=== PATIENT | female | born 1960 | race Caucasian/White ===

== ENCOUNTER → 2020-07-03 12:12 | Outpatient (BNVA) | payer OTHER, SELFPAY | PROVIDERS: PCP Nurse Practitioner Family; Referring Provider Nurse Practitioner Family; Visit Provider Physician Assistant | DX: E66.01 Morbid (severe) obesity due to excess calories (principal); Z68.42 Body mass index [BMI] 45.0-49.9, adult | CPT/HCPCS: 99202 ==

== ENCOUNTER 2020-07-05 13:39 | Outpatient (REF) | payer OTHER, SELFPAY ==
--- NOTE | ~2020-07-05 | XR_ITS ---
EXAMINATION: XR CHEST CLINICAL INFORMATION: Obesity COMPARISON: None TECHNIQUE: 2 views of the chest were obtained. FINDINGS: The cardiac and mediastinal contours are normal. The lungs are clear. There is no pleural effusion or pneumothorax. There are degenerative changes of the spine. XR/XR chest 2V IMPRESSION: No evidence for acute disease in the chest.
--- NOTE | 2020-07-05 13:47 | ECG_ITS ---
Test Reason : E66.01 Blood Pressure : / mmHG Vent. Rate : 059 BPM Atrial Rate : 059 BPM P-R Int : 140 ms QRS Dur : 078 ms QT Int : 406 ms P-R-T Axes : 035 -07 008 degrees QTc Int : 401 ms Sinus bradycardia Inferior infarct , age undetermined Abnormal ECG When compared with ECG of 16-JUN-2005 20:54, Nonspecific T wave abnormality no longer evident in Anterior leads Referred By: Amy Landaverde Electronically Signed By:DAVION PETERSEN MD
[2020-07-05 14:38] LABS: MANUAL DIFF FLAG NO
[2020-07-05 14:40] LABS: Basophils Percent Auto 0.5 % (0-2); Eosinophils Absolute Auto 0.2 X10*3/uL (0.0-0.4); Eosinophils Percent Auto 2.6 % (0-4); Hematocrit 39.1 % (37-47); Hemoglobin 13.2 g/dl (12.0-16.0); Imm Gran Abs Auto 0.01 X10*3/uL (0.00-0.03); Imm Gran Pct Auto 0.2 % (0.0-0.4); Lymphocytes Absolute Auto 1.8 X10*3/uL (1.2-4.9); Mean Corpuscular HGB Conc 33.8 g/dl (31.0-35.0); Mean Corpuscular Hemoglobin 30.1 pg (27.0-33.0); Mean Corpuscular Volume 89.1 fL (80-98); Mean Platelet Volume 9.9 fL (9.4-12.3); Monocytes Absolute Auto 0.5 X10*3/uL (0.1-1.2); Monocytes Percent Auto 8.5 % (2-11); Neutrophils Absolute Auto 3.3 X10*3/uL (2.0-8.3); Neutrophils Percent Auto 57.2 % (45-73); Platelet Count 240 X10*3/uL (160-400); Red Blood Count 4.39 X10*6/uL (4.20-5.50); Red Cell Distribution Width 12.5 % (11.0-16.0); White Blood Count 5.8 X10*3/uL (4.8-10.8)
[2020-07-05 15:03] LABS: Anion Gap 10 (12-20); Blood Urea Nitrogen 17 mg/dL (9-16); Carbon Dioxide 27 mmol/L (22-29); Chloride 108 mmol/L (96-108); Estimated Glomerular Filt Rate > 60; Potassium 4.3 mmol/L (3.3-5.1); Sodium 141 mmol/L (135-145)
[2020-07-05 15:04] LABS: Alanine Aminotransferase 29 U/L (0-31); Alkaline Phosphatase 71 U/L (39-117); Aspartate Amino Transferase 19 U/L (5-31); Bilirubin Total 0.8 mg/dL (0.0-1.0); Calcium 9.4 mg/dL (8.4-10.2); Cholesterol 227 mg/dL; Glucose Fasting 85 mg/dL (60-99); HDL Cholesterol 46 mg/dL; Iron 129 mcg/dL (30-160); LDL Cholesterol Calculated 152 mg/dl; Percent Iron Saturation 42 % (15-50); Total Iron Binding Capacity 306 mcg/dL (228-428); Total Protein 6.2 g/dL (6.5-8.0); Triglycerides 146 mg/dL; Unsaturated Iron Binding 177 ug/dL
[2020-07-05 15:09] LABS: Estimated Average Glucose 100 mg/dL; Hemoglobin A1c % 5.1 %
[2020-07-05 15:24] LABS: Ferritin 44 ng/mL (10-250); TSH reflex Free T4 0.68 uIU/mL (0.32-4.0); Vitamin D 25-OH Total 25.7 ng/mL (>30)
[2020-07-05 15:41] LABS: Vitamin B12 388 pg/mL (200-900)
[2020-07-06 09:07] LABS: Insulin Level Total 11.6 uIU/mL
[2020-07-06 12:21] LABS: Calcium (PTHI) 9.4 mg/dL (8.6-10.4); PTHI 73 pg/mL (14-64)
[2020-07-08 05:57] LABS: Zinc 82 mcg/dL (60-130)
[2020-07-09 12:22] LABS: Vitamin B1 10 nmol/L (8-30)
[2020-07-11 13:21] LABS: Vitamin A 51 mcg/dL (38-98)
== END 2020-07-05 13:40 | disposition home or self-care (01) ==
LOC: HO.LAB 13:39
PROVIDERS: PCP Nurse Practitioner Family; Visit Provider Physician Assistant
DX: R06.02 Shortness of breath (principal); E66.01 Morbid (severe) obesity due to excess calories; Z68.42 Body mass index [BMI] 45.0-49.9, adult
CPT/HCPCS: 36415; 71046; 80053; 80061; 82306; 82607; 82728; 82746; 83036; 83525; 83540; 83970; 84425; 84443; 84590; 84630; 85025; 86140; 93005

== ENCOUNTER → 2020-07-19 14:14 | Outpatient (BNVA) | payer OTHER, SELFPAY | PROVIDERS: PCP Nurse Practitioner Family; Visit Provider Dietitian, Registered | DX: E66.9 Obesity, unspecified (principal); Z68.42 Body mass index [BMI] 45.0-49.9, adult | CPT/HCPCS: 97802 ==

== ENCOUNTER → 2020-08-07 14:23 | Outpatient (BNVA) | payer OTHER, SELFPAY | PROVIDERS: PCP Nurse Practitioner Family; Referring Provider Nurse Practitioner Family; Visit Provider Surgery | DX: E66.01 Morbid (severe) obesity due to excess calories (principal); Z68.42 Body mass index [BMI] 45.0-49.9, adult | CPT/HCPCS: 99212 ==

== ENCOUNTER → 2020-08-14 14:40 | Outpatient (BNVA) | payer OTHER, SELFPAY | PROVIDERS: PCP Nurse Practitioner Family; Referring Provider Nurse Practitioner Family; Visit Provider Internal Medicine | DX: Z01.810 Encounter for preprocedural cardiovascular examination (principal); E66.01 Morbid (severe) obesity due to excess calories | CPT/HCPCS: 99202 ==

== ENCOUNTER 2020-08-31 14:17 | Outpatient (REF) | payer OTHER, SELFPAY ==
[2020-09-01 13:42] LABS: H Pylori Breath Test NOT DETECTED (NOT DETECTED)
== END 2020-08-31 14:18 | disposition home or self-care (01) ==
LOC: HO.LNP 14:17
PROVIDERS: Physician Assistant; PCP Nurse Practitioner Family; Referring Provider Nurse Practitioner Family; Visit Provider Surgery
DX: E66.01 Morbid (severe) obesity due to excess calories (principal); R06.02 Shortness of breath; K21.9 Gastro-esophageal reflux disease without esophagitis; E03.9 Hypothyroidism, unspecified; F41.8 Other specified anxiety disorders; Z11.0 Encounter for screening for intestinal infectious diseases; Z68.42 Body mass index [BMI] 45.0-49.9, adult; Z88.8 Allergy status to other drugs, medicaments and biological substances; Z79.899 Other long term (current) drug therapy
CPT/HCPCS: 83013; 99211; 99212

== ENCOUNTER → 2020-09-20 12:50 | Outpatient (BNVA) | payer OTHER, SELFPAY | PROVIDERS: PCP Nurse Practitioner Family; Visit Provider Dietitian, Registered ==

== ENCOUNTER → 2020-09-22 14:56 | Outpatient (BNVA) | payer OTHER, SELFPAY | PROVIDERS: PCP Nurse Practitioner Family; Referring Provider Nurse Practitioner Family; Visit Provider Surgery | DX: E66.01 Morbid (severe) obesity due to excess calories (principal); Z68.42 Body mass index [BMI] 45.0-49.9, adult | CPT/HCPCS: 99212 ==

== ENCOUNTER → 2020-09-27 13:07 | Outpatient (BNVA) | payer OTHER, SELFPAY | PROVIDERS: PCP Nurse Practitioner Family; Visit Provider Dietitian, Registered ==

== ENCOUNTER → 2020-10-04 12:49 | Outpatient (BNVA) | payer OTHER, SELFPAY | PROVIDERS: PCP Nurse Practitioner Family; Referring Provider Nurse Practitioner Family; Visit Provider Dietitian, Registered ==

== ENCOUNTER → 2021-04-04 08:19 | Outpatient (BNVA) | payer OTHER, SELFPAY | PROVIDERS: PCP Nurse Practitioner Family; Referring Provider Nurse Practitioner Family; Visit Provider Physician Assistant Surgical | DX: E66.01 Morbid (severe) obesity due to excess calories (principal); Z68.42 Body mass index [BMI] 45.0-49.9, adult | CPT/HCPCS: 99212 ==

== ENCOUNTER → 2021-06-20 10:20 | Outpatient (BNVA) | payer OTHER, SELFPAY | PROVIDERS: PCP Nurse Practitioner Family; Visit Provider Physician Assistant Surgical | DX: Z13.89 Encounter for screening for other disorder (principal) ==

== ENCOUNTER → 2021-09-12 09:22 | Outpatient (BNVA) | payer OTHER, SELFPAY | PROVIDERS: PCP Nurse Practitioner Family; Referring Provider Physician Assistant Surgical; Visit Provider Dietitian, Registered | DX: E66.01 Morbid (severe) obesity due to excess calories (principal); Z68.42 Body mass index [BMI] 45.0-49.9, adult | CPT/HCPCS: 97803 ==

== ENCOUNTER → 2021-10-26 12:15 | Outpatient (BNVA) | payer OTHER, SELFPAY | PROVIDERS: PCP Nurse Practitioner Family; Referring Provider Physician Assistant Surgical; Visit Provider Dietitian, Registered | DX: E66.01 Morbid (severe) obesity due to excess calories (principal); Z68.42 Body mass index [BMI] 45.0-49.9, adult; Z71.3 Dietary counseling and surveillance | CPT/HCPCS: 97803 ==

== ENCOUNTER → 2021-11-09 14:12 | Outpatient (BNVA) | payer OTHER, SELFPAY | PROVIDERS: PCP Nurse Practitioner Family; Visit Provider Dietitian, Registered | DX: E66.01 Morbid (severe) obesity due to excess calories (principal); Z68.42 Body mass index [BMI] 45.0-49.9, adult | CPT/HCPCS: 97803 ==

== ENCOUNTER → 2021-12-21 10:13 | Outpatient (BNVA) | payer OTHER, SELFPAY | PROVIDERS: PCP Nurse Practitioner Family; Visit Provider Dietitian, Registered | DX: E66.01 Morbid (severe) obesity due to excess calories (principal); Z71.3 Dietary counseling and surveillance | CPT/HCPCS: 97803 ==

== ENCOUNTER 2022-08-15 17:48 | Emergency (ER) | payer OTHER, SELFPAY ==
--- NOTE | ~2022-08-15 | CT_ITS ---
EXAMINATION: CT HEAD WITHOUT CONTRAST CLINICAL INFORMATION: Headache. COMPARISON: None. TECHNIQUE: Contiguous axial imaging was performed from the skull base to vertex without intravenous administration of contrast. Coronal and sagittal reformatted images are performed at the CT scanner. [This CT examination was performed using dose optimization techniques as appropriate, variously including the following: *Automated exposure control *Adjustment of mA and/or kV according to patient size (this includes techniques or standardized protocols for targeted exams where dose is matched to indication/reason for exam; i.e. extremities or head) *Use of iterative reconstruction technique] DLP: 595 mGy-cm. FINDINGS: There is no evidence of acute intracranial hemorrhage or territorial infarction. No abnormal mass-effect or midline shift is seen. Grace to white matter differentiation is well preserved. No extra-axial fluid collections are identified. The ventricles are normal in size. There is no abnormal attenuation within the brain parenchyma. There is no osseous abnormality. The mastoid air cells and visualized portions of the paranasal sinuses are well-aerated. CT/CT head/brain wo IV con IMPRESSION: No acute intracranial pathology.
[2022-08-15 18:18] VITALS: BP 179/112; PULSE 63; RESP 18; TEMP 36.6; O2SAT 99; BMI 46.9
--- NOTE | 2022-08-15 18:18 | ECG_ITS ---
Test Reason : HTN Blood Pressure : / mmHG Vent. Rate : 068 BPM Atrial Rate : 068 BPM P-R Int : 150 ms QRS Dur : 086 ms QT Int : 400 ms P-R-T Axes : 029 -19 012 degrees QTc Int : 425 ms Normal sinus rhythm Low voltage QRS Borderline ECG When compared with ECG of 05-JUL-2020 14:00, Criteria for Inferior infarct are no longer Present Referred By: Neelima Coronel Electronically Signed By:Paul Smith
--- NOTE | 2022-08-15 18:18 | ED.GENADULT ---
HPI - General Adult General Chief complaint: General Medical Stated complaint: elevated blood pressure 233/181 Time Seen by Provider: 08/15/22 20:41 Source: patient Mode of arrival: ambulatory Limitations: no limitations History of Present Illness HPI narrative: Patient with history of hypertension last 2 year taking lisinopril 20 mg daily does not check her blood pressure at home had a dental appointment 3 days ago blood pressure was elevated that time went to her PCP advised to continue same medication patient continued to having headache going on for last 4 days which is more than usual headache associated with nausea no light sensitivity. Blood pressure checked at home was 233/181 when she arrived blood pressure was 190/115 increased to 201/115 Related Data Home Medications Medication Instructions Recorded Confirmed biotin 5 mg capsule 5 mg PO DAILY 07/03/20 04/04/21 naltrexone 50 mg tablet 50 mg PO DAILY 07/03/20 04/04/21 omeprazole 40 mg capsule,delayed 40 mg PO DAILY 07/03/20 04/04/21 release vitamin E acetate 134 mg (200 unit PO 07/03/20 04/04/21 unit) capsule alprazolam 0.5 mg tablet 0.5 mg PO DAILY PRN 08/07/20 04/04/21 ascorbate calcium (vitamin C) 500 1 g PO DAILY 08/07/20 04/04/21 mg tablet cholecalciferol (vitamin D3) 25 25 mcg PO DAILY 08/07/20 04/04/21 mcg (1,000 unit) capsule cyanocobalamin (vitamin B-12) 1,000 mcg PO DAILY 08/07/20 04/04/21 1,000 mcg capsule fremanezumab-vfrm 225 mg/1.5 mL 675 mg subcut [id number] 08/07/20 04/04/21 subcutaneous auto-injector (Ajovy) levothyroxine 100 mcg tablet 100 mcg PO DAILY 08/07/20 04/04/21 lidocaine 5 % topical cream 1 appl topical BID PRN 08/07/20 04/04/21 multivitamin with minerals 1 tab PO DAILY 08/07/20 04/04/21 (Hair,Skin and Nails tablet) turmeric root extract 500 mg 500 mg PO DAILY 08/07/20 04/04/21 capsule brimonidine 0.2 % eye drops 1 drp ophthalmic (eye) 08/14/20 04/04/21 qixtktjpnm-fzquepuqlvlpj-ispooqwm 1 tab PO BID PRN 08/14/20 04/04/21 50 mg-325 mg-40 mg tablet ketorolac 0.5 % eye drops 1 drp ophthalmic (eye) 08/14/20 04/04/21 timolol maleate 0.5 % eye drops 1 drp ophthalmic-Right BID 08/14/20 04/04/21 aripiprazole 2 mg tablet 2 mg PO DAILY 08/31/20 04/04/21 gabapentin 100 mg capsule 100 mg PO TID 04/04/21 04/04/21 Previous Rx's Medication Instructions Recorded amlodipine 5 mg tablet 5 mg PO DAILY #30 tabs 08/15/22 Allergies Allergy/AdvReac Type Severity Reaction Status Date / Time sumatriptan [From Imitrex] Allergy Severe Anaphylaxis Verified 08/15/22 18:21 tramadol Allergy Severe Anaphylaxis Verified 08/15/22 18:21 Review of Systems Review of Systems: Yes all other systems are reviewed and are negative [facility] Past Medical History Medical History Abnormal EKG Anxiety BMI 45.0-49.9, adult Bursitis Depression Fibromyalgia GERD (gastroesophageal reflux disease) Glaucoma Hypothyroidism Migraines Morbid obesity Osteoarthritis Panic attacks Rheumatoid arthritis Shortness of breath Surgical History History of endometrial ablation Hx of cataract surgery Hx of eye surgery Hx of knee surgery Hx of wisdom tooth extraction Family History Family History Mother No problems noted. Father No problems noted. Sister No problems noted. Brother Cancer Daughter No problems noted. Social History Social History Alcohol intake: current Alcohol intake frequency: holidays/special occasions only Patient Tobacco Use Status: Never used Tobacco Advance Directives: No Advance Directives Information Provided: Yes Physical Exam ED Vital Signs: Vital Signs - 24 hr 08/15/22 18:18 08/15/22 20:43 08/15/22 21:17 Temperature 97.9 F 97.8 F Pulse Rate 63 70 Respiratory Rate 18 18 Blood Pressure 179/112 H 190/115 H 202/106 H Pulse Oximetry 99 98 Oxygen Delivery Method Room Air Room Air 08/15/22 21:58 Temperature Pulse Rate Respiratory Rate Blood Pressure 156/102 H Pulse Oximetry Oxygen Delivery Method BMI result Body Mass Index 46.9 Appearance: Alert. Oriented X3. No acute distress. Eyes: PERRLA, No Nystagmus ENT: Pharynx normal. Oral Mucosa moist no temporal artery tenderness Neck: Normal inspection. Neck supple. CVS: Normal heart rate and rhythm. Pulses normal. Respiratory: No respiratory distress. Equal air entry bilateral, no wheezing/rales/rhonchi Abdomen: Soft and nontender. Bowel sounds are present, no mass palpable, no CVA tenderness Skin: Skin warm and dry. Normal skin color. Normal skin turgor. Extremities: No lower extremity edema. No calf tenderness Neuro: Oriented X 3. No motor deficit. No sensory deficit.No cerebellar signs , cranial nerves II-XII intact Course Course Course Narrative: This is an RME: Additional HPI, ROS, PE not included below will be deferred to primary provider.62 year old female presents w/ diffuse headache, high blood pressure 233/181 patient on lisinapril and taking it per normal. No vision changes or dizziness. Recent life stressors including broken tooth and in family. NIHSS-0 Plan- labs, ekg Medications Administered Discontinued Medications Generic Name Dose Route Start Last Admin Trade Name Borisq PRN Reason Stop Dose Admin Labetalol HCl 20 mg 08/15/22 20:52 08/15/22 21:10 Labetalol Hcl 100 Mg/20 Ml Vial IVPUSH 08/15/22 20:53 20 mg ONCE ONE Administration Medical Decision Making Medical Decision Making [facility] Narrative: Patient with anxiety , migraine with hypertension on lisinopril/hydrochlorothiazide elevated blood pressure improved after IV labetalol is still blood pressure 151/102 patient feeling much better now will start patient on amlodipine [address] scan of the head was negative for any acute patient has a follow-up planned to see neurologist for migraine headache Differential Diagnosis Differential Diagnoses: The differential diagnosis associated with the presentation includes Accelerated hypertension/SAH/migraine headaches/anxiety Lab Data [facility] Lab Attestation statement: I reviewed the patient's lab results. 08/15/22 18:30 08/15/22 18:30 Labs: Lab Results 08/15/22 08/15/22 08/15/22 Range/Units 18:30 18:30 18:30 WBC 7.4 (4.8-10.8) X10*3/uL RBC 4.70 (4.20-5.50) X10*6/uL Hgb 14.3 (12.0-16.0) g/dl Hct 41.5 (37.0-47.0) % MCV 88.3 (80.0-98.0) fL MCH 30.4 (27.0-33.0) pg MCHC 34.5 (31.0-35.0) g/dl RDW 12.9 (11.0-16.0) % Plt Count 264 (160-400) X10*3/uL MPV 9.5 (9.4-12.3) fL Immature Gran % (Auto) 0.3 (0.0-0.4) % Neut % (Auto) 56.1 (45-73) % Lymph % (Auto) 31.1 (20-40) % Republic % (Auto) 8.9 (2-11) % Eos % (Auto) 3.1 (0-4) % Baso % (Auto) 0.5 (0-2) % Lymph # (Auto) 2.3 (1.2-4.9) X10*3/uL Republic # (Auto) 0.7 (0.1-1.2) X10*3/uL Eos # (Auto) 0.2 (0.0-0.4) X10*3/uL Baso # (Auto) 0.0 (0.0-0.2) X10*3/uL Abs Immat Gran (auto) 0.02 (0.00-0.03) X10*3/uL Absolute Neuts (auto) 4.2 (2.0-8.3) x10*3/uL Absolute Nucleated RBC 0.000 (0.0-0.012) X10*3/uL Nucleated RBC % (auto) 0.0 (0.0-0.2) /100WBC PT (10.0-13.1) SEC INR (0.9-1.1) Sodium 143 (135-145) mmol/L Potassium 4.0 (3.3-5.1) mmol/L Chloride 104 (96-108) mmol/L Carbon Dioxide 28 (22-29) mmol/L Anion Gap 15 (12-20) BUN 20 H (9-16) mg/dL Creatinine 0.86 (0.5-1.4) mg/dL Estim Creat Clear Calc 75.8 Estimated GFR > 60 Random Glucose 104 (60-115) mg/dL Calcium 10.5 H D (8.4-10.2) mg/dL Magnesium 1.9 (1.6-2.6) mg/dL Total Bilirubin 0.6 (0.0-1.0) mg/dL AST 17 (5-31) U/L ALT 23 (0-31) U/L Alkaline Phosphatase 66 (39-117) U/L Troponin I High Sens < 2.7 (<3.5-17.0) ng/L Total Protein 6.9 (6.5-8.0) g/dL Albumin 4.2 (3.5-5.0) g/dL 08/15/22 Range/Units 21:06 WBC (4.8-10.8) X10*3/uL RBC (4.20-5.50) X10*6/uL Hgb (12.0-16.0) g/dl Hct (37.0-47.0) % MCV (80.0-98.0) fL MCH (27.0-33.0) pg MCHC (31.0-35.0) g/dl RDW (11.0-16.0) % Plt Count (160-400) X10*3/uL MPV (9.4-12.3) fL Immature Gran % (Auto) (0.0-0.4) % Neut % (Auto) (45-73) % Lymph % (Auto) (20-40) % Republic % (Auto) (2-11) % Eos % (Auto) (0-4) % Baso % (Auto) (0-2) % Lymph # (Auto) (1.2-4.9) X10*3/uL Republic # (Auto) (0.1-1.2) X10*3/uL Eos # (Auto) (0.0-0.4) X10*3/uL Baso # (Auto) (0.0-0.2) X10*3/uL Abs Immat Gran (auto) (0.00-0.03) X10*3/uL Absolute Neuts (auto) (2.0-8.3) x10*3/uL Absolute Nucleated RBC (0.0-0.012) X10*3/uL Nucleated RBC % (auto) (0.0-0.2) /100WBC PT 11.0 (10.0-13.1) SEC INR 1.0 (0.9-1.1) Sodium (135-145) mmol/L Potassium (3.3-5.1) mmol/L Chloride (96-108) mmol/L Carbon Dioxide (22-29) mmol/L Anion Gap (12-20) BUN (9-16) mg/dL Creatinine (0.5-1.4) mg/dL Estim Creat Clear Calc Estimated GFR Random Glucose (60-115) mg/dL Calcium (8.4-10.2) mg/dL Magnesium (1.6-2.6) mg/dL Total Bilirubin (0.0-1.0) mg/dL AST (5-31) U/L ALT (0-31) U/L Alkaline Phosphatase (39-117) U/L Troponin I High Sens (<3.5-17.0) ng/L Total Protein (6.5-8.0) g/dL Albumin (3.5-5.0) g/dL Independent Interpretation I performed an independent interpretation of an: EKG Interpretation: Normal sinus rhythm heart rate 68 beats per minute normal interval normal axis no acute ST wave changes no acute ischemia Critical Care Time Critical Care Time Critical Care Time: Yes Total Critical Care Time: 35 Attestation: The patient was critically ill with a high probability of imminent or life threatening deterioration. I spent greater than 45 minutes of discontinuous time evaluating the patient,delivering critical care at the bedside, discussing and evaluating pertinent data with consultants. Critical care time does not include time spent performing separately billable procedures or teaching. Total time spent performing critical care was 35 minutes. Discharge Plan Discharge Clinical Impression: Hypertension, uncontrolled Patient Disposition: Home, Self-Care Instructions: Chronic Hypertension (ED) Additional Instructions: Continue your lisinopril/hydrochlorothiazide daily Check blood pressure before take the medication and before you go to bed it should be less than 135/85 Start taking amlodipine 5 mg daily in the morning for blood pressure control Check blood pressure at least 2 times if it is elevated Follow with a neurologist/PCP Prescriptions: New amlodipine 5 mg tablet 5 mg PO DAILY Qty: 30 0RF No Action vitamin E acetate 200 unit capsule PO biotin 5 mg capsule 5 mg PO DAILY omeprazole 40 mg capsule,delayed release(DR/EC) 40 mg PO DAILY naltrexone 50 mg tablet 50 mg PO DAILY Ajovy Autoinjector 225 mg/1.5 mL auto-injector 675 mg subcut [id number] Patient Comments: taken monthly Rx Instructions: administer as 3 consecutive 225 mg injections alprazolam 0.5 mg tablet 0.5 mg PO DAILY PRN aripiprazole 2 mg tablet 2 mg PO DAILY levothyroxine 100 mcg tablet 100 mcg PO DAILY cholecalciferol (vitamin D3) 25 mcg (1,000 unit) capsule 25 mcg PO DAILY turmeric root extract 500 mg capsule 500 mg PO DAILY ascorbate calcium (vitamin C) 500 mg tablet 1 g PO DAILY multivitamin with minerals [Hair,Skin and Nails] Tablet 1 tab PO DAILY lidocaine 5 % cream 1 appl topical BID PRN cyanocobalamin (vitamin B-12) 1,000 mcg capsule 1,000 mcg PO DAILY timolol maleate 0.5 % drops 1 drp ophthalmic-Right BID brimonidine 0.2 % drops 1 drp ophthalmic (eye) ketorolac 0.5 % drops 1 drp ophthalmic (eye) vjjorpkjfo-zzslagtcqiaju-mmas 50-325-40 mg tablet 1 tab PO BID PRN gabapentin 100 mg capsule 100 mg PO TID
[2022-08-15 18:33] LABS: MANUAL DIFF FLAG NO
[2022-08-15 18:49] LABS: Basophils Percent Auto 0.5 % (0-2); Eosinophils Absolute Auto 0.2 X10*3/uL (0.0-0.4); Eosinophils Percent Auto 3.1 % (0-4); Hematocrit 41.5 % (37.0-47.0); Hemoglobin 14.3 g/dl (12.0-16.0); Imm Gran Abs Auto 0.02 X10*3/uL (0.00-0.03); Imm Gran Pct Auto 0.3 % (0.0-0.4); Lymphocytes Absolute Auto 2.3 X10*3/uL (1.2-4.9); Lymphocytes Percent Auto 31.1 % (20-40); Mean Corpuscular HGB Conc 34.5 g/dl (31.0-35.0); Mean Corpuscular Hemoglobin 30.4 pg (27.0-33.0); Mean Corpuscular Volume 88.3 fL (80.0-98.0); Mean Platelet Volume 9.5 fL (9.4-12.3); Monocytes Absolute Auto 0.7 X10*3/uL (0.1-1.2); Monocytes Percent Auto 8.9 % (2-11); Neutrophils Absolute Auto 4.2 x10*3/uL (2.0-8.3); Neutrophils Percent Auto 56.1 % (45-73); Platelet Count 264 X10*3/uL (160-400); Red Cell Distribution Width 12.9 % (11.0-16.0); White Blood Count 7.4 X10*3/uL (4.8-10.8)
[2022-08-15 18:50] LABS: Alanine Aminotransferase 23 U/L (0-31); Albumin Level 4.2 g/dL (3.5-5.0); Alkaline Phosphatase 66 U/L (39-117); Anion Gap 15 (12-20); Aspartate Amino Transferase 17 U/L (5-31); Bilirubin Total 0.6 mg/dL (0.0-1.0); Blood Urea Nitrogen 20 mg/dL (9-16); Calcium 10.5 mg/dL (8.4-10.2); Carbon Dioxide 28 mmol/L (22-29); Chloride 104 mmol/L (96-108); Creatinine Clr Calc Pharmacy 75.8; Estimated Glomerular Filt Rate > 60; Glucose Random 104 mg/dL (60-115); Magnesium 1.9 mg/dL (1.6-2.6); Sodium 143 mmol/L (135-145); Total Protein 6.9 g/dL (6.5-8.0)
[2022-08-15 19:03] LABS: Troponin-I High Sensitivity < 2.7 ng/L (<3.5-17.0)
[2022-08-15 20:43] VITALS: BP 190/115; PULSE 70; RESP 18; TEMP 36.6; O2SAT 98
[2022-08-15] MEDS: Labetalol HCL 100 MG/20 ML VIAL 20 MG IVPUSH (21:10)
[2022-08-15 21:17] VITALS: BP 202/106
[2022-08-15 21:58] VITALS: BP 156/102
[2022-08-15] MEDS: amLODIPine Besylate 5 MG TABLET PO (22:09)
--- NOTE | 2022-08-15 22:11 | PC.NURSE ---
Pt ca&ox3, no signs of distress. Pt medicated per apr. wctm.
== END 2022-08-15 22:46 | disposition home or self-care (01) ==
PROVIDERS: Physician Assistant; Emergency Provider Internal Medicine; PCP Nurse Practitioner Family
DX: I10 Essential (primary) hypertension (principal); R51.9 Headache, unspecified; Z79.899 Other long term (current) drug therapy
CPT/HCPCS: 36415; 70450; 80053; 83735; 84484; 85025; 85610; 93005; 96374; 99284

== ENCOUNTER 2024-01-09 15:01 | Emergency (ER) | payer OTHER, SELFPAY ==
[2024-01-09 15:30] VITALS: PULSE 76; RESP 16; TEMP 36.6; O2SAT 98; BMI 46.5
--- NOTE | 2024-01-09 15:31 | ED_ITS ---
HPI - General Adult General Chief complaint: Dental/Oral Stated complaint: root canal pain Time Seen by Provider: 01/09/24 15:31 Source: patient, RN notes reviewed and old records reviewed Mode of arrival: ambulatory Limitations: no limitations History of Present Illness ED Provider: Bran MUHAMMAD narrative: 63-year-old female presents for evaluation of left facial pain and dental pain. patient reports that she had a root canal most recently Friday, 9 days ago she has had severe pain since Friday, she is on her 2nd course of antibiotics, currently clindamycin she reports no improvement with Tylenol her pain is 10/10 to the left side of her lower jaw and face. She reports that she is having pain with chewing and the pain is so bad she can not pressure teeth Related Data Home Medications ?Medication ?Instructions ?Recorded ?Confirmed biotin 5 mg capsule 5 mg PO DAILY 07/03/20 04/04/21 naltrexone 50 mg tablet 50 mg PO DAILY 07/03/20 04/04/21 omeprazole 40 mg capsule,delayed 40 mg PO DAILY 07/03/20 04/04/21 release vitamin E acetate 134 mg (200 unit PO 07/03/20 04/04/21 unit) capsule alprazolam 0.5 mg tablet 0.5 mg PO DAILY PRN 08/07/20 04/04/21 ascorbate calcium (vitamin C) 500 1 g PO DAILY 08/07/20 04/04/21 mg tablet cholecalciferol (vitamin D3) 25 25 mcg PO DAILY 08/07/20 04/04/21 mcg (1,000 unit) capsule cyanocobalamin (vitamin B-12) 1,000 mcg PO DAILY 08/07/20 04/04/21 1,000 mcg capsule fremanezumab-vfrm 225 mg/1.5 mL 675 mg subcut [id number] 08/07/20 04/04/21 subcutaneous auto-injector (Ajovy) levothyroxine 100 mcg tablet 100 mcg PO DAILY 08/07/20 04/04/21 lidocaine 5 % topical cream 1 appl topical BID PRN 08/07/20 04/04/21 multivitamin with minerals 1 tab PO DAILY 08/07/20 04/04/21 (Hair,Skin and Nails tablet) turmeric root extract 500 mg 500 mg PO DAILY 08/07/20 04/04/21 capsule brimonidine 0.2 % eye drops 1 drp ophthalmic (eye) 08/14/20 04/04/21 nkbysfmuei-pvnlvedgowxqw-faogreur 1 tab PO BID PRN 08/14/20 04/04/21 50 mg-325 mg-40 mg tablet ketorolac 0.5 % eye drops 1 drp ophthalmic (eye) 08/14/20 04/04/21 timolol maleate 0.5 % eye drops 1 drp ophthalmic-Right BID 08/14/20 04/04/21 aripiprazole 2 mg tablet 2 mg PO DAILY 08/31/20 04/04/21 gabapentin 100 mg capsule 100 mg PO TID 04/04/21 04/04/21 Previous Rx's ?Medication ?Instructions ?Recorded amlodipine 5 mg tablet 5 mg PO DAILY #30 tabs 08/15/22 oxycodone 5 mg tablet 5 mg PO Q6H PRN severe pain (scale 01/09/24 score 7-10) #16 tabs Allergies Allergy/AdvReac Type Severity Reaction Status Date / Time sumatriptan [From Imitrex] Allergy Severe Anaphylaxis Verified 01/09/24 15:31 tramadol Allergy Severe Anaphylaxis Verified 01/09/24 15:31 Review of Systems ENT: Reports facial pain and Reports mouth pain PMFSH Past Medical History Medical History Abnormal EKG Anxiety BMI 45.0-49.9, adult Bursitis Depression Fibromyalgia GERD (gastroesophageal reflux disease) Glaucoma Hypothyroidism Migraines Morbid obesity Osteoarthritis Panic attacks Rheumatoid arthritis Shortness of breath Surgical History History of endometrial ablation Hx of cataract surgery Hx of eye surgery Hx of knee surgery Hx of wisdom tooth extraction Family History Family History Mother No problems noted. Father No problems noted. Sister No problems noted. Brother Cancer Daughter No problems noted. Social History Social History Alcohol intake: current Alcohol intake frequency: holidays/special occasions only Patient Tobacco Use Status: Never used Tobacco Do you have a plan to hurt others: No Plan Physical Exam ED Vital Signs: Vital Signs - 24 hr 01/09/24 15:30 Temperature 97.8 F Pulse Rate 76 Respiratory Rate 16 Pulse Oximetry 98 Oxygen Delivery Method Room Air BMI result Body Mass Index 46.5 Const General: healthy appearing, no acute distress, alert and awake Nutritional Appearance: well nourished Orientation/consciousness: patient oriented x3 HENMT Other: unremarkable dental exam, no gingival edema, erythema or abscess. no obvious dental trauma Head: Yes normocephalic and Yes atraumatic Neck Neck: Yes full ROM Resp Effort & Inspection: normal respiratory effort, able to speak in complete sentences and not labored Skin General skin exam: elasticity normal Neuro General: patient oriented x3 Cranial nerves: Yes Bilaterally intact EOM present Cognition (Neuro): normal cognition Extrem Other: Moving all extremities well without any obvious deformities Medical Decision Making Medical Decision Making MDM Narrative: 63-year-old female presents for evaluation of facial pain /dental pain after a recent root canal. On exam, there is no obvious dental infection or abscess. The patient is currently taking clindamycin. We will treat the patient's pain with oxycodone and she will be referred back to her dentist for definitive treatment of her pain Differential Diagnosis Differential Diagnoses: The differential diagnosis associated with the presentation includes dental caries Dental pain Facial pain Gingivitis Discharge Plan Discharge Clinical Impression: Atypical facial pain Patient Disposition: Home, Self-Care Instructions: Toothache (ED) Additional Instructions: it is important that you follow-up with your dentist you may continue using Tylenol for pain. Use oxycodone for more severe breakthrough pain. This may make you drowsy, do not drink alcohol or drive after taking it you may also use [id number] Orajel/benzocaine to put directly onto the painful area Prescriptions: New oxycodone 5 mg tablet 5 mg PO Q6H PRN (Reason: severe pain (scale score 7-10)) Qty: 16 0RF Rx Instructions: Partial Fill upon patient request. No Action amlodipine 5 mg tablet 5 mg PO DAILY Qty: 30 0RF vitamin E acetate 200 unit capsule PO biotin 5 mg capsule 5 mg PO DAILY omeprazole 40 mg capsule,delayed release(DR/EC) 40 mg PO DAILY naltrexone 50 mg tablet 50 mg PO DAILY Ajovy Autoinjector 225 mg/1.5 mL auto-injector 675 mg subcut [id number] Patient Comments: taken monthly Rx Instructions: administer as 3 consecutive 225 mg injections alprazolam 0.5 mg tablet 0.5 mg PO DAILY PRN aripiprazole 2 mg tablet 2 mg PO DAILY levothyroxine 100 mcg tablet 100 mcg PO DAILY cholecalciferol (vitamin D3) 25 mcg (1,000 unit) capsule 25 mcg PO DAILY turmeric root extract 500 mg capsule 500 mg PO DAILY ascorbate calcium (vitamin C) 500 mg tablet 1 g PO DAILY multivitamin with minerals [Hair,Skin and Nails] Tablet 1 tab PO DAILY lidocaine 5 % cream 1 appl topical BID PRN cyanocobalamin (vitamin B-12) 1,000 mcg capsule 1,000 mcg PO DAILY timolol maleate 0.5 % drops 1 drp ophthalmic-Right BID brimonidine 0.2 % drops 1 drp ophthalmic (eye) ketorolac 0.5 % drops 1 drp ophthalmic (eye) cmbmorqmzv-jdlcpfgupunzq-vbqx 50-325-40 mg tablet 1 tab PO BID PRN gabapentin 100 mg capsule 100 mg PO TID Print Language: Panamanian
[2024-01-09] MEDS: oxyCODONE HCl Immed Release 5 MG TABLET PO (15:36)
--- OUTSIDE RECORDS SUMMARY | 2024-01-09 15:43 | XMS_ITS | Continuity of Care Document ---
Author Organization [facility] Adult Address [address] [place] [address]- Care Team Providers Care Robotic Weld Technician Name Role Phone Latisha Boyce NP Primary Care Physician [place] [facility] [place] 02/13/20 [facility] Adult [address] [place] [address]- Allergies, Adverse Reactions, Alerts Substance Reaction Severity Status Imitrex Active Immunizations Given and Recorded Vaccine Date Status Refusal Reason Boostrix (Tdap) (oldterm) 12/28/15 Recorded hepatitis B adult vaccine 07/27/13 Recorded hepatitis B adult vaccine 03/03/13 Recorded hepatitis B adult vaccine 02/01/13 Recorded Medications ALPRAZolam 0.5 mg oral tablet 0.5 mg, 1, tablet, By Mouth, Daily, PRN, # 15 tablet, Refills 0, Tot. Refills 0, Maintenance, for anxiety, 11/26/18 17:02:00 EDT, Route to Pharmacy Electronically, [id number], [facility] #[id number] Start Date: 11/26/18 Status: Ordered ARIPiprazole 2 mg oral tablet 2 mg, 1, tablet, By Mouth, Daily, # 30 tablet, Refills 1, Tot. Refills 1, Maintenance, 03/30/19 9:56:00 EST, Route to Pharmacy Electronically, [facility] #[id number], 156, cm, 01/12/19 11:15:00 EST, Height, 103.1, kg, 01/17/18 9:53:00 EST, Dry We... Start Date: 03/30/19 Stop Date: 06/28/19 Status: Ordered levothyroxine 0.088 mg oral tablet 1 tablet = 88 mcg, By Mouth, Daily, Repeat TSH in 6 weeks Dose decrease, # 30 tablet, 5 Refills, Maintenance, 09/30/19 15:30:00 EDT, Tablet, [facility] #[id number], 153, cm, 08/06/19 16:24:00 EDT, Height, 107, kg, 08/06/19 16:24:00 EDT, Dry Weight Start Date: 09/30/19 Status: Ordered levothyroxine 0.1 mg oral tablet 1 tablet = 100 mcg, By Mouth, Daily, # 30 tablet, 1 Refills, Maintenance, 01/14/20 8:40:00 EST, Tablet, [facility] #[id number], Partial fill upon patient request, 153, cm, 01/05/20 15:53:00 EST,Height, 107, kg, 08/06/19 16:24:00 EDT, Dry Weight Start Date: 01/14/20 Stop Date: 03/14/20 Status: Ordered lidocaine 5% topical ointment See Instructions, PRN Pain , Moderate, 2 to 3 g Topically 3 times a day, # 50 Gm, 1 Refills, Acute 11/01/20 13:10:00 EDT, 11/02/19 13:10:00 EDT, Ointment, [facility] #[id number], 2 to 3 g Topically 3 times a day,PRN:Pain , Moderate, 153, cm, 07/18... Start Date: 11/02/19 Stop Date: 11/01/20 Status: Ordered naltrexone 50 mg oral tablet 0.5 tablet, By Mouth, Daily, # 15 tablet, 5 Refills, Acute 09/21/20 12:21:00 EDT, 09/22/19 12:21:00EDT, [facility] #[id number], 153, cm, 08/06/19 16:24:00 EDT, Height, 107, kg, 08/06/19 16:24:00 EDT, Dry Weight Start Date: 09/22/19 Stop Date: 09/21/20 Status: Ordered omeprazole 40 mg oral enteric coated capsule 1 capsule = 40 mg, By Mouth, Daily, New script, # 30 capsule, 2 Refills, Maintenance, 12/15/19 8:48:00 EDT, EC Capsule, [facility] #[id number], 153, cm, 08/06/19 16:24:00 EDT, Height, 107, kg, 08/06/19 16:24:00 EDT, Dry Weight Start Date: 12/15/19 Status: Ordered traZODone 150 mg oral tablet 1 tablet = 150 mg, By Mouth, Daily at bedtime, Dose increase, # 30 tablet, 2 Refills, Maintenance, 09/28/18 10:56:57 EDT, Tablet Start Date: 09/28/18 Status: Ordered Problem List Condition Effective Dates Status Health Status Inform ant Depression(Confirmed) Active Fibromyalgia(Confirmed) Active Glaucoma(Confirmed) Active Hypothyroidism(Confirmed) Active Migraine(Confirmed) Active Social History Social History Type Response Smoking Status Never smoker; Tobacc o user in household: No; Type: Cigarettes entered on: 09/04/17 Sex
--- OUTSIDE RECORDS SUMMARY | 2024-01-09 15:43 | XMS_ITS | Continuity of Care Document ---
Author Organization [facility] Adult Address [address] [place] [address]- Care Team Providers Care Track Repair Laborer Name Role Phone Latisha Boyce NP Primary Care Physician [phone] Encounter [facility] [place] Date(s): 05/04/21 - 06/03/21 [facility] Adult [address] [place] [address]- Allergies, Adverse Reactions, Alerts Substance Reaction Severity Status Imitrex Active Ultram 1 Active 1bradycardia ' Immunizations Given and Recorded Vaccine Date Status Refusal Reason SARS-CoV-2 (COVID-19) mRNA BNT-162b2 vac 02/20/21 Recorded SARS-CoV-2 (COVID-19) mRNA BNT-162b2 vac 05/02/20 Recorded SARS-CoV-2 (COVID-19) mRNA BNT-162b2 vac 04/09/20 Recorded Boostrix (Tdap) (oldterm) 12/28/15 Recorded tetanus/diphtheria/pertussis, acel(Tdap) 12/28/15 Recorded hepatitis B adult vaccine 07/27/13 Recorded hepatitis B adult vaccine 03/03/13 Recorded hepatitis B adult vaccine 02/01/13 Recorded Medications ALPRAZolam 0.5 mg oral tablet 0.5 mg, 1, tablet, By Mouth, Daily, PRN, # 15 tablet, Refills 0, Tot. Refills 0, Maintenance, for anxiety, 11/26/18 17:02:00 EDT, Route to Pharmacy Electronically, [id number], [facility] #[id number] Start Date: 11/26/18 Status: Ordered Aquaphor Healing topical ointment See Instructions, Apply to wound BID, # 30 mL, 0 Refills, Maintenance, 10/11/20 16:23:00 EDT, [facility] #[id number], Partial fill upon patient request if the prescription is for a schedule II opioid drug., Apply to wound BID, 153, cm, 10/11/20 1... Start Date: 10/11/20 Status: Ordered ARIPiprazole 2 mg oral tablet 2 mg, 1, tablet, By Mouth, Daily, # 30 tablet, Refills 1, Tot. Refills 1, Maintenance, 03/30/19 9:56:00 EST, Route to Pharmacy Electronically, [facility] #[id number], 156, cm, 01/12/19 11:15:00 EST, Height, 103.1, kg, 01/17/18 9:53:00 EST, Dry We... Start Date: 03/30/19 Stop Date: 06/28/19 Status: Ordered gabapentin 300 mg oral capsule See Instructions, TAKE 1 CAPSULE BY MOUTH DAILY AT BEDTIME FOR 14 DAYS TAKE 100 MG AM AND NOON AND 300 MG AT NIGHT, # 14 capsule, Refills 0, Instructions Replace Required Details, Route to Pharmacy Electronically, [facility] #[id number], 153, cm,... Start Date: 05/30/21 Status: Ordered levothyroxine 0.1 mg oral tablet 1 tablet = 100 mcg, By Mouth, Daily, # 90 tablet, 1 Refills, Maintenance, 12/14/20 12:57:00 EDT, Tablet, [facility] #[id number], Partial fill upon patient request, 153, cm, 10/11/20 15:18:00 EDT, Height, 107, kg, 08/06/19 16:24:00 EDT, Dry Weight Start Date: 12/14/20 Stop Date: 06/12/21 Status: Ordered lisinopril 20 mg oral tablet 20 mg, 1, tablet, By Mouth, Daily, # 90 tablet, Refills 2, Tot. Refills 2, Maintenance, 05/02/21 10:25:00 EDT, Route to Pharmacy Electronically, [facility] #[id number], Partial fill upon patientrequest if the prescription is for a schedule II op... Start Date: 05/02/21 Stop Date: 01/27/22 Status: Ordered naltrexone 50 mg oral tablet 0.5 tablet, By Mouth, Daily, # 45 tablet, 4 Refills, [facility] #[id number], 153, cm, 12/26/2112:09:00 EST, Height, 107, kg, 08/06/19 16:24:00 EDT, Dry Weight Start Date: 01/19/21 Status: Ordered omeprazole 40 mg oral enteric coated capsule 1 capsule, By Mouth, Daily, # 90 capsule, 0 Refills, [facility] #[id number], 153, cm, 227:59:00 EST, Height, 107, kg, 08/06/19 16:24:00 EDT, Dry Weight Start Date: 04/19/21 Status: Ordered Problem List Condition Effective Dates Status Health Status Inform ant Depression(Confirmed) Active Fibromyalgia(Confirmed) Active Glaucoma(Confirmed) Active HTN (hypertension)(Confirmed) Active Hypothyroidism(Confirmed) Active Migraine(Confirmed) Active Severe obesity(Confirmed) Active Social History Social History Type Response Smoking Status Never smoker; Tobacc o user in household: No; Type: Cigarettes entered on: 09/04/17 Sex
--- OUTSIDE RECORDS SUMMARY | 2024-01-09 15:43 | XMS_ITS | Continuity of Care Document ---
Author Organization [facility] Adult Address [address] [place] [address]- Care Team Providers Care Senior Speech Pathologist Name Role Phone Latisha Boyce NP Primary Care Physician [place] [facility] [place]23 [place] 06/20/23 [facility] Adult [address] [place] [address]- Allergies, Adverse Reactions, Alerts Substance Reaction Severity Status Imitrex Active Ultram 1 Active 1bradycardia ' Immunizations Given and Recorded Vaccine Date Status Refusal Reason [id number] 12y+ bivalent booster vax 01/04/22 Recorded SARS-CoV-2 mRNA ([id number]) vax 09/03/21 Recorded SARS-CoV-2 (COVID-19) mRNA BNT-162b2 vac 02/20/21 Recorded SARS-CoV-2 (COVID-19) mRNA BNT-162b2 vac 05/02/20 Recorded SARS-CoV-2 (COVID-19) mRNA BNT-162b2 vac 04/09/20 Recorded Boostrix (Tdap) (oldterm) 12/28/15 Recorded tetanus/diphtheria/pertussis, acel(Tdap) 12/28/15 Recorded hepatitis B adult vaccine 07/27/13 Recorded hepatitis B adult vaccine 03/03/13 Recorded hepatitis B adult vaccine 02/01/13 Recorded Medications acetaminophen/butalbital/caffeine 325 mg-50 mg-40 mg oral tablet See Instructions, PRN as needed, 1 to 2 tablets or capsules every 4 hours as needed; not to exceed 6 tablets or capsules daily., # 20 tablet, 1 Refills, Maintenance, 04/23/23 12:40:00 EST, Tablet, [facility] #[id number], Partial fill upon patient... Start Date: 04/23/23 Status: Ordered Ajovy Autoinjector 225 mg/1.5 mL subcutaneous solution 0 Refills, Maintenance, 08/13/22 8:57:00 EDT, Partial fill upon patient request if the prescriptionis for a schedule II opioid drug. Start Date: 08/13/22 Status: Ordered Ajovy Autoinjector 225 mg/1.5 mL subcutaneous solution = 225 mg, Subcutaneous Injection, Every 28 days, # 1 kit, 5 Refills, Maintenance, 05/21/23 12:30:00EDT, [facility]/pharmacy #[id number], Partial fill upon patient request if the prescription is for a schedule IIopioid drug., 155, cm, 11/06/22 9:35:00 EDT, Height... Start Date: 05/21/23 Status: Ordered ALPRAZolam 0.5 mg oral tablet Refills 0, Maintenance, 08/13/22 8:57:00 EDT, Partial fill upon patient request if the prescriptionis for a schedule II opioid drug. Start Date: 08/13/22 Status: Ordered amLODIPine 5 mg oral tablet 5 mg, 1, tablet, By Mouth, Daily, # 90 tablet, Refills 1, Tot. Refills 1, Maintenance, 03/12/23 11:01:00 EST, Route to Pharmacy Electronically, [facility] #[id number], Partial fill upon patient request if the prescription is for a schedule II opi... Start Date: 03/12/23 Status: Ordered ARIPiprazole 2 mg oral tablet Refills 0, Maintenance, 08/13/22 8:57:00 EDT, Partial fill upon patient request if the prescriptionis for a schedule II opioid drug. Start Date: 08/13/22 Status: Ordered brimonidine 0.2% ophthalmic solution 0 Refills, Maintenance, 08/13/22 8:57:00 EDT, Partial fill upon patient request if the prescriptionis for a schedule II opioid drug. Start Date: 08/13/22 Status: Ordered duloxetine 20 mg oral enteric coated capsule 1 capsule, By Mouth, 2 times a day, CAN. START WITH EVERY DAY AND CHANGE TO 2 TIMES DAILY AFTER 3 DAYS, # 60 capsule, 0 Refills, Maintenance, 09/13/22 17:08:00 EDT, [facility] #[id number], 155, cm, 09/05/22 9:14:00 EDT, Height, 108, kg, 08/30/22... Start Date: 09/13/22 Status: Ordered fluorometholone 0.1% ophthalmic suspension 0 Refills, Maintenance, 08/13/22 8:57:00 EDT, Partial fill upon patient request if the prescriptionis for a schedule II opioid drug. Start Date: 08/13/22 Status: Ordered Home Blood Pressure Monitor See Instructions, # 1 each, Maintenance, Use to check your BP once in the AM and once in the PM 47 cm arm measurement, 11/06/22 10:16:00 EDT, Supply Start Date: 11/06/22 Status: Ordered hydrochlorothiazide-lisinopril 12.5 mg-20 mg oral tablet 1 tablet, By Mouth, Daily, # 90 tablet, 1 Refills, Maintenance, 01/28/23 9:27:00 [facility] #[id number], 90, 1 tablet By Mouth Daily, 155, cm, 11/06/22 9:35:00 EDT, Height, 108, kg, 08/30/22 19:57:00 EDT, Dry Weight Start Date: 01/28/23 Status: Ordered levothyroxine 0.1 mg oral tablet 1 tablet, By Mouth, Daily, # 90 tablet, 1 Refills, Maintenance, 03/21/23 7:16:00 [facility] #[id number], 155, cm, 11/06/22 9:35:00 EDT, Height, 108, kg, 08/30/22 19:57:00 EDT, Dry Weight Start Date: 03/21/23 Status: Ordered lidocaine 5% topical ointment 2 TO 3 GRAMS, Topically, 3 times a day, PRN NEEDED FOR MODERATE PAIN, PT REQUESTING NON SCENTED OINTMENT, # 50 Gm, 0 Refills, Maintenance, 04/23/23 12:23:00 [facility] #[id number], 20, PT REQUESTING NON SCENTED OINMENT, 2 TO 3 GRAMS Topic... Start Date: 04/23/23 Status: Ordered lisinopril 20 mg oral tablet 1, tablet, By Mouth, Daily at bedtime, # 90 tablet, Refills 0, Tot. Refills 0, Maintenance, 05/16/23 13:39:00 EDT, Route to Pharmacy Electronically, [facility] #[id number], 155, cm, 11/06/22 9:35:00 EDT, Height, 108, kg, 08/30/22 19:57:00 EDT, . Start Date: 05/16/23 Status: Ordered naltrexone 50 mg oral tablet 1 tablet, By Mouth, Daily, # 90 tablet, 1 Refills, Maintenance, 05/21/23 12:30:00 EDT, [facility]/pharmacy#[id number], 155, cm, 11/06/22 9:35:00 EDT, Height, 108, kg, 08/30/22 19:57:00 EDT, Dry Weight Start Date: 05/21/23 Stop Date: 11/17/23 Status: Ordered omeprazole 40 mg oral enteric coated capsule 1 capsule, By Mouth, Daily, # 90 capsule, 1 Refills, Maintenance, 04/29/23 9:27:00 EDT, [facility] #[id number], 155, cm, 11/06/22 9:35:00 EDT, Height, 108, kg, 08/30/22 19:57:00 EDT, Dry Weight Start Date: 04/29/23 Status: Ordered Rhopressa 0.02% ophthalmic solution 0 Refills, Maintenance, 08/13/22 8:57:00 EDT, Partial fill upon patient request if the prescriptionis for a schedule II opioid drug. Start Date: 08/13/22 Status: Ordered Timolol Maleate (Eqv-Timoptic) 0.5% ophthalmic solution 0 Refills, Maintenance, 08/13/22 8:57:00 EDT, Partial fill upon patient request if the prescriptionis for a schedule II opioid drug. Start Date: 08/13/22 Status: Ordered Problem List Condition Confirmation Course Effective Dates Status Health St atus Informant Fibromyalgia Confirmed Active Glaucoma Confirmed Active HTN (hypertension) Confirmed Active Hypothyroidism Confirmed Active Depression Confirmed Active Migraine Confirmed Active Severe obesity Confirmed Active Social History Social History Type Response Smoking Status Never smoker; Tobacc o user in household: No; Type: Cigarettes entered on: 09/04/17 Sex Patient Care team information Care Team Personnel Name: Latisha Boyce NP Position: [facility]O Associate Professional Member Role: PCP Address: Address: [address] [place] [address]- [place] Care Team Related Persons Name: TOY SANTOYO Name: CY LING Address: home [address] [place] [address] Name: MARGI WAYNE Address: home [address] [place] [address] Name: TASNEEM ALANIS Address: home [address] [place] [address]
--- OUTSIDE RECORDS SUMMARY | 2024-01-09 15:43 | XMS_ITS | Continuity of Care Document ---
Author Organization [facility] Adult Address [address] [place] [address]- Care Team Providers Care Casting Carrier Name Role Phone Latisha Boyce NP Primary Care Physician Encounter [facility] [place] Date(s): 11/01/22 - 12/01/[address] [facility] Adult [address] [place] [address]- Allergies, Adverse Reactions, Alerts Substance Reaction Severity Status Imitrex Active Ultram 1 Active 1bradycardia ' Immunizations Given and Recorded Vaccine Date Status Refusal Reason [id number] 12y+ bivalent booster vax 01/04/22 Recorded SARS-CoV-2 mRNA ([id number]) vax 09/03/21 Recorded SARS-CoV-2 (COVID-19) mRNA BNT-162b2 [...] daily., # 20 tablet, 1 Refills, Maintenance, 11/08/22 16:56:00 EDT, Tablet, [facility] #[id number], Partial fill upon patient... Start Date: 11/08/22 Status: Ordered Ajovy Autoinjector 225 mg/1.5 mL subcutaneous solution 0 Refills, Maintenance, 08/13/22 8:57:00 EDT, Partial fill upon patient request if the prescriptionis for a schedule II opioid drug. Start Date: 08/13/22 Status: Ordered Ajovy Autoinjector 225 mg/1.5 mL subcutaneous solution = 225 mg, Subcutaneous Injection, Every 28 days, # 1 kit, 5 Refills, Maintenance, 11/11/22 15:52:00EDT, [facility] #[id number], Partial fill upon patient request if the prescription is for a schedule II opioid drug., 155, cm, 11/06/22 9:35:00 ED... Start Date: 11/11/22 Status: Ordered ALPRAZolam 0.5 mg oral tablet Refills 0, Maintenance, 08/13/22 8:57:00 EDT, Partial fill upon patient request if the prescriptionis for a schedule II opioid drug. Start Date: 08/13/22 Status: Ordered amLODIPine 5 mg oral tablet 5 mg, 1, tablet, By Mouth, Daily, # 90 tablet, Refills 1, Tot. Refills 1, Maintenance, 09/05/22 9:28:00 EDT, Route to Pharmacy Electronically, [facility] #[id number], Partial fill upon patient request if the prescription is for a schedule II opio... Start Date: 09/05/22 Status: Ordered ARIPiprazole 2 mg oral tablet [...] capsule, 0 Refills, Maintenance, 09/13/22 17:08:00 EDT, [facility] #[id number], 155, cm, 09/05/22 9:14:00 EDT, Height, 108, [...] tablet, By Mouth, Daily, # 90 tablet, 0 Refills, Maintenance, 11/01/22 15:49:00 EDT, [facility] #[id number], 90, 1 tablet By Mouth Daily, 155, cm, 09/05/22 9:14:00 EDT, Height, 108, kg, 08/30/22 19:57:00 EDT, Dry Weight Start Date: 11/01/22 Status: Ordered levothyroxine 0.1 mg oral tablet 1 tablet, By Mouth, Daily, # 90 tablet, 1 Refills, Maintenance, 09/18/22 8:58:00 EDT, [facility] #[id number], 155, cm, 09/05/22 9:14:00 EDT, Height, 108, kg, 08/30/22 19:57:00 EDT, Dry Weight Start Date: 09/18/22 Status: Ordered lidocaine 5% topical ointment 2 TO 3 GRAMS, Topically, 3 times a day, PRN NEEDED FOR MODERATE PAIN, PT REQUESTING NON SCENTED OINTMENT, # 50 Gm, 0 Refills, Maintenance, 10/09/22 12:18:00 EDT, [facility] #[id number], 20, PT REQUESTING NON SCENTED OINMENT, 2 TO 3 GRAMS Topic... Start Date: 10/09/22 Status: Ordered lisinopril 20 mg oral tablet 1, tablet, By Mouth, Daily at bedtime, # 90 tablet, Refills 0, Tot. Refills 0, Maintenance, 11/06/22 10:13:00 EDT, Route to Pharmacy Electronically, [facility] #[id number], 155, cm, 11/06/22 9:35:00 EDT, Height, 108, kg, 08/30/22 19:57:00 EDT, . Start Date: 11/06/22 Stop Date: 02/04/23 Status: Ordered naltrexone 50 mg oral tablet 1 tablet = 50 mg, By Mouth, Daily, # 90 tablet, 0 Refills, Maintenance, 09/18/22 11:29:00 EDT, [facility] #[id number], 155, cm, 09/05/22 9:14:00 EDT, Height, 108, kg, 08/30/22 19:57:00 EDT, Dry Weight Start Date: 09/18/22 Status: Ordered omeprazole 40 mg oral enteric coated capsule 1 capsule, By Mouth, Daily, # 90 capsule, 1 Refills, Maintenance, 11/12/22 14:21:00 EDT, [facility] #[id number], 155, cm, 11/06/22 9:35:00 EDT, Height, 108, kg, 08/30/22 19:57:00 EDT, Dry Weight Start Date: 11/12/22 Status: Ordered Rhopressa 0.02% ophthalmic solution 0 [...] Team Personnel Name: Latisha Boyce NP Position: [facility] PCO Associate Professional Member Role: PCP Address: Address: [address] [place] [id number]- [place] Care Team Related Persons Name: TOY SANTOYO Name: CY LING Address: home [address] [place] [address] Name: MARGI WAYNE Address: home [address] [place] [address] Name: TASNEEM ALANIS Address: [address] [place] [address]
--- OUTSIDE RECORDS SUMMARY | 2024-01-09 15:43 | XMS_ITS | Continuity of Care Document ---
Author Organization [facility] Adult Address [address] [place] [address]- Care Team Providers Care Drum Sander Name Role Phone Latisha Boyce NP Primary Care Physician [phone] [place] [facility] [place] 07/11/23 - 08/10/23 [facility] [address] [place] [id number]- Allergies, Adverse Reactions, Alerts Substance Reaction Severity Status Imitrex Active Ultram 1 Active 1bradycardia ' Immunizations Given and Recorded Vaccine Date Status Refusal Reason [id number] 12y+ bivalent booster vax 01/04/22 Recorded SARS-CoV-2 mRNA (htuhqjc-fcul-hmctn) vax 09/03/21 Recorded SARS-CoV-2 (COVID-19) mRNA BNT-162b2 [...] tablets or capsules daily., # 20 tablet, 0 Refills, Maintenance, 07/11/23 14:52:00 EDT, Tablet, [id number], Partial fill upon patient request... Start Date: 07/11/23 Status: Ordered Ajovy Autoinjector 225 mg/1.5 mL subcutaneous solution 0 Refills, Maintenance, 08/13/22 8:57:00 EDT, Partial fill upon patient request if the prescriptionis for a schedule II opioid drug. Start Date: 08/13/22 Status: Ordered Ajovy Autoinjector 225 mg/1.5 mL subcutaneous solution = 225 mg, Subcutaneous Injection, Every 28 days, # 1 kit, 5 Refills, Maintenance, 05/21/23 12:30:00EDT, [facility]/pharmacy #[id number], Partial fill upon patient request if [...] 03/12/23 11:01:00 EST, Route to Pharmacy Electronically, [facility] #[id number], Partial fill upon patient request if the [...] capsule, 0 Refills, Maintenance, 09/13/22 17:08:00 EDT, [facility] #[id number], 155, cm, 09/05/22 9:14:00 EDT, Height, 108, [...] Daily, # 90 tablet, 0 Refills, Maintenance, 08/06/23 10:06:00 EDT, [facility]/pharmacy#[id number], 1 tablet By Mouth Daily,x90 days, 155, cm, 07/16/23 9:38:00 EDT, Height, 108, kg, 08/30/22 19:57:00 EDT, Dry Weight Start Date: 08/06/23 Stop Date: 11/04/23 Status: Ordered levothyroxine 0.1 mg oral tablet 1 tablet, By Mouth, Daily, # 90 tablet, 1 Refills, Maintenance, 03/21/23 7:16:00 [facility] #[id number], 155, cm, 11/06/22 9:35:00 EDT, Height, 108, kg, 08/30/22 19:57:00 EDT, Dry Weight Start Date: 03/21/23 Status: Ordered lidocaine 5% topical ointment 2 TO 3 GRAMS, Topically, 3 times a day, PRN NEEDED FOR MODERATE PAIN, PT REQUESTING NON SCENTED OINTMENT, # 50 Gm, 0 Refills, Maintenance, 04/23/23 12:23:00 [facility] #[id number], 20, PT REQUESTING NON SCENTED OINMENT, 2 TO 3 GRAMS Topic... Start Date: 04/23/23 Status: Ordered lisinopril 20 mg oral tablet 1, tablet, By Mouth, Daily at bedtime, # 90 tablet, Refills 0, Tot. Refills 0, Maintenance, 05/16/23 13:39:00 EDT, Route to Pharmacy Electronically, [facility] #[id number], 155, cm, 11/06/22 9:35:00 EDT, Height, 108, kg, 08/30/22 19:57:00 EDT, . Start Date: 05/16/23 Status: Ordered naltrexone 50 mg oral tablet 1 tablet, By Mouth, Daily, # 90 tablet, 1 Refills, Maintenance, 05/21/23 12:30:00 EDT, [facility]/pharmacy#[id number], 155, cm, 11/06/22 9:35:00 EDT, Height, 108, kg, 08/30/22 19:57:00 EDT, Dry Weight Start Date: 05/21/23 Stop Date: 11/17/23 Status: Ordered omeprazole 40 mg oral enteric coated capsule 1 capsule, By Mouth, Daily, # 90 capsule, 0 Refills, Maintenance, 08/01/23 8:06:00 EDT, [facility]/pharmacy #[id number], 155, cm, 07/16/23 9:38:00 EDT, Height, 108, kg, 08/30/22 19:57:00 EDT, Dry Weight Start Date: 08/01/23 Status: Ordered Rhopressa 0.02% ophthalmic solution 0 [...] Team Personnel Name: Latisha Boyce NP Position: [facility] PCO Associate Professional Member Role: PCP Address: Address: [address] [place] [address]- Care Team Related Persons Name: TOY SANTOYO Name: YC LING Address: [address] [place] [address] Name: MARGI WAYNE Address: home [address] [place] [address] Name: TASNEEM ALANIS Address: [address] [place] [address]
--- OUTSIDE RECORDS SUMMARY | 2024-01-09 15:43 | XMS_ITS | Continuity of Care Document ---
Author Organization [facility] Adult Address [address] [place] [address]- Care Team Providers Care Senior Microsoft Consultant Name Role Phone Latisha Boyce NP Primary Care Physician Encounter [facility] [place] Date(s): 01/28/23 - 02/27/23 [facility] Adult [address] [place] [address]- Allergies, Adverse Reactions, Alerts Substance Reaction Severity Status Imitrex Active Ultram 1 Active 1bradycardia ' Immunizations Given and Recorded Vaccine Date Status Refusal Reason [id number] 12y+ bivalent booster vax 01/04/22 Recorded SARS-CoV-2 mRNA (nqftcgy-[id number]-[id number]) vax 09/03/21 Recorded SARS-CoV-2 (COVID-19) mRNA BNT-162b2 [...] daily., # 20 tablet, 1 Refills, Maintenance, 01/15/23 13:34:00 EST, Tablet, [facility] #[id number], Partial fill upon patient... Start Date: 01/15/23 Status: Ordered Ajovy Autoinjector 225 mg/1.5 mL subcutaneous solution 0 Refills, Maintenance, 08/13/22 8:57:00 EDT, Partial fill upon patient request if the prescriptionis for a schedule II opioid drug. Start Date: 08/13/22 Status: Ordered Ajovy Autoinjector 225 mg/1.5 mL subcutaneous solution = 225 mg, Subcutaneous Injection, Every 28 days, # 1 kit, 5 Refills, Maintenance, 11/11/22 15:52:00EDT, [facility] #[id number], Partial fill upon patient request if the [...] 09/05/22 9:28:00 EDT, Route to Pharmacy Electronically, [facility] #[id number], Partial fill upon patient request if the [...] capsule, 0 Refills, Maintenance, 09/13/22 17:08:00 EDT, [facility] #[id number], 155, cm, 09/05/22 9:14:00 EDT, Height, 108, [...] 90 tablet, 1 Refills, Maintenance, 01/28/23 9:27:00 EST, [facility] #[id number], 90, 1 tablet By Mouth Daily, 155, cm, 11/06/22 9:35:00 EDT, Height, 108, kg, 08/30/22 19:57:00 EDT, Dry Weight Start Date: 01/28/23 Status: Ordered levothyroxine 0.1 mg oral tablet 1 tablet, By Mouth, Daily, # 90 tablet, 1 Refills, Maintenance, 09/18/22 8:58:00 EDT, [facility] #[id number], 155, cm, 09/05/22 9:14:00 EDT, Height, 108, kg, 08/30/22 19:57:00 EDT, Dry Weight Start Date: 09/18/22 Status: Ordered lidocaine 5% topical ointment 2 TO 3 GRAMS, Topically, 3 times a day, PRN NEEDED FOR MODERATE PAIN, PT REQUESTING NON SCENTED OINTMENT, # 50 Gm, 0 Refills, Maintenance, 10/09/22 12:18:00 EDT, [facility] #[id number], 20, PT REQUESTING NON SCENTED OINMENT, 2 TO 3 GRAMS Topic... Start Date: 10/09/22 Status: Ordered lisinopril 20 mg oral tablet 1, tablet, By Mouth, Daily at bedtime, # 90 tablet, Refills 0, Maintenance, 02/14/23 6:30:00 EST, Route to Pharmacy Electronically, [facility] #[id number], 155, cm, 11/06/22 9:35:00 EDT, Height,108, kg, 08/30/22 19:57:00 EDT, Dry Weight Start Date: 02/14/23 Status: Ordered naltrexone 50 mg oral tablet 1 tablet = 50 mg, By Mouth, Daily, # 30 tablet, 0 Refills, Maintenance, 02/18/23 15:51:00 EST, [facility] #[id number], 155, cm, 11/06/22 9:35:00 EDT, Height, 108, kg, 08/30/22 19:57:00 EDT, Dry Weight Start Date: 02/18/23 Status: Ordered omeprazole 40 mg oral enteric coated capsule 1 capsule, By Mouth, Daily, # 90 capsule, 1 Refills, Maintenance, 11/12/22 14:21:00 EDT, [facility] #[id number], 155, cm, 11/06/22 9:35:00 EDT, Height, 108, [...] Team Personnel Name: Latisha Boyce NP Position: S PCO Associate Professional Member Role: PCP Address: Address: [address] [place] [address]- [place] Care Team Related Persons Name: TOY SANTOYO Name: CY LING Address: home [address] [place] [address] Name: MARGI WAYNE Address: home [address] [place] [address] Name: TASNEEM ALANIS Address: home [address] [place] [address]
--- OUTSIDE RECORDS SUMMARY | 2024-01-09 15:43 | XMS_ITS | Continuity of Care Document ---
Author Organization [facility] Address [address] [place] [address]- Care Team Providers Care Senior Information Systems Architect Name Role Phone Latisha Boyce NP Primary Care Physician [phone] [place] [facility] [place]12[place]23 [place] 09/11/23 [facility] [address] [place], [place] [address] Attending Physician: Willis Motta Admitting Physician: Admtr, Willis Referring Physician: Admtr, Ar8 Allergies, Adverse Reactions, Alerts Substance Reaction Severity Status Imitrex Active Ultram 1 Active 1bradycardia ' Immunizations Given and Recorded Vaccine Date Status Refusal Reason [id number] 12y+ bivalent booster vax 01/04/22 Recorded SARS-CoV-2 mRNA (gddcgek-jvog-mwian) vax 09/03/21 Recorded SARS-CoV-2 (COVID-19) mRNA BNT-162b2 [...] daily., # 20 tablet, 0 Refills, Maintenance, 08/13/23 12:28:00 EDT, Tablet, [facility]/pharmacy #[id number], Partial fill upon patient request... Start Date: 08/13/23 Status: Ordered Ajovy Autoinjector 225 mg/1.5 mL subcutaneous solution 0 Refills, Maintenance, 08/13/22 8:57:00 EDT, Partial fill upon patient request if the prescriptionis for a schedule II opioid drug. Start Date: 08/13/22 Status: Ordered Ajovy Autoinjector 225 mg/1.5 mL subcutaneous solution = 225 mg, Subcutaneous Injection, Every 28 days, # 1 kit, 5 Refills, Maintenance, 05/21/23 12:30:00EDT, [facility]/pharmacy #[id number], Partial fill upon patient request if the prescription is for a schedule IIopioid drug., 155, cm, 11/06/22 9:35:00 EDT, Height... Start Date: 05/21/23 Status: Ordered ALPRAZolam 0.5 mg oral tablet Refills 0, Maintenance, 08/13/22 8:57:00 EDT, Partial fill upon patient request if the prescriptionis for a schedule II opioid drug. Start Date: 08/13/22 Status: Ordered amLODIPine 5 mg oral tablet See Instructions, TAKE 1 TABLET BY MOUTH EVERY DAY, # 90 tablet, 1 Refills, Maintenance, 09/09/23 13:03:00 EDT, [id number], 155, cm, 08/12/23 7:32:00 EDT, Height, 108, kg, 08/30/22 19:57:00 EDT,Dry Weight Start Date: 09/09/23 Status: Ordered ARIPiprazole 2 mg oral tablet Refills 0, Maintenance, 08/13/22 8:57:00 EDT, Partial fill upon patient request if the prescriptionis for a schedule II opioid drug. Start Date: 08/13/22 Status: Ordered brimonidine 0.2% ophthalmic solution 0 Refills, Maintenance, 08/13/22 8:57:00 EDT, Partial fill upon patient request if the prescriptionis for a schedule II opioid drug. Start Date: 08/13/22 Status: Ordered fluorometholone 0.1% ophthalmic suspension 0 [...] tablet, 0 Refills, Maintenance, 08/06/23 10:06:00 EDT, [facility]/pharmacy#[id number], 1 tablet By Mouth Daily,x90 days, 155, cm, 07/16/23 9:38:00 EDT, Height, 108, kg, 08/30/22 19:57:00 EDT, Dry Weight Start Date: 08/06/23 Stop Date: 11/04/23 Status: Ordered levothyroxine 0.1 mg oral tablet 1 tablet, By Mouth, Daily, # 90 tablet, 1 Refills, Maintenance, 03/21/23 7:16:00 [facility] #[id number], 155, cm, 11/06/22 9:35:00 EDT, Height, 108, kg, 08/30/22 19:57:00 EDT, Dry Weight Start Date: 03/21/23 Status: Ordered lidocaine 5% topical ointment 2 TO 3 GRAMS, Topically, 3 times a day, PRN NEEDED FOR MODERATE PAIN, PT REQUESTING NON SCENTED OINTMENT, # 50 Gm, 0 Refills, Maintenance, 04/23/23 12:23:00 [facility] #[id number], 20, PT REQUESTING NON SCENTED OINMENT, 2 TO 3 GRAMS Topic... Start Date: 04/23/23 Status: Ordered lisinopril 20 mg oral tablet 1, tablet, By Mouth, Daily at bedtime, # 90 tablet, Refills 0, Tot. Refills 0, Maintenance, 09/02/23 10:06:00 EDT, Route to Pharmacy Electronically, [facility]/pharmacy #[id number], 155, cm, 08/12/23 7:32:00 EDT,Height, 108, kg, 08/30/22 19:57:00 EDT, Dry Weight Start Date: 09/02/23 Status: Ordered naltrexone 50 mg oral tablet 1 tablet, By Mouth, Daily, # 90 tablet, 1 Refills, Maintenance, 05/21/23 12:30:00 EDT, [facility]/pharmacy#[id number], 155, cm, 11/06/22 9:35:00 EDT, Height, 108, kg, 08/30/22 19:57:00 EDT, Dry Weight Start Date: 05/21/23 Stop Date: 11/17/23 Status: Ordered omeprazole 40 mg oral enteric coated capsule 1 capsule, By Mouth, Daily, # 90 capsule, 0 Refills, Maintenance, 08/01/23 8:06:00 EDT, [facility]/pharmacy #[id number], 155, cm, 07/16/23 9:38:00 EDT, [...] Team Personnel Name: Latisha Boyce NP Position: [facility] PCO Associate Professional Member Role: PCP Address: Address: [address] [place] [id number]- Care Team Related Persons Name: TOY SANTOYO Name: CY LING Address: [address] [place] [address] Name: MARGI WAYNE Address: home [address] [place] [address] Name: ALANIS, TASNEEM Address: home [address] [place] [id number]
--- OUTSIDE RECORDS SUMMARY | 2024-01-09 15:43 | XMS_ITS | Continuity of Care Document ---
Author Organization [facility] Adult Address [address] [place] [address]- Care Team Providers Care Developmental Services Worker Name Role Phone Latisha Boyce NP Primary Care Physician [phone] Encounter [facility] Date(s): 12/19/22 - 01/18/23 [facility] Adult [address] [place] [address]- Allergies, Adverse Reactions, Alerts Substance Reaction Severity Status Imitrex Active Ultram 1 Active 1bradycardia ' Immunizations Given and Recorded Vaccine Date Status Refusal Reason [id number] 12y+ bivalent booster vax 01/04/22 Recorded SARS-CoV-2 mRNA (sgakutq-ucrc-bbqix) vax 09/03/21 Recorded SARS-CoV-2 (COVID-19) mRNA BNT-162b2 [...] 1 Refills, Maintenance, 01/15/23 13:34:00 EST, Tablet, [facility] #[id number], Partial fill upon patient... Start Date: 01/15/23 [...] 1 kit, 5 Refills, Maintenance, 11/11/22 15:52:00EDT, [facility] #[id number], Partial fill upon patient request if the [...] 09/05/22 9:28:00 EDT, Route to Pharmacy Electronically, [facility] #[id number], Partial fill upon patient request if the [...] capsule, 0 Refills, Maintenance, 09/13/22 17:08:00 EDT, [facility] #[id number], 155, cm, 09/05/22 9:14:00 EDT, Height, 108, [...] tablet, 0 Refills, Maintenance, 11/01/22 15:49:00 EDT, [facility] #[id number], 90, 1 tablet By Mouth Daily, 155, cm, 09/05/22 9:14:00 EDT, Height, 108, kg, 08/30/22 19:57:00 EDT, Dry Weight Start Date: 11/01/22 Status: Ordered levothyroxine 0.1 mg oral tablet 1 tablet, By Mouth, Daily, # 90 tablet, 1 Refills, Maintenance, 09/18/22 8:58:00 EDT, [facility] #[id number], 155, cm, 09/05/22 9:14:00 EDT, Height, 108, kg, 08/30/22 19:57:00 EDT, Dry Weight Start Date: 09/18/22 Status: Ordered lidocaine 5% topical ointment 2 TO 3 GRAMS, Topically, 3 times a day, PRN NEEDED FOR MODERATE PAIN, PT REQUESTING NON SCENTED OINTMENT, # 50 Gm, 0 Refills, Maintenance, 10/09/22 12:18:00 EDT, [facility] #[id number], 20, PT REQUESTING NON SCENTED OINMENT, 2 TO 3 GRAMS Topic... Start Date: 10/09/22 Status: Ordered lisinopril 20 mg oral tablet 1, tablet, By Mouth, Daily at bedtime, # 90 tablet, Refills 0, Tot. Refills 0, Maintenance, 11/06/22 10:13:00 EDT, Route to Pharmacy Electronically, [facility] #[id number], 155, cm, 11/06/22 9:35:00 EDT, Height, 108, kg, 08/30/22 19:57:00 EDT, . Start Date: 11/06/22 Stop Date: 02/04/23 Status: Ordered naltrexone 50 mg oral tablet 1 tablet = 50 mg, By Mouth, Daily, # 90 tablet, 0 Refills, Maintenance, 09/18/22 11:29:00 EDT, [facility] #[id number], 155, cm, 09/05/22 9:14:00 EDT, Height, 108, kg, 08/30/22 19:57:00 EDT, Dry Weight Start Date: 09/18/22 Status: Ordered omeprazole 40 mg oral enteric coated capsule 1 capsule, By Mouth, Daily, # 90 capsule, 1 Refills, Maintenance, 11/12/22 14:21:00 EDT, [facility] #[id number], 155, cm, 11/06/22 9:35:00 EDT, Height, 108, [...] Team Personnel Name: Latisha Boyce NP Position: [facility] PCO Associate Professional Member Role: PCP Address: Address: [address] [place] [address]- [place] Care Team Related Persons Name: TOY SANTOYO Name: CY LING Address: home [address] [place] [address] Name: MARGI WAYNE Address: home [address] [place] [address] Name: TASNEEM ALANIS Address: home [address] [place] [address]
--- OUTSIDE RECORDS SUMMARY | 2024-01-09 15:43 | XMS_ITS | Continuity of Care Document ---
Author Organization [facility] Adult Address [address] [place] [address]- Care Team Providers Care Electronics Hardware Design Engineer Name Role Phone Latisha Boyce NP Primary Care Physician [phone] [place] [facility] [place]s): 12/21/19 - 12/28/19 [facility] Adult [address] [place] [address]- Encounter Diagnosis Hypothyroidism(Discharge Diagnosis) - 12/21/19 Obesity(Discharge Diagnosis) - 12/21/19 Attending Physician: Latisha Boyce NP Allergies, Adverse Reactions, Alerts Substance Reaction Severity [...] 11/26/18 17:02:00 EDT, Route to Pharmacy Electronically, [id number], [facility] #[id number] Start Date: 11/26/18 Status: Ordered ARIPiprazole 2 mg oral tablet 2 mg, 1, tablet, By Mouth, Daily, # 30 tablet, Refills 1, Tot. Refills 1, Maintenance, 03/30/19 9:56:00 EST, Route to Pharmacy Electronically, [facility] #[id number], 156, cm, 01/12/19 11:15:00 EST, Height, 103.1, kg, 01/17/18 9:53:00 EST, Dry We... Start Date: 03/30/19 Stop Date: 06/28/19 Status: Ordered levothyroxine 0.088 mg oral tablet 1 tablet = 88 mcg, By Mouth, Daily, Repeat TSH in 6 weeks Dose decrease, # 30 tablet, 5 Refills, Maintenance, 09/30/19 15:30:00 EDT, Tablet, [facility] #[id number], 153, cm, 08/06/19 16:24:00 EDT, Height, 107, kg, 08/06/19 16:24:00 EDT, Dry Weight Start Date: 09/30/19 Status: Ordered lidocaine 5% topical ointment See Instructions, PRN Pain , Moderate, 2 to 3 g Topically 3 times a day, # 50 Gm, 1 Refills, Acute 11/01/20 13:10:00 EDT, 11/02/19 13:10:00 EDT, Ointment, [facility] #[id number], 2 to 3 g Topically 3 times a day,PRN:Pain , Moderate, 153, cm, 07/18... Start Date: 11/02/19 Stop Date: 11/01/20 Status: Ordered naltrexone 50 mg oral tablet 0.5 tablet, By Mouth, Daily, # 15 tablet, 5 Refills, Acute 09/21/20 12:21:00 EDT, 09/22/19 12:21:00EDT, [facility] #[id number], 153, cm, 08/06/19 16:24:00 EDT, Height, 107, kg, 08/06/19 16:24:00 EDT, Dry Weight Start Date: 09/22/19 Stop Date: 09/21/20 Status: Ordered omeprazole 40 mg oral enteric coated capsule 1 capsule = 40 mg, By Mouth, Daily, New script, # 30 capsule, 2 Refills, Maintenance, 12/15/19 8:48:00 EDT, EC Capsule, [facility] #[id number], 153, cm, 08/06/19 16:24:00 EDT, Height, 107, [...] Active Glaucoma(Confirmed) Active Hypothyroidism(Confirmed) Active Migraine(Confirmed) Active Diagnosis Diagnosis Type Effective Dates Health Status Cl inical Service Informant Hypothyroidism Discharge Diagnosis 12/21/19 Obesity Discharge Diagnosis 12/21/19 Vital Signs Most recent to oldest [Reference Range]: 1 Height 153 cm (12/21/19 3:41 PM) Weight 111 kg (12/21/19 3:41 PM) Oxygen Saturation [94-100 %] 97 % (12/21/19 3:41 PM) Pulse Rate [55-90 bpm] 84 bpm (12/21/19 3:41 PM) Body Mass Index [18.5-24.99] 47.42 *>HHI* (12/21/19 3:41 PM) Blood Pressure [90-138/55-84 mm Hg] 130/ 88mm Hg (12/21/19 3:41 PM) Temperature [96.8-100.4 DegF] 98.8 DegF (12/21/19 3:41 PM) Mode of Delivery (Oxygen) Room air (12/21/19 3:41 PM) Blood pressure sites Arm, left (12/21/19 3:41 PM) Temperature Route Oral (12/21/19 3:41 PM) Weight Obtained Via Standing scale (12/21/19 3:41 PM) Social History Social History Type Response Smoking Status Never smoker; Tobacc o user in household: No; Type: Cigarettes entered on: 09/04/17 Sex
--- OUTSIDE RECORDS SUMMARY | 2024-01-09 15:43 | XMS_ITS | Continuity of Care Document ---
Author Organization [facility] Adult Address [address] [place] [address]- Care Team Providers Care Juke Box Mechanic Name Role Phone Latisha Boyce NP Primary Care Physician [phone] [place] [facility] [place](s): 10/16/20 - 11/15/20 [facility] Adult [address] [place] [address]- Allergies, Adverse Reactions, Alerts Substance Reaction Severity Status Imitrex Active Ultram 1 Active 1bradycardia ' Immunizations Given and Recorded Vaccine Date Status Refusal Reason SARS-CoV-2 (COVID-19) mRNA BNT-162b2 vac 05/02/20 Recorded [...] 11/26/18 17:02:00 EDT, Route to Pharmacy Electronically, [id number], [facility] #[id number] Start Date: 11/26/18 Status: Ordered Aquaphor Healing topical ointment See Instructions, Apply to wound BID, # 30 mL, 0 Refills, Maintenance, 10/11/20 16:23:00 EDT, [facility] #[id number], Partial fill upon patient request if the prescription is for a schedule II opioid drug., Apply to wound BID, 153, cm, 10/11/20 1... Start Date: 10/11/20 Status: Ordered ARIPiprazole 2 mg oral tablet 2 mg, 1, tablet, By Mouth, Daily, # 30 tablet, Refills 1, Tot. Refills 1, Maintenance, 03/30/19 9:56:00 EST, Route to Pharmacy Electronically, [facility] #[id number], 156, cm, 01/12/19 11:15:00 EST, Height, 103.1, kg, 01/17/18 9:53:00 EST, Dry We... Start Date: 03/30/19 Stop Date: 06/28/19 Status: Ordered levothyroxine 0.1 mg oral tablet 1 tablet = 100 mcg, By Mouth, Daily, # 90 tablet, 2 Refills, Maintenance, 03/14/20 8:40:00 EST, Tablet, [facility] #[id number], Partial fill upon patient request, 153, cm, 01/05/20 15:53:00 EST,Height, 107, kg, 08/06/19 16:24:00 EDT, Dry Weight Start Date: 03/14/20 Stop Date: 12/09/20 Status: Ordered lidocaine 5% topical ointment See Instructions, PRN Pain , Moderate, 2 to 3 g Topically 3 times a day, # 50 Gm, 1 Refills, Acute 05/29/21 15:30:00 EDT, 05/29/20 15:30:00 EDT, Ointment, [facility] #[id number], 2 to 3 g Topically 3 times a day,PRN:Pain , Moderate, 153, cm, 03/0... Start Date: 05/29/20 Stop Date: 05/29/21 Status: Ordered naltrexone 50 mg oral tablet 0.5 tablet, By Mouth, Daily, # 45 tablet, 0 Refills, [facility] #[id number], 153, cm, 10/11/2114:18:00 EDT, Height, 107, kg, 08/06/19 16:24:00 EDT, Dry Weight Start Date: 10/13/20 Status: Ordered omeprazole 40 mg oral enteric coated capsule 1 capsule, By Mouth, Daily, # 90 capsule, 2 Refills, Maintenance, 08/22/20 14:40:00 EDT, [facility] #[id number], 153, cm, 06/23/20 8:44:00 EDT, Height, 107, kg, 08/06/19 16:24:00 EDT, Dry Weight Start Date: 08/22/20 Stop Date: 05/19/21 Status: Ordered traZODone 150 mg oral tablet [...]
--- OUTSIDE RECORDS SUMMARY | 2024-01-09 15:43 | XMS_ITS | Continuity of Care Document ---
Author Organization [facility] Adult Address [address] [place] [address]- Care Team Providers Care Lard Refiner Name Role Phone Latisha Boyce NP Primary Care Physician Encounter [facility] [place] Date(s): 04/24/20 - 05/24/20 [facility] Adult [address] [place] [address]- Allergies, Adverse Reactions, Alerts Substance Reaction Severity [...] 11/26/18 17:02:00 EDT, Route to Pharmacy Electronically, [id number], [facility] #[id number] Start Date: 11/26/18 Status: Ordered ARIPiprazole 2 mg oral tablet 2 mg, 1, tablet, By Mouth, Daily, # 30 tablet, Refills 1, Tot. Refills 1, Maintenance, 03/30/19 9:56:00 EST, Route to Pharmacy Electronically, [facility] #[id number], 156, cm, 01/12/19 11:15:00 EST, Height, 103.1, kg, 01/17/18 9:53:00 EST, Dry We... Start Date: 03/30/19 Stop Date: 06/28/19 Status: Ordered levothyroxine 0.088 mg oral tablet 1 tablet = 88 mcg, By Mouth, Daily, Repeat TSH in 6 weeks Dose decrease, # 30 tablet, 5 Refills, Maintenance, 09/30/19 15:30:00 EDT, Tablet, [facility] #[id number], 153, cm, 08/06/19 16:24:00 EDT, Height, 107, kg, 08/06/19 16:24:00 EDT, Dry Weight Start Date: 09/30/19 Status: Ordered levothyroxine 0.1 mg oral tablet 1 tablet = 100 mcg, By Mouth, Daily, # 90 tablet, 2 Refills, Maintenance, 03/14/20 8:40:00 EST, Tablet, [facility] #[id number], Partial fill upon patient request, 153, cm, 01/05/20 15:53:00 EST,Height, 107, kg, 08/06/19 16:24:00 EDT, Dry Weight Start Date: 03/14/20 Stop Date: 12/09/20 Status: Ordered lidocaine 5% topical ointment See Instructions, PRN Pain , Moderate, 2 to 3 g Topically 3 times a day, # 50 Gm, 1 Refills, Acute 11/01/20 13:10:00 EDT, 11/02/19 13:10:00 EDT, Ointment, [facility] #[id number], 2 to 3 g Topically 3 times a day,PRN:Pain , Moderate, 153, cm, 07/18... Start Date: 11/02/19 Stop Date: 11/01/20 Status: Ordered naltrexone 50 mg oral tablet 0.5 tablet, By Mouth, Daily, for 30 days, # 15 tablet, 2 Refills, Acute 06/05/20 9:11:00 EDT, 03/07/20 9:11:00 EST, [facility] #[id number], 153, cm, 01/05/20 15:53:00 EST, Height, 107, kg, 08/06/19 16:24:00 EDT, Dry Weight Start Date: 03/07/20 Stop Date: 06/05/20 Status: Ordered omeprazole 40 mg oral enteric coated capsule 1 capsule = 40 mg, By Mouth, Daily, New script, # 30 capsule, 2 Refills, Maintenance, 03/06/20 13:47:00 EST, EC Capsule, [facility] #[id number], 153, cm, 01/05/20 15:53:00 EST, Height, 107, kg, 08/06/19 16:24:00 EDT, Dry Weight Start Date: 03/06/20 Status: Ordered traZODone 150 mg oral tablet [...]
--- OUTSIDE RECORDS SUMMARY | 2024-01-09 15:43 | XMS_ITS | Continuity of Care Document ---
Author Organization [facility] Adult Address [address] [place] [address]- Care Team Providers Care Clinical Care Coordinator Name Role Phone Latisha Boyce NP Primary Care Physician [phone] Encounter [facility] [place] Date(s): 12/12/21 - 01/11/22 [facility] Adult [address] [place] [address]- Attending Physician: Willis Motta Admitting Physician: Admtr, ArDella Referring Physician: Admtr, Ar8 Allergies, Adverse Reactions, Alerts Substance Reaction Severity Status Imitrex Active Ultram 1 Active 1bradycardia ' Immunizations Given and Recorded Vaccine Date Status Refusal Reason SARS-CoV-2 mRNA (ejlvpta-boqz-iakvh) vax 09/03/21 Recorded SARS-CoV-2 (COVID-19) mRNA BNT-162b2 vac 02/20/21 Recorded SARS-CoV-2 (COVID-19) mRNA BNT-162b2 vac 05/02/20 Recorded SARS-CoV-2 (COVID-19) mRNA BNT-162b2 vac 04/09/20 Recorded Boostrix (Tdap) (oldterm) 12/28/15 Recorded tetanus/diphtheria/pertussis, acel(Tdap) 12/28/15 Recorded hepatitis B adult vaccine 07/27/13 Recorded hepatitis B adult vaccine 03/03/13 Recorded hepatitis B adult vaccine 02/01/13 Recorded Medications acetaminophen/butalbital/caffeine 325 mg-50 mg-40 mg oral tablet 0 Refills, Maintenance, 12/12/21 9:09:00 EDT, Partial fill upon patient request if the prescriptionis for a schedule II opioid drug. Start Date: 12/12/21 Status: Ordered Ajovy Autoinjector 225 mg/1.5 mL subcutaneous solution 0 Refills, Maintenance, 12/12/21 9:09:00 EDT, Partial fill upon patient request if the prescriptionis for a schedule II opioid drug. Start Date: 12/12/21 Status: Ordered ALPRAZolam 0.5 mg oral tablet 0.5 mg, 1, tablet, By Mouth, Daily, PRN, # 15 tablet, Refills 0, Tot. Refills 0, Maintenance, for anxiety, 11/26/18 17:02:00 EDT, Route to Pharmacy Electronically, [id number], [facility] #[id number] Start Date: 11/26/18 Status: Ordered Aquaphor Healing topical ointment See Instructions, Apply to wound BID, # 30 mL, 0 Refills, Maintenance, 10/11/20 16:23:00 EDT, [facility] #[id number], Partial fill upon patient request if the prescription is for a schedule II opioid drug., Apply to wound BID, 153, cm, 10/11/20 1... Start Date: 10/11/20 Status: Ordered ARIPiprazole 2 mg oral tablet 2 mg, 1, tablet, By Mouth, Daily, # 30 tablet, Refills 1, Tot. Refills 1, Maintenance, 03/30/19 9:56:00 EST, Route to Pharmacy Electronically, [facility] #[id number], 156, cm, 01/12/19 11:15:00 EST, Height, 103.1, kg, 01/17/18 9:53:00 EST, Dry We... Start Date: 03/30/19 Stop Date: 06/28/19 Status: Ordered gabapentin 100 mg oral capsule 1, capsule, By Mouth, 3 times a day, # 84 capsule, Refills 0, Tot. Refills 0, Maintenance, 12/17/2210:26:00 EDT, Route to Pharmacy Electronically, [facility] #[id number], 153, cm, 12/12/21 8:30:00 EDT, Height Start Date: 12/17/21 Status: Ordered hydrochlorothiazide-lisinopril 12.5 mg-20 mg oral tablet 1 tablet, By Mouth, Daily, # 90 tablet, 0 Refills, Maintenance, 11/02/21 13:24:00 EDT, Tablet, [facility] #[id number], Partial fill upon patient request if the prescription is for a schedule II opioid drug., 1 tablet By Mouth Daily,x90 days, 153,... Start Date: 11/02/21 Stop Date: 01/31/22 Status: Ordered levothyroxine 0.1 mg oral tablet 1 tablet = 100 mcg, By Mouth, Daily, # 90 tablet, 1 Refills, Maintenance, 12/17/21 10:02:00 EDT, Tablet, [facility] #[id number], Partial fill upon patient request, 153, cm, 12/12/21 8:30:00 EDT,Height Start Date: 12/17/21 Stop Date: 06/15/22 Status: Ordered lidocaine 5% topical ointment 2 TO 3 GRAMS, Topically, 3 times a day, PRN NEEDED FOR MODERATE PAIN, # 50 Gm, 0 Refills, Maintenance, 11/19/21 7:35:00 EDT, [facility] #[id number], 20, APPLY 2 TO 3 GRAMS TOPICALLY THREE TIMES DAILY NEEDED FOR MODERATE PAIN, 153, cm, 11/02... Start Date: 11/19/21 Status: Ordered lisinopril 20 mg oral tablet 20 mg, 1, tablet, By Mouth, Daily, # 90 tablet, Refills 2, Tot. Refills 2, Maintenance, 05/02/21 10:25:00 EDT, Route to Pharmacy Electronically, [facility] #[id number], Partial fill upon patientrequest if the prescription is for a schedule II op... Start Date: 05/02/21 Stop Date: 01/27/22 Status: Ordered naltrexone 50 mg oral tablet 0.5 tablet, By Mouth, Daily, # 45 tablet, 4 Refills, [facility] #[id number], 153, cm, 12/26/2112:09:00 EST, Height, 107, kg, 08/06/19 16:24:00 EDT, Dry Weight Start Date: 01/19/21 Status: Ordered omeprazole 40 mg oral enteric coated capsule 1 capsule, By Mouth, Daily, # 90 capsule, 0 Refills, Maintenance, 12/19/21 14:09:00 EDT, [facility] #[id number], 153, cm, 12/12/21 8:30:00 EDT, Height Start Date: 12/19/21 Status: Ordered Problem List Condition Confirmation Course Effective Dates Status Health St atus Informant Depression Confirmed Active Fibromyalgia Confirmed Active Glaucoma Confirmed Active HTN (hypertension) Confirmed Active Hypothyroidism Confirmed Active Migraine Confirmed Active Severe obesity Confirmed Active Social History Social History Type Response Smoking Status Never smoker; Tobacc o user in household: No; Type: Cigarettes entered on: 09/04/17 Sex Patient Care team information Care Team Personnel Name: Latisha Boyce NP Position: [facility] PCO Associate Professional Member Role: PCP Address: Address: [address] [place] [address]- Care Team Related Persons Name: CY LING Address: home [address] [place] [address] Name: MARGI WAYNE Address: home [address] [place] [address] Name: TASNEEM ALANIS Address: home [address] [place] [id number]
--- OUTSIDE RECORDS SUMMARY | 2024-01-09 15:44 | XMS_ITS | Continuity of Care Document ---
Author Organization [facility] Adult Address [address] [place] [address]- Care Team Providers Care Grade School Teacher Name Role Phone Latisha Boyce NP Primary Care Physician Encounter [facility] [place] Date(s): 07/09/23 - 08/08/23 [facility] Adult [address] [place] [address]- Allergies, Adverse Reactions, Alerts Substance Reaction Severity Status Imitrex Active Ultram 1 Active 1bradycardia ' Immunizations Given and Recorded Vaccine Date Status Refusal Reason [id number] 12y+ bivalent booster vax 01/04/22 Recorded SARS-CoV-2 mRNA (zagrxwu-gwvh-xjfli) vax 09/03/21 Recorded SARS-CoV-2 (COVID-19) mRNA BNT-162b2 [...] Refills, Maintenance, 07/11/23 14:52:00 EDT, Tablet, [id number], Partial fill upon patient request... Start Date: [...] 1 kit, 5 Refills, Maintenance, 05/21/23 12:30:00EDT, [facility]/pharmacy #[id number], Partial fill upon patient request [...] 03/12/23 11:01:00 EST, Route to Pharmacy Electronically, [facility] #[id number], Partial fill upon patient request if the [...] capsule, 0 Refills, Maintenance, 09/13/22 17:08:00 EDT, [facility] #[id number], 155, cm, 09/05/22 9:14:00 EDT, Height, 108, [...] tablet, 0 Refills, Maintenance, 08/06/23 10:06:00 EDT, [facility]/pharmacy#[id number], 1 tablet By Mouth Daily,x90 days, 155, cm, 07/16/23 9:38:00 EDT, Height, 108, kg, 08/30/22 19:57:00 EDT, Dry Weight Start Date: 08/06/23 Stop Date: 11/04/23 Status: Ordered levothyroxine 0.1 mg oral tablet 1 tablet, By Mouth, Daily, # 90 tablet, 1 Refills, Maintenance, 03/21/23 7:16:00 [facility] #[id number], 155, cm, 11/06/22 9:35:00 EDT, Height, 108, kg, 08/30/22 19:57:00 EDT, Dry Weight Start Date: 03/21/23 Status: Ordered lidocaine 5% topical ointment 2 TO 3 GRAMS, Topically, 3 times a day, PRN NEEDED FOR MODERATE PAIN, PT REQUESTING NON SCENTED OINTMENT, # 50 Gm, 0 Refills, Maintenance, 04/23/23 12:23:00 [facility] #[id number], 20, PT REQUESTING NON SCENTED OINMENT, 2 TO 3 GRAMS Topic... Start Date: 04/23/23 Status: Ordered lisinopril 20 mg oral tablet 1, tablet, By Mouth, Daily at bedtime, # 90 tablet, Refills 0, Tot. Refills 0, Maintenance, 05/16/23 13:39:00 EDT, Route to Pharmacy Electronically, [facility] #[id number], 155, cm, 11/06/22 9:35:00 EDT, Height, 108, kg, 08/30/22 19:57:00 EDT, . Start Date: 05/16/23 Status: Ordered naltrexone 50 mg oral tablet 1 tablet, By Mouth, Daily, # 90 tablet, 1 Refills, Maintenance, 05/21/23 12:30:00 EDT, [facility]/pharmacy#[id number], 155, cm, 11/06/22 9:35:00 EDT, Height, 108, kg, 08/30/22 19:57:00 EDT, Dry Weight Start Date: 05/21/23 Stop Date: 11/17/23 Status: Ordered omeprazole 40 mg oral enteric coated capsule 1 capsule, By Mouth, Daily, # 90 capsule, 0 Refills, Maintenance, 08/01/23 8:06:00 EDT, [facility]/pharmacy #[id number], 155, cm, 07/16/23 9:38:00 EDT, [...] Team Personnel Name: Latisha Boyce NP Position: [facility] PCO Associate Professional Member Role: PCP Address: Address: [address] [place] [address]- Care Team Related Persons Name: TOY SANTOYO Name: CY LING Address: home [address] [place] [address] Name: MARGI WAYNE Address: home [address] [place] [address] Name: TASNEEM ALANIS Address: [address] [place] [address]
--- OUTSIDE RECORDS SUMMARY | 2024-01-09 15:44 | XMS_ITS | Continuity of Care Document ---
Author Organization [facility] Adult Address [address] [place] [address]- Care Team Providers Care Lineman Name Role Phone Latisha Boyce NP Primary Care Physician Encounter [facility] [place] [facility] [id number] Date(s): 10/11/20 - 10/18/20 [facility] Adult [address] [place] [address]- Encounter Diagnosis Finger laceration(Discharge Diagnosis) - 10/11/20 Attending Physician: Latisha Boyce NP Allergies, Adverse [...] 11/26/18 17:02:00 EDT, Route to Pharmacy Electronically, [id number], [facility] #[id number] Start Date: 11/26/18 Status: Ordered Aquaphor Healing topical ointment See Instructions, Apply to wound BID, # 30 mL, 0 Refills, Maintenance, 10/11/20 16:23:00 EDT, [facility] #[id number], Partial fill upon patient request if the prescription is for a schedule II opioid drug., Apply to wound BID, 153, cm, 10/11/20 1... Start Date: 10/11/20 Status: Ordered ARIPiprazole 2 mg oral tablet 2 mg, 1, tablet, By Mouth, Daily, # 30 tablet, Refills 1, Tot. Refills 1, Maintenance, 03/30/19 9:56:00 EST, Route to Pharmacy Electronically, [facility] #[id number], 156, cm, 01/12/19 11:15:00 EST, Height, 103.1, kg, 01/17/18 9:53:00 EST, Dry We... Start Date: 03/30/19 Stop Date: 06/28/19 Status: Ordered levothyroxine 0.1 mg oral tablet 1 tablet = 100 mcg, By Mouth, Daily, # 90 tablet, 2 Refills, Maintenance, 03/14/20 8:40:00 EST, Tablet, [facility] #[id number], Partial fill upon patient request, 153, cm, 01/05/20 15:53:00 EST,Height, 107, kg, 08/06/19 16:24:00 EDT, Dry Weight Start Date: 03/14/20 Stop Date: 12/09/20 Status: Ordered lidocaine 5% topical ointment See Instructions, PRN Pain , Moderate, 2 to 3 g Topically 3 times a day, # 50 Gm, 1 Refills, Acute 05/29/21 15:30:00 EDT, 05/29/20 15:30:00 EDT, Ointment, [facility] #[id number], 2 to 3 g Topically 3 times a day,PRN:Pain , Moderate, 153, cm, 03/0... Start Date: 05/29/20 Stop Date: 05/29/21 Status: Ordered naltrexone 50 mg oral tablet 0.5 tablet, By Mouth, Daily, # 45 tablet, 0 Refills, [facility] #[id number], 153, cm, 10/11/2114:18:00 EDT, Height, 107, kg, 08/06/19 16:24:00 EDT, Dry Weight Start Date: 10/13/20 Status: Ordered omeprazole 40 mg oral enteric coated capsule 1 capsule, By Mouth, Daily, # 90 capsule, 2 Refills, Maintenance, 08/22/20 14:40:00 EDT, [facility] #[id number], 153, cm, 06/23/20 8:44:00 EDT, Height, 107, kg, 08/06/19 16:24:00 EDT, Dry Weight Start Date: 08/22/20 Stop Date: 05/19/21 Status: Ordered Silvadene 1% cream 1 application, Topically, 2 times a day, for 14 days, # 30 Gm, 0 Refills, Acute 10/30/20 16:00:00 EDT, 10/16/20 16:00:00 EDT, Cream, [facility] #[id number], Partial fill upon patient request if the prescription is for a schedule II opioid drug.,... Start Date: 10/16/20 Stop Date: 10/30/20 Status: Ordered traZODone 150 mg oral tablet 1 tablet = 150 mg, By Mouth, Daily at bedtime, Dose increase, # 30 tablet, 2 Refills, Maintenance, 09/28/18 10:56:57 EDT, Tablet Start Date: 09/28/18 Status: Ordered Problem List Condition Effective Dates Status Health Status Inform ant Depression(Confirmed) Active Fibromyalgia(Confirmed) Active Glaucoma(Confirmed) Active Hypothyroidism(Confirmed) Active Migraine(Confirmed) Active Diagnosis Diagnosis Type Effective Dates Health Status Clinical Service Informant Finger laceration Discharge Diagnosis 10/11/20 Vital Signs Most recent to oldest [Reference Range]: 1 Height 153 cm (10/11/20 3:18 PM) Weight 110.5 kg (10/11/20 3:18 PM) Oxygen Saturation [94-100 %] 95 % (10/11/20 3:18 PM) Pulse Rate [55-90 bpm] 91 bpm *H* (10/11/20 3:18 PM) Body Mass Index [18.5-24.99] 47.2 *>HHI* (10/11/20 3:18 PM) Temperature [96.8-100.4 DegF] 99.3 DegF (10/11/20 3:18 PM) Mode of Delivery (Oxygen) Room air (10/11/20 3:18 PM) Blood pressure sites Arm, left (10/11/20 3:18 PM) Temperature Route Oral (10/11/20 3:18 PM) Weight Obtained Via Standing scale (10/11/20 3:18 PM) Social History Social History Type Response Smoking Status Never smoker; Tobacc o user in household: No; Type: Cigarettes entered on: 09/04/17 Sex
--- OUTSIDE RECORDS SUMMARY | 2024-01-09 15:44 | XMS_ITS | Continuity of Care Document ---
Author Organization [facility] Adult Address [address] [place] [address]- Care Team Providers Care Signs Cleaner Name Role Phone Latisha Boyce NP Primary Care Physician Encounter [facility] [place] Date(s): 08/12/22 - 09/11/22 [facility] Adult [address] [place] [address]- Allergies, Adverse Reactions, Alerts Substance Reaction Severity Status Imitrex Active Ultram 1 Active 1bradycardia ' Immunizations Given and Recorded Vaccine Date Status Refusal Reason SARS-CoV-2 mRNA (sjuwasu-nmec-bfpri) vax 09/03/21 Recorded SARS-CoV-2 (COVID-19) mRNA BNT-162b2 [...] daily., # 20 tablet, 0 Refills, Maintenance, 08/26/22 12:15:00 EDT, Tablet, [facility] #[id number], Partial fill upon patient... Start Date: 08/26/22 Status: Ordered Ajovy Autoinjector 225 mg/1.5 mL subcutaneous solution 0 Refills, Maintenance, 08/13/22 8:57:00 EDT, Partial fill upon patient request if the prescriptionis for a schedule II opioid drug. Start Date: 08/13/22 Status: Ordered ALPRAZolam 0.5 mg oral tablet Refills 0, Maintenance, 08/13/22 8:57:00 EDT, Partial fill upon patient request if the prescriptionis for a schedule II opioid drug. Start Date: 08/13/22 Status: Ordered amLODIPine 5 mg oral tablet 5 mg, 1, tablet, By Mouth, Daily, # 90 tablet, Refills 1, Tot. Refills 1, Maintenance, 09/05/22 9:28:00 EDT, Route to Pharmacy Electronically, [facility] #[id number], Partial fill upon patient request if the [...] opioid drug. Start Date: 08/13/22 Status: Ordered Cymbalta 20 mg oral enteric coated capsule 1 capsule = 20 mg, By Mouth, 2 times a day, can start with once a day and change to BID after 3 days, # 60 capsule, 1 Refills, Maintenance, 06/26/22 9:15:00 EDT, EC Capsule, [facility] #[id number], Partial fill upon patient request if the prescri... Start Date: 06/26/22 Stop Date: 08/25/22 Status: Ordered fluorometholone 0.1% ophthalmic suspension 0 Refills, Maintenance, 08/13/22 8:57:00 EDT, Partial fill upon patient request if the prescriptionis for a schedule II opioid drug. Start Date: 08/13/22 Status: Ordered Home Blood Pressure Monitor See Instructions, # 1 each, Maintenance, Use to check your BP once in the AM and once in the PM, 09/05/22 9:35:00 EDT, Supply Start Date: 09/05/22 Status: Ordered hydrochlorothiazide-lisinopril 12.5 mg-20 mg oral tablet 1 tablet, By Mouth, Daily, # 90 tablet, 0 Refills, Maintenance, 07/31/22 11:28:00 EDT, [facility] #[id number], 90, 1 tablet By Mouth Daily, 153, cm, 06/26/22 8:40:00 EDT, Height Start Date: 07/31/22 Status: Ordered levothyroxine 0.1 mg oral tablet 1 tablet, By Mouth, Daily, # 90 tablet, 0 Refills, Maintenance, 06/26/22 11:00:00 EDT, [facility] #[id number], 153, cm, 06/26/22 8:40:00 EDT, Height Start Date: 06/26/22 Status: Ordered lidocaine 5% topical ointment 2 TO 3 GRAMS, Topically, 3 times a day, PRN NEEDED FOR MODERATE PAIN, PT REQUESTING NON SCENTED OINTMENT, # 50 Gm, 0 Refills, Maintenance, 04/23/22 10:43:00 EST, [facility] #[id number], 20, PT REQUESTING NON SCENTED OINMENT, 2 TO 3 GRAMS Topic... Start Date: 04/23/22 Status: Ordered lisinopril 20 mg oral tablet 1, tablet, By Mouth, Daily, # 90 tablet, Refills 2, Tot. Refills 2, Maintenance, 08/23/22 9:46:00 EDT, Route to Pharmacy Electronically, [facility] #[id number], 153, cm, 08/14/22 9:13:00 EDT, Height Start Date: 08/23/22 Status: Ordered naltrexone 50 mg oral tablet 1 tablet = 50 mg, By Mouth, Daily, # 90 tablet, 0 Refills, Maintenance, 07/05/22 16:59:00 EDT, [facility] #[id number], 153, cm, 06/26/22 8:40:00 EDT, Height Start Date: 07/05/22 Status: Ordered omeprazole 40 mg oral enteric coated capsule 1 capsule, By Mouth, Daily, # 90 capsule, 0 Refills, Maintenance, 08/23/22 9:31:00 EDT, [facility][id number], 153, cm, 08/14/22 9:13:00 EDT, Height Start Date: 08/23/22 Status: Ordered Rhopressa 0.02% ophthalmic solution 0 [...] Team Personnel Name: Latisha Boyce NP Position: [facility] PCO Associate Professional Member Role: PCP Address: Address: [address] [place] [address]- Care Team Related Persons Name: TOY SANTOYO Name: CY LING Address: home [address] [place] [address] Name: MARGI WAYNE Address: home [address] [place] [address] Name: TASNEEM ALANIS Address: home [address] [place] [address]
--- OUTSIDE RECORDS SUMMARY | 2024-01-09 15:44 | XMS_ITS | Continuity of Care Document ---
Author Organization [facility] Adult Address [address] [place] [address]- Care Team Providers Care Drawing Box Tender Name Role Phone Latisha Boyce NP Primary Care Physician [phone] Encounter [facility] [place] Date(s): 09/09/23 - 10/09/23 [facility] Adult [address] [place] [address]- Allergies, Adverse Reactions, Alerts Substance Reaction Severity Status Imitrex Active Ultram 1 Active 1bradycardia ' Immunizations Given and Recorded Vaccine Date Status Refusal Reason [id number] 12y+ bivalent booster vax 01/04/22 Recorded SARS-CoV-2 mRNA (hbulmlq-kgdt-keyjm) vax 09/03/21 Recorded SARS-CoV-2 (COVID-19) mRNA BNT-162b2 [...] daily., # 20 tablet, 0 Refills, Maintenance, 09/25/23 12:47:00 EDT, Tablet, [id number], Partial fill upon patient request... Start Date: 09/25/23 Status: Ordered Ajovy Autoinjector 225 mg/1.5 mL subcutaneous solution 0 Refills, Maintenance, 08/13/22 8:57:00 EDT, Partial fill upon patient request if the prescriptionis for a schedule II opioid drug. Start Date: 08/13/22 Status: Ordered Ajovy Autoinjector 225 mg/1.5 mL subcutaneous solution = 225 mg, Subcutaneous Injection, Every 28 days, # 1 kit, 5 Refills, Maintenance, 05/21/23 12:30:00EDT, [facility]/pharmacy #[id number], Partial fill upon patient request [...] Refills, Maintenance, 09/09/23 13:03:00 EDT, [id number], 155, cm, 08/12/23 7:32:00 EDT, Height, 108, [...] tablet, 0 Refills, Maintenance, 08/06/23 10:06:00 EDT, [id number], 1 tablet By Mouth Daily,x90 days, 155, cm, 07/16/23 9:38:00 EDT, Height, 108, kg, 08/30/22 19:57:00 EDT, Dry Weight Start Date: 08/06/23 Stop Date: 11/04/23 Status: Ordered levothyroxine 0.1 mg oral tablet 1 tablet, By Mouth, Daily, # 90 tablet, 1 Refills, Maintenance, 09/19/23 20:47:00 EDT, [id number], 155, cm, 09/16/23 10:30:00 EDT, Height, 108, kg, 08/30/22 19:57:00 EDT, Dry Weight Start Date: 09/19/23 Status: Ordered levothyroxine 75 mcg (0.075 mg) oral tablet 1 tablet = 75 mcg, By Mouth, Daily, # 60 tablet, 0 Refills, Maintenance, 09/17/23 7:05:00 EDT, Tablet, [id number], Partial fill upon patient request if the prescription is for a schedule II opioid drug., 155, cm, 09/16/23 10:30:00 EDT, Height,... Start Date: 09/17/23 Stop Date: 11/16/23 Status: Ordered lidocaine 5% topical ointment 2 TO 3 GRAMS, Topically, 3 times a day, PRN NEEDED FOR MODERATE PAIN, PT REQUESTING NON SCENTED OINTMENT, # 50 Gm, 0 Refills, Maintenance, 09/16/23 10:46:00 EDT, [id number], PT REQUESTING NON SCENTED OINMENT, 2 TO 3 GRAMS Topically 3 times... Start Date: 09/16/23 Stop Date: 09/30/23 Status: Ordered lisinopril 20 mg oral tablet 1, tablet, By Mouth, Daily at bedtime, # 90 tablet, Refills 0, Tot. Refills 0, Maintenance, 09/02/23 10:06:00 EDT, Route to Pharmacy Electronically, [facility]/pharmacy #[id number], 155, cm, 08/12/23 7:32:00 EDT,Height, 108, kg, 08/30/22 19:57:00 EDT, Dry Weight Start Date: 09/02/23 Status: Ordered naltrexone 50 mg oral tablet 1 tablet, By Mouth, Daily, # 90 tablet, 1 Refills, Maintenance, 05/21/23 12:30:00 EDT, [facility]/pharmacy#[id number], 155, cm, 11/06/22 9:35:00 EDT, Height, 108, kg, 08/30/22 19:57:00 EDT, Dry Weight Start Date: 05/21/23 Stop Date: 11/17/23 Status: Ordered omeprazole 40 mg oral enteric coated capsule 1 capsule, By Mouth, Daily, # 90 capsule, 0 Refills, Maintenance, 08/01/23 8:06:00 EDT, [facility]/pharmacy #[id number], 155, cm, 07/16/23 9:38:00 EDT, [...] List Condition Confirmation Course Effective Dates Status H ealth Status Informant Fibromyalgia Confirmed Active Glaucoma Confirmed Active HTN (hypertension) Confirmed Active Hypothyroidism Confirmed Active Migraine Confirmed Active MDD (recurrent major depressive disorder) in remission Confirmed Active Severe obesity (BMI 35.0-35.9 with comorbidity) Confirmed Active Social History Social History Type Response Smoking Status Never smoker; Tobacc o user in household: No; Type: Cigarettes entered on: 09/04/17 Sex Patient Care team information Care Team Personnel Name: Latisha Boyce NP Position: [facility] PCO Associate Professional Member Role: PCP Address: Address: [address] [place] [address]- Care Team Related Persons Name: TOY SANTOYO Name: CY LING Address: home [address] [place] [address] Name: MARGI WAYNE Address: [address] [place] [address] Name: TASNEEM ALANIS Address: [address] [place] [address]
--- OUTSIDE RECORDS SUMMARY | 2024-01-09 15:44 | XMS_ITS | Continuity of Care Document ---
Author Organization [facility] Adult Address [address] [place] [address]- Care Team Providers Care Sandblaster Paint Sprayer Name Role Phone Latisha Boyce NP Primary Care Physician [place] [facility] [facility] [place] 09[place]13/23 [facility] Adult [address] [place] [address]- Allergies, Adverse Reactions, Alerts Substance Reaction Severity Status Imitrex Active Ultram 1 Active 1bradycardia ' Immunizations Given and Recorded Vaccine Date Status Refusal Reason [id number] 12y+ bivalent booster vax 01/04/22 Recorded SARS-CoV-2 mRNA (epfyesd-cgjo-baymt) vax 09/03/21 Recorded SARS-CoV-2 (COVID-19) mRNA BNT-162b2 [...] 0 Refills, Maintenance, 08/13/23 12:28:00 EDT, [facility]t, [id number], Partial fill upon patient request... Start Date: [...] 1 kit, 5 Refills, Maintenance, 05/21/23 12:30:00EDT, [facility]/pharmacy #[id number], Partial fill upon patient request if [...] Refills, Maintenance, 09/09/23 13:03:00 EDT, [id number], 155, cm, 08/12/23 7:32:00 EDT, Height, 108, [...] tablet, 0 Refills, Maintenance, 08/06/23 10:06:00 EDT, [facility]/pharmacy#[id number], 1 tablet By Mouth Daily,x90 days, 155, cm, 07/16/23 9:38:00 EDT, Height, 108, kg, 08/30/22 19:57:00 EDT, Dry Weight Start Date: 08/06/23 Stop Date: 11/04/23 Status: Ordered levothyroxine 0.1 mg oral tablet 1 tablet, By Mouth, Daily, # 90 tablet, 1 Refills, Maintenance, 03/21/23 7:16:00 Closetbox, [facility] #[id number], 155, cm, 11/06/22 9:35:00 EDT, Height, 108, kg, 08/30/22 19:57:00 EDT, Dry Weight Start Date: 03/21/23 Status: Ordered lidocaine 5% topical ointment 2 TO 3 GRAMS, Topically, 3 times a day, PRN NEEDED FOR MODERATE PAIN, PT REQUESTING NON SCENTED OINTMENT, # 50 Gm, 0 Refills, Maintenance, 04/23/23 12:23:00 [facility] #[id number], 20, PT REQUESTING NON SCENTED OINMENT, 2 TO 3 GRAMS Topic... Start Date: 04/23/23 Status: Ordered lisinopril 20 mg oral tablet 1, tablet, By Mouth, Daily at bedtime, # 90 tablet, Refills 0, Tot. Refills 0, Maintenance, 09/02/23 10:06:00 EDT, Route to Pharmacy Electronically, [facility]/pharmacy #[id number], 155, cm, 08/12/23 7:32:00 EDT,Height, 108, kg, 08/30/22 19:57:00 EDT, Dry Weight Start Date: 09/02/23 Status: Ordered naltrexone 50 mg oral tablet 1 tablet, By Mouth, Daily, # 90 tablet, 1 Refills, Maintenance, 05/21/23 12:30:00 EDT, [facility]/pharmacy#[id number], 155, cm, 11/06/22 9:35:00 EDT, Height, 108, kg, 08/30/22 19:57:00 EDT, Dry Weight Start Date: 05/21/23 Stop Date: 11/17/23 Status: Ordered omeprazole 40 mg oral enteric coated capsule 1 capsule, By Mouth, Daily, # 90 capsule, 0 Refills, Maintenance, 08/01/23 8:06:00 EDT, [facility]/pharmacy #[id number], 155, cm, 07/16/23 9:38:00 EDT, Height, [...] Team Personnel Name: Latisha Boyce NP Position: [facility] Associate Professional Member Role: PCP Address: Address: [address] [place] [address]- Care Team Related Persons Name: TOY SANTOYO Name: CY LING Address: home [address] [place] [address] Name: MARGI WAYNE Address: home [address] [place] [address] Name: TASNEEM ALANIS Address: home [address] [place] [address]
--- OUTSIDE RECORDS SUMMARY | 2024-01-09 15:44 | XMS_ITS | Continuity of Care Document ---
Author Organization [facility] Adult Address [address] [place] [address]- Care Team Providers Care Loom Stop Checker Name Role Phone Latisha Boyce NP Primary Care Physician Encounter [facility] [place] Date(s): 04/09/21 - 05/09/[address] [facility] Adult [address] [place] [address]- Allergies, Adverse Reactions, Alerts Substance Reaction Severity [...] 11/26/18 17:02:00 EDT, Route to Pharmacy Electronically, [id number], [facility] #[id number] Start Date: 11/26/18 Status: Ordered Aquaphor Healing topical ointment See Instructions, Apply to wound BID, # 30 mL, 0 Refills, Maintenance, 10/11/20 16:23:00 EDT, [facility] #[id number], Partial fill upon patient request if the prescription is for a schedule II opioid drug., Apply to wound BID, 153, cm, 10/11/20 1... Start Date: 10/11/20 Status: Ordered ARIPiprazole 2 mg oral tablet 2 mg, 1, tablet, By Mouth, Daily, # 30 tablet, Refills 1, Tot. Refills 1, Maintenance, 03/30/19 9:56:00 EST, Route to Pharmacy Electronically, [facility] #[id number], 156, cm, 01/12/19 11:15:00 EST, Height, 103.1, kg, 01/17/18 9:53:00 EST, Dry We... Start Date: 03/30/19 Stop Date: 06/28/19 Status: Ordered gabapentin 100 mg oral capsule 100 mg, 1, capsule, By Mouth, 3 times a day, # 84 capsule, Refills 0, Tot. Refills 0, Maintenance, 03/19/21 12:11:00 EST, Route to Pharmacy Electronically, [facility] #[id number], Partial fill upon patient request if the prescription is for a sebastian... Start Date: 03/19/21 Stop Date: 04/16/21 Status: Ordered gabapentin 300 mg oral capsule 300 mg, 1, capsule, By Mouth, Daily at bedtime, Take 100mg AM and mid day and 300mg at night, # 14 capsule, Refills 0, Tot. Refills 0, Maintenance, 04/09/21 13:25:00 EST, Route to Pharmacy Electronically, [facility] #[id number], Partial fill upon... Start Date: 04/09/21 Stop Date: 04/23/21 Status: Ordered levothyroxine 0.1 mg oral tablet 1 tablet = 100 mcg, By Mouth, Daily, # 90 tablet, 1 Refills, Maintenance, 12/14/20 12:57:00 EDT, Tablet, [facility] #[id number], Partial fill upon patient request, 153, cm, 10/11/20 15:18:00 EDT, Height, 107, kg, 08/06/19 16:24:00 EDT, Dry Weight Start Date: 12/14/20 Stop Date: 06/12/21 Status: Ordered lisinopril 20 mg oral tablet 20 mg, 1, tablet, By Mouth, Daily, # 90 tablet, Refills 2, Tot. Refills 2, Maintenance, 05/02/21 10:25:00 EDT, Route to Pharmacy Electronically, [facility] #[id number], Partial fill upon patientrequest if the prescription is for a schedule II op... Start Date: 05/02/21 Stop Date: 01/27/22 Status: Ordered naltrexone 50 mg oral tablet 0.5 tablet, By Mouth, Daily, # 45 tablet, 4 Refills, [facility] #[id number], 153, cm, 12/26/2112:09:00 EST, Height, 107, kg, 08/06/19 16:24:00 EDT, Dry Weight Start Date: 01/19/21 Status: Ordered omeprazole 40 mg oral enteric coated capsule 1 capsule, By Mouth, Daily, # 90 capsule, 0 Refills, [facility] #[id number], 153, cm, :59:00 EST, Height, 107, kg, 08/06/19 16:24:00 EDT, [...]
--- OUTSIDE RECORDS SUMMARY | 2024-01-09 15:44 | XMS_ITS | Continuity of Care Document ---
Author Organization [facility] Adult Address [address] [place] [address]- Care Team Providers Care Web Manager Name Role Phone Madonna ALBERT, Latisha Primary Care Physician [place] [facility] [place]10[place]19 [facility] Adult [address] [place] [address]- [facility] Attending Physician: Salome ALBERT, Leilani Allergies, Adverse Reactions, Alerts Substance Reaction Severity [...] 11/26/18 17:02:00 EDT, Route to Pharmacy Electronically, [id number], [facility] #[id number] Start Date: 11/26/18 Status: Ordered ARIPiprazole 2 mg oral tablet 2 mg, 1, tablet, By Mouth, Daily, # 30 tablet, Refills 1, Tot. Refills 1, Maintenance, 03/30/19 9:56:00 EST, Route to Pharmacy Electronically, [facility] #[id number], 156, cm, 01/12/19 11:15:00 EST, Height, 103.1, kg, 01/17/18 9:53:00 EST, Dry We... Start Date: 03/30/19 Stop Date: 06/28/19 Status: Ordered levothyroxine 0.088 mg oral tablet 1 tablet = 88 mcg, By Mouth, Daily, Repeat TSH in 6 weeks Dose decrease, # 30 tablet, 1 Refills, Maintenance, 08/04/19 16:59:00 EDT, Tablet, [facility] #[id number], 156, cm, 07/20/19 14:00:00 EDT, Height, 103.1, kg, 01/17/18 9:53:00 EST, Dry Weight Start Date: 08/04/19 Status: Ordered naltrexone 50 mg oral tablet 0.5 tablet, By Mouth, Daily, # 15 tablet, 1 Refills, Acute, 07/21/19 13:56:00 EDT, [facility] #[id number], 156, cm, 07/20/19 14:00:00 EDT, Height, 103.1, kg, 01/17/18 9:53:00 EST, Dry Weight Start Date: 07/21/19 Status: Ordered omeprazole 40 mg oral enteric coated capsule 1 capsule = 40 mg, By Mouth, Daily, New script, # 30 capsule, 2 Refills, Maintenance, 08/31/19 13:25:00 EDT, EC Capsule, [facility] #[id number], 153, cm, 08/06/19 16:24:00 EDT, Height, 107, kg, 08/06/19 16:24:00 EDT, Dry Weight Start Date: 08/31/19 Status: Ordered traZODone 150 mg oral tablet [...]
--- OUTSIDE RECORDS SUMMARY | 2024-01-09 15:44 | XMS_ITS | Continuity of Care Document ---
Author Organization [facility] Adult Address [address] [place] [address]- Care Team Providers Care Tax Compliance Manager Name Role Phone Latisha Boyce NP Primary Care Physician [place] [facility] [place]20 [facility] Adult [address] [place] [address]- Allergies, Adverse Reactions, Alerts Substance Reaction Severity [...] 11/26/18 17:02:00 EDT, Route to Pharmacy Electronically, [id number], [facility] #[id number] Start Date: 11/26/18 Status: Ordered ARIPiprazole 2 mg oral tablet 2 mg, 1, tablet, By Mouth, Daily, # 30 tablet, Refills 1, Tot. Refills 1, Maintenance, 03/30/19 9:56:00 EST, Route to Pharmacy Electronically, [facility] #[id number], 156, cm, 01/12/19 11:15:00 EST, Height, 103.1, kg, 01/17/18 9:53:00 EST, Dry We... Start Date: 03/30/19 Stop Date: 06/28/19 Status: Ordered levothyroxine 0.088 mg oral tablet 1 tablet = 88 mcg, By Mouth, Daily, Repeat TSH in 6 weeks Dose decrease, # 30 tablet, 5 Refills, Maintenance, 09/30/19 15:30:00 EDT, Tablet, [facility] #[id number], 153, cm, 08/06/19 16:24:00 EDT, Height, 107, kg, 08/06/19 16:24:00 EDT, Dry Weight Start Date: 09/30/19 Status: Ordered levothyroxine 0.1 mg oral tablet 1 tablet = 100 mcg, By Mouth, Daily, # 90 tablet, 2 Refills, Maintenance, 03/14/20 8:40:00 EST, Tablet, [facility] #[id number], Partial fill upon patient request, 153, cm, 01/05/20 15:53:00 EST,Height, 107, kg, 08/06/19 16:24:00 EDT, Dry Weight Start Date: 03/14/20 Stop Date: 12/09/20 Status: Ordered lidocaine 5% topical ointment See Instructions, PRN Pain , Moderate, 2 to 3 g Topically 3 times a day, # 50 Gm, 1 Refills, Acute 11/01/20 13:10:00 EDT, 11/02/19 13:10:00 EDT, Ointment, [facility] #[id number], 2 to 3 g Topically 3 times a day,PRN:Pain , Moderate, 153, cm, 07/18... Start Date: 11/02/19 Stop Date: 11/01/20 Status: Ordered naltrexone 50 mg oral tablet 0.5 tablet, By Mouth, Daily, for 30 days, # 15 tablet, 2 Refills, Acute 06/05/20 9:11:00 EDT, 03/07/20 9:11:00 EST, [facility] #[id number], 153, cm, 01/05/20 15:53:00 EST, Height, 107, kg, 08/06/19 16:24:00 EDT, Dry Weight Start Date: 03/07/20 Stop Date: 06/05/20 Status: Ordered omeprazole 40 mg oral enteric coated capsule 1 capsule = 40 mg, By Mouth, Daily, New script, # 30 capsule, 2 Refills, Maintenance, 03/06/20 13:47:00 EST, EC Capsule, [facility] #[id number], 153, cm, 01/05/20 15:53:00 EST, Height, 107, [...]
--- OUTSIDE RECORDS SUMMARY | 2024-01-09 15:44 | XMS_ITS | Continuity of Care Document ---
Author Organization [facility] Adult Address [address] [place] [address]- Care Team Providers Care Medical Records Receptionist Name Role Phone Latisha Boyce NP Primary Care Physician [place] [facility] [place]19[place]20 [place] 02/18/20 [facility] Adult [address] [place] [address]- Allergies, Adverse Reactions, Alerts Substance Reaction Severity [...] 11/26/18 17:02:00 EDT, Route to Pharmacy Electronically, [id number], [facility] #[id number] Start Date: 11/26/18 Status: Ordered ARIPiprazole 2 mg oral tablet 2 mg, 1, tablet, By Mouth, Daily, # 30 tablet, Refills 1, Tot. Refills 1, Maintenance, 03/30/19 9:56:00 EST, Route to Pharmacy Electronically, [facility] #[id number], 156, cm, 01/12/19 11:15:00 EST, Height, 103.1, kg, 01/17/18 9:53:00 EST, Dry We... Start Date: 03/30/19 Stop Date: 06/28/19 Status: Ordered levothyroxine 0.088 mg oral tablet 1 tablet = 88 mcg, By Mouth, Daily, Repeat TSH in 6 weeks Dose decrease, # 30 tablet, 5 Refills, Maintenance, 09/30/19 15:30:00 EDT, Tablet, [facility] #[id number], 153, cm, 08/06/19 16:24:00 EDT, Height, 107, kg, 08/06/19 16:24:00 EDT, Dry Weight Start Date: 09/30/19 Status: Ordered levothyroxine 0.1 mg oral tablet 1 tablet = 100 mcg, By Mouth, Daily, # 30 tablet, 1 Refills, Maintenance, 01/14/20 8:40:00 EST, Tablet, [facility] #[id number], Partial fill upon patient request, 153, cm, 01/05/20 15:53:00 EST,Height, 107, kg, 08/06/19 16:24:00 EDT, Dry Weight Start Date: 01/14/20 Stop Date: 03/14/20 Status: Ordered lidocaine 5% topical ointment See Instructions, PRN Pain , Moderate, 2 to 3 g Topically 3 times a day, # 50 Gm, 1 Refills, Acute 11/01/20 13:10:00 EDT, 11/02/19 13:10:00 EDT, Ointment, [facility] #[id number], 2 to 3 g Topically 3 times a day,PRN:Pain , Moderate, 153, cm, 07/18... Start Date: 11/02/19 Stop Date: 11/01/20 Status: Ordered naltrexone 50 mg oral tablet 0.5 tablet, By Mouth, Daily, # 15 tablet, 5 Refills, Acute 09/21/20 12:21:00 EDT, 09/22/19 12:21:00EDT, [facility] #[id number], 153, cm, 08/06/19 16:24:00 EDT, Height, 107, kg, 08/06/19 16:24:00 EDT, Dry Weight Start Date: 09/22/19 Stop Date: 09/21/20 Status: Ordered omeprazole 40 mg oral enteric coated capsule 1 capsule = 40 mg, By Mouth, Daily, New script, # 30 capsule, 2 Refills, Maintenance, 12/15/19 8:48:00 EDT, EC Capsule, [facility] #[id number], 153, cm, 08/06/19 16:24:00 EDT, Height, 107, [...]
--- OUTSIDE RECORDS SUMMARY | 2024-01-09 15:44 | XMS_ITS | Continuity of Care Document ---
Author Organization [facility] Adult Address [address] [place] [address]- Care Team Providers Care Communications Operator Name Role Phone Latisha Boyce NP Primary Care Physician En[place] [facility] [place] Date(s): 08/29/22 - 09/28/22 [facility] Adult [address] [place] [address]- Allergies, Adverse Reactions, Alerts Substance Reaction Severity Status Imitrex Active Ultram 1 Active 1bradycardia ' Immunizations Given and Recorded Vaccine Date Status Refusal Reason SARS-CoV-2 mRNA (krwlysv-cswa-frath) vax 09/03/21 Recorded SARS-CoV-2 (COVID-19) mRNA BNT-162b2 [...] daily., # 20 tablet, 0 Refills, Maintenance, 09/18/22 11:27:00 EDT, Tablet, [facility] #[id number], Partial fill upon patient... Start Date: 09/18/22 Status: Ordered Ajovy Autoinjector 225 mg/1.5 mL [...] 09/05/22 9:28:00 EDT, Route to Pharmacy Electronically, [facility] #[id number], Partial fill upon patient request if the [...] capsule, 0 Refills, Maintenance, 09/13/22 17:08:00 EDT, [facility] #[id number], 155, cm, 09/05/22 9:14:00 EDT, Height, 108, [...] tablet, 0 Refills, Maintenance, 07/31/22 11:28:00 EDT, [facility] #[id number], 90, 1 tablet By Mouth Daily, 153, cm, 06/26/22 8:40:00 EDT, Height Start Date: 07/31/22 Status: Ordered levothyroxine 0.1 mg oral tablet 1 tablet, By Mouth, Daily, # 90 tablet, 1 Refills, Maintenance, 09/18/22 8:58:00 EDT, [facility] #[id number], 155, cm, 09/05/22 9:14:00 EDT, Height, 108, kg, 08/30/22 19:57:00 EDT, Dry Weight Start Date: 09/18/22 Status: Ordered lidocaine 5% topical ointment 2 TO 3 GRAMS, Topically, 3 times a day, PRN NEEDED FOR MODERATE PAIN, PT REQUESTING NON SCENTED OINTMENT, # 50 Gm, 0 Refills, Maintenance, 04/23/22 10:43:00 EST, [facility] #[id number], 20, PT REQUESTING NON SCENTED OINMENT, 2 TO 3 GRAMS Topic... Start Date: 04/23/22 Status: Ordered lisinopril 20 mg oral tablet 1, tablet, By Mouth, Daily, # 90 tablet, Refills 2, Tot. Refills 2, Maintenance, 08/23/22 9:46:00 EDT, Route to Pharmacy Electronically, [facility] #[id number], 153, cm, 08/14/22 9:13:00 EDT, Height Start Date: 08/23/22 Status: Ordered naltrexone 50 mg oral tablet 1 tablet = 50 mg, By Mouth, Daily, # 90 tablet, 0 Refills, Maintenance, 09/18/22 11:29:00 EDT, [facility] #[id number], 155, cm, 09/05/22 9:14:00 EDT, Height, 108, kg, 08/30/22 19:57:00 EDT, Dry Weight Start Date: 09/18/22 Status: Ordered omeprazole 40 mg oral enteric coated capsule 1 capsule, By Mouth, Daily, # 90 capsule, 0 Refills, Maintenance, 08/23/22 9:31:00 EDT, [facility] #[id number], 153, cm, 08/14/22 9:13:00 EDT, Height Start [...] Team Personnel Name: Latisha Boyce NP Position: [facility] Associate Professional Member Role: PCP Address: Address: [address] [place] [id number]- Care Team Related Persons Name: TOY SANTOYO Name: CY LING Address: home [address] [place] [address] Name: MARGI WAYNE Address: home [address] [place] [address] Name: TASNEEM ALANIS Address: home [address] [place] [address]
--- OUTSIDE RECORDS SUMMARY | 2024-01-09 15:44 | XMS_ITS | Continuity of Care Document ---
Author Organization [facility] Adult Address [address] [place] [address]- Care Team Providers Care Drug Safety Scientist Name Role Phone Latisha Boyce NP Primary Care Physician [place] [facility] [place] Date(s): 10/31/23 - 11/30/23 [facility] Adult [address] [place] [address]- Allergies, Adverse Reactions, Alerts Substance Reaction Severity Status Imitrex Active Ultram 1 Active 1bradycardia ' Immunizations Given and Recorded Vaccine Date Status Refusal Reason [id number] 12y+ bivalent booster vax 01/04/22 Recorded SARS-CoV-2 mRNA (oijkkmr-vcnt-diraz) vax 09/03/21 Recorded SARS-CoV-2 (COVID-19) mRNA BNT-162b2 [...] daily., # 20 tablet, 0 Refills, Maintenance, 11/18/23 7:29:00 EDT, Tablet, [id number], Partial fill upon patient request i... Start Date: 11/18/23 Status: Ordered Ajovy Autoinjector 225 mg/1.5 mL subcutaneous solution 0 Refills, Maintenance, 08/13/22 8:57:00 EDT, Partial fill upon patient request if the prescriptionis for a schedule II opioid drug. Start Date: 08/13/22 Status: Ordered Ajovy Autoinjector 225 mg/1.5 mL subcutaneous solution = 225 mg, Subcutaneous Injection, Every 28 days, # 1 kit, 5 Refills, Maintenance, 05/21/23 12:30:00EDT, [facility]/pharmacy #[id number], Partial fill upon patient request [...] Refills, Maintenance, 09/09/23 13:03:00 EDT, [id number], 155, cm, 08/12/23 7:32:00 EDT, Height, 108, [...] Daily, # 90 tablet, 0 Refills, Maintenance, 11/03/23 11:26:00 EDT, [id number], 1 tablet By Mouth Daily,x90 days, 155, cm, 09/16/23 10:30:00 EDT, Height, 108, kg, 08/30/22 19:57:00 EDT, Dry Weight Start Date: 11/03/23 Stop Date: 02/01/24 Status: Ordered levothyroxine 0.1 mg oral tablet 1 tablet, By Mouth, Daily, # 90 tablet, 1 Refills, Maintenance, 09/19/23 20:47:00 EDT, [id number], 155, cm, 09/16/23 10:30:00 EDT, Height, 108, kg, 08/30/22 19:57:00 EDT, Dry Weight Start Date: 09/19/23 Status: Ordered levothyroxine 75 mcg (0.075 mg) oral tablet 1 tablet = 75 mcg, By Mouth, Daily, # 90 tablet, 3 Refills, Maintenance, 11/18/23 13:48:00 EDT, Tablet, [id number], Partial fill upon patient request if the prescription is for a schedule II opioid drug., 155, cm, 09/16/23 10:30:00 EDT, Height... Start Date: 11/18/23 Stop Date: 11/12/24 Status: Ordered lidocaine 5% topical ointment 2 [...] Daily at bedtime, # 90 tablet, Refills 1, Tot. Refills 1, Maintenance, 11/28/23 15:37:00 EDT, Route to Pharmacy Electronically, [facility]acy #[id number], 155, cm, 09/16/23 10:30:00 EDT, Height, 108, kg, 08/30/22 19:57:00 EDT, Dry Weight Start Date: 11/28/23 Status: Ordered naltrexone 50 mg oral tablet 1 tablet, By Mouth, Daily, # 90 tablet, 1 Refills, Maintenance, 05/21/23 12:30:00 EDT, [facility]/pharmacy#[id number], 155, cm, 11/06/22 9:35:00 EDT, Height, 108, kg, 08/30/22 19:57:00 EDT, Dry Weight Start Date: 05/21/23 Stop Date: 11/17/23 Status: Ordered omeprazole 40 mg oral enteric coated capsule 1 capsule, By Mouth, Daily, # 90 capsule, 0 Refills, Maintenance, 08/01/23 8:06:00 EDT, [facility]/pharmacy #[id number], 155, cm, 07/16/23 9:38:00 EDT, [...] Associate Professional Member Role: PCP Address: Address: [address] [place] [address]- Care Team Related Persons Name: TOY SANTOYO Name: CY LING Address: [address] [place] [address] Name: MARGI WAYNE Address: [address] [place] [address] Name: TASNEEM ALANIS Address: [address] [place] [address]
--- OUTSIDE RECORDS SUMMARY | 2024-01-09 15:44 | XMS_ITS | Continuity of Care Document ---
Author Organization [facility] Adult Address [address] [place] [address]- Care Team Providers Care Armed Security Officer Name Role Phone Latisha Boyce NP Primary Care Physician [place] [facility] [place] [place] [id number] Date(s): 12/12/21 - 12/19/21 [facility] Adult [address] [place] [address]- Encounter Diagnosis Adult general medical exam(Discharge Diagnosis) - 12/12/21 Depression(Discharge Diagnosis) - 12/12/21 Fibromyalgia(Discharge Diagnosis) - 12/12/21 HTN (hypertension)(Discharge Diagnosis) - 12/12/21 Hypothyroidism(Discharge Diagnosis) - 12/12/21 Migraine(Discharge Diagnosis) - 12/12/21 Severe obesity(Discharge Diagnosis) - 12/12/21 Attending Physician: Latisha Boyce NP Allergies, Adverse Reactions, Alerts Substance Reaction Severity Status Imitrex Active Ultram 1 Active 1bradycardia ' Immunizations Given and Recorded Vaccine Date Status Refusal Reason SARS-CoV-2 mRNA (segbcln-rkto-nnibe) vax 09/03/21 Recorded SARS-CoV-2 (COVID-19) mRNA BNT-162b2 [...] 11/26/18 17:02:00 EDT, Route to Pharmacy Electronically, [id number], [facility] #[id number] Start Date: 11/26/18 Status: Ordered Aquaphor Healing topical ointment See Instructions, Apply to wound BID, # 30 mL, 0 Refills, Maintenance, 10/11/20 16:23:00 EDT, [facility] #[id number], Partial fill upon patient request if the prescription is for a schedule II opioid drug., Apply to wound BID, 153, cm, 10/11/20 1... Start Date: 10/11/20 Status: Ordered ARIPiprazole 2 mg oral tablet 2 mg, 1, tablet, By Mouth, Daily, # 30 tablet, Refills 1, Tot. Refills 1, Maintenance, 03/30/19 9:56:00 EST, Route to Pharmacy Electronically, [facility] #[id number], 156, cm, 01/12/19 11:15:00 EST, Height, 103.1, kg, 01/17/18 9:53:00 EST, Dry We... Start Date: 03/30/19 Stop Date: 06/28/19 Status: Ordered gabapentin 100 mg oral capsule 1, capsule, By Mouth, 3 times a day, # 84 capsule, Refills 0, Tot. Refills 0, Maintenance, 12/17/2210:26:00 EDT, Route to Pharmacy Electronically, [facility] #[id number], 153, cm, 10/26/22 8:30:00 EDT, Height Start Date: 12/17/21 Status: Ordered hydrochlorothiazide-lisinopril 12.5 mg-20 mg oral tablet 1 tablet, By Mouth, Daily, # 90 tablet, 0 Refills, Maintenance, 11/02/21 13:24:00 EDT, Tablet, [facility] #[id number], Partial fill upon patient request if the prescription is for a schedule II opioid drug., 1 tablet By Mouth Daily,x90 days, 153,... Start Date: 11/02/21 Stop Date: 01/31/22 Status: Ordered levothyroxine 0.1 mg oral tablet 1 tablet = 100 mcg, By Mouth, Daily, # 90 tablet, 1 Refills, Maintenance, 12/17/21 10:02:00 EDT, Tablet, [facility] #[id number], Partial fill upon patient request, 153, cm, 12/12/21 8:30:00 EDT,Height Start Date: 12/17/21 Stop Date: 06/15/22 Status: Ordered lidocaine 5% topical ointment 2 TO 3 GRAMS, Topically, 3 times a day, PRN NEEDED FOR MODERATE PAIN, # 50 Gm, 0 Refills, Maintenance, 11/19/21 7:35:00 EDT, [facility] #[id number], 20, APPLY 2 TO 3 GRAMS TOPICALLY THREE TIMES DAILY NEEDED FOR MODERATE PAIN, 153, cm, 11/02... Start Date: 11/19/21 Status: Ordered lisinopril 20 mg oral tablet 20 mg, 1, tablet, By Mouth, Daily, # 90 tablet, Refills 2, Tot. Refills 2, Maintenance, 05/02/21 10:25:00 EDT, Route to Pharmacy Electronically, [facility] #[id number], Partial fill upon patientrequest if the prescription is for a schedule II op... Start Date: 05/02/21 Stop Date: 01/27/22 Status: Ordered naltrexone 50 mg oral tablet 0.5 tablet, By Mouth, Daily, # 45 tablet, 4 Refills, [facility] #[id number], 153, cm, 12/26/2112:09:00 EST, Height, 107, kg, 08/06/19 16:24:00 EDT, Dry Weight Start Date: 01/19/21 Status: Ordered omeprazole 40 mg oral enteric coated capsule 1 capsule, By Mouth, Daily, # 90 capsule, 0 Refills, Maintenance, 12/19/21 14:09:00 EDT, [facility] #[id number], 153, cm, 12/12/21 8:30:00 EDT, Height Start Date: 12/19/21 Status: Ordered Problem List Condition Confirmation Course Effective Dates Status Health St atus Informant Depression Confirmed Active Fibromyalgia Confirmed Active Glaucoma Confirmed Active HTN (hypertension) Confirmed Active Hypothyroidism Confirmed Active Migraine Confirmed Active Severe obesity Confirmed Active Diagnosis Diagnosis Type Effective Dates Health Status Clinical Service Informant Adult general medical exam Discharge Diagnosis 12/12/21 Depression Discharge Diagnosis 12/12/21 Fibromyalgia Discharge Diagnosis 12/12/21 HTN (hypertension) Discharge Diagnosis 12/12/21 Hypothyroidism Discharge Diagnosis 12/12/21 Migraine Discharge Diagnosis 12/12/21 Severe obesity Discharge Diagnosis 12/12/21 Vital Signs Most recent to oldest [Reference Range]: 1 Height 153 cm (12/12/21 8:30 AM) Weight 109.8 kg (12/12/21 8:30 AM) Oxygen Saturation [94-100 %] 100 % (12/12/21 8:30 AM) Pulse Rate [55-90 bpm] 68 bpm (12/12/21 8:30 AM) Body Mass Index [18.5-24.99 kg/m2] 46.91 kg/m2 *>HHI* (12/12/21 8:30 AM) Blood Pressure [90-138/55-84 mm Hg] 126/ 88mm Hg (12/12/21 8:30 AM) Temperature [96.8-100.4 DegF] 97.9 DegF (12/12/21 8:30 AM) Mode of Delivery (Oxygen) Room air (12/12/21 8:30 AM) Blood pressure sites Arm, left (12/12/21 8:30 AM) Temperature Route Oral (12/12/21 8:30 AM) Weight Obtained Via Standing scale (12/12/21 8:30 AM) Social History Social History Type Response Smoking Status Never smoker; Tobacc o user in household: No; Type: Cigarettes entered on: 09/04/17 Sex Patient Care team information Personnel Name: Latisha Boyce NP Address: Address: [address] [place] [phone]-
--- OUTSIDE RECORDS SUMMARY | 2024-01-09 15:44 | XMS_ITS | Continuity of Care Document ---
Author Organization [facility] Adult Address [address] [place] [address]- Care Team Providers Care Senior Supply Chain Analyst Name Role Phone Latisha Boyce NP Primary Care Physician [place] [facility] [place]23 [place] 08/15/23 [facility] Adult [address] [place] [id number]- Allergies, Adverse Reactions, Alerts Substance Reaction Severity Status Imitrex Active Ultram 1 Active 1bradycardia ' Immunizations Given and Recorded Vaccine Date Status Refusal Reason [id number] 12y+ bivalent booster vax 01/04/22 Recorded SARS-CoV-2 mRNA (ydflwnt-yubt-zuwuo) vax 09/03/21 Recorded SARS-CoV-2 (COVID-19) mRNA BNT-162b2 [...] Refills, Maintenance, 08/13/23 12:28:00 EDT, Tablet, [id number], Partial fill upon patient request... Start Date: [...] 1 kit, 5 Refills, Maintenance, 05/21/23 12:30:00EDT, [facility]/pharmacy #[id number], Partial fill upon patient request [...] 03/12/23 11:01:00 EST, Route to Pharmacy Electronically, [facility] #[id number], Partial fill upon patient request if the [...] tablet, 0 Refills, Maintenance, 08/06/23 10:06:00 EDT, [facility]/pharmacy#[id number], 1 tablet By Mouth Daily,x90 days, 155, cm, 07/16/23 9:38:00 EDT, Height, 108, kg, 08/30/22 19:57:00 EDT, Dry Weight Start Date: 08/06/23 Stop Date: 11/04/23 Status: Ordered levothyroxine 0.1 mg oral tablet 1 tablet, By Mouth, Daily, # 90 tablet, 1 Refills, Maintenance, 03/21/23 7:16:00 EST, [facility] #[id number], 155, cm, 11/06/22 9:35:00 EDT, Height, 108, kg, 08/30/22 19:57:00 EDT, Dry Weight Start Date: 03/21/23 Status: Ordered lidocaine 5% topical ointment 2 TO 3 GRAMS, Topically, 3 times a day, PRN NEEDED FOR MODERATE PAIN, PT REQUESTING NON SCENTED OINTMENT, # 50 Gm, 0 Refills, Maintenance, 04/23/23 12:23:00 EST, [facility] #[id number], 20, PT REQUESTING NON SCENTED OINMENT, 2 TO 3 GRAMS Topic... Start Date: 04/23/23 Status: Ordered lisinopril 20 mg oral tablet 1, tablet, By Mouth, Daily at bedtime, # 90 tablet, Refills 0, Maintenance, 08/15/23 6:51:00 EDT, Route to Pharmacy Electronically, [facility] #[id number], 155, cm, 08/12/23 7:32:00 EDT, Height,108, kg, 08/30/22 19:57:00 EDT, Dry Weight Start Date: 08/15/23 Status: Ordered naltrexone 50 mg oral tablet 1 tablet, By Mouth, Daily, # 90 tablet, 1 Refills, Maintenance, 05/21/23 12:30:00 EDT, [facility]/pharmacy#[id number], 155, cm, 11/06/22 9:35:00 EDT, Height, 108, kg, 08/30/22 19:57:00 EDT, Dry Weight Start Date: 05/21/23 Stop Date: 11/17/23 Status: Ordered omeprazole 40 mg oral enteric coated capsule 1 capsule, By Mouth, Daily, # 90 capsule, 0 Refills, Maintenance, 08/01/23 8:06:00 EDT, [facility]/pharmacy #[id number], 155, cm, 07/16/23 9:38:00 EDT, [...] Associate Professional Member Role: PCP Address: Address: [address] [place] [id number]- Care Team Related Persons Name: TOY SANTOYO Name: CY LING Address: home [address] [place] [address] Name: MARGI WAYNE Address: home [address] [place] [address] Name: TASNEEM ALANIS Address: home [address] [place] [address]
--- OUTSIDE RECORDS SUMMARY | 2024-01-09 15:44 | XMS_ITS | Continuity of Care Document ---
Author Organization [facility] Adult Address [address] [place] [address]- Care Team Providers Care Four Roll Calender Operator Name Role Phone Latisha Boyce NP Primary Care Physician [phone] [place] [facility] [place] Date(s): 09/16/23 - 09/23/[address] [facility] Adult [address] [place] [phone]- Encounter Diagnosis MDD (recurrent major depressive disorder) in remission(Discharge Diagnosis) - 09/16/23 Severe obesity (BMI 35.0-35.9 with comorbidity)(Discharge Diagnosis) - 09/16/23 Migraine(Discharge Diagnosis) - 09/16/23 HTN (hypertension)(Discharge Diagnosis) - 09/16/23 Hypothyroidism(Discharge Diagnosis) - 09/16/23 Attending Physician: Latisha Boyce NP Allergies, Adverse Reactions, Alerts Substance Reaction Severity Status Imitrex Active Ultram 1 Active 1bradycardia ' Immunizations Given and Recorded Vaccine Date Status Refusal Reason [id number] 12y+ bivalent booster vax 01/04/22 Recorded SARS-CoV-2 mRNA (pmebmmt-xcis-lazal) vax 09/03/21 Recorded SARS-CoV-2 (COVID-19) mRNA BNT-162b2 [...] 0 Refills, Maintenance, 08/13/23 12:28:00 EDT, Tablet, [facility]/pharmacy #[id number], Partial fill upon patient request... [...] 1 kit, 5 Refills, Maintenance, 05/21/23 12:30:00EDT, [facility]/pharmacy #[id number], Partial fill upon patient request [...] Refills, Maintenance, 09/09/23 13:03:00 EDT, [id number], 155, cm, 08/12/23 7:32:00 EDT, Height, 108, [...] tablet, 0 Refills, Maintenance, 08/06/23 10:06:00 EDT, [facility]/pharmacy#[id number], 1 tablet By Mouth Daily,x90 days, [...] Gm, 0 Refills, Maintenance, 09/16/23 10:46:00 EDT, [facility]/pharmacy #[id number], PT REQUESTING NON SCENTED OINMENT, 2 TO 3 GRAMS Topically 3 times... Start Date: 09/16/23 Stop Date: 09/30/23 Status: Ordered lisinopril 20 mg oral tablet 1, tablet, By Mouth, Daily at bedtime, # 90 tablet, Refills 0, Tot. Refills 0, Maintenance, 09/02/23 10:06:00 EDT, Route to Pharmacy Electronically, [facility]/pharmacy #[id number], 155, cm, 08/12/23 7:32:00 EDT,Height, 108, kg, 08/30/22 19:57:00 EDT, Dry Weight Start Date: 09/02/23 Status: Ordered naltrexone 50 mg oral tablet 1 tablet, By Mouth, Daily, # 90 tablet, 1 Refills, Maintenance, 05/21/23 12:30:00 EDT, [id number], 155, cm, 11/06/22 9:35:00 EDT, Height, 108, kg, 08/30/22 19:57:00 EDT, Dry Weight Start Date: 05/21/23 Stop Date: 11/17/23 Status: Ordered omeprazole 40 mg oral enteric coated capsule 1 capsule, By Mouth, Daily, # 90 capsule, 0 Refills, Maintenance, 08/01/23 8:06:00 EDT, [facility]/pharmacy #[id number], 155, cm, 07/16/23 9:38:00 EDT, [...] obesity (BMI 35.0-35.9 with comorbidity) Confirmed Active Diagnosis Diagnosis Type Effective Dates Health Status Clinical Service Informant MDD (recurrent major depressive disorder) in remission Discharge Diagnosis 09/16/23 Severe obesity (BMI 35.0-35.9 with comorbidity) Discharge Diagnosis 09/16/23 Migraine Discharge Diagnosis 09/16/23 HTN (hypertension) Discharge Diagnosis 09/16/23 Hypothyroidism Discharge Diagnosis 09/16/23 Procedures Procedure Date Related Diagnosis Body Site Status Corneal transplant R 1 Co mpleted 24191 Vital Signs Most recent to oldest [Reference Range]: 1 Height 155 cm (09/16/23 10:30 AM) Weight 113.7 kg (09/16/23 10:30 AM) Oxygen Saturation [94-100 %] 99 % (09/16/23 10:30 AM) Pulse Rate [55-90 bpm] 79 bpm (09/16/23 10:30 AM) Body Mass Index [18.5-24.99 kg/m2] 47.33 kg/m2 *>HHI* (09/16/23 10:30 AM) Blood Pressure [90-138/55-84 mm Hg] 89/6 7mm Hg *L* (09/16/23 10:30 AM) Temperature [96.8-100.4 DegF] 98.2 DegF (09/16/23 10:30 AM) Mode of Delivery (Oxygen) Room air (09/16/23 10:30 AM) Blood pressure sites Arm, left (09/16/23 10:30 AM) Temperature Route Oral (09/16/23 10:30 AM) Weight Obtained Via Standing scale (09/16/23 10:30 AM) Social History Social History Type Response Smoking Status Never smoker; Tobacc o user in household: No; Type: Cigarettes entered on: 09/04/17 Sex Note * Kimberly Hernandez: PERFORM Event Display: Patient Education/Instruction Authored Date: [id number] Ambulatory Adult Visit Summary [facility] [address] [place], [place] [id number] Name: BRIAN ALANIS : 1960?? Visit: 09/16/2023 10:14?? Ambulatory Visit Instructions ?? Your Care Team Primary Care Provider Latisha Boyce NP? This Visit Provider Latisha Boyce NP Your Diagnosis MDD (recurrent major depressive disorder) in remission Severe obesity (BMI 35.0-35.9 with comorbidity) Migraine HTN (hypertension) Hypothyroidism Vitals Signs Temperature: 98.2 DegF Height: 155 cm Pulse Rate: 79 bpm Weight: 113.7 kg Systolic Blood Pressure:??89 mm Hg??Low Body Mass Index:??47.33 kg/m2??Critical Diastolic Blood Pressure: 67 mm Hg Body surface area: 2.21 Oxygen Saturation: 99 % ?? What to do next Follow-Up Appointments Follow Up with??Latisha Boyce NP When:??12/26/2023 03:50 PM EST Why: PHYSICAL Where: [address] [place] [address]- Future Orders TSH Rfx on Abnormal to Free T4 - Routine, Once, 09/16/23 10:45:00 EDT, Order for Today, [facility], Blood?? Medications The list below reflects the information in our records and provided by you today along with any changes made during this visit. Please continue your medications until treatment is completed or stopped by your provider. If this is different from the information you have or there are other questions,please contact the prescribing provider. What How Much When Why Instructions Changed Lidocaine Topical (lidocaine 5% topical ointment) 2 TO 3 GRAMS Topically 3 times a day as needed for NEEDED FOR MODERATE PAIN Duration: 14 Days PT REQUESTING NON SCENTED OINTMENT ?? Pickup at [facility]/pharmacy #[id number] Unchanged Acetaminophen/ Butalbital/ Caffeine (acetaminophen/ butalbital/ caffeine 325 mg-50 mg-40 mg oral tablet) See instructions 1 to 2 tablets or capsules every 4 hours as needed; not to exceed 6 tablets or capsules daily., As needed for as needed ?? Unchanged Alprazolam (ALPRAZolam 0.5 mg oral tablet) Unchanged Amlodipine (amLODIPine 5 mg oral tablet) See instructions TAKE 1 TABLET BY MOUTH EVERY DAY ?? Unchanged Aripiprazole (ARIPiprazole 2 mg oral tablet) Unchanged Brimonidine Ophthalmic (brimonidine 0.2% ophthalmic solution) Unchanged Durable Medical Equipment (Home Blood Pressure Monitor) See instructions Hypertension Use to check your BP once in the AM and once in the PM 47 cm arm measurement ?? Unchanged Fluorometholone Ophthalmic (fluorometholone 0.1% ophthalmic suspension) Unchanged fremanezumab (Ajovy Autoinjector 225 mg/ 1.5 mL subcutaneous solution) 225 Milligram Subcutaneous Injection Every 28 days Duration: 1 doses/times Unchanged fremanezumab (Ajovy Autoinjector 225 mg/ 1.5 mL subcutaneous solution) Unchanged Hydrochlorothiazide-Lisinopril (hydrochlorothiazide-lisinopril 12.5 mg-20 mg oral tablet) 1 tab(s) Oral Daily Duration: 90 Days Unchanged Levothyroxine (levothyroxine 0.1 mg oral tablet) 1 tab(s) Oral Daily Unchanged Lisinopril (lisinopril 20 mg oral tablet) 1 tab(s) Oral Daily at Bedtime Unchanged Naltrexone (naltrexone 50 mg oral tablet) 1 tab(s) Oral Daily Duration: 90 Days Unchanged netarsudil ophthalmic (Rhopressa 0.02% ophthalmic solution) Unchanged Omeprazole (omeprazole 40 mg oral enteric coated capsule) 1 capsule Oral Daily Unchanged Timolol Ophthalmic (Timolol Maleate (Eqv-Timoptic) 0.5% ophthalmic solution) Pharmacy Information [facility]/pharmacy #[id number]: [address] [place], [place] [id number] [phone] Test Performed Below is a partial list of the tests performed during your Visit. You may have had other tests and procedures not included in this list. Please discuss all test results with your provider. TSH Rfx on Abnormal to Free T4?-- Results Pending -- Medications and Immunizations Administered Medications Given During Visit No medications given during this visit.?? Allergies (NKA means No Known Allergies) Imitrex Ultram Common Emergency Awareness Tips IS IT A STROKE? Act FAST and Check for these signs: FACE Does the face look uneven? ARM Does one arm drift down? SPEECH Does their speech sound strange? TIME Call at any sign of stroke ?? Heart Attack Signs Chest discomfort: Most heart attacks involve discomfort in the center of the chest and lasts more than a few minutes, or goes away and comes back. It can feel like uncomfortable pressure, squeezing, fullness or pain. Discomfort in upper body: Symptoms can include pain or discomfort in one or both arms, back, neck, jaw or stomach. Shortness of breath: With or without discomfort. Other signs: Breaking out in a cold sweat, nausea, or lightheaded. Remember, MINUTES DO MATTER. If you experience any of these heart attack warning signs, call to get immediate medical attention! ?? Smoking can increase your chances of developing chronic health problems and can cause harmful effects to other family members in your house. If you smoke, you are strongly encouraged to quit. Please call [employer] at [phone] or 6-691-336[employer] ([phone]) or log in to [email or web address] for referrals to smoking cessation programs. ?? The National Suicide Prevention Hotline is available 09/09 if you or someone you know needs to find a reason to keep living. By calling 6-205-674-CloudBase3 (5881) you'll be connected to a skilled, trained counselor at a crisis center in your area. [facility] [employer] Portal You can view and manage your care through the patient portal or by using a health care kalpana of your choosing. [employer] is a website that allows you to securely view your medical information including your hospital discharge summary, office visit summaries, medications and follow-up visits. You can also request appointments, renew medications, and request access to your medical information using a health care kalpana of your choosing, or just ask a question. You can enroll at [email or web address] or register during your next office visit. [facility], in keeping with [facility] guidance, no longer requires face masks for staff, patientsor visitors in most situations. Similiar to time spent indoors at other locations, there is the chance that you were exposed to repiratory viruses during your time with us (such as flu or COVID-19). If you develop symptoms concerning for a viral respiratory infection, please seek testing (and treatment if indicated) from your medical provider or home test kit. ?? Disclaimer: The information provided is of a general nature and is intended to be used in conjunction with the recommendations and advice of your health care practitioner. Every effort has been made to ensure that the information provided is accurate and complete at the time it is provided to you however, as your needs change, or, as new information becomes available, different or additional instructions may be required. ?? If you have questions, please consult with your primary care provider or pharmacist, as appropriate. This information is not intended to serve as substitution for assessment and evaluation by a qualified health care provider. If you do not have a primary care provider, you may find a [facility] provider by calling [facility] [employer] [facility] at [phone]. Patient Care team information Care Team Personnel Name: Latisha Boyce NP Position: [facility] PCO Associate Professional Member Role: PCP Address: Address: [address] [place] [address]- Care Team Related Persons Name: TOY SANTOYO Name: CY LING Address: home [address] [place] [address] Name: MARGI WAYNE Address: home [address] [place] [address] Name: TASNEEM ALANIS Address: home [address] [place] [address]
--- OUTSIDE RECORDS SUMMARY | 2024-01-09 15:44 | XMS_ITS | Continuity of Care Document ---
Author Organization [facility] ter Address [address] [place] [address]- Care Team Providers Care Full Time Name Role Phone Latisha Boyce NP Primary Care Physician [phone] Encounter [facility] Date(s): 08/30/22 - 08/30/[address] [address]- Discharge Disposition: A-D/C Walkout Attending Physician: Not on Staff, Attending MD Admitting Physician: Not on Staff, Admitting MD Referring Physician: Not on Staff, Referring MD Allergies, Adverse Reactions, Alerts Substance Reaction Severity Status Imitrex Active Ultram 1 Active 1bradycardia ' Immunizations Given and Recorded Vaccine Date Status Refusal Reason SARS-CoV-2 mRNA (ubnyjax-lsyq-atqqi) vax 09/03/21 Recorded SARS-CoV-2 (COVID-19) mRNA BNT-162b2 [...] 0 Refills, Maintenance, 08/26/22 12:15:00 EDT, Tablet, [facility] #[id number], Partial fill upon patient... Start Date: 08/26/22 [...] opioid drug. Start Date: 08/13/22 Status: Ordered ARIPiprazole 2 mg oral tablet [...] Refills, Maintenance, 06/26/22 9:15:00 EDT, EC Capsule, [facility] #[id number], Partial fill upon patient request if the prescri... Start Date: 06/26/22 Stop Date: 08/25/22 Status: Ordered fluorometholone 0.1% ophthalmic suspension 0 Refills, Maintenance, 08/13/22 8:57:00 EDT, Partial fill upon patient request if the prescriptionis for a schedule II opioid drug. Start Date: 08/13/22 Status: Ordered hydrochlorothiazide-lisinopril 12.5 mg-20 mg oral tablet 1 tablet, By Mouth, Daily, # 90 tablet, 0 Refills, Maintenance, 07/31/22 11:28:00 EDT, [facility] #[id number], 90, 1 tablet By Mouth Daily, 153, cm, 06/26/22 8:40:00 EDT, Height Start Date: 07/31/22 Status: Ordered levothyroxine 0.1 mg oral tablet 1 tablet, By Mouth, Daily, # 90 tablet, 0 Refills, Maintenance, 06/26/22 11:00:00 EDT, [facility] #[id number], 153, cm, 06/26/22 8:40:00 EDT, Height Start Date: 06/26/22 Status: Ordered lidocaine 5% topical ointment 2 TO 3 GRAMS, Topically, 3 times a day, PRN NEEDED FOR MODERATE PAIN, PT REQUESTING NON SCENTED OINTMENT, # 50 Gm, 0 Refills, Maintenance, 04/23/22 10:43:00 EST, [facility] #[id number], 20, PT REQUESTING NON SCENTED OINMENT, 2 TO 3 GRAMS Topic... Start Date: 04/23/22 Status: Ordered lisinopril 20 mg oral tablet 1, tablet, By Mouth, Daily, # 90 tablet, Refills 2, Tot. Refills 2, Maintenance, 08/23/22 9:46:00 EDT, Route to Pharmacy Electronically, [facility] #[id number], 153, cm, 08/14/22 9:13:00 EDT, Height Start Date: 08/23/22 Status: Ordered naltrexone 50 mg oral tablet 1 tablet = 50 mg, By Mouth, Daily, # 90 tablet, 0 Refills, Maintenance, 07/05/22 16:59:00 EDT, [facility] #[id number], 153, cm, 06/26/22 8:40:00 EDT, Height Start Date: 07/05/22 Status: Ordered omeprazole 40 mg oral enteric coated capsule 1 capsule, By Mouth, Daily, # 90 capsule, 0 Refills, Maintenance, 08/23/22 9:31:00 EDT, [facility] #[id number], 153, cm, 08/14/22 9:13:00 EDT, Height Start [...] Migraine Confirmed Active Severe obesity Confirmed Active Vital Signs Most recent to oldest [Reference Range]: 1 2 Height 155 cm (08/30/22 7:57 PM) 155 cm (08/30/22 5:02 PM) Weight 108 kg (08/30/22 7:57 PM) 108 kg (08/30/22 5:02 PM) Oxygen Saturation [94-100 %] 98 % (08/30/22 5:02 PM) 98 % (08/30/22 4:53 PM) Pulse Rate [55-90 bpm] 83 bpm (08/30/22 5:02 PM) 84 bpm (08/30/22 4:53 PM) Body Mass Index [18.5-24.99 kg/m2] 44.95 kg/m2 *>HHI* (08/30/22 5:02 PM) Blood Pressure [90-138/55-84 mm Hg] 123/ 94mm Hg (08/30/22 5:02 PM) Respiratory Rate [16-30 br/min] 16 br/mi n (08/30/22 5:02 PM) Temperature [96.8-100.4 DegF] 98.1 DegF (08/30/22 5:02 PM) Mode of Delivery (Oxygen) Room air (08/30/22 5:02 PM) Room air (08/30/22 4:53 PM) Blood pressure sites Arm, left (08/30/22 5:02 PM) Temperature Route Oral (08/30/22 5:02 PM) Dry Weight 108 kg (08/30/22 7:57 PM) 108 kg (08/30/22 5:02 PM) Weight Obtained Via Patient/family state d (08/30/22 5:02 PM) Dry Weight Obtained Via Patient/family s tated (08/30/22 5:02 PM) Social History Social History Type Response Smoking Status Never smoker; Tobacc o user in household: No; Type: Cigarettes entered on: 09/04/17 Sex Patient Care team information Care Team Personnel Name: Latisha Boyce NP Position: [facility] PCO Associate Professional Member Role: PCP Address: Address: [address] [place] [address]- Care Team Related Persons Name: TOY SANTOYO Name: CY LING Address: home [address] [place] [address] Name: MARGI WAYNE Address: home [address] [place] [address] Name: TASNEEM ALANIS Address: home [address] [place] [address]
--- OUTSIDE RECORDS SUMMARY | 2024-01-09 15:44 | XMS_ITS | Continuity of Care Document ---
Author Organization [facility] Adult Address [address] [place] [address]- Care Team Providers Care Clinical Outcomes Manager Name Role Phone Latisha Boyce NP Primary Care Physician Encounter [facility] Date(s): 04/29/23 - 05/29/23 [facility] Adult [address] [place] [address]- Allergies, Adverse Reactions, Alerts Substance Reaction Severity Status Imitrex Active Ultram 1 Active 1bradycardia ' Immunizations Given and Recorded Vaccine Date Status Refusal Reason [id number] 12y+ bivalent booster vax 01/04/22 Recorded SARS-CoV-2 mRNA (cffztid-ztlg-ewezi) vax 09/03/21 Recorded SARS-CoV-2 (COVID-19) mRNA BNT-162b2 [...] 1 Refills, Maintenance, 04/23/23 12:40:00 EST, Tablet, [facility] #[id number], Partial fill upon patient... Start Date: 04/23/23 [...] 1 kit, 5 Refills, Maintenance, 05/21/23 12:30:00EDT, [facility]/pharmacy #[id number], Partial fill upon patient [...] 03/12/23 11:01:00 EST, Route to Pharmacy Electronically, [facility] #[id number], Partial fill upon patient request if the [...] capsule, 0 Refills, Maintenance, 09/13/22 17:08:00 EDT, [facility] #[id number], 155, cm, 09/05/22 9:14:00 EDT, Height, 108, [...] 90 tablet, 1 Refills, Maintenance, 01/28/23 9:27:00 [facility] #[id number], 90, 1 tablet By Mouth Daily, 155, cm, 11/06/22 9:35:00 EDT, Height, 108, kg, 08/30/22 19:57:00 EDT, Dry Weight Start Date: 01/28/23 Status: Ordered levothyroxine 0.1 mg oral tablet 1 tablet, By Mouth, Daily, # 90 tablet, 1 Refills, Maintenance, 03/21/23 7:16:00 [facility] #[id number], 155, cm, 11/06/22 9:35:00 EDT, Height, 108, kg, 08/30/22 19:57:00 EDT, Dry Weight Start Date: 03/21/23 Status: Ordered lidocaine 5% topical ointment 2 TO 3 GRAMS, Topically, 3 times a day, PRN NEEDED FOR MODERATE PAIN, PT REQUESTING NON SCENTED OINTMENT, # 50 Gm, 0 Refills, Maintenance, 04/23/23 12:23:00 [facility] #[id number], 20, PT REQUESTING NON SCENTED OINMENT, 2 TO 3 GRAMS Topic... Start Date: 04/23/23 Status: Ordered lisinopril 20 mg oral tablet 1, tablet, By Mouth, Daily at bedtime, # 90 tablet, Refills 0, Tot. Refills 0, Maintenance, 05/16/23 13:39:00 EDT, Route to Pharmacy Electronically, [facility] #[id number], 155, cm, 11/06/22 9:35:00 EDT, Height, 108, kg, 08/30/22 19:57:00 EDT, . Start Date: 05/16/23 Status: Ordered naltrexone 50 mg oral tablet 1 tablet, By Mouth, Daily, # 90 tablet, 1 Refills, Maintenance, 05/21/23 12:30:00 EDT, [facility]/pharmacy#[id number], 155, cm, 11/06/22 9:35:00 EDT, Height, 108, kg, 08/30/22 19:57:00 EDT, Dry Weight Start Date: 05/21/23 Stop Date: 11/17/23 Status: Ordered omeprazole 40 mg oral enteric coated capsule 1 capsule, By Mouth, Daily, # 90 capsule, 1 Refills, Maintenance, 04/29/23 9:27:00 EDT, [facility] #[id number], 155, cm, 11/06/22 9:35:00 EDT, Height, 108, [...] Professional Member Role: PCP Address: Address: [address] [place] [address]- [place] Care Team Related Persons Name: TOY SANTOYO Name: CY LING Address: [address] [place] [address] Name: MARGI WAYNE Address: home [address] [place] [address] Name: TASNEEM ALANIS Address: home [address] [place] [address]
--- OUTSIDE RECORDS SUMMARY | 2024-01-09 15:44 | XMS_ITS | Continuity of Care Document ---
Author Organization [facility] Adult Address [address] [place] [address]- Care Team Providers Care Watch Repair Technician Name Role Phone Latisha Boyce NP Primary Care Physician [phone] [place] [facility] Date(s): 05/31/20 - 06/07/20 [facility] Adult [address] [place] [address]- Encounter Diagnosis Obesity(Discharge Diagnosis) - 05/31/20 Attending Physician: Latisha Boyce NP Allergies, Adverse [...] 11/26/18 17:02:00 EDT, Route to Pharmacy Electronically, [id number], [facility] #[id number] Start Date: 11/26/18 Status: Ordered ARIPiprazole 2 mg oral tablet 2 mg, 1, tablet, By Mouth, Daily, # 30 tablet, Refills 1, Tot. Refills 1, Maintenance, 03/30/19 9:56:00 EST, Route to Pharmacy Electronically, [facility] #[id number], 156, cm, 01/12/19 11:15:00 EST, Height, 103.1, kg, 01/17/18 9:53:00 EST, Dry We... Start Date: 03/30/19 Stop Date: 06/28/19 Status: Ordered levothyroxine 0.088 mg oral tablet 1 tablet = 88 mcg, By Mouth, Daily, Repeat TSH in 6 weeks Dose decrease, # 30 tablet, 5 Refills, Maintenance, 09/30/19 15:30:00 EDT, Tablet, [facility] #[id number], 153, cm, 08/06/19 16:24:00 EDT, Height, 107, kg, 08/06/19 16:24:00 EDT, Dry Weight Start Date: 09/30/19 Status: Ordered levothyroxine 0.1 mg oral tablet 1 tablet = 100 mcg, By Mouth, Daily, # 90 tablet, 2 Refills, Maintenance, 03/14/20 8:40:00 EST, Tablet, [facility] #[id number], Partial fill upon patient request, 153, cm, 01/05/20 15:53:00 EST,Height, 107, kg, 08/06/19 16:24:00 EDT, Dry Weight Start Date: 03/14/20 Stop Date: 12/09/20 Status: Ordered lidocaine 5% topical ointment See Instructions, PRN Pain , Moderate, 2 to 3 g Topically 3 times a day, # 50 Gm, 1 Refills, Acute 05/29/21 15:30:00 EDT, 05/29/20 15:30:00 EDT, Ointment, [facility] #[id number], 2 to 3 g Topically 3 times a day,PRN:Pain , Moderate, 153, cm, 03/0... Start Date: 05/29/20 Stop Date: 05/29/21 Status: Ordered omeprazole 40 mg oral enteric coated capsule 1 capsule, By Mouth, Daily, # 30 capsule, 2 Refills, Maintenance, 05/31/20 14:28:00 EDT, [facility] #[id number], 153, cm, 05/31/20 12:53:00 EDT, Height, 107, kg, 08/06/19 16:24:00 EDT, Dry Weight Start Date: 05/31/20 Status: Ordered traZODone 150 mg oral tablet 1 tablet = 150 mg, By Mouth, Daily at bedtime, Dose increase, # 30 tablet, 2 Refills, Maintenance, 09/28/18 10:56:57 EDT, Tablet Start Date: 09/28/18 Status: Ordered Problem List Condition Effective Dates Status Health Status Inform ant Depression(Confirmed) Active Fibromyalgia(Confirmed) Active Glaucoma(Confirmed) Active Hypothyroidism(Confirmed) Active Migraine(Confirmed) Active Diagnosis Diagnosis Type Effective Dates Health Status Clini rajinder Service Informant Obesity Discharge Diagnosis 05/31/20 Vital Signs Most recent to oldest [Reference Range]: 1 Height 153 cm (05/31/20 12:53 PM) Weight 113.5 kg (05/31/20 12:53 PM) Oxygen Saturation [94-100 %] 95 % (05/31/20 12:53 PM) Pulse Rate [55-90 bpm] 81 bpm (05/31/20 12:53 PM) Body Mass Index [18.5-24.99] 48.49 *>HHI* (05/31/20 12:53 PM) Temperature [96.8-100.4 DegF] 98.2 DegF (05/31/20 12:53 PM) Mode of Delivery (Oxygen) Room air (05/31/20 12:53 PM) Blood pressure sites Arm, left (05/31/20 12:53 PM) Temperature Route Oral (05/31/20 12:53 PM) Weight Obtained Via Standing scale (05/31/20 12:53 PM) Social History Social History Type Response Smoking Status Never smoker; Tobacc o user in household: No; Type: Cigarettes entered on: 09/04/17 Sex
--- OUTSIDE RECORDS SUMMARY | 2024-01-09 15:44 | XMS_ITS | Continuity of Care Document ---
Author Organization [facility] Adult Address [address] [place] [address]- Care Team Providers Care Aircraft Ordnance Technician Name Role Phone Latisha Boyce NP Primary Care Physician [phone] [place] [facility] [place] 05/16/23 - 06/15/23 [facility] Adult [address] [place] [address]- Allergies, Adverse Reactions, Alerts Substance Reaction Severity Status Imitrex Active Ultram 1 Active 1bradycardia ' Immunizations Given and Recorded Vaccine Date Status Refusal Reason [id number] 12y+ bivalent booster vax 01/04/22 Recorded SARS-CoV-2 mRNA (urwnshj-lkfo-ldzbm) vax 09/03/21 Recorded SARS-CoV-2 (COVID-19) mRNA BNT-162b2 [...] 1 Refills, Maintenance, 04/23/23 12:40:00 EST, Tablet, [facility] #[id number], Partial fill upon patient... Start Date: 04/23/23 [...] 1 kit, 5 Refills, Maintenance, 05/21/23 12:30:00EDT, [facility]/pharmacy #[id number], Partial fill upon patient request [...] 03/12/23 11:01:00 EST, Route to Pharmacy Electronically, [facility] #[id number], Partial fill upon patient request if the [...] capsule, 0 Refills, Maintenance, 09/13/22 17:08:00 EDT, [facility] #[id number], 155, cm, 09/05/22 9:14:00 EDT, Height, 108, [...] 90 tablet, 1 Refills, Maintenance, 01/28/23 9:27:00 [facility] #[id number], 90, 1 tablet By Mouth Daily, 155, cm, 11/06/22 9:35:00 EDT, Height, 108, kg, 08/30/22 19:57:00 EDT, Dry Weight Start Date: 01/28/23 Status: Ordered levothyroxine 0.1 mg oral tablet 1 tablet, By Mouth, Daily, # 90 tablet, 1 Refills, Maintenance, 03/21/23 7:16:00 [facility] #[id number], 155, cm, 11/06/22 9:35:00 EDT, Height, 108, kg, 08/30/22 19:57:00 EDT, Dry Weight Start Date: 03/21/23 Status: Ordered lidocaine 5% topical ointment 2 TO 3 GRAMS, Topically, 3 times a day, PRN NEEDED FOR MODERATE PAIN, PT REQUESTING NON SCENTED OINTMENT, # 50 Gm, 0 Refills, Maintenance, 04/23/23 12:23:00 [facility] #[id number], 20, PT REQUESTING NON SCENTED OINMENT, 2 TO 3 GRAMS Topic... Start Date: 04/23/23 Status: Ordered lisinopril 20 mg oral tablet 1, tablet, By Mouth, Daily at bedtime, # 90 tablet, Refills 0, Tot. Refills 0, Maintenance, 05/16/23 13:39:00 EDT, Route to Pharmacy Electronically, [facility] #[id number], 155, cm, 11/06/22 9:35:00 EDT, Height, 108, kg, 08/30/22 19:57:00 EDT, . Start Date: 05/16/23 Status: Ordered naltrexone 50 mg oral tablet 1 tablet, By Mouth, Daily, # 90 tablet, 1 Refills, Maintenance, 05/21/23 12:30:00 EDT, [facility]/pharmacy#[id number], 155, cm, 11/06/22 9:35:00 EDT, Height, 108, kg, 08/30/22 19:57:00 EDT, Dry Weight Start Date: 05/21/23 Stop Date: 11/17/23 Status: Ordered omeprazole 40 mg oral enteric coated capsule 1 capsule, By Mouth, Daily, # 90 capsule, 1 Refills, Maintenance, 04/29/23 9:27:00 EDT, [facility] #[id number], 155, cm, 11/06/22 9:35:00 EDT, Height, 108, [...] Professional Member Role: PCP Address: Address: [address] [place] [address]- [place] Care Team Related Persons Name: TOY SANTOYO Name: CY LING Address: home [address] [place] [address] Name: MARGI WAYNE Address: [address] [place] [address] Name: TASNEEM ALANIS Address: [address] [place] [address]
--- OUTSIDE RECORDS SUMMARY | 2024-01-09 15:44 | XMS_ITS | Continuity of Care Document ---
Author Organization [facility] Adult Address [address] [place] [address]- Care Team Providers Care Physical Laboratory Assistant Name Role Phone Latisha Boyce NP Primary Care Physician [phone] Encounter [facility] Date(s): 09/17/23 - 10/17/23 [facility] Adult [address] [place] [address]- Allergies, Adverse Reactions, Alerts Substance Reaction Severity Status Imitrex Active Ultram 1 Active 1bradycardia ' Immunizations Given and Recorded Vaccine Date Status Refusal Reason [id number] 12y+ bivalent booster vax 01/04/22 Recorded SARS-CoV-2 mRNA (drvttna-kskh-poimv) vax 09/03/21 Recorded SARS-CoV-2 (COVID-19) mRNA BNT-162b2 [...] Refills, Maintenance, 09/25/23 12:47:00 EDT, Tablet, [id number], Partial fill upon patient request... Start Date: [...] 1 kit, 5 Refills, Maintenance, 05/21/23 12:30:00EDT, [facility]/pharmacy #[id number], Partial fill upon [...] Refills, Maintenance, 09/09/23 13:03:00 EDT, [id number], 155, cm, 08/12/23 7:32:00 EDT, Height, 108, [...] 09/02/23 10:06:00 EDT, Route to Pharmacy Electronically, [facility]/pharmacy #[id number], 155, cm, 08/12/23 7:32:00 EDT,Height, 108, kg, 08/30/22 19:57:00 EDT, Dry Weight Start Date: 09/02/23 Status: Ordered naltrexone 50 mg oral tablet 1 tablet, By Mouth, Daily, # 90 tablet, 1 Refills, Maintenance, 05/21/23 12:30:00 EDT, [facility]/pharmacy#[id number], 155, cm, 11/06/22 9:35:00 EDT, Height, 108, kg, 08/30/22 19:57:00 EDT, Dry Weight Start Date: 05/21/23 Stop Date: 11/17/23 Status: Ordered omeprazole 40 mg oral enteric coated capsule 1 capsule, By Mouth, Daily, # 90 capsule, 0 Refills, Maintenance, 08/01/23 8:06:00 EDT, [facility]/pharmacy #[id number], 155, cm, 07/16/23 9:38:00 [...] Team Personnel Name: Latisha Boyce NP Position: [facility] PCO Associate Professional Member Role: PCP Address: Address: [address] [place] [address]- Care Team Related Persons Name: TOY SANTOYO Name: CY LING Address: home [address] [place] [address] Name: MARGI WAYNE Address: home [address] [place] [address] Name: TASNEEM ALANIS Address: [address] [place] [address]
--- OUTSIDE RECORDS SUMMARY | 2024-01-09 15:44 | XMS_ITS | Continuity of Care Document ---
Author Organization [facility] Adult Address [address] [place] [address]- Care Team Providers Care Painting Manager Name Role Phone Latisha Boyce NP Primary Care Physician Encounter [facility] Date(s): 03/24/23 - 04/23/23 [facility] Adult [address] [place] [address]- Allergies, Adverse Reactions, Alerts Substance Reaction Severity Status Imitrex Active Ultram 1 Active 1bradycardia ' Immunizations Given and Recorded Vaccine Date Status Refusal Reason [id number] 12y+ bivalent booster vax 01/04/22 Recorded SARS-CoV-2 mRNA (aatjurs-ehef-yfwry) vax 09/03/21 Recorded SARS-CoV-2 (COVID-19) mRNA BNT-162b2 [...] 1 Refills, Maintenance, 04/23/23 12:40:00 EST, Tablet, [facility] #[id number], Partial fill upon patient... Start Date: 04/23/23 [...] 1 kit, 5 Refills, Maintenance, 11/11/22 15:52:00EDT, [facility] #[id number], Partial fill upon patient request if the [...] 03/12/23 11:01:00 EST, Route to Pharmacy Electronically, [facility] #[id number], Partial fill upon patient request if the [...] capsule, 0 Refills, Maintenance, 09/13/22 17:08:00 EDT, [facility] #[id number], 155, cm, 09/05/22 9:14:00 EDT, Height, 108, [...] 90 tablet, 1 Refills, Maintenance, 01/28/23 9:27:00 [facility] #[id number], 90, 1 tablet By Mouth Daily, 155, cm, 11/06/22 9:35:00 EDT, Height, 108, kg, 08/30/22 19:57:00 EDT, Dry Weight Start Date: 01/28/23 Status: Ordered levothyroxine 0.1 mg oral tablet 1 tablet, By Mouth, Daily, # 90 tablet, 1 Refills, Maintenance, 03/21/23 7:16:00 [facility] #[id number], 155, cm, 11/06/22 9:35:00 EDT, Height, 108, kg, 08/30/22 19:57:00 EDT, Dry Weight Start Date: 03/21/23 Status: Ordered lidocaine 5% topical ointment 2 TO 3 GRAMS, Topically, 3 times a day, PRN NEEDED FOR MODERATE PAIN, PT REQUESTING NON SCENTED OINTMENT, # 50 Gm, 0 Refills, Maintenance, 04/23/23 12:23:00 [facility] #[id number], 20, PT REQUESTING NON SCENTED OINMENT, 2 TO 3 GRAMS Topic... Start Date: 04/23/23 Status: Ordered lisinopril 20 mg oral tablet 1, tablet, By Mouth, Daily at bedtime, # 90 tablet, Refills 0, Tot. Refills 0, Maintenance, 03/05/23 11:25:00 EST, Route to Pharmacy Electronically, [facility] #[id number], 155, cm, 11/06/22 9:35:00 EDT, Height, 108, kg, 08/30/22 19:57:00 EDT, . Start Date: 03/05/23 Status: Ordered naltrexone 50 mg oral tablet 1 tablet, By Mouth, Daily, # 90 tablet, 0 Refills, Maintenance, 04/16/23 13:01:00 EST, [facility] #[id number], 155, cm, 11/06/22 9:35:00 EDT, Height, 108, kg, 08/30/22 19:57:00 EDT, Dry Weight Start Date: 04/16/23 Status: Ordered omeprazole 40 mg oral enteric coated capsule 1 capsule, By Mouth, Daily, # 90 capsule, 1 Refills, Maintenance, 11/12/22 14:21:00 EDT, [facility] #[id number], 155, cm, 11/06/22 9:35:00 EDT, Height, 108, [...] Associate Professional Member Role: PCP Address: Address: [address] [place] [address]- [place] Care Team Related Persons Name: TOY SANTOYO Name: CY LING Address: [address] [place] [address] Name: MARGI WAYNE Address: [address] [place] [address] Name: TASNEEM ALANIS Address: [address] [place] [address]
--- OUTSIDE RECORDS SUMMARY | 2024-01-09 15:44 | XMS_ITS | Continuity of Care Document ---
Author Organization [facility] Adult Address [address] [place] [address]- Care Team Providers Care Soft Work Cigar Machine Operator Name Role Phone Latisha Boyce NP Primary Care Physician [phone] Encounter [facility] [place] Date(s): 10/29/23 - 11/28/23 [facility] Adult [address] [place] [address]- Allergies, Adverse Reactions, Alerts Substance Reaction Severity Status Imitrex Active Ultram 1 Active 1bradycardia ' Immunizations Given and Recorded Vaccine Date Status Refusal Reason [id number] 12y+ bivalent booster vax 01/04/22 Recorded SARS-CoV-2 mRNA (gvmkhuj-pjcb-zbcho) vax 09/03/21 Recorded SARS-CoV-2 (COVID-19) mRNA BNT-162b2 [...] Refills, Maintenance, 11/18/23 7:29:00 EDT, Tablet, [id number], Partial fill upon patient request i... Start [...] Refills, Maintenance, 09/09/23 13:03:00 EDT, [facility], 155, cm, 08/12/23 7:32:00 EDT, Height, 108, [...] 11/28/23 15:37:00 EDT, Route to Pharmacy Electronically, [facility]/pharmacy #[id number], 155, cm, 09/16/23 10:30:00 EDT, [...] Team Personnel Name: Latisha Boyce NP Position: [facility] PCO Associate Professional Member Role: PCP Address: Address: [address] [place] [address]- Care Team Related Persons Name: TOY SANTOYO Name: CY LING Address: [address] [place] [address] Name: MARGI WAYNE Address: [address] [place] [address] Name: TASNEEM ALANIS Address: [address] [place] [address]
--- OUTSIDE RECORDS SUMMARY | 2024-01-09 15:44 | XMS_ITS | Continuity of Care Document ---
Author Organization [facility] Adult Address [address] [place] [address]- Care Team Providers Care Pyrotechnic Assembler Name Role Phone Latisha Peacock NP Primary Care Physician Encounter [facility] [place] Date(s): 08/11/19 - 09/10/19 [facility] Adult [address] [place] [address]- [facility] Attending Physician: Willis Motta Admitting Physician: AdmWillis mcclure Referring Physician: AdmtrWillis Allergies, Adverse Reactions, Alerts Substance Reaction Severity [...] 11/26/18 17:02:00 EDT, Route to Pharmacy Electronically, [id number], [facility] #[id number] Start Date: 11/26/18 Status: Ordered ARIPiprazole 2 mg oral tablet 2 mg, 1, tablet, By Mouth, Daily, # 30 tablet, Refills 1, Tot. Refills 1, Maintenance, 03/30/19 9:56:00 EST, Route to Pharmacy Electronically, [facility] #[id number], 156, cm, 01/12/19 11:15:00 EST, Height, 103.1, kg, 01/17/18 9:53:00 EST, Dry We... Start Date: 03/30/19 Stop Date: 06/28/19 Status: Ordered levothyroxine 0.088 mg oral tablet 1 tablet = 88 mcg, By Mouth, Daily, Repeat TSH in 6 weeks Dose decrease, # 30 tablet, 1 Refills, Maintenance, 08/04/19 16:59:00 EDT, Tablet, [facility] #[id number], 156, cm, 07/20/19 14:00:00 EDT, Height, 103.1, kg, 01/17/18 9:53:00 EST, Dry Weight Start Date: 08/04/19 Status: Ordered naltrexone 50 mg oral tablet 0.5 tablet, By Mouth, Daily, # 15 tablet, 1 Refills, Acute, 07/21/19 13:56:00 EDT, [facility] #[id number], 156, cm, 07/20/19 14:00:00 EDT, Height, 103.1, kg, 01/17/18 9:53:00 EST, Dry Weight Start Date: 07/21/19 Status: Ordered omeprazole 40 mg oral enteric coated capsule 1 capsule = 40 mg, By Mouth, Daily, New script, # 30 capsule, 2 Refills, Maintenance, 08/31/19 13:25:00 EDT, EC Capsule, [facility] #[id number], 153, cm, 08/06/19 16:24:00 EDT, Height, 107, [...]
--- OUTSIDE RECORDS SUMMARY | 2024-01-09 15:44 | XMS_ITS | Continuity of Care Document ---
Author Organization [facility] Adult Address [address] [place] [address]- Care Team Providers Care Junior Staff Accountant Name Role Phone Latisha Boyce NP Primary Care Physician Encounter [facility] [place] Date(s): 03/20/23 - 04/19/23 [facility] Adult [address] [place] [address]- Allergies, Adverse Reactions, Alerts Substance Reaction Severity Status Imitrex Active Ultram 1 Active 1bradycardia ' Immunizations Given and Recorded Vaccine Date Status Refusal Reason [id number] 12y+ bivalent booster vax 01/04/22 Recorded SARS-CoV-2 mRNA (mowmxuz-pecw-tmhil) vax 09/03/21 Recorded SARS-CoV-2 (COVID-19) mRNA BNT-162b2 [...] 1 Refills, Maintenance, 01/15/23 13:34:00 EST, Tablet, [facility] #[id number], Partial fill upon patient... Start Date: 01/15/23 [...] 1 kit, 5 Refills, Maintenance, 11/11/22 15:52:00EDT, [facility] #[id number], Partial fill upon patient request if the [...] 03/12/23 11:01:00 EST, Route to Pharmacy Electronically, [facility] #[id number], Partial fill upon patient request if the [...] capsule, 0 Refills, Maintenance, 09/13/22 17:08:00 EDT, [facility] #[id number], 155, cm, 09/05/22 9:14:00 EDT, Height, 108, [...] tablet, 1 Refills, Maintenance, 01/28/23 9:27:00 EST, [facility] #[id number], 90, 1 tablet By Mouth Daily, 155, cm, 11/06/22 9:35:00 EDT, Height, 108, kg, 08/30/22 19:57:00 EDT, Dry Weight Start Date: 01/28/23 Status: Ordered levothyroxine 0.1 mg oral tablet 1 tablet, By Mouth, Daily, # 90 tablet, 1 Refills, Maintenance, 03/21/23 7:16:00 EST, [facility] #[id number], 155, cm, 11/06/22 9:35:00 EDT, Height, 108, kg, 08/30/22 19:57:00 EDT, Dry Weight Start Date: 03/21/23 Status: Ordered lidocaine 5% topical ointment 2 TO 3 GRAMS, Topically, 3 times a day, PRN NEEDED FOR MODERATE PAIN, PT REQUESTING NON SCENTED OINTMENT, # 50 Gm, 0 Refills, Maintenance, 10/09/22 12:18:00 EDT, [facility] #[id number], 20, PT REQUESTING NON SCENTED OINMENT, 2 TO 3 GRAMS Topic... Start Date: 10/09/22 Status: Ordered lisinopril 20 mg oral tablet 1, tablet, By Mouth, Daily at bedtime, # 90 tablet, Refills 0, Tot. Refills 0, Maintenance, 03/05/23 11:25:00 EST, Route to Pharmacy Electronically, [facility] #[id number], 155, cm, 11/06/22 9:35:00 EDT, Height, 108, kg, 08/30/22 19:57:00 EDT, . Start Date: 03/05/23 Status: Ordered naltrexone 50 mg oral tablet 1 tablet, By Mouth, Daily, # 90 tablet, 0 Refills, Maintenance, 04/16/23 13:01:00 EST, [facility] #[id number], 155, cm, 11/06/22 9:35:00 EDT, Height, 108, kg, 08/30/22 19:57:00 EDT, Dry Weight Start Date: 04/16/23 Status: Ordered omeprazole 40 mg oral enteric coated capsule 1 capsule, By Mouth, Daily, # 90 capsule, 1 Refills, Maintenance, 11/12/22 14:21:00 EDT, [facility] #[id number], 155, cm, 11/06/22 9:35:00 EDT, Height, 108, [...] Associate Professional Member Role: PCP Address: Address: [address] [place], [place] [id number]- [place] Care Team Related Persons Name: TOY SANTOYO Name: CY LING Address: [address] [place] [address] Name: MARGI WAYNE Address: home [address] [place] [address] Name: TASNEEM ALANIS Address: home [address] [place] [address]
--- OUTSIDE RECORDS SUMMARY | 2024-01-09 15:44 | XMS_ITS | Continuity of Care Document ---
Author Organization [facility] Adult Address [address] [place] [address]- Care Team Providers Care Film Tests Checker Name Role Phone Latisha Boyce NP Primary Care Physician Encounter [facility] [place] Date(s): 02/28/23 - 03/30/23 [facility] Adult [address] [place] [address]- Allergies, Adverse Reactions, Alerts Substance Reaction Severity Status Imitrex Active Ultram 1 Active 1bradycardia ' Immunizations Given and Recorded Vaccine Date Status Refusal Reason [id number] 12y+ bivalent booster vax 01/04/22 Recorded SARS-CoV-2 mRNA (vkiwrvz-dhvo-orhqk) vax 09/03/21 Recorded SARS-CoV-2 (COVID-19) mRNA BNT-162b2 [...] 1 Refills, Maintenance, 01/15/23 13:34:00 EST, Tablet, [facility] #[id number], Partial fill upon patient... Start Date: 01/15/23 [...] 1 kit, 5 Refills, Maintenance, 11/11/22 15:52:00EDT, [facility] #[id number], Partial fill upon patient request if the [...] 03/12/23 11:01:00 EST, Route to Pharmacy Electronically, [facility] #[id number], Partial fill upon patient request if the [...] capsule, 0 Refills, Maintenance, 09/13/22 17:08:00 EDT, [facility] #[id number], 155, cm, 09/05/22 9:14:00 EDT, Height, 108, [...] tablet, 1 Refills, Maintenance, 01/28/23 9:27:00 EST, [facility] #[id number], 90, 1 tablet By Mouth Daily, 155, cm, 11/06/22 9:35:00 EDT, Height, 108, kg, 08/30/22 19:57:00 EDT, Dry Weight Start Date: 01/28/23 Status: Ordered levothyroxine 0.1 mg oral tablet 1 tablet, By Mouth, Daily, # 90 tablet, 1 Refills, Maintenance, 03/21/23 7:16:00 EST, [facility] #[id number], 155, cm, 11/06/22 9:35:00 EDT, Height, 108, kg, 08/30/22 19:57:00 EDT, Dry Weight Start Date: 03/21/23 Status: Ordered lidocaine 5% topical ointment 2 TO 3 GRAMS, Topically, 3 times a day, PRN NEEDED FOR MODERATE PAIN, PT REQUESTING NON SCENTED OINTMENT, # 50 Gm, 0 Refills, Maintenance, 10/09/22 12:18:00 EDT, [facility] #[id number], 20, PT REQUESTING NON SCENTED OINMENT, 2 TO 3 GRAMS Topic... Start Date: 10/09/22 Status: Ordered lisinopril 20 mg oral tablet 1, tablet, By Mouth, Daily at bedtime, # 90 tablet, Refills 0, Tot. Refills 0, Maintenance, 03/05/23 11:25:00 EST, Route to Pharmacy Electronically, [facility] #[id number], 155, cm, 11/06/22 9:35:00 EDT, Height, 108, kg, 08/30/22 19:57:00 EDT, . Start Date: 03/05/23 Status: Ordered naltrexone 50 mg oral tablet 1 tablet, By Mouth, Daily, # 30 tablet, 0 Refills, Maintenance, 03/24/23 13:23:00 EST, [facility] #[id number], 155, cm, 11/06/22 9:35:00 EDT, Height, 108, kg, 08/30/22 19:57:00 EDT, Dry Weight Start Date: 03/24/23 Status: Ordered omeprazole 40 mg oral enteric coated capsule 1 capsule, By Mouth, Daily, # 90 capsule, 1 Refills, Maintenance, 11/12/22 14:21:00 EDT, [facility] #[id number], 155, cm, 11/06/22 9:35:00 EDT, Height, 108, [...] Team Personnel Name: Latisha Boyce NP Position: [facility] Associate Professional Member Role: PCP Address: Address: [address] [place], [place] [phone]- [place] Care Team Related Persons Name: TOY SANTOYO Name: CY LING Address: [address] [place] [address] Name: MARGI WAYNE Address: [address] [place] [address] Name: TASNEEM ALANIS Address: [address] [place] [address]
--- OUTSIDE RECORDS SUMMARY | 2024-01-09 15:44 | XMS_ITS | Continuity of Care Document ---
Author Organization [facility] Adult Address [address] [place] [address]- Care Team Providers Care Electrical Line Mechanic Name Role Phone Latisha Boyce NP Primary Care Physician [phone] Encounter [facility] [place] [place] Date(s): 09/08/23 - 10/08/[address] [facility] Adult [address] [place] [address]- Allergies, Adverse Reactions, Alerts Substance Reaction Severity Status Imitrex Active Ultram 1 Active 1bradycardia ' Immunizations Given and Recorded Vaccine Date Status Refusal Reason [id number] 12y+ bivalent booster vax 01/04/22 Recorded SARS-CoV-2 mRNA (vrxaxml-zvdl-gfzum) vax 09/03/21 Recorded SARS-CoV-2 (COVID-19) mRNA BNT-162b2 [...] Refills, Maintenance, 09/25/23 12:47:00 EDT, Tablet, [id number], Partial fill upon patient request... Start Date: [...] kit, 5 Refills, Maintenance, 05/21/23 12:30:00EDT, [facility] #[id number], Partial fill upon patient [...] Refills, Maintenance, 09/09/23 13:03:00 EDT, [id number], 155, cm, 08/12/23 7:32:00 EDT, Height, 108, [...] 09/02/23 10:06:00 EDT, Route to Pharmacy Electronically, [facility] #[id number], 155, cm, 08/12/23 7:32:00 EDT,Height, 108, kg, 08/30/22 19:57:00 EDT, Dry Weight Start Date: 09/02/23 Status: Ordered naltrexone 50 mg oral tablet 1 tablet, By Mouth, Daily, # 90 tablet, 1 Refills, Maintenance, 05/21/23 12:30:00 EDT, [facility]/pharmacy#[id number], 155, cm, 11/06/22 9:35:00 EDT, Height, 108, kg, 08/30/22 19:57:00 EDT, Dry Weight Start Date: 05/21/23 Stop Date: 11/17/23 Status: Ordered omeprazole 40 mg oral enteric coated capsule 1 capsule, By Mouth, Daily, # 90 capsule, 0 Refills, Maintenance, 08/01/23 8:06:00 EDT, [facility]/pharmacy #[id number], 155, cm, 07/16/23 9:38:00 [...] Team Personnel Name: Latisha Boyce NP Position: [facility] PCO Associate Professional Member Role: PCP Address: Address: [address] [place] [id number]- Care Team Related Persons Name: TOY SANTOYO Name: CY LING Address: [address] [place] [address] Name: MARGI WAYNE Address: [address] [place] [address] Name: TASNEEM ALANIS Address: [address] [place] [address]
--- OUTSIDE RECORDS SUMMARY | 2024-01-09 15:44 | XMS_ITS | Continuity of Care Document ---
Author Organization [facility] Adult Address [address] [place] [address]- Care Team Providers Care Tool Grinder Operator Surface Name Role Phone Latisha Boyce NP Primary Care Physician Encounter [facility] [place] Date(s): 05/02/21 - 06/01/21 [facility] Adult [address] [place] [address]- Attending Physician: Willis Motta Admitting Physician: Admtr, Ar8 Referring Physician: Admtr, Ar8 Allergies, Adverse Reactions, [...] 11/26/18 17:02:00 EDT, Route to Pharmacy Electronically, [id number], [facility] #[id number] Start Date: 11/26/18 Status: Ordered Aquaphor Healing topical ointment See Instructions, Apply to wound BID, # 30 mL, 0 Refills, Maintenance, 10/11/20 16:23:00 EDT, [facility] #[id number], Partial fill upon patient request if the prescription is for a schedule II opioid drug., Apply to wound BID, 153, cm, 10/11/20 1... Start Date: 10/11/20 Status: Ordered ARIPiprazole 2 mg oral tablet 2 mg, 1, tablet, By Mouth, Daily, # 30 tablet, Refills 1, Tot. Refills 1, Maintenance, 03/30/19 9:56:00 EST, Route to Pharmacy Electronically, [facility] #[id number], 156, cm, 01/12/19 11:15:00 EST, Height, 103.1, kg, 01/17/18 9:53:00 EST, Dry We... Start Date: 03/30/19 Stop Date: 06/28/19 Status: Ordered gabapentin 300 mg oral capsule See Instructions, TAKE 1 CAPSULE BY MOUTH DAILY AT BEDTIME FOR 14 DAYS TAKE 100 MG AM AND NOON AND 300 MG AT NIGHT, # 14 capsule, Refills 0, Instructions Replace Required Details, Route to Pharmacy Electronically, [facility] #[id number], 153, cm,... Start Date: 05/30/21 Status: Ordered levothyroxine 0.1 mg oral tablet 1 tablet = 100 mcg, By Mouth, Daily, # 90 tablet, 1 Refills, Maintenance, 12/14/20 12:57:00 EDT, Tablet, [facility] #[id number], Partial fill upon patient request, 153, cm, 10/11/20 15:18:00 EDT, Height, 107, kg, 08/06/19 16:24:00 EDT, Dry Weight Start Date: 12/14/20 Stop Date: 06/12/21 Status: Ordered lisinopril 20 mg oral tablet 20 mg, 1, tablet, By Mouth, Daily, # 90 tablet, Refills 2, Tot. Refills 2, Maintenance, 05/02/21 10:25:00 EDT, Route to Pharmacy Electronically, [facility] #[id number], Partial fill upon patientrequest if the prescription is for a schedule II op... Start Date: 05/02/21 Stop Date: 01/27/22 Status: Ordered naltrexone 50 mg oral tablet 0.5 tablet, By Mouth, Daily, # 45 tablet, 4 Refills, [facility] #[id number], 153, cm, 12/26/2112:09:00 EST, Height, 107, kg, 08/06/19 16:24:00 EDT, Dry Weight Start Date: 01/19/21 Status: Ordered omeprazole 40 mg oral enteric coated capsule 1 capsule, By Mouth, Daily, # 90 capsule, 0 Refills, [facility] #[id number], 153, cm, :59:00 EST, Height, 107, kg, [...]
--- OUTSIDE RECORDS SUMMARY | 2024-01-09 15:44 | XMS_ITS | Continuity of Care Document ---
Author Organization [facility] Adult Address [address] [place] [address]- Care Team Providers Care Rural Carrier Associate Name Role Phone Latisha Boyce NP Primary Care Physician Encounter [facility] [place] Date(s): 12/07/21 - 01/06/22 [facility] Adult [address] [place] [address]- Allergies, Adverse Reactions, Alerts Substance Reaction Severity Status Imitrex Active Ultram 1 Active 1bradycardia ' Immunizations Given and Recorded Vaccine Date Status Refusal Reason SARS-CoV-2 mRNA (hvoxvaw-fewe-bdkcb) vax 09/03/21 Recorded SARS-CoV-2 (COVID-19) mRNA BNT-162b2 [...] 11/26/18 17:02:00 EDT, Route to Pharmacy Electronically, [id number], [facility] #[id number] Start Date: 11/26/18 Status: Ordered Aquaphor Healing topical ointment See Instructions, Apply to wound BID, # 30 mL, 0 Refills, Maintenance, 10/11/20 16:23:00 EDT, [facility] #[id number], Partial fill upon patient request if the prescription is for a schedule II opioid drug., Apply to wound BID, 153, cm, 10/11/20 1... Start Date: 10/11/20 Status: Ordered ARIPiprazole 2 mg oral tablet 2 mg, 1, tablet, By Mouth, Daily, # 30 tablet, Refills 1, Tot. Refills 1, Maintenance, 03/30/19 9:56:00 EST, Route to Pharmacy Electronically, [facility] #[id number], 156, cm, 01/12/19 11:15:00 EST, Height, 103.1, kg, 01/17/18 9:53:00 EST, Dry We... Start Date: 03/30/19 Stop Date: 06/28/19 Status: Ordered gabapentin 100 mg oral capsule 1, capsule, By Mouth, 3 times a day, # 84 capsule, Refills 0, Tot. Refills 0, Maintenance, 12/17/2210:26:00 EDT, Route to Pharmacy Electronically, [facility] #[id number], 153, cm, 12/12/21 8:30:00 EDT, Height Start Date: 12/17/21 Status: Ordered hydrochlorothiazide-lisinopril 12.5 mg-20 mg oral tablet 1 tablet, By Mouth, Daily, # 90 tablet, 0 Refills, Maintenance, 11/02/21 13:24:00 EDT, Tablet, [facility] #[id number], Partial fill upon patient request if the prescription is for a schedule II opioid drug., 1 tablet By Mouth Daily,x90 days, 153,... Start Date: 11/02/21 Stop Date: 01/31/22 Status: Ordered levothyroxine 0.1 mg oral tablet 1 tablet = 100 mcg, By Mouth, Daily, # 90 tablet, 1 Refills, Maintenance, 12/17/21 10:02:00 EDT, Tablet, [facility] #[id number], Partial fill upon patient request, 153, cm, 12/12/21 8:30:00 EDT,Height Start Date: 12/17/21 Stop Date: 06/15/22 Status: Ordered lidocaine 5% topical ointment 2 TO 3 GRAMS, Topically, 3 times a day, PRN NEEDED FOR MODERATE PAIN, # 50 Gm, 0 Refills, Maintenance, 11/19/21 7:35:00 EDT, [facility] #[id number], 20, APPLY 2 TO 3 GRAMS TOPICALLY THREE TIMES DAILY NEEDED FOR MODERATE PAIN, 153, cm, 11/02... Start Date: 11/19/21 Status: Ordered lisinopril 20 mg oral tablet 20 mg, 1, tablet, By Mouth, Daily, # 90 tablet, Refills 2, Tot. Refills 2, Maintenance, 05/02/21 10:25:00 EDT, Route to Pharmacy Electronically, [facility] #[id number], Partial fill upon patientrequest if the prescription is for a schedule II op... Start Date: 05/02/21 Stop Date: 01/27/22 Status: Ordered naltrexone 50 mg oral tablet 0.5 tablet, By Mouth, Daily, # 45 tablet, 4 Refills, [facility] #[id number], 153, cm, 12/26/2112:09:00 EST, Height, 107, kg, 08/06/19 16:24:00 EDT, Dry Weight Start Date: 01/19/21 Status: Ordered omeprazole 40 mg oral enteric coated capsule 1 capsule, By Mouth, Daily, # 90 capsule, 0 Refills, Maintenance, 12/19/21 14:09:00 EDT, [facility] #[id number], 153, cm, 12/12/21 8:30:00 EDT, Height Start [...] Team Personnel Name: Latisha Boyce NP Position: [facility] PCO Associate Professional Member Role: PCP Address: Address: [address] [place] [address]- Care Team Related Persons Name: CY LING Address: home [address] [place] [address] Name: MARGI WAYNE Address: home [address] [place] [address] Name: TASNEEM ALANIS Address: [address] [place] [address]
--- OUTSIDE RECORDS SUMMARY | 2024-01-09 15:44 | XMS_ITS | Continuity of Care Document ---
Author Organization [facility] Adult Address [address] [place] [address]- Care Team Providers Care Electrician Telephone Name Role Phone Latisha Boyce NP Primary Care Physician [phone] Encounter [facility] [place] Date(s): 02/18/23 - 03/20/23 [facility] Adult [address] [place] [address]- Allergies, Adverse Reactions, Alerts Substance Reaction Severity Status Imitrex Active Ultram 1 Active 1bradycardia ' Immunizations Given and Recorded Vaccine Date Status Refusal Reason [id number] 12y+ bivalent booster vax 01/04/22 Recorded SARS-CoV-2 mRNA (yydnzes-otby-ztpid) vax 09/03/21 Recorded SARS-CoV-2 (COVID-19) mRNA BNT-162b2 [...] 1 Refills, Maintenance, 01/15/23 13:34:00 EST, Tablet, [facility] #[id number], Partial fill upon patient... Start Date: 01/15/23 [...] 1 kit, 5 Refills, Maintenance, 11/11/22 15:52:00EDT, [facility] #[id number], Partial fill upon patient request if the [...] 03/12/23 11:01:00 EST, Route to Pharmacy Electronically, [facility] #[id number], Partial fill upon patient request if the [...] capsule, 0 Refills, Maintenance, 09/13/22 17:08:00 EDT, [facility] #[id number], 155, cm, 09/05/22 9:14:00 EDT, Height, 108, [...] tablet, 1 Refills, Maintenance, 01/28/23 9:27:00 EST, [facility] #[id number], 90, 1 tablet By Mouth Daily, 155, cm, 11/06/22 9:35:00 EDT, Height, 108, kg, 08/30/22 19:57:00 EDT, Dry Weight Start Date: 01/28/23 Status: Ordered levothyroxine 0.1 mg oral tablet 1 tablet, By Mouth, Daily, # 90 tablet, 1 Refills, Maintenance, 09/18/22 8:58:00 EDT, [facility] #[id number], 155, cm, 09/05/22 9:14:00 EDT, Height, 108, kg, 08/30/22 19:57:00 EDT, Dry Weight Start Date: 09/18/22 Status: Ordered lidocaine 5% topical ointment 2 TO 3 GRAMS, Topically, 3 times a day, PRN NEEDED FOR MODERATE PAIN, PT REQUESTING NON SCENTED OINTMENT, # 50 Gm, 0 Refills, Maintenance, 10/09/22 12:18:00 EDT, [facility] #02852, 20, PT REQUESTING NON SCENTED OINMENT, 2 TO 3 GRAMS Topic... Start Date: 10/09/22 Status: Ordered lisinopril 20 mg oral tablet 1, tablet, By Mouth, Daily at bedtime, # 90 tablet, Refills 0, Tot. Refills 0, Maintenance, 03/05/23 11:25:00 EST, Route to Pharmacy Electronically, [facility] #[id number], 155, cm, 11/06/22 9:35:00 EDT, Height, 108, kg, 08/30/22 19:57:00 EDT, . Start Date: 03/05/23 Status: Ordered naltrexone 50 mg oral tablet 1 tablet = 50 mg, By Mouth, Daily, # 30 tablet, 0 Refills, Maintenance, 02/18/23 15:51:00 EST, [facility] #[id number], 155, cm, 11/06/22 9:35:00 EDT, Height, 108, kg, 08/30/22 19:57:00 EDT, Dry Weight Start Date: 02/18/23 Status: Ordered omeprazole 40 mg oral enteric coated capsule 1 capsule, By Mouth, Daily, # 90 capsule, 1 Refills, Maintenance, 11/12/22 14:21:00 EDT, [facility] #[id number], 155, cm, 11/06/22 9:35:00 EDT, Height, 108, [...] Professional Member Role: PCP Address: Address: [address] [place] [address]- [place] Care Team Related Persons Name: TOY SANTOYO Name: CY LING Address: [address] [place] [address] Name: MARGI WAYNE Address: [address] [place] [address] Name: TASNEEM ALANIS Address: home [address] [place] [address]
--- OUTSIDE RECORDS SUMMARY | 2024-01-09 15:44 | XMS_ITS | Continuity of Care Document ---
Author Organization [facility] Address [address] [place] [address]- Care Team Providers Care Care Clinician Name Role Phone Latisha Boyce NP Primary Care Physician Encounter [facility] [place] Date(s): 07/18/21 - 08/17/21 [facility] [address] [place] [address]- Attending Physician: Admkami, Bernardino8 Admitting Physician: Admtr, Ar8 Referring Physician: Admtr, [...] 11/26/18 17:02:00 EDT, Route to Pharmacy Electronically, [id number], [facility] #[id number] Start Date: 11/26/18 Status: Ordered Aquaphor Healing topical ointment See Instructions, Apply to wound BID, # 30 mL, 0 Refills, Maintenance, 10/11/20 16:23:00 EDT, [facility] #[id number], Partial fill upon patient request if the prescription is for a schedule II opioid drug., Apply to wound BID, 153, cm, 10/11/20 1... Start Date: 10/11/20 Status: Ordered ARIPiprazole 2 mg oral tablet 2 mg, 1, tablet, By Mouth, Daily, # 30 tablet, Refills 1, Tot. Refills 1, Maintenance, 03/30/19 9:56:00 EST, Route to Pharmacy Electronically, [facility] #[id number], 156, cm, 01/12/19 11:15:00 EST, Height, 103.1, kg, 01/17/18 9:53:00 EST, Dry We... Start Date: 03/30/19 Stop Date: 06/28/19 Status: Ordered gabapentin 100 mg oral capsule 1, capsule, By Mouth, 3 times a day, # 84 capsule, Refills 0, Tot. Refills 0, Maintenance, 08/15/2213:29:00 EDT, Route to Pharmacy Electronically, [facility] #[id number], 153, cm, 05/02/21 10:07:00 EDT, Height Start Date: 08/15/21 Status: Ordered levothyroxine 0.1 mg oral tablet 1 tablet = 100 mcg, By Mouth, Daily, # 90 tablet, 1 Refills, Maintenance, 06/11/21 21:02:00 EDT, Tablet, [facility] #[id number], Partial fill upon patient request, 153, cm, 05/02/21 10:07:00 EDT, Height, 107, kg, 08/06/19 16:24:00 EDT, Dry Weight Start Date: 06/11/21 Stop Date: 12/08/21 Status: Ordered lisinopril 20 mg oral tablet 20 mg, 1, tablet, By Mouth, Daily, # 90 tablet, Refills 2, Tot. Refills 2, Maintenance, 05/02/21 10:25:00 EDT, Route to Pharmacy Electronically, [facility] #[id number], Partial fill upon patientrequest if the prescription is for a schedule II op... Start Date: 05/02/21 Stop Date: 01/27/22 Status: Ordered naltrexone 50 mg oral tablet 0.5 tablet, By Mouth, Daily, # 45 tablet, 4 Refills, [facility] #[id number], 153, cm, 12/26/2112:09:00 EST, Height, 107, kg, 08/06/19 16:24:00 EDT, Dry Weight Start Date: 01/19/21 Status: Ordered omeprazole 40 mg oral enteric coated capsule 1 capsule, By Mouth, Daily, # 90 capsule, 0 Refills, [facility] #[id number], 153, cm, 05/02/2209:07:00 EDT, Height, 107, kg, 08/06/19 16:24:00 EDT, Dry Weight Start Date: 07/10/21 Status: Ordered prochlorperazine 5 mg oral tablet 0.5 tablet, By Mouth, 3 times a day, PRN NEEDED FOR NAUSEA, for 10 days, # 30 tablet, 0 Refills,Acute 08/20/21 12:18:00 EDT, 08/10/21 12:18:00 EDT, [facility] #[id number], 153, cm, 05/02/21 10:07:00 EDT, Height Start Date: 08/10/21 Stop Date: 08/20/21 Status: Ordered Problem List Condition Effective Dates Status Health Status Inform ant Depression(Confirmed) Active Fibromyalgia(Confirmed) Active Glaucoma(Confirmed) Active HTN (hypertension)(Confirmed) Active Hypothyroidism(Confirmed) Active Migraine(Confirmed) Active Severe obesity(Confirmed) Active Social History Social History Type Response Smoking Status Never smoker; Tobacc o user in household: No; Type: Cigarettes entered on: 09/04/17 Sex
--- OUTSIDE RECORDS SUMMARY | 2024-01-09 15:44 | XMS_ITS | Continuity of Care Document ---
Author Organization [facility] Adult Address [address] [place] [address]- Care Team Providers Care Hedis Specialist Name Role Phone Latisha Boyce NP Primary Care Physician [place] [facility] [place] [facility] [address] [place] [address]- Allergies, Adverse Reactions, Alerts Substance Reaction Severity Status Imitrex Active Ultram 1 Active 1bradycardia ' Immunizations Given and Recorded Vaccine Date Status Refusal Reason [id number] 12y+ bivalent booster vax 01/04/22 Recorded SARS-CoV-2 mRNA (okritoe-daof-dqlao) vax 09/03/21 Recorded SARS-CoV-2 (COVID-19) mRNA BNT-162b2 [...] 1 Refills, Maintenance, 11/08/22 16:56:00 EDT, Tablet, [facility] #[id number], Partial fill upon patient... Start Date: 11/08/22 [...] 1 kit, 5 Refills, Maintenance, 11/11/22 15:52:00EDT, [facility] #[id number], Partial fill upon patient request if the [...] 09/05/22 9:28:00 EDT, Route to Pharmacy Electronically, [facility] #[id number], Partial fill upon patient request if the [...] capsule, 0 Refills, Maintenance, 09/13/22 17:08:00 EDT, [facility] #[id number], 155, cm, 09/05/22 9:14:00 EDT, Height, 108, [...] tablet, 0 Refills, Maintenance, 11/01/22 15:49:00 EDT, [facility] #[id number], 90, 1 tablet By Mouth Daily, 155, cm, 09/05/22 9:14:00 EDT, Height, 108, kg, 08/30/22 19:57:00 EDT, Dry Weight Start Date: 11/01/22 Status: Ordered levothyroxine 0.1 mg oral tablet 1 tablet, By Mouth, Daily, # 90 tablet, 1 Refills, Maintenance, 09/18/22 8:58:00 EDT, [facility] #[id number], 155, cm, 09/05/22 9:14:00 EDT, Height, 108, kg, 08/30/22 19:57:00 EDT, Dry Weight Start Date: 09/18/22 Status: Ordered lidocaine 5% topical ointment 2 TO 3 GRAMS, Topically, 3 times a day, PRN NEEDED FOR MODERATE PAIN, PT REQUESTING NON SCENTED OINTMENT, # 50 Gm, 0 Refills, Maintenance, 10/09/22 12:18:00 EDT, [facility] #[id number], 20, PT REQUESTING NON SCENTED OINMENT, 2 TO 3 GRAMS Topic... Start Date: 10/09/22 Status: Ordered lisinopril 20 mg oral tablet 1, tablet, By Mouth, Daily at bedtime, # 90 tablet, Refills 0, Tot. Refills 0, Maintenance, 11/06/22 10:13:00 EDT, Route to Pharmacy Electronically, [facility] #[id number], 155, cm, 11/06/22 9:35:00 EDT, Height, 108, kg, 08/30/22 19:57:00 EDT, . Start Date: 11/06/22 Stop Date: 02/04/23 Status: Ordered naltrexone 50 mg oral tablet 1 tablet = 50 mg, By Mouth, Daily, # 90 tablet, 0 Refills, Maintenance, 09/18/22 11:29:00 EDT, [facility] #[id number], 155, cm, 09/05/22 9:14:00 EDT, Height, 108, kg, 08/30/22 19:57:00 EDT, Dry Weight Start Date: 09/18/22 Status: Ordered omeprazole 40 mg oral enteric coated capsule 1 capsule, By Mouth, Daily, # 90 capsule, 1 Refills, Maintenance, 11/12/22 14:21:00 EDT, [facility] #[id number], 155, cm, 11/06/22 9:35:00 EDT, Height, 108, [...] Team Personnel Name: Latisha Boyce NP Position: [facility] PCO Associate Professional Member Role: PCP Address: Address: [address] [place] [id number]- [place] Care Team Related Persons Name: TOY SANTOYO Name: CY LING Address: [address] [place] [address] Name: MARGI WAYNE Address: home [address] [place] [address] Name: TASNEEM ALANIS Address: home [address] [place] [address]
--- OUTSIDE RECORDS SUMMARY | 2024-01-09 15:45 | XMS_ITS | Continuity of Care Document ---
Author Organization [facility] Adult Address [address] [place] [address]- Care Team Providers Care Collar Stay Fuser Tender Name Role Phone Latisha Boyce NP Primary Care Physician [place] [facility] [place]04/23 [facility] [address] [place] [address]- Allergies, Adverse Reactions, Alerts Substance Reaction Severity Status Imitrex Active Ultram 1 Active 1bradycardia ' Immunizations Given and Recorded Vaccine Date Status Refusal Reason [id number] 12y+ bivalent booster vax 01/04/22 Recorded SARS-CoV-2 mRNA (jmaeyxt-mfyz-pkgvc) vax 09/03/21 Recorded SARS-CoV-2 (COVID-19) mRNA BNT-162b2 [...] 1 Refills, Maintenance, 01/15/23 13:34:00 EST, Tablet, [facility] #[id number], Partial fill upon patient... Start Date: 01/15/23 [...] 1 kit, 5 Refills, Maintenance, 11/11/22 15:52:00EDT, [facility] #[id number], Partial fill upon patient request if the [...] 03/12/23 11:01:00 EST, Route to Pharmacy Electronically, [facility] #[id number], Partial fill upon patient request if the [...] capsule, 0 Refills, Maintenance, 09/13/22 17:08:00 EDT, [facility] #[id number], 155, cm, 09/05/22 9:14:00 EDT, Height, 108, [...] tablet, 1 Refills, Maintenance, 01/28/23 9:27:00 EST, [facility] #[id number], 90, 1 tablet By Mouth Daily, 155, cm, 11/06/22 9:35:00 EDT, Height, 108, kg, 08/30/22 19:57:00 EDT, Dry Weight Start Date: 01/28/23 Status: Ordered levothyroxine 0.1 mg oral tablet 1 tablet, By Mouth, Daily, # 90 tablet, 1 Refills, Maintenance, 03/21/23 7:16:00 EST, [facility] #[id number], 155, cm, 11/06/22 9:35:00 EDT, Height, 108, kg, 08/30/22 19:57:00 EDT, Dry Weight Start Date: 03/21/23 Status: Ordered lidocaine 5% topical ointment 2 TO 3 GRAMS, Topically, 3 times a day, PRN NEEDED FOR MODERATE PAIN, PT REQUESTING NON SCENTED OINTMENT, # 50 Gm, 0 Refills, Maintenance, 10/09/22 12:18:00 EDT, [facility] #[id number], 20, PT REQUESTING NON SCENTED OINMENT, 2 TO 3 GRAMS Topic... Start Date: 10/09/22 Status: Ordered lisinopril 20 mg oral tablet 1, tablet, By Mouth, Daily at bedtime, # 90 tablet, Refills 0, Tot. Refills 0, Maintenance, 03/05/23 11:25:00 EST, Route to Pharmacy Electronically, [facility] #[id number], 155, cm, 11/06/22 9:35:00 EDT, Height, 108, kg, 08/30/22 19:57:00 EDT, . Start Date: 03/05/23 Status: Ordered naltrexone 50 mg oral tablet 1 tablet, By Mouth, Daily, # 30 tablet, 0 Refills, Maintenance, 03/24/23 13:23:00 EST, [facility] #[id number], 155, cm, 11/06/22 9:35:00 EDT, Height, 108, kg, 08/30/22 19:57:00 EDT, Dry Weight Start Date: 03/24/23 Status: Ordered omeprazole 40 mg oral enteric coated capsule 1 capsule, By Mouth, Daily, # 90 capsule, 1 Refills, Maintenance, 11/12/22 14:21:00 EDT, [facility] #[id number], 155, cm, 11/06/22 9:35:00 EDT, Height, 108, [...] Team Personnel Name: Latisha Boyce NP Position: [facility] PCO Associate Professional Member Role: PCP Address: Address: [address] [place], [place] [id number]- [place] Care Team Related Persons Name: TOY SANTOYO Name: CY LING Address: home [address] [place] [address] Name: MARGI WAYNE Address: home [address] [place] [address] Name: TASENEM ALANIS Address: [address] [place] [address]
--- OUTSIDE RECORDS SUMMARY | 2024-01-09 15:45 | XMS_ITS | Continuity of Care Document ---
Author Organization [facility] Address [address] [place] [address]- Care Team Providers Care Engineer First Assistant Name Role Phone Austen ALBERT, Latisha Primary Care Physician [place] [facility] [id number] Date(s): 08/12/23 - 08/19/23 [facility] [address] [place], [place] [address] Attending Physician: Juan FRANK, Moshe Serrano Referring Physician: Davi Madison MD Allergies, Adverse Reactions, Alerts Substance Reaction Severity Status Imitrex Active Ultram 1 Active 1bradycardia ' Immunizations Given and Recorded Vaccine Date Status Refusal Reason [id number] 12y+ bivalent booster vax 01/04/22 Recorded SARS-CoV-2 mRNA (cmewfuc-cszh-vlnrf) vax 09/03/21 Recorded SARS-CoV-2 (COVID-19) mRNA BNT-162b2 [...] Refills, Maintenance, 08/13/23 12:28:00 EDT, Tablet, [id number], Partial fill upon patient request... Start [...] 1 kit, 5 Refills, Maintenance, 05/21/23 12:30:00EDT, [facility] #[id number], Partial fill upon patient request if [...] 03/12/23 11:01:00 EST, Route to Pharmacy Electronically, [id number], Partial fill upon patient request if the [...] tablet, 0 Refills, Maintenance, 08/06/23 10:06:00 EDT, [facility]#0488, 1 tablet By Mouth Daily,x90 days, 155, cm, 07/16/23 9:38:00 EDT, Height, 108, kg, 08/30/22 19:57:00 EDT, Dry Weight Start Date: 08/06/23 Stop Date: 11/04/23 Status: Ordered levothyroxine 0.1 mg oral tablet 1 tablet, By Mouth, Daily, # 90 tablet, 1 Refills, Maintenance, 03/21/23 7:16:00 EST, [facility] #[id number], 155, cm, 11/06/22 9:35:00 EDT, Height, 108, kg, 08/30/22 19:57:00 EDT, Dry Weight Start Date: 03/21/23 Status: Ordered lidocaine 5% topical ointment 2 TO 3 GRAMS, Topically, 3 times a day, PRN NEEDED FOR MODERATE PAIN, PT REQUESTING NON SCENTED OINTMENT, # 50 Gm, 0 Refills, Maintenance, 04/23/23 12:23:00 EST, [facility] #[id number], 20, PT REQUESTING NON SCENTED OINMENT, 2 TO 3 GRAMS Topic... Start Date: 04/23/23 Status: Ordered lisinopril 20 mg oral tablet 1, tablet, By Mouth, Daily at bedtime, # 90 tablet, Refills 0, Maintenance, 08/15/23 6:51:00 EDT, Route to Pharmacy Electronically, [facility] #[id number], 155, cm, 08/12/23 7:32:00 EDT, Height,108, kg, 08/30/22 19:57:00 EDT, Dry Weight Start Date: 08/15/23 Status: Ordered naltrexone 50 mg oral tablet 1 tablet, By Mouth, Daily, # 90 tablet, 1 Refills, Maintenance, 05/21/23 12:30:00 EDT, [facility]#0488, 155, cm, 11/06/22 9:35:00 EDT, Height, 108, kg, 08/30/22 19:57:00 EDT, Dry Weight Start Date: 05/21/23 Stop Date: 11/17/23 Status: Ordered omeprazole 40 mg oral enteric coated capsule 1 capsule, By Mouth, Daily, # 90 capsule, 0 Refills, Maintenance, 08/01/23 8:06:00 EDT, [facility] #[id number], 155, cm, 07/16/23 9:38:00 EDT, Height, [...] oldest [Reference Range]: 1 Height 155 cm (08/12/23 7:32 AM) Weight 114.4 kg (08/12/23 7:32 AM) Oxygen Saturation [94-100 %] 99 % (08/12/23 7:32 AM) Pulse Rate [55-90 bpm] 71 bpm (08/12/23 7:32 AM) Body Mass Index [18.5-24.99 kg/m2] 47.62 kg/m2 *>HHI* (08/12/23 7:32 AM) Blood Pressure [90-138/55-84 mm Hg] 125/ 81mm Hg (08/12/23 7:32 AM) Respiratory Rate [16-30 br/min] 18 br/mi n (08/12/23 7:32 AM) Blood pressure sites Arm, right (08/12/23 7:32 AM) Weight Obtained Via Standing scale (08/12/23 7:32 AM) Social History Social History Type Response Smoking Status Never smoker; Tobacc o user in household: No; Type: Cigarettes entered on: 09/04/17 Sex Patient Care team information Care Team Personnel Name: Latisha Boyce NP Position: [facility] PCO Associate Professional Member Role: PCP Address: Address: [address] [place] [address]- Care Team Related Persons Name: TOY SANTOYO Name: CY LING Address: [address] [place] [address] Name: MARGI WAYNE Address: [address] [place] [address] Name: TASNEEM ALANIS Address: [address] [place] [address]
--- OUTSIDE RECORDS SUMMARY | 2024-01-09 15:45 | XMS_ITS | Continuity of Care Document ---
Author Organization [facility] Adult Address [address] [place] [address]- Care Team Providers Care Peer Financial Counselor Name Role Phone Latisha Boyce NP Primary Care Physician En[place] [facility] [place](s): 06/26/22 - 07/26/22 [facility] Adult [address] [place] [address]- Allergies, Adverse Reactions, Alerts Substance Reaction Severity Status Imitrex Active Ultram 1 Active 1bradycardia ' Immunizations Given and Recorded Vaccine Date Status Refusal Reason SARS-CoV-2 mRNA (futpkcf-crby-lealz) vax 09/03/21 Recorded SARS-CoV-2 (COVID-19) mRNA BNT-162b2 [...] daily., # 20 tablet, 0 Refills, Maintenance, 07/22/22 13:16:00 EDT, Tablet, [facility] #[id number], Partial fill upon patient... Start Date: 07/22/22 Status: Ordered Ajovy Autoinjector 225 mg/1.5 mL [...] 11/26/18 17:02:00 EDT, Route to Pharmacy Electronically, [id number], [facility] #[id number] Start Date: 11/26/18 Status: Ordered Aquaphor Healing topical ointment See Instructions, Apply to wound BID, # 30 mL, 0 Refills, Maintenance, 10/11/20 16:23:00 EDT, [facility] #[id number], Partial fill upon patient request if the prescription is for a schedule II opioid drug., Apply to wound BID, 153, cm, 10/11/20 1... Start Date: 10/11/20 Status: Ordered ARIPiprazole 2 mg oral tablet 2 mg, 1, tablet, By Mouth, Daily, # 30 tablet, Refills 1, Tot. Refills 1, Maintenance, 03/30/19 9:56:00 EST, Route to Pharmacy Electronically, [facility] #[id number], 156, cm, 01/12/19 11:15:00 EST, Height, 103.1, kg, 01/17/18 9:53:00 EST, Dry We... Start Date: 03/30/19 Stop Date: 06/28/19 Status: Ordered Cymbalta 20 mg oral enteric coated capsule 1 capsule = 20 mg, By Mouth, 2 times a day, can start with once a day and change to BID after 3 days, # 60 capsule, 1 Refills, Maintenance, 06/26/22 9:15:00 EDT, EC Capsule, [facility] #[id number], Partial fill upon patient request if the prescri... Start Date: 06/26/22 Stop Date: 08/25/22 Status: Ordered hydrochlorothiazide-lisinopril 12.5 mg-20 mg oral tablet 1 tablet, By Mouth, Daily, # 90 tablet, 0 Refills, Maintenance, 04/23/22 18:02:00 EST, [facility] #[id number], 90, TAKE 1 TABLET BY MOUTH DAILY, 153, cm, 02/14/22 8:17:00 EST, Height Start Date: 04/23/22 Status: Ordered levothyroxine 0.1 mg oral tablet 1 tablet, By Mouth, Daily, # 90 tablet, 0 Refills, Maintenance, 06/26/22 11:00:00 EDT, [id number], 153, cm, 06/26/22 8:40:00 EDT, Height Start Date: 06/26/22 Status: Ordered lidocaine 5% topical ointment 2 TO 3 GRAMS, Topically, 3 times a day, PRN NEEDED FOR MODERATE PAIN, PT REQUESTING NON SCENTED OINTMENT, # 50 Gm, 0 Refills, Maintenance, 04/23/22 10:43:00 EST, [facility] #[id number], 20, PT REQUESTING NON SCENTED OINMENT, 2 TO 3 GRAMS Topic... Start Date: 04/23/22 Status: Ordered lisinopril 20 mg oral tablet 1, tablet, By Mouth, Daily, # 90 tablet, Refills 2, Maintenance, 02/14/22 12:16:00 EST, Route to Pharmacy Electronically, [facility] #[id number], 153, cm, 02/14/22 8:17:00 EST, Height Start Date: 02/14/22 Status: Ordered naltrexone 50 mg oral tablet 1 tablet = 50 mg, By Mouth, Daily, # 90 tablet, 0 Refills, Maintenance, 07/05/22 16:59:00 EDT, [facility] #[id number], 153, cm, 06/26/22 8:40:00 EDT, Height Start Date: 07/05/22 Status: Ordered omeprazole 40 mg oral enteric coated capsule 1 capsule, By Mouth, Daily, # 90 capsule, 0 Refills, Maintenance, 05/30/22 7:10:00 EDT, [facility] #[id number], 153, cm, 04/24/22 13:47:00 EST, Height Start Date: 05/30/22 Status: Ordered Problem List Condition Confirmation Course [...] Associate Professional Member Role: PCP Address: Address: [address] [place] [address]- Care Team Related Persons Name: TOY SANTOYO Name: CY LING Address: home [address] [place] [address] Name: MARGI WAYNE Address: [address] [place] [address] Name: TASNEEM ALANIS Address: [address] [place] [address]
--- OUTSIDE RECORDS SUMMARY | 2024-01-09 15:45 | XMS_ITS | Continuity of Care Document ---
Author Organization [facility] Address [address] [facility], [address], [address] [place] [address]- Care Team Providers Care Deputy Coroner Name Role Phone Latisha Boyce NP Primary Care Physician [place] [facility] [place] 08/22/22 [facility] [address], [address], [address] [place] [address] Allergies, Adverse Reactions, Alerts Substance Reaction Severity Status Imitrex Active Ultram 1 Active 1bradycardia ' Immunizations Given and Recorded Vaccine Date Status Refusal Reason SARS-CoV-2 mRNA (rrbfxru-zdta-sqjzw) vax 09/03/21 Recorded SARS-CoV-2 (COVID-19) mRNA BNT-162b2 [...] 0 Refills, Maintenance, 07/22/22 13:16:00 EDT, Tablet, [facility] #[id number], Partial fill upon patient... Start Date: 07/22/22 [...] Refills, Maintenance, 06/26/22 9:15:00 EDT, EC Capsule, [facility] #[id number], Partial fill upon patient request if the [...] tablet, 0 Refills, Maintenance, 07/31/22 11:28:00 EDT, [facility] #[id number], 90, 1 tablet By Mouth Daily, 153, cm, 06/26/22 8:40:00 EDT, Height Start Date: 07/31/22 Status: Ordered levothyroxine 0.1 mg oral tablet 1 tablet, By Mouth, Daily, # 90 tablet, 0 Refills, Maintenance, 06/26/22 11:00:00 EDT, [facility] #02453, 153, cm, 06/26/22 8:40:00 EDT, Height Start Date: 06/26/22 Status: Ordered lidocaine 5% topical ointment 2 TO 3 GRAMS, Topically, 3 times a day, PRN NEEDED FOR MODERATE PAIN, PT REQUESTING NON SCENTED OINTMENT, # 50 Gm, 0 Refills, Maintenance, 04/23/22 10:43:00 EST, [facility] #49656, 20, PT REQUESTING NON SCENTED OINMENT, 2 TO 3 GRAMS Topic... Start Date: 04/23/22 Status: Ordered lisinopril 20 mg oral tablet 1, tablet, By Mouth, Daily, # 90 tablet, Refills 2, Maintenance, 02/14/22 12:16:00 EST, Route to Pharmacy Electronically, [facility] #[id number], 153, cm, 02/14/22 8:17:00 EST, Height Start Date: 02/14/22 Status: Ordered naltrexone 50 mg oral tablet 1 tablet = 50 mg, By Mouth, Daily, # 90 tablet, 0 Refills, Maintenance, 07/05/22 16:59:00 EDT, [facility] #[id number], 153, cm, 06/26/22 8:40:00 EDT, Height Start Date: 07/05/22 Status: Ordered omeprazole 40 mg oral enteric coated capsule 1 capsule, By Mouth, Daily, # 90 capsule, 0 Refills, Maintenance, 05/30/22 7:10:00 EDT, [facility] #67120, 153, cm, 04/24/22 13:47:00 EST, Height Start Date: 05/30/22 Status: Ordered Rhopressa 0.02% ophthalmic solution 0 [...] Associate Professional Member Role: PCP Address: Address: [address] [place] [address]- Care Team Related Persons Name: TOY SANTOYO Name: CY LING Address: [address] [place] [address] Name: MARGI WAYNE Address: [address] [place] [address] Name: TASNEEM ALANIS Address: [address] [place] [address]
--- OUTSIDE RECORDS SUMMARY | 2024-01-09 15:45 | XMS_ITS | Continuity of Care Document ---
Author Organization [facility] Address [address] [place] [address]- Care Team Providers Care Compensation Advisor Name Role Phone Latisha Boyce NP Primary Care Physician Encounter [facility] [place](s): 12/26/20 - 01/02/21 [facility] [address] [place] [address]- Encounter Diagnosis Fibromyalgia(Discharge Diagnosis) - 12/26/20 Attending Physician: Carlos A Cm MD Allergies, Adverse Reactions, Alerts Substance Reaction [...] 11/26/18 17:02:00 EDT, Route to Pharmacy Electronically, [id number], [facility] #[id number] Start Date: 11/26/18 Status: Ordered Aquaphor Healing topical ointment See Instructions, Apply to wound BID, # 30 mL, 0 Refills, Maintenance, 10/11/20 16:23:00 EDT, [facility] #[id number], Partial fill upon patient request if the prescription is for a schedule II opioid drug., Apply to wound BID, 153, cm, 10/11/20 1... Start Date: 10/11/20 Status: Ordered ARIPiprazole 2 mg oral tablet 2 mg, 1, tablet, By Mouth, Daily, # 30 tablet, Refills 1, Tot. Refills 1, Maintenance, 03/30/19 9:56:00 EST, Route to Pharmacy Electronically, [facility] #[id number], 156, cm, 01/12/19 11:15:00 EST, Height, 103.1, kg, 01/17/18 9:53:00 EST, Dry We... Start Date: 03/30/19 Stop Date: 06/28/19 Status: Ordered gabapentin 100 mg oral capsule 100 mg, 1, capsule, By Mouth, 3 times a day, # 90 capsule, Refills 5, Tot. Refills 5, Maintenance, 12/26/20 13:54:00 EST, Route to Pharmacy Electronically, [facility] #[id number], Partial fill upon patient request if the prescription is for a sebastian... Start Date: 12/26/20 Stop Date: 06/24/21 Status: Ordered levothyroxine 0.1 mg oral tablet 1 tablet = 100 mcg, By Mouth, Daily, # 90 tablet, 1 Refills, Maintenance, 12/14/20 12:57:00 EDT, Tablet, [facility] #[id number], Partial fill upon patient request, 153, cm, 10/11/20 15:18:00 EDT, Height, 107, kg, 08/06/19 16:24:00 EDT, Dry Weight Start Date: 12/14/20 Stop Date: 06/12/21 Status: Ordered lidocaine 5% topical ointment See Instructions, PRN Pain , Moderate, 2 to 3 g Topically 3 times a day SCENT FREE, # 50 Gm, 1 Refills, Acute 12/05/21 12:39:00 EDT, 12/05/20 12:39:00 EDT, Ointment, [facility] #[id number], 2 to3 g Topically 3 times a day; SCENT FREE,PRN:Pain ,... Start Date: 12/05/20 Stop Date: 12/05/21 Status: Ordered naltrexone 50 mg oral tablet 0.5 tablet, By Mouth, Daily, # 45 tablet, 0 Refills, [facility] #[id number], 153, cm, 10/11/2114:18:00 EDT, Height, 107, kg, 08/06/19 16:24:00 EDT, Dry Weight Start Date: 10/13/20 Status: Ordered omeprazole 40 mg oral enteric coated capsule 1 capsule, By Mouth, Daily, # 90 capsule, 2 Refills, Maintenance, 08/22/20 14:40:00 EDT, [facility] #[id number], 153, cm, 06/23/20 8:44:00 EDT, Height, 107, kg, 08/06/19 16:24:00 EDT, Dry Weight Start Date: 08/22/20 Stop Date: 05/19/21 Status: Ordered Problem List Condition Effective Dates Status Health Status Inform ant Depression(Confirmed) Active Fibromyalgia(Confirmed) Active Glaucoma(Confirmed) Active Hypothyroidism(Confirmed) Active Migraine(Confirmed) Active Diagnosis Diagnosis Type Effective Dates Health Status Cl inical Service Informant Fibromyalgia Discharge Diagnosis 12/26/20 Vital Signs Most recent to oldest [Reference Range]: 1 Height 153 cm (12/26/20 1:09 PM) Social History Social History Type Response Smoking Status Never smoker; Tobacc o user in household: No; Type: Cigarettes entered on: 09/04/17 Sex
--- OUTSIDE RECORDS SUMMARY | 2024-01-09 15:45 | XMS_ITS | Continuity of Care Document ---
Author Organization [facility] Address [address] [place] [address]- Care Team Providers Care Gluing Machine Offbearer Name Role Phone Latisha Boyce NP Primary Care Physician [phone] Encounter [facility] [place] Date(s): 11/04/22 - 12/04/22 [facility] [address] [place] [address]- Allergies, Adverse Reactions, Alerts Substance Reaction Severity Status Imitrex Active Ultram 1 Active 1bradycardia ' Immunizations Given and Recorded Vaccine Date Status Refusal Reason [id number] 12y+ bivalent booster vax 01/04/22 Recorded SARS-CoV-2 mRNA (cvrpyhd-agiu-eqlnn) vax 09/03/21 Recorded SARS-CoV-2 (COVID-19) mRNA BNT-162b2 [...] 1 Refills, Maintenance, 11/08/22 16:56:00 EDT, Tablet, [facility] #[id number], Partial fill upon patient... Start Date: 11/08/22 [...] 1 kit, 5 Refills, Maintenance, 11/11/22 15:52:00EDT, [facility] #[id number], Partial fill upon patient request if the [...] 09/05/22 9:28:00 EDT, Route to Pharmacy Electronically, [facility] #[id number], Partial fill upon patient request if the [...] capsule, 0 Refills, Maintenance, 09/13/22 17:08:00 EDT, [facility] #[id number], 155, cm, 09/05/22 9:14:00 EDT, Height, 108, [...] tablet, 0 Refills, Maintenance, 11/01/22 15:49:00 EDT, [facility] #[id number], 90, 1 tablet By Mouth Daily, 155, cm, 09/05/22 9:14:00 EDT, Height, 108, kg, 08/30/22 19:57:00 EDT, Dry Weight Start Date: 11/01/22 Status: Ordered levothyroxine 0.1 mg oral tablet 1 tablet, By Mouth, Daily, # 90 tablet, 1 Refills, Maintenance, 09/18/22 8:58:00 EDT, [facility] #[id number], 155, cm, 09/05/22 9:14:00 EDT, Height, 108, kg, 08/30/22 19:57:00 EDT, Dry Weight Start Date: 09/18/22 Status: Ordered lidocaine 5% topical ointment 2 TO 3 GRAMS, Topically, 3 times a day, PRN NEEDED FOR MODERATE PAIN, PT REQUESTING NON SCENTED OINTMENT, # 50 Gm, 0 Refills, Maintenance, 10/09/22 12:18:00 EDT, [facility] #[id number], 20, PT REQUESTING NON SCENTED OINMENT, 2 TO 3 GRAMS Topic... Start Date: 10/09/22 Status: Ordered lisinopril 20 mg oral tablet 1, tablet, By Mouth, Daily at bedtime, # 90 tablet, Refills 0, Tot. Refills 0, Maintenance, 11/06/22 10:13:00 EDT, Route to Pharmacy Electronically, [facility] #[id number], 155, cm, 11/06/22 9:35:00 EDT, Height, 108, kg, 08/30/22 19:57:00 EDT, . Start Date: 11/06/22 Stop Date: 02/04/23 Status: Ordered naltrexone 50 mg oral tablet 1 tablet = 50 mg, By Mouth, Daily, # 90 tablet, 0 Refills, Maintenance, 09/18/22 11:29:00 EDT, [facility] #[id number], 155, cm, 09/05/22 9:14:00 EDT, Height, 108, kg, 08/30/22 19:57:00 EDT, Dry Weight Start Date: 09/18/22 Status: Ordered omeprazole 40 mg oral enteric coated capsule 1 capsule, By Mouth, Daily, # 90 capsule, 1 Refills, Maintenance, 11/12/22 14:21:00 EDT, [facility] #[id number], 155, cm, 11/06/22 9:35:00 EDT, Height, 108, [...] Team Personnel Name: Latisha Boyce NP Position: [facility] PC[facility] Associate Professional Member Role: PCP Address: Address: [address] [place] [id number]- [place] Care Team Related Persons Name: TOY SANTOYO Name: CY LING Address: home [address] [place] [address] Name: MARGI WAYNE Address: home [address] [place] [address] Name: TASNEEM ALANIS Address: home [address] [place] [address]
--- OUTSIDE RECORDS SUMMARY | 2024-01-09 15:45 | XMS_ITS | Continuity of Care Document ---
Author Organization [facility] Address [address] [place] [address]- Care Team Providers Care Tubing Machine Tender Name Role Phone Latisha Boyce NP Primary Care Physician [place] [facility] [place] Date(s): 03/01/23 - 03/31/23 [facility] [address] [place] [address]- Allergies, Adverse Reactions, Alerts Substance Reaction Severity Status Imitrex Active Ultram 1 Active 1bradycardia ' Immunizations Given and Recorded Vaccine Date Status Refusal Reason [id number] 12y+ bivalent booster vax 01/04/22 Recorded SARS-CoV-2 mRNA (lasgdxm-ulxx-vpizv) vax 09/03/21 Recorded SARS-CoV-2 (COVID-19) mRNA BNT-162b2 [...] 1 Refills, Maintenance, 01/15/23 13:34:00 EST, Tablet, [facility] #[id number], Partial fill upon patient... Start Date: 01/15/23 [...] 1 kit, 5 Refills, Maintenance, 11/11/22 15:52:00EDT, [facility] #[id number], Partial fill upon patient request if the [...] 03/12/23 11:01:00 EST, Route to Pharmacy Electronically, [facility] #[id number], Partial fill upon patient request if the [...] capsule, 0 Refills, Maintenance, 09/13/22 17:08:00 EDT, [facility] #[id number], 155, cm, 09/05/22 9:14:00 EDT, Height, 108, [...] tablet, 1 Refills, Maintenance, 01/28/23 9:27:00 EST, [facility] #[id number], 90, 1 tablet By Mouth Daily, 155, cm, 11/06/22 9:35:00 EDT, Height, 108, kg, 08/30/22 19:57:00 EDT, Dry Weight Start Date: 01/28/23 Status: Ordered levothyroxine 0.1 mg oral tablet 1 tablet, By Mouth, Daily, # 90 tablet, 1 Refills, Maintenance, 03/21/23 7:16:00 EST, [facility] #[id number], 155, cm, 11/06/22 9:35:00 EDT, Height, 108, kg, 08/30/22 19:57:00 EDT, Dry Weight Start Date: 03/21/23 Status: Ordered lidocaine 5% topical ointment 2 TO 3 GRAMS, Topically, 3 times a day, PRN NEEDED FOR MODERATE PAIN, PT REQUESTING NON SCENTED OINTMENT, # 50 Gm, 0 Refills, Maintenance, 10/09/22 12:18:00 EDT, [facility] #[id number], 20, PT REQUESTING NON SCENTED OINMENT, 2 TO 3 GRAMS Topic... Start Date: 10/09/22 Status: Ordered lisinopril 20 mg oral tablet 1, tablet, By Mouth, Daily at bedtime, # 90 tablet, Refills 0, Tot. Refills 0, Maintenance, 03/05/23 11:25:00 EST, Route to Pharmacy Electronically, [facility] #[id number], 155, cm, 11/06/22 9:35:00 EDT, Height, 108, kg, 08/30/22 19:57:00 EDT, . Start Date: 03/05/23 Status: Ordered naltrexone 50 mg oral tablet 1 tablet, By Mouth, Daily, # 30 tablet, 0 Refills, Maintenance, 03/24/23 13:23:00 EST, [facility] #[id number], 155, cm, 11/06/22 9:35:00 EDT, Height, 108, kg, 08/30/22 19:57:00 EDT, Dry Weight Start Date: 03/24/23 Status: Ordered omeprazole 40 mg oral enteric coated capsule 1 capsule, By Mouth, Daily, # 90 capsule, 1 Refills, Maintenance, 11/12/22 14:21:00 EDT, [facility] #[id number], 155, cm, 11/06/22 9:35:00 EDT, Height, 108, [...] Team Personnel Name: Latisha Boyce NP Position: [facility] PCO Associate Professional Member Role: PCP Address: Address: [address] [place], [place] [id number]- [place] Care Team Related Persons Name: TOY SANTOYO Name: CY LING Address: home [address] [place] [address] Name: MARGI WAYNE Address: [address] [place] [address] Name: TASNEEM ALANIS Address: home [address] [place] [address]
--- OUTSIDE RECORDS SUMMARY | 2024-01-09 15:45 | XMS_ITS | Continuity of Care Document ---
Author Organization [facility] Address [address] [place] [address]- Care Team Providers Care Trade Recruiter Name Role Phone Latisha Boyce NP Primary Care Physician [phone] Encounter [facility] [place] Date(s): 10/10/22 - 11/09/[address] [facility] [address] [place] [address]- Allergies, Adverse Reactions, Alerts Substance Reaction Severity Status Imitrex Active Ultram 1 Active 1bradycardia ' Immunizations Given and Recorded Vaccine Date Status Refusal Reason [id number] 12y+ bivalent booster vax 01/04/22 Recorded SARS-CoV-2 mRNA (aqggwbc-xfju-zdpmg) vax 09/03/21 Recorded SARS-CoV-2 (COVID-19) mRNA BNT-162b2 [...] 1 Refills, Maintenance, 11/08/22 16:56:00 EDT, Tablet, [facility] #[id number], Partial fill upon patient... Start Date: 11/08/22 [...] 09/05/22 9:28:00 EDT, Route to Pharmacy Electronically, [facility] #[id number], Partial fill upon patient request if the [...] capsule, 0 Refills, Maintenance, 09/13/22 17:08:00 EDT, [facility] #[id number], 155, cm, 09/05/22 9:14:00 EDT, Height, 108, [...] tablet, 0 Refills, Maintenance, 11/01/22 15:49:00 EDT, [facility] #[id number], 90, 1 tablet By Mouth Daily, 155, cm, 09/05/22 9:14:00 EDT, Height, 108, kg, 08/30/22 19:57:00 EDT, Dry Weight Start Date: 11/01/22 Status: Ordered levothyroxine 0.1 mg oral tablet 1 tablet, By Mouth, Daily, # 90 tablet, 1 Refills, Maintenance, 09/18/22 8:58:00 EDT, [facility] #[id number], 155, cm, 09/05/22 9:14:00 EDT, Height, 108, kg, 08/30/22 19:57:00 EDT, Dry Weight Start Date: 09/18/22 Status: Ordered lidocaine 5% topical ointment 2 TO 3 GRAMS, Topically, 3 times a day, PRN NEEDED FOR MODERATE PAIN, PT REQUESTING NON SCENTED OINTMENT, # 50 Gm, 0 Refills, Maintenance, 10/09/22 12:18:00 EDT, [facility] #[id number], 20, PT REQUESTING NON SCENTED OINMENT, 2 TO 3 GRAMS Topic... Start Date: 10/09/22 Status: Ordered lisinopril 20 mg oral tablet 1, tablet, By Mouth, Daily at bedtime, # 90 tablet, Refills 0, Tot. Refills 0, Maintenance, 11/06/22 10:13:00 EDT, Route to Pharmacy Electronically, [facility] #[id number], 155, cm, 11/06/22 9:35:00 EDT, Height, 108, kg, 08/30/22 19:57:00 EDT, [facility] Start Date: 11/06/22 Stop Date: 02/04/23 Status: Ordered naltrexone 50 mg oral tablet 1 tablet = 50 mg, By Mouth, Daily, # 90 tablet, 0 Refills, Maintenance, 09/18/22 11:29:00 EDT, [facility] #[id number], 155, cm, 09/05/22 9:14:00 EDT, Height, 108, kg, 08/30/22 19:57:00 EDT, Dry Weight Start Date: 09/18/22 Status: Ordered omeprazole 40 mg oral enteric coated capsule 1 capsule, By Mouth, Daily, # 90 capsule, 0 Refills, Maintenance, 08/23/22 9:31:00 EDT, [facility] #[id number], 153, cm, 08/14/22 9:13:00 EDT, Height Start [...] Team Personnel Name: Latisha Boyce NP Position: [facility] PC[facility] Associate Professional Member Role: PCP Address: Address: [address] [place] [id number]- Care Team Related Persons Name: TOY SANTOYO Name: CY LING Address: home [address] [place] [address] Name: MARGI WAYNE Address: [address] [place] [address] Name: TASNEEM ALANIS Address: [address] [place] [address]
--- OUTSIDE RECORDS SUMMARY | 2024-01-09 15:45 | XMS_ITS | Continuity of Care Document ---
Author Organization [facility] Adult Address [address] [place] [address]- Care Team Providers Care Home Inspector Name Role Phone Ltaisha Boyce NP Primary Care Physician [place] [facility] [place]14/22 [facility] [address] [place] [address]- Allergies, Adverse Reactions, Alerts Substance Reaction Severity Status Imitrex Active Ultram 1 Active 1bradycardia ' Immunizations Given and Recorded Vaccine Date Status Refusal Reason SARS-CoV-2 mRNA (jaqscmr-phmh-mzdtd) vax 09/03/21 Recorded SARS-CoV-2 (COVID-19) mRNA BNT-162b2 [...] 0 Refills, Maintenance, 08/26/22 12:15:00 EDT, Tablet, [facility] #[id number], Partial fill upon patient... Start Date: 08/26/22 [...] 09/05/22 9:28:00 EDT, Route to Pharmacy Electronically, [facility] #[id number], Partial fill upon patient request if the [...] capsule, 0 Refills, Maintenance, 09/13/22 17:08:00 EDT, [facility] #[id number], 155, cm, 09/05/22 9:14:00 EDT, Height, 108, [...] tablet, 0 Refills, Maintenance, 07/31/22 11:28:00 EDT, [facility] #[id number], 90, 1 tablet By Mouth Daily, 153, cm, 06/26/22 8:40:00 EDT, Height Start Date: 07/31/22 Status: Ordered levothyroxine 0.1 mg oral tablet 1 tablet, By Mouth, Daily, # 90 tablet, 0 Refills, Maintenance, 06/26/22 11:00:00 EDT, [facility] #[id number], 153, cm, 06/26/22 8:40:00 EDT, Height Start Date: 06/26/22 Status: Ordered lidocaine 5% topical ointment 2 TO 3 GRAMS, Topically, 3 times a day, PRN NEEDED FOR MODERATE PAIN, PT REQUESTING NON SCENTED OINTMENT, # 50 Gm, 0 Refills, Maintenance, 04/23/22 10:43:00 EST, [facility] #[id number], 20, PT REQUESTING NON SCENTED OINMENT, 2 TO 3 GRAMS Topic... Start Date: 04/23/22 Status: Ordered lisinopril 20 mg oral tablet 1, tablet, By Mouth, Daily, # 90 tablet, Refills 2, Tot. Refills 2, Maintenance, 08/23/22 9:46:00 EDT, Route to Pharmacy Electronically, [facility] #[id number], 153, cm, 08/14/22 9:13:00 EDT, Height Start Date: 08/23/22 Status: Ordered naltrexone 50 mg oral tablet 1 tablet = 50 mg, By Mouth, Daily, # 90 tablet, 0 Refills, Maintenance, 07/05/22 16:59:00 EDT, [facility] #[id number], 153, cm, 06/26/22 8:40:00 EDT, Height Start Date: 07/05/22 Status: Ordered omeprazole 40 mg oral enteric coated capsule 1 capsule, By Mouth, Daily, # 90 capsule, 0 Refills, Maintenance, 08/23/22 9:31:00 EDT, [facility] #[id number], 153, cm, 08/14/22 9:13:00 EDT, Height Start [...] Team Personnel Name: Latisha Boyce NP Position: [facility] PCO Associate Professional Member Role: PCP Address: Address: [address] [place] [id number]- Care Team Related Persons Name: TOY SANTOYO Name: CY LING Address: [address] [place] [address] Name: MARGI WAYNE Address: [address] [place] [address] Name: TASNEEM ALANIS Address: [address] [place] [address]
--- OUTSIDE RECORDS SUMMARY | 2024-01-09 15:45 | XMS_ITS | Continuity of Care Document ---
Author Organization [facility] Adult Address [address] [place] [address]- Care Team Providers Care Lubrication Worker Name Role Phone Austen ALBERT, Latisha Primary Care Physician Encounter [facility] [place] Date(s): 11/19/22 - 12/27/22 [facility] [address] [place] [address]- Attending Physician: Latisha Boyce NP Allergies, Adverse Reactions, Alerts Substance Reaction Severity Status Imitrex Active Ultram 1 Active 1bradycardia ' Immunizations Given and Recorded Vaccine Date Status Refusal Reason [id number] 12y+ bivalent booster vax 01/04/22 Recorded SARS-CoV-2 mRNA (fzzozga-gdez-xgthu) vax 09/03/21 Recorded SARS-CoV-2 (COVID-19) mRNA BNT-162b2 [...] daily., # 20 tablet, 1 Refills, Maintenance, 12/06/22 14:33:00 EDT, Tablet, [facility] #[id number], Partial fill upon patient... Start Date: 12/06/22 Status: Ordered Ajovy Autoinjector 225 mg/1.5 mL subcutaneous solution 0 Refills, Maintenance, 08/13/22 8:57:00 EDT, Partial fill upon patient request if the prescriptionis for a schedule II opioid drug. Start Date: 08/13/22 Status: Ordered Ajovy Autoinjector 225 mg/1.5 mL subcutaneous solution = 225 mg, Subcutaneous Injection, Every 28 days, # 1 kit, 5 Refills, Maintenance, 11/11/22 15:52:00EDT, [facility] #[id number], Partial fill upon patient request if the [...] 09/05/22 9:28:00 EDT, Route to Pharmacy Electronically, [facility] #[id number], Partial fill upon patient request if the [...] capsule, 0 Refills, Maintenance, 09/13/22 17:08:00 EDT, [facility] #[id number], 155, cm, 09/05/22 9:14:00 EDT, Height, 108, [...] tablet, 0 Refills, Maintenance, 11/01/22 15:49:00 EDT, [facility] #[id number], 90, 1 tablet By Mouth Daily, 155, cm, 09/05/22 9:14:00 EDT, Height, 108, kg, 08/30/22 19:57:00 EDT, Dry Weight Start Date: 11/01/22 Status: Ordered levothyroxine 0.1 mg oral tablet 1 tablet, By Mouth, Daily, # 90 tablet, 1 Refills, Maintenance, 09/18/22 8:58:00 EDT, [facility] #[id number], 155, cm, 09/05/22 9:14:00 EDT, Height, 108, kg, 08/30/22 19:57:00 EDT, Dry Weight Start Date: 09/18/22 Status: Ordered lidocaine 5% topical ointment 2 TO 3 GRAMS, Topically, 3 times a day, PRN NEEDED FOR MODERATE PAIN, PT REQUESTING NON SCENTED OINTMENT, # 50 Gm, 0 Refills, Maintenance, 10/09/22 12:18:00 EDT, [facility] #[id number], 20, PT REQUESTING NON SCENTED OINMENT, 2 TO 3 GRAMS Topic... Start Date: 10/09/22 Status: Ordered lisinopril 20 mg oral tablet 1, tablet, By Mouth, Daily at bedtime, # 90 tablet, Refills 0, Tot. Refills 0, Maintenance, 11/06/22 10:13:00 EDT, Route to Pharmacy Electronically, [facility] #[id number], 155, cm, 11/06/22 9:35:00 EDT, Height, 108, kg, 08/30/22 19:57:00 EDT, . Start Date: 11/06/22 Stop Date: 02/04/23 Status: Ordered naltrexone 50 mg oral tablet 1 tablet = 50 mg, By Mouth, Daily, # 90 tablet, 0 Refills, Maintenance, 09/18/22 11:29:00 EDT, [facility] #[id number], 155, cm, 09/05/22 9:14:00 EDT, Height, 108, kg, 08/30/22 19:57:00 EDT, Dry Weight Start Date: 09/18/22 Status: Ordered omeprazole 40 mg oral enteric coated capsule 1 capsule, By Mouth, Daily, # 90 capsule, 1 Refills, Maintenance, 11/12/22 14:21:00 EDT, [facility] #[id number], 155, cm, 11/06/22 9:35:00 EDT, Height, 108, [...] Team Personnel Name: Latisha Boyce NP Position: [facility] PCO Associate Professional Member Role: PCP Address: Address: [address] [place] [address]- Care Team Related Persons Name: TOY SANTOYO Name: CY LING Address: home [address] [place] [address] Name: MARGI WAYNE Address: [address] [place] [address] Name: TASNEEM ALANIS Address: [address] [place] [address]
--- OUTSIDE RECORDS SUMMARY | 2024-01-09 15:45 | XMS_ITS | Continuity of Care Document ---
Author Organization [facility] Adult Address [address] [place] [address]- Care Team Providers Care Tattoo Designer Name Role Phone Latisha Boyce NP Primary Care Physician [phone] Encounter [facility] [place] Date(s): 02/01/21 - 03/03/21 [facility] [address] [place] [address]- Allergies, Adverse Reactions, Alerts Substance Reaction Severity [...] 11/26/18 17:02:00 EDT, Route to Pharmacy Electronically, [id number], [facility] #[id number] Start Date: 11/26/18 Status: Ordered Aquaphor Healing topical ointment See Instructions, Apply to wound BID, # 30 mL, 0 Refills, Maintenance, 10/11/20 16:23:00 EDT, [facility] #[id number], Partial fill upon patient request if the prescription is for a schedule II opioid drug., Apply to wound BID, 153, cm, 10/11/20 1... Start Date: 10/11/20 Status: Ordered ARIPiprazole 2 mg oral tablet 2 mg, 1, tablet, By Mouth, Daily, # 30 tablet, Refills 1, Tot. Refills 1, Maintenance, 03/30/19 9:56:00 EST, Route to Pharmacy Electronically, [facility] #[id number], 156, cm, 01/12/19 11:15:00 EST, Height, 103.1, kg, 01/17/18 9:53:00 EST, Dry We... Start Date: 03/30/19 Stop Date: 06/28/19 Status: Ordered gabapentin 100 mg oral capsule 100 mg, 1, capsule, By Mouth, 3 times a day, # 90 capsule, Refills 5, Tot. Refills 5, Maintenance, 12/26/20 13:54:00 EST, Route to Pharmacy Electronically, [facility] #[id number], Partial fill upon patient request if the prescription is for a sebastian... Start Date: 12/26/20 Stop Date: 06/24/21 Status: Ordered levothyroxine 0.1 mg oral tablet 1 tablet = 100 mcg, By Mouth, Daily, # 90 tablet, 1 Refills, Maintenance, 12/14/20 12:57:00 EDT, Tablet, [facility] #[id number], Partial fill upon patient request, 153, cm, 10/11/20 15:18:00 EDT, Height, 107, kg, 08/06/19 16:24:00 EDT, Dry Weight Start Date: 12/14/20 Stop Date: 06/12/21 Status: Ordered lidocaine 5% topical ointment See Instructions, PRN Pain , Moderate, 2 to 3 g Topically 3 times a day SCENT FREE, # 50 Gm, 1 Refills, Acute 03/06/21 8:00:00 EST, 02/27/21 15:02:00 EST, Ointment, [facility] #[id number], 2 to 3 g Topically 3 times a day; SCENT FREE,PRN:Pain ,... Start Date: 02/27/21 Stop Date: 03/06/21 Status: Ordered naltrexone 50 mg oral tablet 0.5 tablet, By Mouth, Daily, # 45 tablet, 4 Refills, [facility] #[id number], 153, cm, 12/26/2112:09:00 EST, Height, 107, kg, 08/06/19 16:24:00 EDT, Dry Weight Start Date: 01/19/21 Status: Ordered omeprazole 40 mg oral enteric coated capsule 1 capsule, By Mouth, Daily, # 90 capsule, 2 Refills, Maintenance, 08/22/20 14:40:00 EDT, [facility] #[id number], 153, cm, 06/23/20 8:44:00 EDT, Height, 107, kg, 08/06/19 16:24:00 EDT, Dry Weight Start Date: 08/22/20 Stop Date: 05/19/21 Status: Ordered prochlorperazine 5 mg oral tablet 0.5 tablet = 2.5 mg, By Mouth, 3 times a day, PRN Nausea, for 10 days, # 30 tablet, 0 Refills, Acute 03/09/21 8:16:00 EST, 02/27/21 8:16:00 EST, Tablet, [facility] #[id number], Partial fill uponpatient request if the prescription is for a schedu... Start Date: 02/27/21 Stop Date: 03/09/21 Status: Ordered Problem List Condition Effective Dates Status Health Status Inform ant Depression(Confirmed) Active Fibromyalgia(Confirmed) Active Glaucoma(Confirmed) Active Hypothyroidism(Confirmed) Active White coat syndrome without hypertension(Confirmed) Active Migraine(Confirmed) Active Severe obesity(Confirmed) Active Social History Social History Type Response Smoking Status Never smoker; Tobacc o user in household: No; Type: Cigarettes entered on: 09/04/17 Sex
--- OUTSIDE RECORDS SUMMARY | 2024-01-09 15:45 | XMS_ITS | Continuity of Care Document ---
Author Organization [facility] Adult Address [address] [place] [address]- Care Team Providers Care Content Strategy Lead Name Role Phone Austen ALBERT, Latisha Primary Care Physician [phone] [place] [facility] [place] [facility] [address] [place] [address]- Attending Physician: Latisha Boyce NP Allergies, Adverse Reactions, Alerts Substance Reaction Severity Status Imitrex Active Ultram 1 Active 1bradycardia ' Immunizations Given and Recorded Vaccine Date Status Refusal Reason SARS-CoV-2 mRNA (nczbjmh-tfru-vbfrd) vax 09/03/21 Recorded SARS-CoV-2 (COVID-19) mRNA BNT-162b2 [...] 11/26/18 17:02:00 EDT, Route to Pharmacy Electronically, [id number], [facility] #[id number] Start Date: 11/26/18 Status: Ordered Aquaphor Healing topical ointment See Instructions, Apply to wound BID, # 30 mL, 0 Refills, Maintenance, 10/11/20 16:23:00 EDT, [facility] #[id number], Partial fill upon patient request if the prescription is for a schedule II opioid drug., Apply to wound BID, 153, cm, 10/11/20 1... Start Date: 10/11/20 Status: Ordered ARIPiprazole 2 mg oral tablet 2 mg, 1, tablet, By Mouth, Daily, # 30 tablet, Refills 1, Tot. Refills 1, Maintenance, 03/30/19 9:56:00 EST, Route to Pharmacy Electronically, [facility] #[id number], 156, cm, 01/12/19 11:15:00 EST, Height, 103.1, kg, 01/17/18 9:53:00 EST, Dry We... Start Date: 03/30/19 Stop Date: 06/28/19 Status: Ordered gabapentin 100 mg oral capsule 1, capsule, By Mouth, 3 times a day, # 84 capsule, Refills 0, Tot. Refills 0, Maintenance, 08/15/2213:29:00 EDT, Route to Pharmacy Electronically, [facility] #[id number], 153, cm, 05/02/21 10:07:00 EDT, Height Start Date: 08/15/21 Status: Ordered hydrochlorothiazide-lisinopril 12.5 mg-20 mg oral tablet 1 tablet, By Mouth, Daily, # 90 tablet, 0 Refills, Maintenance, 11/02/21 13:24:00 EDT, Tablet, [facility] #[id number], Partial fill upon patient request if the prescription is for a schedule II opioid drug., 1 tablet By Mouth Daily,x90 days, 153,... Start Date: 11/02/21 Stop Date: 01/31/22 Status: Ordered levothyroxine 0.1 mg oral tablet 1 tablet = 100 mcg, By Mouth, Daily, # 90 tablet, 1 Refills, Maintenance, 06/11/21 21:02:00 EDT, Tablet, [facility] #[id number], Partial fill upon patient request, 153, cm, 05/02/21 10:07:00 EDT, Height, 107, kg, 08/06/19 16:24:00 EDT, Dry Weight Start Date: 06/11/21 Stop Date: 12/08/21 Status: Ordered lidocaine 5% topical ointment 2 TO 3 GRAMS, Topically, 3 times a day, PRN NEEDED FOR MODERATE PAIN, # 50 Gm, 0 Refills, Maintenance, 11/19/21 7:35:00 EDT, [facility] #[id number], 20, APPLY 2 TO 3 GRAMS TOPICALLY THREE TIMES DAILY NEEDED FOR MODERATE PAIN, 153, cm, 11/02... Start Date: 11/19/21 Status: Ordered lisinopril 20 mg oral tablet 20 mg, 1, tablet, By Mouth, Daily, # 90 tablet, Refills 2, Tot. Refills 2, Maintenance, 05/02/21 10:25:00 EDT, Route to Pharmacy Electronically, [facility] #[id number], Partial fill upon patientrequest if the prescription is for a schedule II op... Start Date: 05/02/21 Stop Date: 01/27/22 Status: Ordered naltrexone 50 mg oral tablet 0.5 tablet, By Mouth, Daily, # 45 tablet, 4 Refills, [facility] #[id number], 153, cm, 12/26/2112:09:00 EST, Height, 107, kg, 08/06/19 16:24:00 EDT, Dry Weight Start Date: 01/19/21 Status: Ordered omeprazole 40 mg oral enteric coated capsule 1 capsule, By Mouth, Daily, # 90 capsule, 0 Refills, 09/27/21 6:14:00 EDT, [facility] #[id number], 153, cm, 05/02/21 10:07:00 EDT, Height Start Date: 09/27/21 Status: Ordered Problem List Condition Confirmation Course Effective Dates Status Health St atus Informant Depression Confirmed Active Fibromyalgia Confirmed Active Glaucoma Confirmed Active HTN (hypertension) Confirmed Active Hypothyroidism Confirmed Active Migraine Confirmed Active Severe obesity Confirmed Active Vital Signs Most recent to oldest [Reference Range]: 1 Height 153 cm (11/23/21 12:07 PM) Social History Social History Type Response Smoking Status Never smoker; Tobacc o user in household: No; Type: Cigarettes entered on: 09/04/17 Sex Patient Care team information Personnel Name: Latisha Boyce NP Address: Address: [address] [place] [address]
--- OUTSIDE RECORDS SUMMARY | 2024-01-09 15:45 | XMS_ITS | Continuity of Care Document ---
Author Organization [facility] Adult Address [address] [place] [address]- Care Team Providers Care Lime Mixer Name Role Phone Latisha Boyce NP Primary Care Physician Encounter [facility] Date(s): 11/28/23 - 12/28/23 [facility] Adult [address] [place] [address]- Allergies, Adverse Reactions, Alerts Substance Reaction Severity Status Imitrex Active Ultram 1 Active 1bradycardia ' Immunizations Given and Recorded Vaccine Date Status Refusal Reason [id number] 12y+ bivalent booster vax 01/04/22 Recorded SARS-CoV-2 mRNA (yrfrrxj-tlhg-mmwyq) vax 09/03/21 Recorded SARS-CoV-2 (COVID-19) mRNA BNT-162b2 [...] daily., # 20 tablet, 0 Refills, Maintenance, 12/26/23 16:17:00 EST, Tablet, [id number], Partial fill upon patient request... Start Date: 12/26/23 Status: Ordered Ajovy Autoinjector 225 mg/1.5 mL subcutaneous solution 0 Refills, Maintenance, 08/13/22 8:57:00 EDT, Partial fill upon patient request if the prescriptionis for a schedule II opioid drug. Start Date: 08/13/22 Status: Ordered Ajovy Autoinjector 225 mg/1.5 mL subcutaneous solution = 225 mg, Subcutaneous Injection, Every 28 days, # 1 kit, 5 Refills, Maintenance, 05/21/23 12:30:00EDT, [facility]/pharmacy #[id number], Partial fill upon patient [...] Refills, Maintenance, 09/09/23 13:03:00 EDT, [id number], 155, cm, 08/12/23 7:32:00 EDT, Height, 108, [...] OINTMENT, # 50 Gm, 0 Refills, Maintenance, 12/26/23 15:49:00 EST, [id number], PT REQUESTING NON SCENTED OINMENT, 2 TO 3 GRAMS Topically 3 times... Start Date: 12/26/23 Stop Date: 01/09/24 Status: Ordered lisinopril 20 mg oral tablet 1, tablet, By Mouth, Daily at bedtime, # 90 tablet, Refills 1, Tot. Refills 1, Maintenance, 11/28/23 15:37:00 EDT, Route to Pharmacy Electronically, [facility]/pharmacy #[id number], 155, cm, 09/16/23 10:30:00 EDT, Height, 108, kg, 08/30/22 19:57:00 EDT, Dry Weight Start Date: 11/28/23 Status: Ordered naltrexone 50 mg oral tablet 1 tablet, By Mouth, Daily, # 90 tablet, 1 Refills, Maintenance, 05/21/23 12:30:00 EDT, [facility]/pharmacy#[id number], 155, cm, 11/06/22 9:35:00 EDT, Height, 108, kg, 08/30/22 19:57:00 EDT, Dry Weight Start Date: 05/21/23 Stop Date: 11/17/23 Status: Ordered omeprazole 40 mg oral enteric coated capsule 1 capsule, By Mouth, Daily, # 90 capsule, 0 Refills, Maintenance, 08/01/23 8:06:00 EDT, [facility]/pharmacy #[id number], 155, cm, 07/16/23 9:38:00 [...] Effective Dates Status H ealth Status Informant Stage 3a chronic kidney disease (CKD) Confirmed Active Fibromyalgia Confirmed Active Glaucoma Confirmed Active HTN (hypertension) Confirmed Active Hypothyroidism Confirmed Active Migraine Confirmed Active Osteoarthritis Confirmed Active MDD (recurrent major depressive disorder) in remission Confirmed Active Severe obesity (BMI 35.0-35.9 with comorbidity) Confirmed Active Social History Social History Type Response Smoking Status Never smoker; Tobacc o user in household: No; Type: Cigarettes entered on: 09/04/17 Sex Patient Care team information Care Team Personnel Name: Latisha Boyce NP Position: [facility] PCO Associate Professional Member Role: PCP Address: Address: [address] [place] [id number]- Care Team Related Persons Name: TOY SANTOYO Name: CY LING Address: home [address] [place] [address] Name: MARGI WAYNE Address: home [address] [place] [address] Name: TASNEEM ALANIS Address: home [address] [place] [address]
--- OUTSIDE RECORDS SUMMARY | 2024-01-09 15:46 | XMS_ITS | Continuity of Care Document ---
Author Organization [facility] Adult Address [address] [place] [address]- Care Team Providers Care Solution Lead Name Role Phone Latisha Boyce NP Primary Care Physician [place] [facility] [place] 05/02/21 - 06/01/21 [facility] [address] [place] [address]- Allergies, Adverse Reactions, Alerts Substance Reaction Severity [...] 11/26/18 17:02:00 EDT, Route to Pharmacy Electronically, [id number], [facility] #[id number] Start Date: 11/26/18 Status: Ordered Aquaphor Healing topical ointment See Instructions, Apply to wound BID, # 30 mL, 0 Refills, Maintenance, 10/11/20 16:23:00 EDT, [facility] #[id number], Partial fill upon patient request if the prescription is for a schedule II opioid drug., Apply to wound BID, 153, cm, 10/11/20 1... Start Date: 10/11/20 Status: Ordered ARIPiprazole 2 mg oral tablet 2 mg, 1, tablet, By Mouth, Daily, # 30 tablet, Refills 1, Tot. Refills 1, Maintenance, 03/30/19 9:56:00 EST, Route to Pharmacy Electronically, [facility] #[id number], 156, cm, 01/12/19 11:15:00 EST, Height, 103.1, kg, 01/17/18 9:53:00 EST, Dry We... Start Date: 03/30/19 Stop Date: 06/28/19 Status: Ordered gabapentin 300 mg oral capsule See Instructions, TAKE 1 CAPSULE BY MOUTH DAILY AT BEDTIME FOR 14 DAYS TAKE 100 MG AM AND NOON AND 300 MG AT NIGHT, # 14 capsule, Refills 0, Instructions Replace Required Details, Route to Pharmacy Electronically, [facility] #[id number], 153, cm,... Start Date: 05/30/21 Status: Ordered levothyroxine 0.1 mg oral tablet 1 tablet = 100 mcg, By Mouth, Daily, # 90 tablet, 1 Refills, Maintenance, 12/14/20 12:57:00 EDT, Tablet, [facility] #[id number], Partial fill upon patient request, 153, cm, 10/11/20 15:18:00 EDT, Height, 107, kg, 08/06/19 16:24:00 EDT, Dry Weight Start Date: 12/14/20 Stop Date: 06/12/21 Status: Ordered lisinopril 20 mg oral tablet 20 mg, 1, tablet, By Mouth, Daily, # 90 tablet, Refills 2, Tot. Refills 2, Maintenance, 05/02/21 10:25:00 EDT, Route to Pharmacy Electronically, [facility] #[id number], Partial fill upon patientrequest if the prescription is for a schedule II op... Start Date: 05/02/21 Stop Date: 01/27/22 Status: Ordered naltrexone 50 mg oral tablet 0.5 tablet, By Mouth, Daily, # 45 tablet, 4 Refills, [facility] #[id number], 153, cm, 12/26/2112:09:00 EST, Height, 107, kg, 08/06/19 16:24:00 EDT, Dry Weight Start Date: 01/19/21 Status: Ordered omeprazole 40 mg oral enteric coated capsule 1 capsule, By Mouth, Daily, # 90 capsule, 0 Refills, [facility] #[id number], 153, cm, 227:59:00 EST, Height, 107, kg, [...]
--- OUTSIDE RECORDS SUMMARY | 2024-01-09 15:46 | XMS_ITS | Continuity of Care Document ---
Author Organization [facility] Adult Address [address] [place] [address]- Care Team Providers Care Gas Operation Manager Name Role Phone Latisha Boyce NP Primary Care Physician Encounter [facility] [place] Date(s): 12/12/21 - 01/11/22 [facility] Adult [address] [place] [address]- Allergies, Adverse Reactions, Alerts Substance Reaction Severity Status Imitrex Active Ultram 1 Active 1bradycardia ' Immunizations Given and Recorded Vaccine Date Status Refusal Reason SARS-CoV-2 mRNA (jenwrqd-tnhn-prjvl) vax 09/03/21 Recorded SARS-CoV-2 (COVID-19) mRNA BNT-162b2 [...] 11/26/18 17:02:00 EDT, Route to Pharmacy Electronically, [id number], [facility] #[id number] Start Date: 11/26/18 Status: Ordered Aquaphor Healing topical ointment See Instructions, Apply to wound BID, # 30 mL, 0 Refills, Maintenance, 10/11/20 16:23:00 EDT, [facility] #[id number], Partial fill upon patient request if the prescription is for a schedule II opioid drug., Apply to wound BID, 153, cm, 10/11/20 1... Start Date: 10/11/20 Status: Ordered ARIPiprazole 2 mg oral tablet 2 mg, 1, tablet, By Mouth, Daily, # 30 tablet, Refills 1, Tot. Refills 1, Maintenance, 03/30/19 9:56:00 EST, Route to Pharmacy Electronically, [facility] #[id number], 156, cm, 01/12/19 11:15:00 EST, Height, 103.1, kg, 01/17/18 9:53:00 EST, Dry We... Start Date: 03/30/19 Stop Date: 06/28/19 Status: Ordered gabapentin 100 mg oral capsule 1, capsule, By Mouth, 3 times a day, # 84 capsule, Refills 0, Tot. Refills 0, Maintenance, 12/17/2210:26:00 EDT, Route to Pharmacy Electronically, [facility] #[id number], 153, cm, 12/12/21 8:30:00 EDT, Height Start Date: 12/17/21 Status: Ordered hydrochlorothiazide-lisinopril 12.5 mg-20 mg oral tablet 1 tablet, By Mouth, Daily, # 90 tablet, 0 Refills, Maintenance, 11/02/21 13:24:00 EDT, Tablet, [facility] #[id number], Partial fill upon patient request if the prescription is for a schedule II opioid drug., 1 tablet By Mouth Daily,x90 days, 153,... Start Date: 11/02/21 Stop Date: 01/31/22 Status: Ordered levothyroxine 0.1 mg oral tablet 1 tablet = 100 mcg, By Mouth, Daily, # 90 tablet, 1 Refills, Maintenance, 12/17/21 10:02:00 EDT, Tablet, [facility] #[id number], Partial fill upon patient request, 153, cm, 12/12/21 8:30:00 EDT,Height Start Date: 12/17/21 Stop Date: 06/15/22 Status: Ordered lidocaine 5% topical ointment 2 TO 3 GRAMS, Topically, 3 times a day, PRN NEEDED FOR MODERATE PAIN, # 50 Gm, 0 Refills, Maintenance, 11/19/21 7:35:00 EDT, [facility] #[id number], 20, APPLY 2 TO 3 GRAMS TOPICALLY THREE TIMES DAILY NEEDED FOR MODERATE PAIN, 153, cm, 11/02... Start Date: 11/19/21 Status: Ordered lisinopril 20 mg oral tablet 20 mg, 1, tablet, By Mouth, Daily, # 90 tablet, Refills 2, Tot. Refills 2, Maintenance, 05/02/21 10:25:00 EDT, Route to Pharmacy Electronically, [facility] #[id number], Partial fill upon patientrequest if the prescription is for a schedule II op... Start Date: 05/02/21 Stop Date: 01/27/22 Status: Ordered naltrexone 50 mg oral tablet 0.5 tablet, By Mouth, Daily, # 45 tablet, 4 Refills, [facility] #[id number], 153, cm, 12/26/2112:09:00 EST, Height, 107, kg, 08/06/19 16:24:00 EDT, Dry Weight Start Date: 01/19/21 Status: Ordered omeprazole 40 mg oral enteric coated capsule 1 capsule, By Mouth, Daily, # 90 capsule, 0 Refills, Maintenance, 12/19/21 14:09:00 EDT, [facility] #[id number], 153, cm, 12/12/21 8:30:00 EDT, Height Start [...] Team Personnel Name: Latisha Boyce NP Position: [facility] Associate Professional Member Role: PCP Address: Address: [address] [place] [id number]- Care Team Related Persons Name: CY LING Address: home [address] [place] [address] Name: MARGI WAYNE Address: [address] [place] [address] Name: TASNEEM ALANIS Address: home [address] [place] [address]
--- OUTSIDE RECORDS SUMMARY | 2024-01-09 15:46 | XMS_ITS | Continuity of Care Document ---
Author Organization [facility] Adult Address [address] [place] [address]- Care Team Providers Care Coverer Name Role Phone Latisha Boyce NP Primary Care Physician Encounter [facility] [place] Date(s): 10/13/23 - 11/12/23 [facility] Adult [address] [place] [address]- Allergies, Adverse Reactions, Alerts Substance Reaction Severity Status Imitrex Active Ultram 1 Active 1bradycardia ' Immunizations Given and Recorded Vaccine Date Status Refusal Reason [id number] 12y+ bivalent booster vax 01/04/22 Recorded SARS-CoV-2 mRNA (schoauq-zkeu-xitsl) vax 09/03/21 Recorded SARS-CoV-2 (COVID-19) mRNA BNT-162b2 [...] Refills, Maintenance, 09/25/23 12:47:00 EDT, Tablet, [id number], Partial fill upon patient request... Start Date: [...] kit, 5 Refills, Maintenance, 05/21/23 12:30:00EDT, [facility]/pharmacy #[id number], Partial fill upon patient request if [...] Refills, Maintenance, 09/09/23 13:03:00 EDT, [id number], 155, cm, 08/12/23 7:32:00 EDT, Height, 108, [...] 0 Refills, Maintenance, 09/17/23 7:05:00 EDT, Tablet, [facility]/pharmacy #[id number], Partial fill upon patient request if [...] 09/02/23 10:06:00 EDT, Route to Pharmacy Electronically, [facility]acy #[id number], 155, cm, 08/12/23 7:32:00 EDT,Height, 108, kg, 08/30/22 19:57:00 EDT, Dry Weight Start Date: 09/02/23 Status: Ordered naltrexone 50 mg oral tablet 1 tablet, By Mouth, Daily, # 90 tablet, 1 Refills, Maintenance, 05/21/23 12:30:00 EDT, [facility]/pharmacy#[id number], 155, cm, 11/06/22 9:35:00 EDT, Height, 108, kg, 08/30/22 19:57:00 EDT, Dry Weight Start Date: 05/21/23 Stop Date: 11/17/23 Status: Ordered omeprazole 40 mg oral enteric coated capsule 1 capsule, By Mouth, Daily, # 90 capsule, 0 Refills, Maintenance, 08/01/23 8:06:00 EDT, [facility]/pharmacy #[id number], 155, cm, 07/16/23 9:38:00 EDT, Height, [...] Personnel Name: Latisha Boyce NP Position: [facility] PCO Associate Professional Member Role: PCP Address: Address: [address] [place] [id number]- Care Team Related Persons Name: TOY SANTOYO Name: CY LING Address: home [address] [place] [address] Name: MARGI WAYNE Address: home [address] [place] [address] Name: TASNEEM ALANIS Address: home [address] [place] [address]
--- OUTSIDE RECORDS SUMMARY | 2024-01-09 15:46 | XMS_ITS | Continuity of Care Document ---
Author Organization [facility] Adult Address [address] [place] [address]- Care Team Providers Care Spray Technician Name Role Phone Latisha Boyce NP Primary Care Physician [place] [facility] [place] 05/29/20 - 06/28/20 [facility] Adult [address] [place] [address]- Allergies, Adverse Reactions, Alerts Substance Reaction Severity Status Imitrex Active Ultram 1 Active 1bradycardia ' Immunizations Given and Recorded Vaccine Date Status Refusal Reason SARS-CoV-2 (COVID-19) mRNA BNT-162b2 vac 05/02/20 Recorded SARS-CoV-2 (COVID-19) mRNA BNT-162b2 vac 04/09/20 Recorded Boostrix (Tdap) (oldterm) 12/28/15 Recorded hepatitis B adult vaccine 07/27/13 Recorded hepatitis B adult vaccine 03/03/13 Recorded hepatitis B adult vaccine 02/01/13 Recorded Medications ALPRAZolam 0.5 mg oral tablet 0.5 mg, 1, tablet, By Mouth, Daily, PRN, # 15 tablet, Refills 0, Tot. Refills 0, Maintenance, for anxiety, 11/26/18 17:02:00 EDT, Route to Pharmacy Electronically, [id number], [facility] #[id number] Start Date: 11/26/18 Status: Ordered ARIPiprazole 2 mg oral tablet 2 mg, 1, tablet, By Mouth, Daily, # 30 tablet, Refills 1, Tot. Refills 1, Maintenance, 03/30/19 9:56:00 EST, Route to Pharmacy Electronically, [facility] #[id number], 156, cm, 01/12/19 11:15:00 EST, Height, 103.1, kg, 01/17/18 9:53:00 EST, Dry We... Start Date: 03/30/19 Stop Date: 06/28/19 Status: Ordered levothyroxine 0.1 mg oral tablet 1 tablet = 100 mcg, By Mouth, Daily, # 90 tablet, 2 Refills, Maintenance, 03/14/20 8:40:00 EST, Tablet, [facility] #[id number], Partial fill upon patient request, 153, cm, 01/05/20 15:53:00 EST,Height, 107, kg, 08/06/19 16:24:00 EDT, Dry Weight Start Date: 03/14/20 Stop Date: 12/09/20 Status: Ordered lidocaine 5% topical ointment See Instructions, PRN Pain , Moderate, 2 to 3 g Topically 3 times a day, # 50 Gm, 1 Refills, Acute 05/29/21 15:30:00 EDT, 05/29/20 15:30:00 EDT, Ointment, [facility] #[id number], 2 to 3 g Topically 3 times a day,PRN:Pain , Moderate, 153, cm, 03/0... Start Date: 05/29/20 Stop Date: 05/29/21 Status: Ordered omeprazole 40 mg oral enteric coated capsule 1 capsule, By Mouth, Daily, # 30 capsule, 2 Refills, Maintenance, 05/31/20 14:28:00 EDT, [facility] #[id number], 153, cm, 05/31/20 12:53:00 EDT, Height, 107, kg, 08/06/19 16:24:00 EDT, Dry Weight Start Date: 05/31/20 Status: Ordered oxyCODONE 5 mg oral tablet 5 mg, 1, tablet, By Mouth, Every 6 hours, PRN, for 7 days, # 28 tablet, Refills 0, Tot. Refills 0, Acute 06/30/20 9:10:00 EDT, as needed for pain, 06/23/20 9:10:00 EDT, Route to Pharmacy Electronically, [facility] #[id number], Partial fill upon p... Start Date: 06/23/20 Stop Date: 06/30/20 Status: Ordered traZODone 150 mg oral tablet [...]
--- OUTSIDE RECORDS SUMMARY | 2024-01-09 15:46 | XMS_ITS | Continuity of Care Document ---
Author Organization [facility] Adult Address [address] [place] [address]- Care Team Providers Care Fish Cake Maker Name Role Phone Latisha Boyce NP Primary Care Physician [phone] Encounter [facility] [place](s): 11/17/23 - 12/17/23 [facility] Adult [address] [place] [id number]- Allergies, Adverse Reactions, Alerts Substance Reaction Severity Status Imitrex Active Ultram 1 Active 1bradycardia ' Immunizations Given and Recorded Vaccine Date Status Refusal Reason [id number] 12y+ bivalent booster vax 01/04/22 Recorded SARS-CoV-2 mRNA (gpqlsyg-igim-fgeuz) vax 09/03/21 Recorded SARS-CoV-2 (COVID-19) mRNA BNT-162b2 [...] Refills, Maintenance, 11/18/23 7:29:00 EDT, Tablet, [id number], Partial fill upon patient request i... Start [...] 1 kit, 5 Refills, Maintenance, 05/21/23 12:30:00EDT, [facility] #[id number], Partial fill upon patient [...] Refills, Maintenance, 09/09/23 13:03:00 EDT, [id number], 155, cm, 08/12/23 7:32:00 EDT, Height, 108, [...] 11/28/23 15:37:00 EDT, Route to Pharmacy Electronically, [facility] #[id number], 155, cm, 09/16/23 10:30:00 EDT, Height, 108, kg, 08/30/22 19:57:00 EDT, Dry Weight Start Date: 11/28/23 Status: Ordered naltrexone 50 mg oral tablet 1 tablet, By Mouth, Daily, # 90 tablet, 1 Refills, Maintenance, 05/21/23 12:30:00 EDT, [facility]/pharmacy#[id number], 155, cm, 11/06/22 9:35:00 EDT, Height, 108, kg, 08/30/22 19:57:00 EDT, Dry Weight Start Date: 05/21/23 Stop Date: 11/17/23 Status: Ordered omeprazole 40 mg oral enteric coated capsule 1 capsule, By Mouth, Daily, # 90 capsule, 0 Refills, Maintenance, 08/01/23 8:06:00 EDT, [facility] #[id number], 155, cm, 07/16/23 9:38:00 EDT, Height, [...] Associate Professional Member Role: PCP Address: Address: [address] [place] [id number]- Care Team Related Persons Name: TOY SANTOYO Name: CY LING Address: [address] [place] [address] Name: MARGI WAYNE Address: [address] [place] [address] Name: TASNEEM ALANIS Address: [address] [place] [address]
--- OUTSIDE RECORDS SUMMARY | 2024-01-09 15:46 | XMS_ITS | Continuity of Care Document ---
Author Organization [facility] Address [address] [place] [address]- Care Team Providers Care Travel Trailer Components Assembler Name Role Phone Latisha Boyce NP Primary Care Physician Encounter [facility] [place] Date(s): 01/05/20 - 02/04/20 [facility] [address] [place], [place] [address] Attending Physician: Willis Motta Admitting Physician: AdmWillis [...] 11/26/18 17:02:00 EDT, Route to Pharmacy Electronically, [id number], [facility] #[id number] Start Date: 11/26/18 Status: Ordered ARIPiprazole 2 mg oral tablet 2 mg, 1, tablet, By Mouth, Daily, # 30 tablet, Refills 1, Tot. Refills 1, Maintenance, 03/30/19 9:56:00 EST, Route to Pharmacy Electronically, [facility] #[id number], 156, cm, 01/12/19 11:15:00 EST, Height, 103.1, kg, 01/17/18 9:53:00 EST, Dry We... Start Date: 03/30/19 Stop Date: 06/28/19 Status: Ordered levothyroxine 0.088 mg oral tablet 1 tablet = 88 mcg, By Mouth, Daily, Repeat TSH in 6 weeks Dose decrease, # 30 tablet, 5 Refills, Maintenance, 09/30/19 15:30:00 EDT, Tablet, [facility] #[id number], 153, cm, 08/06/19 16:24:00 EDT, Height, 107, kg, 08/06/19 16:24:00 EDT, Dry Weight Start Date: 09/30/19 Status: Ordered levothyroxine 0.1 mg oral tablet 1 tablet = 100 mcg, By Mouth, Daily, # 30 tablet, 1 Refills, Maintenance, 01/14/20 8:40:00 EST, Tablet, [facility] #[id number], Partial fill upon patient request, 153, cm, 01/05/20 15:53:00 EST,Height, 107, kg, 08/06/19 16:24:00 EDT, Dry Weight Start Date: 01/14/20 Stop Date: 03/14/20 Status: Ordered lidocaine 5% topical ointment See Instructions, PRN Pain , Moderate, 2 to 3 g Topically 3 times a day, # 50 Gm, 1 Refills, Acute 11/01/20 13:10:00 EDT, 11/02/19 13:10:00 EDT, Ointment, [facility] #[id number], 2 to 3 g Topically 3 times a day,PRN:Pain , Moderate, 153, cm, 07/18... Start Date: 11/02/19 Stop Date: 11/01/20 Status: Ordered naltrexone 50 mg oral tablet 0.5 tablet, By Mouth, Daily, # 15 tablet, 5 Refills, Acute 09/21/20 12:21:00 EDT, 09/22/19 12:21:00EDT, [facility] #[id number], 153, cm, 08/06/19 16:24:00 EDT, Height, 107, kg, 08/06/19 16:24:00 EDT, Dry Weight Start Date: 09/22/19 Stop Date: 09/21/20 Status: Ordered omeprazole 40 mg oral enteric coated capsule 1 capsule = 40 mg, By Mouth, Daily, New script, # 30 capsule, 2 Refills, Maintenance, 12/15/19 8:48:00 EDT, EC Capsule, [facility] #[id number], 153, cm, 08/06/19 16:24:00 EDT, Height, 107, [...]
--- OUTSIDE RECORDS SUMMARY | 2024-01-09 15:46 | XMS_ITS | Continuity of Care Document ---
Author Organization [facility] Address [address] [place] [address]- Care Team Providers Care Supply Planner Name Role Phone Latisha Boyce NP Primary Care Physician Encounter [facility] [place] Date(s): 07/05/22 - 08/04/22 [facility] [address] [place] [address]- Allergies, Adverse Reactions, Alerts Substance Reaction Severity Status Imitrex Active Ultram 1 Active 1bradycardia ' Immunizations Given and Recorded Vaccine Date Status Refusal Reason SARS-CoV-2 mRNA (cyvsjrx-xhxo-jmygf) vax 09/03/21 Recorded SARS-CoV-2 (COVID-19) mRNA BNT-162b2 [...] 0 Refills, Maintenance, 07/22/22 13:16:00 EDT, Tablet, [facility] #[id number], Partial fill upon patient... Start Date: 07/22/22 [...] 11/26/18 17:02:00 EDT, Route to Pharmacy Electronically, [id number], [facility] #[id number] Start Date: 11/26/18 Status: Ordered Aquaphor Healing topical ointment See Instructions, Apply to wound BID, # 30 mL, 0 Refills, Maintenance, 10/11/20 16:23:00 EDT, [facility] #[id number], Partial fill upon patient request if the prescription is for a schedule II opioid drug., Apply to wound BID, 153, cm, 10/11/20 1... Start Date: 10/11/20 Status: Ordered ARIPiprazole 2 mg oral tablet 2 mg, 1, tablet, By Mouth, Daily, # 30 tablet, Refills 1, Tot. Refills 1, Maintenance, 03/30/19 9:56:00 EST, Route to Pharmacy Electronically, [facility] #[id number], 156, cm, 01/12/19 11:15:00 EST, Height, 103.1, kg, 01/17/18 9:53:00 EST, Dry We... Start Date: 03/30/19 Stop Date: 06/28/19 Status: Ordered Cymbalta 20 mg oral enteric coated capsule 1 capsule = 20 mg, By Mouth, 2 times a day, can start with once a day and change to BID after 3 days, # 60 capsule, 1 Refills, Maintenance, 06/26/22 9:15:00 EDT, EC Capsule, [facility] #[id number], Partial fill upon patient request if the prescri... Start Date: 06/26/22 Stop Date: 08/25/22 Status: Ordered hydrochlorothiazide-lisinopril 12.5 mg-20 mg oral tablet 1 tablet, By Mouth, Daily, # 90 tablet, 0 Refills, Maintenance, 07/31/22 11:28:00 EDT, [facility] #[id number], 90, 1 tablet By Mouth Daily, 153, cm, 06/26/22 8:40:00 EDT, Height Start Date: 07/31/22 Status: Ordered levothyroxine 0.1 mg oral tablet 1 tablet, By Mouth, Daily, # 90 tablet, 0 Refills, Maintenance, 06/26/22 11:00:00 EDT, [id number], 153, cm, 06/26/22 8:40:00 EDT, Height Start Date: 06/26/22 Status: Ordered lidocaine 5% topical ointment 2 TO 3 GRAMS, Topically, 3 times a day, PRN NEEDED FOR MODERATE PAIN, PT REQUESTING NON SCENTED OINTMENT, # 50 Gm, 0 Refills, Maintenance, 04/23/22 10:43:00 EST, [facility] #[id number], 20, PT REQUESTING NON SCENTED OINMENT, 2 TO 3 GRAMS Topic... Start Date: 04/23/22 Status: Ordered lisinopril 20 mg oral tablet 1, tablet, By Mouth, Daily, # 90 tablet, Refills 2, Maintenance, 02/14/22 12:16:00 EST, Route to Pharmacy Electronically, [facility] #[id number], 153, cm, 02/14/22 8:17:00 EST, Height Start Date: 02/14/22 Status: Ordered naltrexone 50 mg oral tablet 1 tablet = 50 mg, By Mouth, Daily, # 90 tablet, 0 Refills, Maintenance, 07/05/22 16:59:00 EDT, [facility] #[id number], 153, cm, 06/26/22 8:40:00 EDT, Height Start Date: 07/05/22 Status: Ordered omeprazole 40 mg oral enteric coated capsule 1 capsule, By Mouth, Daily, # 90 capsule, 0 Refills, Maintenance, 05/30/22 7:10:00 EDT, [facility] #[id number], 153, cm, 04/24/22 13:47:00 EST, Height Start [...] Associate Professional Member Role: PCP Address: Address: [address] [place] [address]- Care Team Related Persons Name: TOY SANTOYO Name: CY LING Address: [address] [place] [address] Name: MARGI WAYNE Address: home [address] [place] [address] Name: TASNEEM ALANIS Address: home [address] [place] [address]
--- OUTSIDE RECORDS SUMMARY | 2024-01-09 15:46 | XMS_ITS | Continuity of Care Document ---
Author Organization [facility] Address [address] [place] [address]- Care Team Providers Care Railroad Dining Car Stewardess Name Role Phone Latisha Boyce NP Primary Care Physician [phone] Encounter [facility] [place] Date(s): 08/22/20 - 09/21/20 [facility] [address] [place] [address]- Allergies, Adverse Reactions, Alerts Substance Reaction Severity [...] 11/26/18 17:02:00 EDT, Route to Pharmacy Electronically, [id number], [facility] #[id number] Start Date: 11/26/18 Status: Ordered ARIPiprazole 2 mg oral tablet 2 mg, 1, tablet, By Mouth, Daily, # 30 tablet, Refills 1, Tot. Refills 1, Maintenance, 03/30/19 9:56:00 EST, Route to Pharmacy Electronically, [facility] #[id number], 156, cm, 01/12/19 11:15:00 EST, Height, 103.1, kg, 01/17/18 9:53:00 EST, Dry We... Start Date: 03/30/19 Stop Date: 06/28/19 Status: Ordered levothyroxine 0.1 mg oral tablet 1 tablet = 100 mcg, By Mouth, Daily, # 90 tablet, 2 Refills, Maintenance, 03/14/20 8:40:00 EST, Tablet, [facility] #[id number], Partial fill upon patient request, 153, cm, 01/05/20 15:53:00 EST,Height, 107, kg, 08/06/19 16:24:00 EDT, Dry Weight Start Date: 03/14/20 Stop Date: 12/09/20 Status: Ordered lidocaine 5% topical ointment See Instructions, PRN Pain , Moderate, 2 to 3 g Topically 3 times a day, # 50 Gm, 1 Refills, Acute 05/29/21 15:30:00 EDT, 05/29/20 15:30:00 EDT, Ointment, [facility] #[id number], 2 to 3 g Topically 3 times a day,PRN:Pain , Moderate, 153, cm, 03/0... Start Date: 05/29/20 Stop Date: 05/29/21 Status: Ordered naltrexone 50 mg oral tablet See Instructions, 0.5 tabs daily, # 45 tablet, 0 Refills, Maintenance, 07/18/20 8:26:00 EDT, [facility] #[id number], Partial fill upon patient request if the prescription is for a schedule II opioid drug., 153, cm, 06/23/20 8:44:00 EDT, Height, 1... Start Date: 07/18/20 Status: Ordered omeprazole 40 mg oral enteric coated capsule 1 capsule, By Mouth, Daily, # 90 capsule, 2 Refills, Maintenance, 08/22/20 14:40:00 EDT, [facility] #[id number], 153, cm, 06/23/20 8:44:00 EDT, Height, 107, [...]
--- OUTSIDE RECORDS SUMMARY | 2024-01-09 15:46 | XMS_ITS | Continuity of Care Document ---
Author Organization [facility] Address [address] [place] [address]- Care Team Providers Care Cotton Farmer Name Role Phone Latisha Boyce NP Primary Care Physician Encounter [facility] [place] Date(s): 09/08/23 - 10/08/23 [facility] [address] [place] [address]- Allergies, Adverse Reactions, Alerts Substance Reaction Severity Status Imitrex Active Ultram 1 Active 1bradycardia ' Immunizations Given and Recorded Vaccine Date Status Refusal Reason [id number] 12y+ bivalent booster vax 01/04/22 Recorded SARS-CoV-2 mRNA (dsuvirj-bcov-ymfei) vax 09/03/21 Recorded SARS-CoV-2 (COVID-19) mRNA BNT-162b2 [...] Refills, Maintenance, 09/25/23 12:47:00 EDT, Tablet, [id number], Partial fill upon patient request... Start Date: [...] 1 kit, 5 Refills, Maintenance, 05/21/23 12:30:00EDT, [facility]/pharmacy #[id number], Partial fill upon patient request [...] Refills, Maintenance, 09/09/23 13:03:00 EDT, [id number], 155, cm, 08/12/23 7:32:00 EDT, Height, 108, [...] 09/02/23 10:06:00 EDT, Route to Pharmacy Electronically, [facility]/pharmacy #[id number], 155, cm, 08/12/23 7:32:00 EDT,Height, 108, kg, 08/30/22 19:57:00 EDT, Dry Weight Start Date: 09/02/23 Status: Ordered naltrexone 50 mg oral tablet 1 tablet, By Mouth, Daily, # 90 tablet, 1 Refills, Maintenance, 05/21/23 12:30:00 EDT, [facility]/pharmacy#[id number], 155, cm, 11/06/22 9:35:00 EDT, Height, 108, kg, 08/30/22 19:57:00 EDT, Dry Weight Start Date: 05/21/23 Stop Date: 11/17/23 Status: Ordered omeprazole 40 mg oral enteric coated capsule 1 capsule, By Mouth, Daily, # 90 capsule, 0 Refills, Maintenance, 08/01/23 8:06:00 EDT, [facility]/pharmacy #[id number], 155, cm, 07/16/23 9:38:00 EDT, [...] Team Personnel Name: Latisha Boyce NP Position: [facility] Associate Professional Member Role: PCP Address: Address: [address] [place] [id number]- Care Team Related Persons Name: TOY SANTOYO Name: CY LING Address: home [address] [place] [address] Name: MARGI WAYNE Address: [address] [place] [address] Name: TASNEEM ALANIS Address: [address] [place] [address]
--- OUTSIDE RECORDS SUMMARY | 2024-01-09 15:46 | XMS_ITS | Continuity of Care Document ---
Author Organization [facility] Adult Address [address] [place] [address]- Care Team Providers Care Launch Engineer Name Role Phone Latisha Boyce NP Primary Care Physician Encounter [facility] Date(s): 12/26/23 - 01/02/[address] [address]- Encounter Diagnosis Fibromyalgia(Discharge Diagnosis) - 12/26/23 Hypothyroidism(Discharge Diagnosis) - 12/26/23 Stage 3a chronic kidney disease (CKD)(Discharge Diagnosis) - 12/26/23 HTN (hypertension)(Discharge Diagnosis) - 12/26/23 Severe obesity (BMI 35.0-35.9 with comorbidity)(Discharge Diagnosis) - 12/26/23 MDD (recurrent major depressive disorder) in remission(Discharge Diagnosis) - 12/26/23 Adult general medical exam(Discharge Diagnosis) - 12/26/23 Migraine(Discharge Diagnosis) - 12/26/23 Screening for colorectal cancer(Discharge Diagnosis) - 12/26/23 Osteoarthritis(Discharge Diagnosis) - 12/26/23 Attending Physician: Latisha Boyce NP Encounter Type: Office Visit Allergies, Adverse Reactions, Alerts Substance Criticality Severity Reaction Reaction Severity Status Imitrex Active Ultram 1 Active 1bradycardia ' Immunizations Given and Recorded Vaccine Date Status Refusal Reason [id number] 12y+ bivalent booster vax 01/04/22 Recorded SARS-CoV-2 mRNA (ndurddc-alzs-elada) vax 09/03/21 Recorded SARS-CoV-2 (COVID-19) mRNA BNT-162b2 [...] # 20 tablet, 0 Refills, Maintenance, 12/26/23 4:17:00 PM EST, Tablet, [id number], Partial fill upon patient request if the prescription is for a schedule II opioiddrug., 1 to 2 tablets or capsules every 4 hours as needed; not to exceed 6 tablets or capsules daily.,PRN:as needed, 151.6, cm, 12/26/23 15:29:00 EST, Height, 108, kg, 08/30/22 19:57:00 EDT, Dry Weight Start Date: 12/26/23 Status: Ordered Quantity: 20.0 Unit: tablet Repeat number: 1 Ajovy Autoinjector 225 mg/1.5 mL subcutaneous solution 0 Refills, Maintenance, 08/13/22 8:57:00 AM EDT, Partial fill upon patient request if the prescription is for a schedule II opioid drug. Start Date: 08/13/22 Status: Ordered Repeat number: 1 Ajovy Autoinjector 225 mg/1.5 mL subcutaneous solution = 225 mg, Subcutaneous Injection, Every 28 days, # 1 kit, 5 Refills, Maintenance, 05/21/23 12:30:00 PM EDT, [id number], Partial fill upon patient request if the prescription is for a schedule II opioid drug., 155, cm, 11/06/22 9:35:00 EDT, Height, 108, kg, 08/30/22 19:57:00 EDT, Dry Weight Start Date: 05/21/23 Status: Ordered Quantity: 1.0 Unit: kit Repeat number: 6 ALPRAZolam 0.5 mg oral tablet Refills 0, Maintenance, 08/13/22 8:57:00 AM EDT, Partial fill upon patient request if the prescription is for a schedule II opioid drug. Start Date: 08/13/22 Status: Ordered Repeat number: 1 amLODIPine 5 mg oral tablet See Instructions, TAKE 1 TABLET BY MOUTH EVERY DAY, # 90 tablet, 1 Refills, Maintenance, 09/09/23 1:03:00 PM EDT, [facility] [id number], 155, cm, 08/12/23 7:32:00 EDT, Height, 108, kg, 08/30/22 19:57:00 EDT, Dry Weight Start Date: 09/09/23 Status: Ordered Quantity: 90.0 Unit: tablet Repeat number: 1 ARIPiprazole 2 mg oral tablet Refills 0, Maintenance, 08/13/22 8:57:00 AM EDT, Partial fill upon patient request if the prescription is for a schedule II opioid drug. Start Date: 08/13/22 Status: Ordered Repeat number: 1 brimonidine 0.2% ophthalmic solution 0 Refills, Maintenance, 08/13/22 8:57:00 AM EDT, Partial fill upon patient request if the prescription is for a schedule II opioid drug. Start Date: 08/13/22 Status: Ordered Repeat number: 1 fluorometholone 0.1% ophthalmic suspension 0 Refills, Maintenance, 08/13/22 8:57:00 AM EDT, Partial fill upon patient request if the prescription is for a schedule II opioid drug. Start Date: 08/13/22 Status: Ordered Repeat number: 1 Home Blood Pressure Monitor See Instructions, # 1 each, Maintenance, Use to check your BP once in the AM and once in the PM 47 cm arm measurement, 11/06/22 10:16:00 AM EDT, Supply Start Date: 11/06/22 Status: Ordered Quantity: 1.0 Unit: each Repeat number: 1 Indication: Essential (primary) hypertension hydrochlorothiazide-lisinopril 12.5 mg-20 mg oral tablet 1 tablet, By Mouth, Daily, # 90 tablet, 0 Refills, Maintenance, 11/03/23 11:26:00 AM EDT, [facility]/pharmacy #[id number], 1 tablet By Mouth Daily,x90 days, 155, cm, 09/16/23 10:30:00 EDT, Height, 108, kg, 08/30/22 19:57:00 EDT, Dry Weight Start Date: 11/03/23 Stop Date: 02/01/24 Status: Ordered Quantity: 90.0 Unit: tablet Repeat number: 1 levothyroxine 0.1 mg oral tablet 1 tablet, By Mouth, Daily, # 90 tablet, 1 Refills, Maintenance, 09/19/23 8:47:00 PM EDT, [facility]/pharmacy#[id number], 155, cm, 09/16/23 10:30:00 EDT, Height, 108, kg, 08/30/22 19:57:00 EDT, Dry Weight Start Date: 09/19/23 Status: Ordered Quantity: 90.0 Unit: tablet Repeat number: 2 levothyroxine 75 mcg (0.075 mg) oral tablet 1 tablet = 75 mcg, By Mouth, Daily, # 90 tablet, 3 Refills, Maintenance, 11/18/23 1:48:00 PM EDT, Tablet, [facility]/pharmacy #[id number], Partial fill upon patient request if the prescription is for a schedule IIopioid drug., 155, cm, 09/16/23 10:30:00 EDT, Height, 108, kg, 08/30/22 19:57:00 EDT, Dry Weight Start Date: 11/18/23 Stop Date: 11/12/24 Status: Ordered Quantity: 90.0 Unit: tablet Repeat number: 4 lidocaine 5% topical ointment 2 TO 3 GRAMS, Topically, 3 times a day, PRN NEEDED FOR MODERATE PAIN, PT REQUESTING NON SCENTED OINTMENT, # 50 Gm, 0 Refills, Maintenance, 12/26/23 3:49:00 PM EST, [id number], PT REQUESTINGNON SCENTED OINMENT, 2 TO 3 GRAMS Topically 3 times a day,x14 days,PRN: NEEDED FOR MODERATE PAIN,Instr:PT REQUESTING NON SCENTED OINTMENT, 151.6, cm, 12/26/23 15:29:00 EST, Height, 108, kg, 08/30/22 19:57:00 EDT, Dry Weight Start Date: 12/26/23 Stop Date: 01/09/24 Status: Ordered Quantity: 50.0 Unit: g Repeat number: 1 lisinopril 20 mg oral tablet 1, tablet, By Mouth, Daily at bedtime, # 90 tablet, Refills 1, Tot. Refills 1, Maintenance, 11/28/23 3:37:00 PM EDT, Route to Pharmacy Electronically, [facility]/pharmacy #[id number], 155, cm, 09/16/23 10:30:00 EDT, Height, 108, kg, 08/30/22 19:57:00 EDT, Dry Weight Start Date: 11/28/23 Status: Ordered Quantity: 90.0 Unit: tablet Repeat number: 2 naltrexone 50 mg oral tablet 1 tablet, By Mouth, Daily, # 90 tablet, 1 Refills, Maintenance, 05/21/23 12:30:00 PM EDT, [facility]/pharmacy #[id number], 155, cm, 11/06/22 9:35:00 EDT, Height, 108, kg, 08/30/22 19:57:00 EDT, Dry Weight Start Date: 05/21/23 Stop Date: 11/17/23 Status: Ordered Quantity: 90.0 Unit: tablet Repeat number: 2 omeprazole 40 mg oral enteric coated capsule 1 capsule, By Mouth, Daily, # 90 capsule, 0 Refills, Maintenance, 08/01/23 8:06:00 AM EDT, [facility]/pharmacy #[id number], 155, cm, 07/16/23 9:38:00 EDT, Height, 108, kg, 08/30/22 19:57:00 EDT, Dry Weight Start Date: 08/01/23 Status: Ordered Quantity: 90.0 Unit: capsule Repeat number: 1 Rhopressa 0.02% ophthalmic solution 0 Refills, Maintenance, 08/13/22 8:57:00 AM EDT, Partial fill upon patient request if the prescription is for a schedule II opioid drug. Start Date: 08/13/22 Status: Ordered Repeat number: 1 Timolol Maleate (Eqv-Timoptic) 0.5% ophthalmic solution 0 Refills, Maintenance, 08/13/22 8:57:00 AM EDT, Partial fill upon patient request if the prescription is for a schedule II opioid drug. Start Date: 08/13/22 Status: Ordered Repeat number: 1 Problem List Condition Confirmation Course Effective Dates [...] Effective Dates Health Status Clinical Service Informant Stage 3a chronic kidney disease (CKD) Discharge Diagnosis 12/26/23 HTN (hypertension) Discharge Diagnosis 12/26/23 Severe obesity (BMI 35.0-35.9 with comorbidity) Discharge Diagnosis 12/26/23 MDD (recurrent major depressive disorder) in remission Discharge Diagnosis 12/26/23 Adult general medical exam Discharge Diagnosis 12/26/23 Fibromyalgia Discharge Diagnosis 12/26/23 Hypothyroidism Discharge Diagnosis 12/26/23 Migraine Discharge Diagnosis 12/26/23 Screening for colorectal cancer Discharge Diagnosis 12/26/23 Osteoarthritis Discharge Diagnosis 12/26/23 Vital Signs Most recent to oldest [Reference Range]: 1 Height 151.6 cm (12/26/23 3:29 PM) Weight 111.3 kg (12/26/23 3:29 PM) Oxygen Saturation [94-100 %] 96 % (12/26/23 3:29 PM) Pulse Rate [55-90 bpm] 100 bpm *H* (12/26/23 3:29 PM) Body Mass Index [18.5-24.99 kg/m2] 48.43 kg/m2 *>HHI* (12/26/23 3:29 PM) Blood Pressure [90-138/55-84 mm Hg] 98/7 8mm Hg (12/26/23 3:29 PM) Temperature [96.8-100.4 DegF] 97.9 DegF (12/26/23 3:29 PM) Mode of Delivery (Oxygen) Room air (12/26/23 3:29 PM) Blood pressure sites Arm, right (12/26/23 3:29 PM) Temperature Route Oral (12/26/23 3:29 PM) Weight Obtained Via Standing scale (12/26/23 3:29 PM) Social History Social History Type Response Smoking Status Never smoker; Tobacc o user in household: No; Type: Cigarettes entered on: 09/04/17 Sex Sex Representation Female (finding) Note * Kimberly Hernandez: PERFORM Event Display: Patient Education/Instruction Authored Date: [id number] Ambulatory Adult Visit Summary [facility] [address] [place] [address] Name: BRIAN ALANIS : 1960?? Visit: 12/26/2023 15:28?? Ambulatory Visit Instructions ?? Your Care Team Primary Care Provider Latisha Boyce NP? This Visit Provider Latisha Boyce NP Your Diagnosis Screening for colorectal cancer HTN (hypertension) Vitals Signs Temperature: 97.9 DegF Height: 151.6 cm Pulse Rate:??100 bpm??High Weight: 111.3 kg Systolic Blood Pressure: 98 mm Hg Body Mass Index:??48.43 kg/m2??Critical Diastolic Blood Pressure: 78 mm Hg Body surface area: 2.16 Oxygen Saturation: 96 % ?? What to do next Future Orders TSH Rfx on Abnormal to Free T4 - Routine, Once, 09/17/23 7:05:00 EDT, Order for Today, [facility], Blood?? Fecal Occult Blood Immunochemical - Routine, Once, 12/26/23 15:51:00 EST, Order for Today, [facility],Stool?? Basic Metabolic Panel - Routine, Once, 12/26/23 16:01:00 EST, Order for Today, [facility], Blood?? Medications The [...] provider. What How Much When Why Instructions Unchanged Acetaminophen/ Butalbital/ Caffeine (acetaminophen/ butalbital/ caffeine [...] oral tablet) 1 tab(s) Oral Daily Unchanged Levothyroxine (levothyroxine 75 mcg (0.075 mg) oral tablet) 1 tab(s) Oral Daily Duration: 90 Days Unchanged Lidocaine Topical (lidocaine 5% topical ointment) 2 TO 3 GRAMS Topically 3 times a day as needed for NEEDED FOR MODERATE PAIN Duration: 14 Days PT REQUESTING NON SCENTED OINTMENT ?? Pickup at [facility]/pharmacy #[id number] Unchanged Lisinopril (lisinopril 20 mg oral tablet) 1 tab(s) Oral Daily at Bedtime Unchanged Naltrexone (naltrexone 50 mg oral tablet) 1 tab(s) Oral Daily Duration: 90 Days Unchanged netarsudil ophthalmic (Rhopressa 0.02% ophthalmic solution) Unchanged Omeprazole (omeprazole 40 mg oral enteric coated capsule) 1 capsule Oral Daily Unchanged Timolol Ophthalmic (Timolol Maleate (Eqv-Timoptic) 0.5% ophthalmic solution) Pharmacy Information [facility]/pharmacy #[id number]: [address] [place], [place] [id number] [phone] Test Performed Below is a partial list of the tests performed during your Visit. You may have had other tests and procedures not included in this list. Please discuss all test results with your provider. Basic Metabolic Panel?-- Results Pending -- Fecal Occult Blood Immunochemical?-- Results Pending -- Medications and Immunizations Administered [...] are strongly encouraged to quit. Please call [facility] at [phone] or [phone] ([phone]) or log in to [email or web address] for referrals to smoking cessation programs. ?? The National Suicide Prevention Hotline is available 09/09 if you or someone you know needs to find a reason to keep living. By calling 2-807-309-TISSUELAB (6993) you'll be connected to a skilled, trained counselor at a crisis center in your area. [facility] Portal You can view and manage your care through the patient portal or by using a health care kalpana of your choosing. [employer] is a website that allows you to securely view your medical information including your hospital discharge summary, office visit summaries, medications and follow-up visits. You can also request appointments, renew medications, and request access to your medical information using a health care kalpana of your choosing, or just ask a question. You can enroll at [email or web address] or register during your next office visit. [facility], in keeping with [facility] guidance, no longer requires face masks [...] primary care provider, you may find a [facility] provider by calling [facility] Helios [facility] at [phone]. Patient Care team information Care Team Personnel Name: Latisha Boyce NP Position: [facility] PCO Associate Professional Member Role: PCP Address: [address] [place] [address] Telecom: Care Team Related Persons Name: TOY SANTOYO Name: CY LING Name: MARGI WAYNE Name: TASNEEM ALANIS Insurance Providers Guarantor name: BRIAN ALANIS Health Plan Information #: 1 Payer: [facility] Member Number: [id number] Policy Number: NA Group Number: [id number] Health Plan Information #: 2 Payer: [facility] Member Number: [id number] Policy Number: NA Group Number: [id number]
--- OUTSIDE RECORDS SUMMARY | 2024-01-09 15:46 | XMS_ITS | Continuity of Care Document ---
Author Organization [facility] Adult Address [address] [place] [address]- Care Team Providers Care Magnetic Locater Name Role Phone Latisha Boyce NP Primary Care Physician Encounter [facility] Date(s): 09/19/23 - 10/19/23 [facility] [address] [place] [address]- Allergies, Adverse Reactions, Alerts Substance Reaction Severity Status Imitrex Active Ultram 1 Active 1bradycardia ' Immunizations Given and Recorded Vaccine Date Status Refusal Reason [id number] 12y+ bivalent booster vax 01/04/22 Recorded SARS-CoV-2 mRNA (qmorpky-xcrc-tqikr) vax 09/03/21 Recorded SARS-CoV-2 (COVID-19) mRNA BNT-162b2 [...] Refills, Maintenance, 09/25/23 12:47:00 EDT, Tablet, [id number], Partial fill upon patient request... Start Date: [...] 1 kit, 5 Refills, Maintenance, 05/21/23 12:30:00EDT, [id number], Partial fill upon patient request if [...] Refills, Maintenance, 09/09/23 13:03:00 EDT, [id number], 155, cm, 08/12/23 7:32:00 EDT, Height, 108, [...] 09/02/23 10:06:00 EDT, Route to Pharmacy Electronically, [facility] #[id number], 155, cm, 08/12/23 7:32:00 EDT,Height, 108, kg, 08/30/22 19:57:00 EDT, Dry Weight Start Date: 09/02/23 Status: Ordered naltrexone 50 mg oral tablet 1 tablet, By Mouth, Daily, # 90 tablet, 1 Refills, Maintenance, 05/21/23 12:30:00 EDT, [facility][id number], 155, cm, 11/06/22 9:35:00 EDT, Height, 108, kg, 08/30/22 19:57:00 EDT, Dry Weight Start Date: 05/21/23 Stop Date: 11/17/23 Status: Ordered omeprazole 40 mg oral enteric coated capsule 1 capsule, By Mouth, Daily, # 90 capsule, 0 Refills, Maintenance, 08/01/23 8:06:00 EDT, [facility] #[id number], 155, cm, 07/16/23 9:38:00 EDT, Height, [...] Name: Latisha Boyce NP Position: [facility] PCO Associate Professional Member Role: PCP Address: Address: [address] [place] [address]- Care Team Related Persons Name: TOY SANTOYO Name: CY LING Address: home [address] [place] [address] Name: MARGI WAYNE Address: home [address] [place] [address] Name: TASNEEM ALANIS Address: home [address] [place] [address]
--- OUTSIDE RECORDS SUMMARY | 2024-01-09 15:46 | XMS_ITS | Continuity of Care Document ---
Author Organization [facility] ter Address [address] [place] [address]- Care Team Providers Care Wirer Street Light Name Role Phone Leilani Mcmahon NP Primary Care Physician [phone] Encounter [facility] Date(s): 08/06/19 - 08/06/[address] [address]- [facility] Discharge Disposition: A-D/C Walkout Attending Physician: Not [...] 11/26/18 17:02:00 EDT, Route to Pharmacy Electronically, [id number], [facility] #[id number] Start Date: 11/26/18 Status: Ordered ARIPiprazole 2 mg oral tablet 2 mg, 1, tablet, By Mouth, Daily, # 30 tablet, Refills 1, Tot. Refills 1, Maintenance, 03/30/19 9:56:00 EST, Route to Pharmacy Electronically, [facility] #[id number], 156, cm, 01/12/19 11:15:00 EST, Height, 103.1, kg, 01/17/18 9:53:00 EST, Dry We... Start Date: 03/30/19 Stop Date: 06/28/19 Status: Ordered levothyroxine 0.088 mg oral tablet 1 tablet = 88 mcg, By Mouth, Daily, Repeat TSH in 6 weeks Dose decrease, # 30 tablet, 1 Refills, Maintenance, 08/04/19 16:59:00 EDT, Tablet, [facility] #[id number], 156, cm, 07/20/19 14:00:00 EDT, Height, 103.1, kg, 01/17/18 9:53:00 EST, Dry Weight Start Date: 08/04/19 Status: Ordered naltrexone 50 mg oral tablet 0.5 tablet, By Mouth, Daily, # 15 tablet, 1 Refills, Acute, 07/21/19 13:56:00 EDT, [facility] #05806, 156, cm, 07/20/19 14:00:00 EDT, Height, 103.1, kg, 01/17/18 9:53:00 EST, Dry Weight Start Date: 07/21/19 Status: Ordered omeprazole 40 mg oral enteric coated capsule 1 capsule = 40 mg, By Mouth, Daily, New script, # 30 capsule, 2 Refills, Maintenance, 06/15/19 10:32:00 EDT, EC Capsule, [facility] #[id number], 156, cm, 01/12/19 11:15:00 EST, Height, 103.1, kg, 01/17/18 9:53:00 EST, Dry Weight Start Date: 06/15/19 Status: Ordered traZODone 150 mg oral tablet 1 tablet = 150 mg, By Mouth, Daily at bedtime, Dose increase, # 30 tablet, 2 Refills, Maintenance, 09/28/18 10:56:57 EDT, Tablet Start Date: 09/28/18 Status: Ordered Problem List Condition Effective Dates Status Health Status Inform ant Depression(Confirmed) Active Fibromyalgia(Confirmed) Active Glaucoma(Confirmed) Active Hypothyroidism(Confirmed) Active Migraine(Confirmed) Active Vital Signs Most recent to oldest [Reference Range]: 1 2 3 Height 153 cm (08/06/19 4:24 PM) 153 cm (08/06/19 2:37 PM) Weight 107 kg (08/06/19 4:24 PM) 107 kg (08/06/19 2:37 PM) Oxygen Saturation [94-100 %] 100 % (08/06/19 9:32 PM) 100 % (08/06/19 4:24 PM) 100 % (08/06/19 2:16 PM) Pulse Rate [55-90 bpm] 68 bpm (08/06/19 9:32 PM) 60 bpm (08/06/19 4:24 PM) 80 bpm (08/06/19 2:16 PM) Body Mass Index [18.5-24.99] 45.71 *>HHI* (08/06/19 4:24 PM) Blood Pressure [90-138/55-84 mm Hg] 163/102mm Hg *H* (08/06/19 9:32 PM) 152/101mm Hg *H* (08/06/19 4:24 PM) Respiratory Rate [16-30 br/min] 22 br/min (08/06/19 9:32 PM) 18 br/min (08/06/19 4:24 PM) Temperature [96.8-100.4 DegF] 97.3 DegF (08/06/19 9:32 PM) 97.5 DegF (08/06/19 4:24 PM) Mode of Delivery (Oxygen) Room air (08/06/19 9:32 PM) Room air (08/06/19 4:24 PM) Blood pressure sites Arm, right (08/06/19 4:24 PM) Temperature Route Oral (08/06/19 9:32 PM) Oral (08/06/19 4:24 PM) Dry Weight 107 kg (08/06/19 4:24 PM) 107 kg (08/06/19 2:37 PM) Social History Social History Type Response Smoking Status Never smoker; Tobacc o user in household: No; Type: Cigarettes entered on: 09/04/17 Sex
--- OUTSIDE RECORDS SUMMARY | 2024-01-09 15:46 | XMS_ITS | Continuity of Care Document ---
Author Organization [facility] Adult Address [address] [place] [address]- Care Team Providers Care Remediation Bioanalytics Consultant Name Role Phone Latisha Boyce NP Primary Care Physician [phone] Encounter [facility] Date(s): 11/17/23 - 12/17/23 [facility] [address] [place] [address]- Allergies, Adverse Reactions, Alerts Substance Reaction Severity Status Imitrex Active Ultram 1 Active 1bradycardia ' Immunizations Given and Recorded Vaccine Date Status Refusal Reason [id number] 12y+ bivalent booster vax 01/04/22 Recorded SARS-CoV-2 mRNA (bwkhfhr-ymgl-ssdma) vax 09/03/21 Recorded SARS-CoV-2 (COVID-19) mRNA BNT-162b2 [...] Refills, Maintenance, 11/18/23 7:29:00 EDT, [facility], [id number] Partial fill upon patient request i... Start [...] kit, 5 Refills, Maintenance, 05/21/23 12:30:00EDT, [facility]/pharmacy #[id number], Partial fill upon patient [...] Refills, Maintenance, 09/09/23 13:03:00 EDT, [facility], 155, cm, 08/12/23 7:32:00 EDT, Height, 108, [...] 11/28/23 15:37:00 EDT, Route to Pharmacy Electronically, [facility]/pharmacy #[id number], 155, cm, 09/16/23 10:30:00 EDT, Height, 108, kg, 08/30/22 19:57:00 EDT, Dry Weight Start Date: 11/28/23 Status: Ordered naltrexone 50 mg oral tablet 1 tablet, By Mouth, Daily, # 90 tablet, 1 Refills, Maintenance, 05/21/23 12:30:00 EDT, [facility]/pharmacy#0488, 155, cm, 11/06/22 9:35:00 EDT, Height, 108, kg, 08/30/22 19:57:00 EDT, Dry Weight Start Date: 05/21/23 Stop Date: 11/17/23 Status: Ordered omeprazole 40 mg oral enteric coated capsule 1 capsule, By Mouth, Daily, # 90 capsule, 0 Refills, Maintenance, 08/01/23 8:06:00 EDT, [facility]/pharmacy #[id number], 155, cm, 07/16/23 9:38:00 [...] Team Personnel Name: Latisha Boyce NP [facility] PCO Associate Professional Member Role: PCP Address: Address: [address] [place] [id number]- Care Team Related Persons Name: TOY SANTOYO Name: CY LING Address: home [address] [place] [address] Name: MARGI WAYNE Address: home [address] [place] [address] Name: TASNEEM ALANIS Address: home [address] [place] [address]
--- OUTSIDE RECORDS SUMMARY | 2024-01-09 15:46 | XMS_ITS | Continuity of Care Document ---
Author Organization [facility] Adult Address [address] [place] [address]- Care Team Providers Care Care Consultant Name Role Phone Latisha Boyce NP Primary Care Physician [phone] Encounter [facility] Date(s): 10/11/20 - 11/10/20 [facility] [address] [place] [address]- Attending Physician: Willis Motta Admitting Physician: AdmtrWillis Referring Physician: Admtr, Ar8 Allergies, Adverse Reactions, [...] 11/26/18 17:02:00 EDT, Route to Pharmacy Electronically, [id number], [facility] #[id number] Start Date: 11/26/18 Status: Ordered Aquaphor Healing topical ointment See Instructions, Apply to wound BID, # 30 mL, 0 Refills, Maintenance, 10/11/20 16:23:00 EDT, [facility] #[id number], Partial fill upon patient request if the prescription is for a schedule II opioid drug., Apply to wound BID, 153, cm, 10/11/20 1... Start Date: 10/11/20 Status: Ordered ARIPiprazole 2 mg oral tablet 2 mg, 1, tablet, By Mouth, Daily, # 30 tablet, Refills 1, Tot. Refills 1, Maintenance, 03/30/19 9:56:00 EST, Route to Pharmacy Electronically, [facility] #[id number], 156, cm, 01/12/19 11:15:00 EST, Height, 103.1, kg, 01/17/18 9:53:00 EST, Dry We... Start Date: 03/30/19 Stop Date: 06/28/19 Status: Ordered levothyroxine 0.1 mg oral tablet 1 tablet = 100 mcg, By Mouth, Daily, # 90 tablet, 2 Refills, Maintenance, 03/14/20 8:40:00 EST, Tablet, [facility] #[id number], Partial fill upon patient request, 153, cm, 01/05/20 15:53:00 EST,Height, 107, kg, 08/06/19 16:24:00 EDT, Dry Weight Start Date: 03/14/20 Stop Date: 12/09/20 Status: Ordered lidocaine 5% topical ointment See Instructions, PRN Pain , Moderate, 2 to 3 g Topically 3 times a day, # 50 Gm, 1 Refills, Acute 05/29/21 15:30:00 EDT, 05/29/20 15:30:00 EDT, Ointment, [facility] #[id number], 2 to 3 g Topically 3 times a day,PRN:Pain , Moderate, 153, cm, 03/0... Start Date: 05/29/20 Stop Date: 05/29/21 Status: Ordered naltrexone 50 mg oral tablet 0.5 tablet, By Mouth, Daily, # 45 tablet, 0 Refills, [facility] #[id number], 153, cm, 10/11/2114:18:00 EDT, Height, 107, kg, 08/06/19 16:24:00 EDT, Dry Weight Start Date: 10/13/20 Status: Ordered omeprazole 40 mg oral enteric coated capsule 1 capsule, By Mouth, Daily, # 90 capsule, 2 Refills, Maintenance, 08/22/20 14:40:00 EDT, [facility] #[id number], 153, cm, 06/23/20 8:44:00 EDT, Height, 107, [...]
--- OUTSIDE RECORDS SUMMARY | 2024-01-09 15:46 | XMS_ITS | Continuity of Care Document ---
Author Organization [facility] Adult Address [address] [place] [address]- Care Team Providers Care Nurses Supervisor Name Role Phone Latisha Boyce NP Primary Care Physician [place] [facility] [place] 08/27/20 [facility] [address] [place] [address]- Allergies, Adverse Reactions, Alerts Substance Reaction Severity [...] 11/26/18 17:02:00 EDT, Route to Pharmacy Electronically, [id number], [facility] #[id number] Start Date: 11/26/18 Status: Ordered ARIPiprazole 2 mg oral tablet 2 mg, 1, tablet, By Mouth, Daily, # 30 tablet, Refills 1, Tot. Refills 1, Maintenance, 03/30/19 9:56:00 EST, Route to Pharmacy Electronically, [facility] #[id number], 156, cm, 01/12/19 11:15:00 EST, Height, 103.1, kg, 01/17/18 9:53:00 EST, Dry We... Start Date: 03/30/19 Stop Date: 06/28/19 Status: Ordered levothyroxine 0.1 mg oral tablet 1 tablet = 100 mcg, By Mouth, Daily, # 90 tablet, 2 Refills, Maintenance, 03/14/20 8:40:00 EST, Tablet, [facility] #[id number], Partial fill upon patient request, 153, cm, 01/05/20 15:53:00 EST,Height, 107, kg, 08/06/19 16:24:00 EDT, Dry Weight Start Date: 03/14/20 Stop Date: 12/09/20 Status: Ordered lidocaine 5% topical ointment See Instructions, PRN Pain , Moderate, 2 to 3 g Topically 3 times a day, # 50 Gm, 1 Refills, Acute 05/29/21 15:30:00 EDT, 05/29/20 15:30:00 EDT, Ointment, [facility] #[id number], 2 to 3 g Topically 3 times a day,PRN:Pain , Moderate, 153, cm, 03/0... Start Date: 05/29/20 Stop Date: 05/29/21 Status: Ordered naltrexone 50 mg oral tablet See Instructions, 0.5 tabs daily, # 45 tablet, 0 Refills, Maintenance, 07/18/20 8:26:00 EDT, [facility] #[id number], Partial fill upon patient request if the prescription is for a schedule II opioid drug., 153, cm, 06/23/20 8:44:00 EDT, Height, 1... Start Date: 07/18/20 Status: Ordered omeprazole 40 mg oral enteric coated capsule 1 capsule, By Mouth, Daily, # 90 capsule, 2 Refills, Maintenance, 08/22/20 14:40:00 EDT, [facility] #[id number], 153, cm, 06/23/20 8:44:00 EDT, Height, 107, [...]
--- OUTSIDE RECORDS SUMMARY | 2024-01-09 15:46 | XMS_ITS | Continuity of Care Document ---
Author Organization [facility] Address [address] [facility] [address] [facility], [address], [address] [place] [id number]- Care Team Providers Care Dough Cutter Name Role Phone Austen ALBERT, Latisha Primary Care Physician Encounter [facility] Date(s): 03/27/22 - 05/03/22 [facility] [address] [facility], [address] Floor, [address] [place] [address] Attending Physician: Maximiliano ALBERT, Susan Traore Admitting Physician: Maximiliano ALBERT, Susan Traore Referring Physician: Austen ALBERT, Latisha Allergies, Adverse Reactions, Alerts Substance Reaction Severity Status Imitrex Active Ultram 1 Active 1bradycardia ' Immunizations Given and Recorded Vaccine Date Status Refusal Reason SARS-CoV-2 mRNA (xziptwv-zptm-dbttz) vax 09/03/21 Recorded SARS-CoV-2 (COVID-19) mRNA BNT-162b2 [...] exceed 6 tablets or capsules daily., # 30 tablet, 0 Refills, Maintenance, 03/18/22 10:48:00 EST, Tablet, [facility] #[id number], Partial fill upon patient... Start Date: 03/18/22 Status: Ordered Ajovy Autoinjector 225 mg/1.5 mL [...] 11/26/18 17:02:00 EDT, Route to Pharmacy Electronically, [id number], [facility] #[id number] Start Date: 11/26/18 Status: Ordered Aquaphor Healing topical ointment See Instructions, Apply to wound BID, # 30 mL, 0 Refills, Maintenance, 10/11/20 16:23:00 EDT, [facility] #[id number], Partial fill upon patient request if the prescription is for a schedule II opioid drug., Apply to wound BID, 153, cm, 10/11/20 1... Start Date: 10/11/20 Status: Ordered ARIPiprazole 2 mg oral tablet 2 mg, 1, tablet, By Mouth, Daily, # 30 tablet, Refills 1, Tot. Refills 1, Maintenance, 03/30/19 9:56:00 EST, Route to Pharmacy Electronically, [facility] #[id number], 156, cm, 01/12/19 11:15:00 EST, Height, 103.1, kg, 01/17/18 9:53:00 EST, Dry We... Start Date: 03/30/19 Stop Date: 06/28/19 Status: Ordered gabapentin 100 mg oral capsule 1, capsule, By Mouth, 3 times a day, # 84 capsule, Refills 0, Maintenance, 03/07/22 12:37:00 EST, Route to Pharmacy Electronically, [facility] #[id number], 153, cm, 02/14/22 8:17:00 EST, Height Start Date: 03/07/22 Status: Ordered gabapentin 100 mg oral capsule See Instructions, TAKE 1 CAPSULE BY MOUTH THREE TIMES DAILY, # 84 capsule, Refills 0, Maintenance, 03/09/22 8:29:00 EST, Instructions Replace Required Details, Route to Pharmacy Electronically, [facility] #[id number], 153, cm, 02/14/22 8:17:00 ES... Start Date: 03/09/22 Status: Ordered hydrochlorothiazide-lisinopril 12.5 mg-20 mg oral tablet 1 tablet, By Mouth, Daily, # 90 tablet, 0 Refills, Maintenance, 04/23/22 18:02:00 EST, [facility] #[id number], 90, TAKE 1 TABLET BY MOUTH DAILY, 153, cm, 02/14/22 8:17:00 EST, Height Start Date: 04/23/22 Status: Ordered levothyroxine 0.1 mg oral tablet 1 tablet = 100 mcg, By Mouth, Daily, # 90 tablet, 1 Refills, Maintenance, 12/17/21 10:02:00 EDT, Tablet, [facility] #[id number], Partial fill upon patient request, 153, cm, 12/12/21 8:30:00 EDT,Height Start Date: 12/17/21 Stop Date: 06/15/22 Status: Ordered lidocaine 5% topical ointment 2 TO 3 GRAMS, Topically, 3 times a day, PRN NEEDED FOR MODERATE PAIN, PT REQUESTING NON SCENTED OINTMENT, # 50 Gm, 0 Refills, Maintenance, 04/23/22 10:43:00 EST, [facility] #[id number], 20, PT REQUESTING NON SCENTED OINMENT, 2 TO 3 GRAMS Topic... Start Date: 04/23/22 Status: Ordered lisinopril 20 mg oral tablet 1, tablet, By Mouth, Daily, # 90 tablet, Refills 2, Maintenance, 02/14/22 12:16:00 EST, Route to Pharmacy Electronically, [facility] #[id number], 153, cm, 02/14/22 8:17:00 EST, Height Start Date: 02/14/22 Status: Ordered naltrexone 50 mg oral tablet 0.5 tablet, By Mouth, Daily, # 45 tablet, 4 Refills, [facility] #[id number], 153, cm, 12/26/2112:09:00 EST, Height, 107, kg, 08/06/19 16:24:00 EDT, Dry Weight Start Date: 01/19/21 Status: Ordered omeprazole 40 mg oral enteric coated capsule 1 capsule, By Mouth, Daily, # 90 capsule, 0 Refills, Maintenance, 03/08/22 17:03:00 EST, [facility] #[id number], 153, cm, 02/14/22 8:17:00 EST, Height Start Date: 03/08/22 Status: Ordered Problem List Condition Confirmation Course [...] Name: Latisha Boyce NP Position: [facility] PCO Associate Professional Member Role: PCP Address: Address: [address] [place] [address]- Care Team Related Persons Name: CY LING Address: home [address] [place] [address] Name: MARGI WAYNE Address: [address] [place] [address] Name: TASNEEM ALANIS Address: home [address] [place] [address]
--- OUTSIDE RECORDS SUMMARY | 2024-01-09 15:46 | XMS_ITS | Continuity of Care Document ---
Author Organization [facility] Adult Address [address] [place] [address]- Care Team Providers Care Data Coder Operator Name Role Phone Latisha Boyce NP Primary Care Physician [phone] Encounter [facility] [place] Date(s): 07/22/22 - 08/21/22 [facility] [address] [place] [address]- Allergies, Adverse Reactions, Alerts Substance Reaction Severity Status Imitrex Active Ultram 1 Active 1bradycardia ' Immunizations Given and Recorded Vaccine Date Status Refusal Reason SARS-CoV-2 mRNA ([id number]-xecp-yzwxk) vax 09/03/21 Recorded SARS-CoV-2 (COVID-19) mRNA BNT-162b2 [...] 0 Refills, Maintenance, 07/22/22 13:16:00 EDT, Tablet, [facility] #[id number], Partial fill upon patient... Start Date: 07/22/22 [...] Refills, Maintenance, 06/26/22 9:15:00 EDT, EC Capsule, [facility] #[id number], Partial fill upon patient request if the [...] tablet, 0 Refills, Maintenance, 07/31/22 11:28:00 EDT, [facility] #[id number], 90, 1 tablet By Mouth Daily, 153, cm, 06/26/22 8:40:00 EDT, Height Start Date: 07/31/22 Status: Ordered levothyroxine 0.1 mg oral tablet 1 tablet, By Mouth, Daily, # 90 tablet, 0 Refills, Maintenance, 06/26/22 11:00:00 EDT, [facility] #[id number], 153, cm, 06/26/22 8:40:00 EDT, Height Start Date: 06/26/22 Status: Ordered lidocaine 5% topical ointment 2 TO 3 GRAMS, Topically, 3 times a day, PRN NEEDED FOR MODERATE PAIN, PT REQUESTING NON SCENTED OINTMENT, # 50 Gm, 0 Refills, Maintenance, 04/23/22 10:43:00 EST, [facility] #[id number], 20, PT REQUESTING NON SCENTED OINMENT, 2 TO 3 GRAMS Topic... Start Date: 04/23/22 Status: Ordered lisinopril 20 mg oral tablet 1, tablet, By Mouth, Daily, # 90 tablet, Refills 2, Maintenance, 02/14/22 12:16:00 EST, Route to Pharmacy Electronically, [facility] #[id number], 153, cm, 02/14/22 8:17:00 EST, Height Start Date: 02/14/22 Status: Ordered naltrexone 50 mg oral tablet 1 tablet = 50 mg, By Mouth, Daily, # 90 tablet, 0 Refills, Maintenance, 07/05/22 16:59:00 EDT, [facility] #[id number], 153, cm, 06/26/22 8:40:00 EDT, Height Start Date: 07/05/22 Status: Ordered omeprazole 40 mg oral enteric coated capsule 1 capsule, By Mouth, Daily, # 90 capsule, 0 Refills, Maintenance, 05/30/22 7:10:00 EDT, [facility] #[id number], 153, cm, 04/24/22 13:47:00 EST, Height Start [...] Team Personnel Name: Latisha Boyce NP Position: [facility] PCO Associate Professional Member Role: PCP Address: Address: [address] [place] [address]- Care Team Related Persons Name: TOY SANTOYO Name: CY LING Address: home [address] [place] [address] Name: MARGI WAYNE Address: home [address] [place] [address] Name: TASNEEM ALANIS Address: home [address] [place] [address]
--- OUTSIDE RECORDS SUMMARY | 2024-01-09 15:46 | XMS_ITS | Continuity of Care Document ---
Author Organization [facility] Adult Address [address] [place] [address]- Care Team Providers Care Glazier Structural Glass Name Role Phone Austen ALBERT, Latisha Primary Care Physician [phone] Encounter [facility] Date(s): 12/26/20 - 03/16/21 [facility] [address] [place] [address]- Attending Physician: Latisha Boyce NP Allergies, Adverse [...] 11/26/18 17:02:00 EDT, Route to Pharmacy Electronically, [id number], [email or web address] #[id number] Start Date: 11/26/18 Status: Ordered Aquaphor Healing topical ointment See Instructions, Apply to wound BID, # 30 mL, 0 Refills, Maintenance, 10/11/20 16:23:00 EDT, [facility] #[id number], Partial fill upon patient request if the prescription is for a schedule II opioid drug., Apply to wound BID, 153, cm, 10/11/20 1... Start Date: 10/11/20 Status: Ordered ARIPiprazole 2 mg oral tablet 2 mg, 1, tablet, By Mouth, Daily, # 30 tablet, Refills 1, Tot. Refills 1, Maintenance, 03/30/19 9:56:00 EST, Route to Pharmacy Electronically, [facility] #[id number], 156, cm, 01/12/19 11:15:00 EST, Height, 103.1, kg, 01/17/18 9:53:00 EST, Dry We... Start Date: 03/30/19 Stop Date: 06/28/19 Status: Ordered gabapentin 100 mg oral capsule 100 mg, 1, capsule, By Mouth, 3 times a day, # 90 capsule, Refills 5, Tot. Refills 5, Maintenance, 12/26/20 13:54:00 EST, Route to Pharmacy Electronically, [facility] #[id number], Partial fill upon patient request if the prescription is for a sebastian... Start Date: 12/26/20 Stop Date: 06/24/21 Status: Ordered levothyroxine 0.1 mg oral tablet 1 tablet = 100 mcg, By Mouth, Daily, # 90 tablet, 1 Refills, Maintenance, 12/14/20 12:57:00 EDT, Tablet, [facility] #[id number], Partial fill upon patient request, 153, cm, 10/11/20 15:18:00 EDT, Height, 107, kg, 08/06/19 16:24:00 EDT, Dry Weight Start Date: 12/14/20 Stop Date: 06/12/21 Status: Ordered naltrexone 50 mg oral tablet 0.5 tablet, By Mouth, Daily, # 45 tablet, 4 Refills, [facility] #[id number], 153, cm, 12/26/2112:09:00 EST, Height, 107, kg, 08/06/19 16:24:00 EDT, Dry Weight Start Date: 01/19/21 Status: Ordered omeprazole 40 mg oral enteric coated capsule 1 capsule, By Mouth, Daily, # 90 capsule, 2 Refills, Maintenance, 08/22/20 14:40:00 EDT, [id number] #[id number], 153, cm, 06/23/20 8:44:00 EDT, Height, 107, [...]
--- OUTSIDE RECORDS SUMMARY | 2024-01-09 15:46 | XMS_ITS | Continuity of Care Document ---
Author Organization [facility] Adult Address [address] [place] [address]- Care Team Providers Care Label Machine Operator Name Role Phone Latisha Boyce NP Primary Care Physician [phone] Encounter [facility] Date(s): 07/18/21 - 08/17/21 [facility] [address] [place] [address]- Allergies, Adverse Reactions, Alerts Substance Reaction Severity [...] 11/26/18 17:02:00 EDT, Route to Pharmacy Electronically, [id number], [facility] #[id number] Start Date: 11/26/18 Status: Ordered Aquaphor Healing topical ointment See Instructions, Apply to wound BID, # 30 mL, 0 Refills, Maintenance, 10/11/20 16:23:00 EDT, [facility] #[id number], Partial fill upon patient request if the prescription is for a schedule II opioid drug., Apply to wound BID, 153, cm, 10/11/20 1... Start Date: 10/11/20 Status: Ordered ARIPiprazole 2 mg oral tablet 2 mg, 1, tablet, By Mouth, Daily, # 30 tablet, Refills 1, Tot. Refills 1, Maintenance, 03/30/19 9:56:00 EST, Route to Pharmacy Electronically, [facility] #[id number], 156, cm, 01/12/19 11:15:00 EST, Height, 103.1, kg, 01/17/18 9:53:00 EST, Dry We... Start Date: 03/30/19 Stop Date: 06/28/19 Status: Ordered gabapentin 100 mg oral capsule 1, capsule, By Mouth, 3 times a day, # 84 capsule, Refills 0, Tot. Refills 0, Maintenance, 08/15/2213:29:00 EDT, Route to Pharmacy Electronically, [facility] #[id number], 153, cm, 05/02/21 10:07:00 EDT, Height Start Date: 08/15/21 Status: Ordered levothyroxine 0.1 mg oral tablet 1 tablet = 100 mcg, By Mouth, Daily, # 90 tablet, 1 Refills, Maintenance, 06/11/21 21:02:00 EDT, Tablet, [facility] #[id number], Partial fill upon patient request, 153, cm, 05/02/21 10:07:00 EDT, Height, 107, kg, 08/06/19 16:24:00 EDT, Dry Weight Start Date: 06/11/21 Stop Date: 12/08/21 Status: Ordered lisinopril 20 mg oral tablet 20 mg, 1, tablet, By Mouth, Daily, # 90 tablet, Refills 2, Tot. Refills 2, Maintenance, 05/02/21 10:25:00 EDT, Route to Pharmacy Electronically, [facility] #[id number], Partial fill upon patientrequest if the prescription is for a schedule II op... Start Date: 05/02/21 Stop Date: 01/27/22 Status: Ordered naltrexone 50 mg oral tablet 0.5 tablet, By Mouth, Daily, # 45 tablet, 4 Refills, [facility] #[id number], 153, cm, 12/26/2112:09:00 EST, Height, 107, kg, 08/06/19 16:24:00 EDT, Dry Weight Start Date: 01/19/21 Status: Ordered omeprazole 40 mg oral enteric coated capsule 1 capsule, By Mouth, Daily, # 90 capsule, 0 Refills, [facility] #[id number], 153, cm, 05/02/2209:07:00 EDT, Height, 107, kg, 08/06/19 16:24:00 EDT, Dry Weight Start Date: 07/10/21 Status: Ordered prochlorperazine 5 mg oral tablet 0.5 tablet, By Mouth, 3 times a day, PRN NEEDED FOR NAUSEA, for 10 days, # 30 tablet, 0 Refills,Acute 08/20/21 12:18:00 EDT, 08/10/21 12:18:00 EDT, [facility] #[id number], 153, cm, 05/02/21 10:07:00 EDT, Height Start [...]
--- OUTSIDE RECORDS SUMMARY | 2024-01-09 15:46 | XMS_ITS | Continuity of Care Document ---
Author Organization [facility] Adult Address [address] [place] [address]- Care Team Providers Care Filling Hauler Name Role Phone Latisha Boyce NP Primary Care Physician Encounter [facility] Date(s): 12/17/21 - 01/16/22 [facility] [address] [place] [address]- Allergies, Adverse Reactions, Alerts Substance Reaction Severity Status Imitrex Active Ultram 1 Active 1bradycardia ' Immunizations Given and Recorded Vaccine Date Status Refusal Reason SARS-CoV-2 mRNA ([id number]-xbhl-aeoqw) vax 09/03/21 Recorded SARS-CoV-2 (COVID-19) mRNA BNT-162b2 [...] 11/26/18 17:02:00 EDT, Route to Pharmacy Electronically, [id number], [facility] #[id number] Start Date: 11/26/18 Status: Ordered Aquaphor Healing topical ointment See Instructions, Apply to wound BID, # 30 mL, 0 Refills, Maintenance, 10/11/20 16:23:00 EDT, [facility] #[id number], Partial fill upon patient request if the prescription is for a schedule II opioid drug., Apply to wound BID, 153, cm, 10/11/20 1... Start Date: 10/11/20 Status: Ordered ARIPiprazole 2 mg oral tablet 2 mg, 1, tablet, By Mouth, Daily, # 30 tablet, Refills 1, Tot. Refills 1, Maintenance, 03/30/19 9:56:00 EST, Route to Pharmacy Electronically, [facility] #[id number], 156, cm, 01/12/19 11:15:00 EST, Height, 103.1, kg, 01/17/18 9:53:00 EST, Dry We... Start Date: 03/30/19 Stop Date: 06/28/19 Status: Ordered gabapentin 100 mg oral capsule 1, capsule, By Mouth, 3 times a day, # 84 capsule, Refills 0, Tot. Refills 0, Maintenance, 12/17/2210:26:00 EDT, Route to Pharmacy Electronically, [facility] #[id number], 153, cm, 12/12/21 8:30:00 EDT, Height Start Date: 12/17/21 Status: Ordered hydrochlorothiazide-lisinopril 12.5 mg-20 mg oral tablet 1 tablet, By Mouth, Daily, # 90 tablet, 0 Refills, Maintenance, 11/02/21 13:24:00 EDT, Tablet, [facility] #[id number], Partial fill upon patient request if the prescription is for a schedule II opioid drug., 1 tablet By Mouth Daily,x90 days, 153,... Start Date: 11/02/21 Stop Date: 01/31/22 Status: Ordered levothyroxine 0.1 mg oral tablet 1 tablet = 100 mcg, By Mouth, Daily, # 90 tablet, 1 Refills, Maintenance, 12/17/21 10:02:00 EDT, Tablet, [facility] #[id number], Partial fill upon patient request, 153, cm, 12/12/21 8:30:00 EDT,Height Start Date: 12/17/21 Stop Date: 06/15/22 Status: Ordered lidocaine 5% topical ointment 2 TO 3 GRAMS, Topically, 3 times a day, PRN NEEDED FOR MODERATE PAIN, # 50 Gm, 0 Refills, Maintenance, 11/19/21 7:35:00 EDT, [facility] #[id number], 20, APPLY 2 TO 3 GRAMS TOPICALLY THREE TIMES DAILY NEEDED FOR MODERATE PAIN, 153, cm, 11/02... Start Date: 11/19/21 Status: Ordered lisinopril 20 mg oral tablet 20 mg, 1, tablet, By Mouth, Daily, # 90 tablet, Refills 2, Tot. Refills 2, Maintenance, 05/02/21 10:25:00 EDT, Route to Pharmacy Electronically, [facility] #[id number], Partial fill upon patientrequest if the prescription is for a schedule II op... Start Date: 05/02/21 Stop Date: 01/27/22 Status: Ordered naltrexone 50 mg oral tablet 0.5 tablet, By Mouth, Daily, # 45 tablet, 4 Refills, [facility] #[id number], 153, cm, 12/26/2112:09:00 EST, Height, 107, kg, 08/06/19 16:24:00 EDT, Dry Weight Start Date: 01/19/21 Status: Ordered omeprazole 40 mg oral enteric coated capsule 1 capsule, By Mouth, Daily, # 90 capsule, 0 Refills, Maintenance, 12/19/21 14:09:00 EDT, [facility] #[id number], 153, cm, 12/12/21 8:30:00 EDT, Height Start [...] Team Personnel Name: Latisha Boyce NP Position: [facility] PCO Associate Professional Member Role: PCP Address: Address: [address] [place] [address]- Care Team Related Persons Name: CY LING Address: home [address] [place] [address] Name: MARGI WAYNE Address: home [address] [place] [address] Name: TASNEEM ALANIS Address: home [address] [place] [address]
--- OUTSIDE RECORDS SUMMARY | 2024-01-09 15:46 | XMS_ITS | Continuity of Care Document ---
Author Organization [facility] Adult Address [address] [place] [address]- Care Team Providers Care Physician Pediatrician Name Role Phone Latisha Boyce NP Primary Care Physician Encounter [facility] Date(s): 03/13/23 - 04/12/23 [facility] [address] [place] [address]- Allergies, Adverse Reactions, Alerts Substance Reaction Severity Status Imitrex Active Ultram 1 Active 1bradycardia ' Immunizations Given and Recorded Vaccine Date Status Refusal Reason [id number] 12y+ bivalent booster vax 01/04/22 Recorded SARS-CoV-2 mRNA ([id number]-[id number]) vax 09/03/21 Recorded SARS-CoV-2 (COVID-19) mRNA BNT-162b2 [...] 1 Refills, Maintenance, 01/15/23 13:34:00 EST, Tablet, [facility] #[id number], Partial fill upon patient... Start Date: 01/15/23 [...] 1 kit, 5 Refills, Maintenance, 11/11/22 15:52:00EDT, [facility] #[id number], Partial fill upon patient request if the [...] 03/12/23 11:01:00 EST, Route to Pharmacy Electronically, [facility] #[id number], Partial fill upon patient request if the [...] capsule, 0 Refills, Maintenance, 09/13/22 17:08:00 EDT, [facility] #[id number], 155, cm, 09/05/22 9:14:00 EDT, Height, 108, [...] tablet, 1 Refills, Maintenance, 01/28/23 9:27:00 EST, [facility] #[id number], 90, 1 tablet By Mouth Daily, 155, cm, 11/06/22 9:35:00 EDT, Height, 108, kg, 08/30/22 19:57:00 EDT, Dry Weight Start Date: 01/28/23 Status: Ordered levothyroxine 0.1 mg oral tablet 1 tablet, By Mouth, Daily, # 90 tablet, 1 Refills, Maintenance, 03/21/23 7:16:00 EST, [facility] #[id number], 155, cm, 11/06/22 9:35:00 EDT, Height, 108, kg, 08/30/22 19:57:00 EDT, Dry Weight Start Date: 03/21/23 Status: Ordered lidocaine 5% topical ointment 2 TO 3 GRAMS, Topically, 3 times a day, PRN NEEDED FOR MODERATE PAIN, PT REQUESTING NON SCENTED OINTMENT, # 50 Gm, 0 Refills, Maintenance, 10/09/22 12:18:00 EDT, [facility] #[id number], 20, PT REQUESTING NON SCENTED OINMENT, 2 TO 3 GRAMS Topic... Start Date: 10/09/22 Status: Ordered lisinopril 20 mg oral tablet 1, tablet, By Mouth, Daily at bedtime, # 90 tablet, Refills 0, Tot. Refills 0, Maintenance, 03/05/23 11:25:00 EST, Route to Pharmacy Electronically, [facility] #[id number], 155, cm, 11/06/22 9:35:00 EDT, Height, 108, kg, 08/30/22 19:57:00 EDT, . Start Date: 03/05/23 Status: Ordered naltrexone 50 mg oral tablet 1 tablet, By Mouth, Daily, # 30 tablet, 0 Refills, Maintenance, 03/24/23 13:23:00 EST, [facility] #[id number], 155, cm, 11/06/22 9:35:00 EDT, Height, 108, kg, 08/30/22 19:57:00 EDT, Dry Weight Start Date: 03/24/23 Status: Ordered omeprazole 40 mg oral enteric coated capsule 1 capsule, By Mouth, Daily, # 90 capsule, 1 Refills, Maintenance, 11/12/22 14:21:00 EDT, [facility] #[id number], 155, cm, 11/06/22 9:35:00 EDT, Height, 108, [...] Team Personnel Name: Latisha Boyce NP Position: [facility] PCO Associate Professional Member Role: PCP Address: Address: [address] [place], [place] [id number]- [place] Care Team Related Persons Name: TOY SANTOYO Name: CY LING Address: home [address] [place] [address] Name: MARGI WAYNE Address: [address] [place] [address] Name: TASNEEM ALANIS Address: home [address] [place] [address]
--- OUTSIDE RECORDS SUMMARY | 2024-01-09 15:46 | XMS_ITS | Continuity of Care Document ---
Author Organization [facility] Address [address] [place] [address]- Care Team Providers Care Knifeman Name Role Phone Latisha Boyce NP Primary Care Physician Encounter [facility] [place] Date(s): 11/12/22 - 12/12/22 [facility] [address] [place] [address]- Allergies, Adverse Reactions, Alerts Substance Reaction Severity Status Imitrex Active Ultram 1 Active 1bradycardia ' Immunizations Given and Recorded Vaccine Date Status Refusal Reason [id number] 12y+ bivalent booster vax 01/04/22 Recorded SARS-CoV-2 mRNA (lqxemrm-ziag-tjitj) vax 09/03/21 Recorded SARS-CoV-2 (COVID-19) mRNA BNT-162b2 [...] 1 Refills, Maintenance, 12/06/22 14:33:00 EDT, Tablet, [facility] #[id number], Partial fill upon patient... Start Date: 12/06/22 [...] 1 kit, 5 Refills, Maintenance, 11/11/22 15:52:00EDT, [facility] #[id number], Partial fill upon patient request if the [...] 09/05/22 9:28:00 EDT, Route to Pharmacy Electronically, [facility] #[id number], Partial fill upon patient request if the [...] capsule, 0 Refills, Maintenance, 09/13/22 17:08:00 EDT, [facility] #[id number], 155, cm, 09/05/22 9:14:00 EDT, Height, 108, [...] tablet, 0 Refills, Maintenance, 11/01/22 15:49:00 EDT, [facility] #[id number], 90, 1 tablet By Mouth Daily, 155, cm, 09/05/22 9:14:00 EDT, Height, 108, kg, 08/30/22 19:57:00 EDT, Dry Weight Start Date: 11/01/22 Status: Ordered levothyroxine 0.1 mg oral tablet 1 tablet, By Mouth, Daily, # 90 tablet, 1 Refills, Maintenance, 09/18/22 8:58:00 EDT, [facility] #[id number], 155, cm, 09/05/22 9:14:00 EDT, Height, 108, kg, 08/30/22 19:57:00 EDT, Dry Weight Start Date: 09/18/22 Status: Ordered lidocaine 5% topical ointment 2 TO 3 GRAMS, Topically, 3 times a day, PRN NEEDED FOR MODERATE PAIN, PT REQUESTING NON SCENTED OINTMENT, # 50 Gm, 0 Refills, Maintenance, 10/09/22 12:18:00 EDT, [facility] #[id number], 20, PT REQUESTING NON SCENTED OINMENT, 2 TO 3 GRAMS Topic... Start Date: 10/09/22 Status: Ordered lisinopril 20 mg oral tablet 1, tablet, By Mouth, Daily at bedtime, # 90 tablet, Refills 0, Tot. Refills 0, Maintenance, 11/06/22 10:13:00 EDT, Route to Pharmacy Electronically, [facility] #[id number], 155, cm, 11/06/22 9:35:00 EDT, Height, 108, kg, 08/30/22 19:57:00 EDT, . Start Date: 11/06/22 Stop Date: 02/04/23 Status: Ordered naltrexone 50 mg oral tablet 1 tablet = 50 mg, By Mouth, Daily, # 90 tablet, 0 Refills, Maintenance, 09/18/22 11:29:00 EDT, [facility] #[id number], 155, cm, 09/05/22 9:14:00 EDT, Height, 108, kg, 08/30/22 19:57:00 EDT, Dry Weight Start Date: 09/18/22 Status: Ordered omeprazole 40 mg oral enteric coated capsule 1 capsule, By Mouth, Daily, # 90 capsule, 1 Refills, Maintenance, 11/12/22 14:21:00 EDT, [facility] #[id number], 155, cm, 11/06/22 9:35:00 EDT, Height, 108, [...] Associate Professional Member Role: PCP Address: Address: [address] [place] [id number] [place] Care Team Related Persons Name: TOY SANTOYO Name: CY LING Address: home [address] [place] [address] Name: MARGI WAYNE Address: home [address] [place] [address] Name: TASNEEM ALANIS Address: home [address] [place] [address]
--- OUTSIDE RECORDS SUMMARY | 2024-01-09 15:46 | XMS_ITS | Continuity of Care Document ---
Author Organization [facility] Address [address] [place] [address]- Care Team Providers Care Solid Fiber Paster Operator Name Role Phone Latisha Boyce NP Primary Care Physician [phone] Encounter [facility] [place] Date(s): 09/10/23 - 10/10/23 [facility] [address] [place] [address]- Allergies, Adverse Reactions, Alerts Substance Reaction Severity Status Imitrex Active Ultram 1 Active 1bradycardia ' Immunizations Given and Recorded Vaccine Date Status Refusal Reason [id number] 12y+ bivalent booster vax 01/04/22 Recorded SARS-CoV-2 mRNA (fdmwjpq-wssq-zspae) vax 09/03/21 Recorded SARS-CoV-2 (COVID-19) mRNA BNT-162b2 [...] Refills, Maintenance, 09/25/23 12:47:00 EDT, [facility]t, [id number], Partial fill upon patient request... Start Date: [...] 1 kit, 5 Refills, Maintenance, 05/21/23 12:30:00EDT, [facility]/pharmacy #[id number], Partial fill upon patient request [...] Refills, Maintenance, 09/09/23 13:03:00 EDT, [id number], 155, cm, 08/12/23 7:32:00 EDT, Height, 108, [...] 09/02/23 10:06:00 EDT, Route to Pharmacy Electronically, [facility]/pharmacy #[id number], 155, cm, 08/12/23 7:32:00 EDT,Height, 108, kg, 08/30/22 19:57:00 EDT, Dry Weight Start Date: 09/02/23 Status: Ordered naltrexone 50 mg oral tablet 1 tablet, By Mouth, Daily, # 90 tablet, 1 Refills, Maintenance, 05/21/23 12:30:00 EDT, [facility]/pharmacy#[id number], 155, cm, 11/06/22 9:35:00 EDT, Height, 108, kg, 08/30/22 19:57:00 EDT, Dry Weight Start Date: 05/21/23 Stop Date: 11/17/23 Status: Ordered omeprazole 40 mg oral enteric coated capsule 1 capsule, By Mouth, Daily, # 90 capsule, 0 Refills, Maintenance, 08/01/23 8:06:00 EDT, [facility]/pharmacy #[id number], 155, cm, 07/16/23 9:38:00 EDT, [...] Associate Professional Member Role: PCP Address: Address: [address] [place] [address]- Care Team Related Persons Name: TOY SANTOYO Name: CY LING Address: home [address] [place] [address] Name: MARGI WAYNE Address: home [address] [place] [address] Name: TASNEEM ALANIS Address: home [address] [place] [address]
--- OUTSIDE RECORDS SUMMARY | 2024-01-09 15:46 | XMS_ITS | Continuity of Care Document ---
Author Organization [facility] Address [address] [place] [address]- Care Team Providers Care Ground Worker Name Role Phone Latisha Boyce NP Primary Care Physician [place] [facility] [place] - 07/13/22 [facility] [address] [place] [address]- Allergies, Adverse Reactions, Alerts Substance Reaction Severity Status Imitrex Active Ultram 1 Active 1bradycardia ' Immunizations Given and Recorded Vaccine Date Status Refusal Reason SARS-CoV-2 mRNA (aovqswm-zedh-ofezc) vax 09/03/21 Recorded SARS-CoV-2 (COVID-19) mRNA BNT-162b2 [...] 0 Refills, Maintenance, 03/18/22 10:48:00 EST, Tablet, [facility] #[id number], Partial fill upon patient... Start Date: 03/18/22 [...] 11/26/18 17:02:00 EDT, Route to Pharmacy Electronically, [id number], [facility] #[id number] Start Date: 11/26/18 Status: Ordered Aquaphor Healing topical ointment See Instructions, Apply to wound BID, # 30 mL, 0 Refills, Maintenance, 10/11/20 16:23:00 EDT, [facility] #[id number], Partial fill upon patient request if the prescription is for a schedule II opioid drug., Apply to wound BID, 153, cm, 10/11/20 1... Start Date: 10/11/20 Status: Ordered ARIPiprazole 2 mg oral tablet 2 mg, 1, tablet, By Mouth, Daily, # 30 tablet, Refills 1, Tot. Refills 1, Maintenance, 03/30/19 9:56:00 EST, Route to Pharmacy Electronically, [facility] #[id number], 156, cm, 01/12/19 11:15:00 EST, Height, 103.1, kg, 01/17/18 9:53:00 EST, Dry We... Start Date: 03/30/19 Stop Date: 06/28/19 Status: Ordered Cymbalta 20 mg oral enteric coated capsule 1 capsule = 20 mg, By Mouth, 2 times a day, can start with once a day and change to BID after 3 days, # 60 capsule, 1 Refills, Maintenance, 06/26/22 9:15:00 EDT, EC Capsule, [facility] #[id number], Partial fill upon patient request if the prescri... Start Date: 06/26/22 Stop Date: 08/25/22 Status: Ordered hydrochlorothiazide-lisinopril 12.5 mg-20 mg oral tablet 1 tablet, By Mouth, Daily, # 90 tablet, 0 Refills, Maintenance, 04/23/22 18:02:00 EST, [facility] #[id number], 90, TAKE 1 TABLET BY MOUTH DAILY, 153, cm, 02/14/22 8:17:00 EST, Height Start Date: 04/23/22 Status: Ordered levothyroxine 0.1 mg oral tablet 1 tablet, By Mouth, Daily, # 90 tablet, 0 Refills, Maintenance, 06/26/22 11:00:00 EDT, [facility] #[id number], 153, cm, 06/26/22 8:40:00 EDT, Height Start Date: 06/26/22 Status: Ordered lidocaine 5% topical ointment 2 TO 3 GRAMS, Topically, 3 times a day, PRN NEEDED FOR MODERATE PAIN, PT REQUESTING NON SCENTED OINTMENT, # 50 Gm, 0 Refills, Maintenance, 04/23/22 10:43:00 EST, [facility] #[id number], 20, PT REQUESTING NON SCENTED OINMENT, 2 TO 3 GRAMS Topic... Start Date: 04/23/22 Status: Ordered lisinopril 20 mg oral tablet 1, tablet, By Mouth, Daily, # 90 tablet, Refills 2, Maintenance, 02/14/22 12:16:00 EST, Route to Pharmacy Electronically, [facility] #[id number], 153, cm, 02/14/22 8:17:00 EST, Height Start Date: 02/14/22 Status: Ordered naltrexone 50 mg oral tablet 1 tablet = 50 mg, By Mouth, Daily, # 90 tablet, 0 Refills, Maintenance, 07/05/22 16:59:00 EDT, [facility] #[id number], 153, cm, 06/26/22 8:40:00 EDT, Height Start Date: 07/05/22 Status: Ordered omeprazole 40 mg oral enteric coated capsule 1 capsule, By Mouth, Daily, # 90 capsule, 0 Refills, Maintenance, 05/30/22 7:10:00 EDT, [facility] #[id number], 153, cm, 04/24/22 13:47:00 EST, Height Start [...] Professional Member Role: PCP Address: Address: [address] [place] [address]- Care Team Related Persons Name: TOY SANTOYO Name: CY LING Address: home [address] [place] [address] Name: MARGI WAYNE Address: home [address] [place] [address] Name: TASNEEM ALANIS Address: home [address] [place] [address]
--- OUTSIDE RECORDS SUMMARY | 2024-01-09 15:46 | XMS_ITS | Continuity of Care Document ---
Author Organization [facility] Address [address] [place] [address]- Care Team Providers Care Visitor Use Assistant Name Role Phone Latisha Boyce NP Primary Care Physician [place] [facility] 11/01/22 - 12/01/22 [facility] [address] [place] [address]- Allergies, Adverse Reactions, Alerts Substance Reaction Severity Status Imitrex Active Ultram 1 Active 1bradycardia ' Immunizations Given and Recorded Vaccine Date Status Refusal Reason [id number] 12y+ bivalent booster vax 01/04/22 Recorded SARS-CoV-2 mRNA (kynrkki-zpvt-pvnwv) vax 09/03/21 Recorded SARS-CoV-2 (COVID-19) mRNA BNT-162b2 [...] 1 Refills, Maintenance, 11/08/22 16:56:00 EDT, Tablet, [facility] #[id number], Partial fill upon patient... Start Date: 11/08/22 [...] 1 kit, 5 Refills, Maintenance, 11/11/22 15:52:00EDT, [facility] #[id number], Partial fill upon patient request if the [...] 09/05/22 9:28:00 EDT, Route to Pharmacy Electronically, [facility] #[id number], Partial fill upon patient request if the [...] capsule, 0 Refills, Maintenance, 09/13/22 17:08:00 EDT, [facility] #[id number], 155, cm, 09/05/22 9:14:00 EDT, Height, 108, [...] tablet, 0 Refills, Maintenance, 11/01/22 15:49:00 EDT, [facility] #[id number], 90, 1 tablet By Mouth Daily, 155, cm, 09/05/22 9:14:00 EDT, Height, 108, kg, 08/30/22 19:57:00 EDT, Dry Weight Start Date: 11/01/22 Status: Ordered levothyroxine 0.1 mg oral tablet 1 tablet, By Mouth, Daily, # 90 tablet, 1 Refills, Maintenance, 09/18/22 8:58:00 EDT, [facility] #[id number], 155, cm, 09/05/22 9:14:00 EDT, Height, 108, kg, 08/30/22 19:57:00 EDT, Dry Weight Start Date: 09/18/22 Status: Ordered lidocaine 5% topical ointment 2 TO 3 GRAMS, Topically, 3 times a day, PRN NEEDED FOR MODERATE PAIN, PT REQUESTING NON SCENTED OINTMENT, # 50 Gm, 0 Refills, Maintenance, 10/09/22 12:18:00 EDT, [facility] #[id number], 20, PT REQUESTING NON SCENTED OINMENT, 2 TO 3 GRAMS Topic... Start Date: 10/09/22 Status: Ordered lisinopril 20 mg oral tablet 1, tablet, By Mouth, Daily at bedtime, # 90 tablet, Refills 0, Tot. Refills 0, Maintenance, 11/06/22 10:13:00 EDT, Route to Pharmacy Electronically, [facility] #[id number], 155, cm, 11/06/22 9:35:00 EDT, Height, 108, kg, 08/30/22 19:57:00 EDT, . Start Date: 11/06/22 Stop Date: 02/04/23 Status: Ordered naltrexone 50 mg oral tablet 1 tablet = 50 mg, By Mouth, Daily, # 90 tablet, 0 Refills, Maintenance, 09/18/22 11:29:00 EDT, [facility] #[id number], 155, cm, 09/05/22 9:14:00 EDT, Height, 108, kg, 08/30/22 19:57:00 EDT, Dry Weight Start Date: 09/18/22 Status: Ordered omeprazole 40 mg oral enteric coated capsule 1 capsule, By Mouth, Daily, # 90 capsule, 1 Refills, Maintenance, 11/12/22 14:21:00 EDT, [facility] #[id number], 155, cm, 11/06/22 9:35:00 EDT, Height, 108, [...] Associate Professional Member Role: PCP Address: Address: [address] [place] [phone]- [place] Care Team Related Persons Name: TOY SANTOYO Name: CY LING Address: home [address] [place] [address] Name: MARGI WAYNE Address: home [address] [place] [address] Name: TASNEEM ALANIS Address: [address] [place] [address]
--- OUTSIDE RECORDS SUMMARY | 2024-01-09 15:46 | XMS_ITS | Continuity of Care Document ---
Author Organization [facility] Address [address] [place] [address]- Care Team Providers Care Hub Cutter Apprentice Name Role Phone Latisha Boyce NP Primary Care Physician Encounter [facility] [place] Date(s): 08/01/23 - 08/31/23 [facility] [address] [place] [address]- Allergies, Adverse Reactions, Alerts Substance Reaction Severity Status Imitrex Active Ultram 1 Active 1bradycardia ' Immunizations Given and Recorded Vaccine Date Status Refusal Reason [id number] 12y+ bivalent booster vax 01/04/22 Recorded SARS-CoV-2 mRNA (htrvjho-wqap-eiuhn) vax 09/03/21 Recorded SARS-CoV-2 (COVID-19) mRNA BNT-162b2 [...] Refills, Maintenance, 08/13/23 12:28:00 EDT, Tablet, [id number], Partial fill upon patient request... Start Date: [...] 1 kit, 5 Refills, Maintenance, 05/21/23 12:30:00EDT, [facility]/pharmacy #[id number], Partial fill upon patient [...] 03/12/23 11:01:00 EST, Route to Pharmacy Electronically, [facility] #[id number], Partial fill upon patient request if the [...] tablet, 0 Refills, Maintenance, 08/06/23 10:06:00 EDT, [facility]/pharmacy#[id number], 1 tablet By Mouth Daily,x90 days, 155, cm, 07/16/23 9:38:00 EDT, Height, 108, kg, 08/30/22 19:57:00 EDT, Dry Weight Start Date: 08/06/23 Stop Date: 11/04/23 Status: Ordered levothyroxine 0.1 mg oral tablet 1 tablet, By Mouth, Daily, # 90 tablet, 1 Refills, Maintenance, 03/21/23 7:16:00 EST, [facility] #[id number], 155, cm, 11/06/22 9:35:00 EDT, Height, 108, kg, 08/30/22 19:57:00 EDT, Dry Weight Start Date: 03/21/23 Status: Ordered lidocaine 5% topical ointment 2 TO 3 GRAMS, Topically, 3 times a day, PRN NEEDED FOR MODERATE PAIN, PT REQUESTING NON SCENTED OINTMENT, # 50 Gm, 0 Refills, Maintenance, 04/23/23 12:23:00 EST, [facility] #[id number], 20, PT REQUESTING NON SCENTED OINMENT, 2 TO 3 GRAMS Topic... Start Date: 04/23/23 Status: Ordered lisinopril 20 mg oral tablet 1, tablet, By Mouth, Daily at bedtime, # 90 tablet, Refills 0, Maintenance, 08/15/23 6:51:00 EDT, Route to Pharmacy Electronically, [facility] #[id number], 155, cm, 08/12/23 7:32:00 EDT, Height,108, kg, 08/30/22 19:57:00 EDT, Dry Weight Start Date: 08/15/23 Status: Ordered naltrexone 50 mg oral tablet 1 tablet, By Mouth, Daily, # 90 tablet, 1 Refills, Maintenance, 05/21/23 12:30:00 EDT, [facility]/pharmacy#[id number], 155, cm, 11/06/22 9:35:00 EDT, Height, 108, kg, 08/30/22 19:57:00 EDT, Dry Weight Start Date: 05/21/23 Stop Date: 11/17/23 Status: Ordered omeprazole 40 mg oral enteric coated capsule 1 capsule, By Mouth, Daily, # 90 capsule, 0 Refills, Maintenance, 08/01/23 8:06:00 EDT, [facility]/pharmacy #[id number], 155, cm, 07/16/23 9:38:00 [...] Team Personnel Name: Latisha Boyce NP Position: [facility] Associate Professional Member Role: PCP Address: Address: [address] [place] [address]- Care Team Related Persons Name: TOY SANTOYO Name: CY LING Address: home [address] [place] [address] Name: MARGI WAYNE Address: home [address] [place] [address] Name: TASNEEM ALANIS Address: home [address] [place] [address]
[2024-01-09 15:47] VITALS: BP 00/00; PULSE 76; RESP 16; TEMP 36.6; O2SAT 98
--- OUTSIDE RECORDS SUMMARY | 2024-01-09 15:47 | XMS_ITS | Continuity of Care Document ---
Author Organization [facility] Adult Address [address] [place] [address]- Care Team Providers Care Plant Superintendent Name Role Phone Latisha Boyce NP Primary Care Physician Encounter [facility] [place] Date(s): 08/23/22 - 09/22/22 [facility] [address] [place] [address]- Allergies, Adverse Reactions, Alerts Substance Reaction Severity Status Imitrex Active Ultram 1 Active 1bradycardia ' Immunizations Given and Recorded Vaccine Date Status Refusal Reason SARS-CoV-2 mRNA (hbdewja-spmt-zcsse) vax 09/03/21 Recorded SARS-CoV-2 (COVID-19) mRNA BNT-162b2 [...] 0 Refills, Maintenance, 09/18/22 11:27:00 EDT, Tablet, [facility] #[id number], Partial fill upon patient... Start Date: 09/18/22 [...] 09/05/22 9:28:00 EDT, Route to Pharmacy Electronically, [facility] #[id number], Partial fill upon patient request if the [...] capsule, 0 Refills, Maintenance, 09/13/22 17:08:00 EDT, [facility] #[id number], 155, cm, 09/05/22 9:14:00 EDT, Height, 108, [...] tablet, 0 Refills, Maintenance, 07/31/22 11:28:00 EDT, [facility] #[id number], 90, 1 tablet By Mouth Daily, 153, cm, 06/26/22 8:40:00 EDT, Height Start Date: 07/31/22 Status: Ordered levothyroxine 0.1 mg oral tablet 1 tablet, By Mouth, Daily, # 90 tablet, 1 Refills, Maintenance, 09/18/22 8:58:00 EDT, [facility] #[id number], 155, cm, 09/05/22 9:14:00 EDT, Height, 108, kg, 08/30/22 19:57:00 EDT, Dry Weight Start Date: 09/18/22 Status: Ordered lidocaine 5% topical ointment 2 TO 3 GRAMS, Topically, 3 times a day, PRN NEEDED FOR MODERATE PAIN, PT REQUESTING NON SCENTED OINTMENT, # 50 Gm, 0 Refills, Maintenance, 04/23/22 10:43:00 EST, [facility] #[id number], 20, PT REQUESTING NON SCENTED OINMENT, 2 TO 3 GRAMS Topic... Start Date: 04/23/22 Status: Ordered lisinopril 20 mg oral tablet 1, tablet, By Mouth, Daily, # 90 tablet, Refills 2, Tot. Refills 2, Maintenance, 08/23/22 9:46:00 EDT, Route to Pharmacy Electronically, [facility] #[id number], 153, cm, 08/14/22 9:13:00 EDT, Height Start Date: 08/23/22 Status: Ordered naltrexone 50 mg oral tablet 1 tablet = 50 mg, By Mouth, Daily, # 90 tablet, 0 Refills, Maintenance, 09/18/22 11:29:00 EDT, [facility] #[id number], 155, cm, 09/05/22 9:14:00 EDT, Height, 108, kg, 08/30/22 19:57:00 EDT, Dry Weight Start Date: 09/18/22 Status: Ordered omeprazole 40 mg oral enteric coated capsule 1 capsule, By Mouth, Daily, # 90 capsule, 0 Refills, Maintenance, 08/23/22 9:31:00 EDT, [facility] #[id number], 153, cm, 08/14/22 9:13:00 EDT, Height Start [...] Name: Latisha Boyce NP Position: [facility] Associate Professional Member Role: PCP Address: Address: [address] [place] [address]- Care Team Related Persons Name: TOY SANTOYO Name: CY LING Address: home [address] [place] [address] Name: MARGI WAYNE Address: [address] [place] [address] Name: TASNEEM ALANIS Address: [address] [place] [address]
--- OUTSIDE RECORDS SUMMARY | 2024-01-09 15:47 | XMS_ITS | Continuity of Care Document ---
Author Organization [facility] Adult Address [address] [place] [address]- Care Team Providers Care Granulizing Machine Operator Name Role Phone Latisha Boyce NP Primary Care Physician [phone] [place] [facility] [place]21 [facility] Adult [address] [place] [address]- Allergies, Adverse Reactions, Alerts Substance Reaction Severity [...] 11/26/18 17:02:00 EDT, Route to Pharmacy Electronically, [id number], [facility] #[id number] Start Date: 11/26/18 Status: Ordered Aquaphor Healing topical ointment See Instructions, Apply to wound BID, # 30 mL, 0 Refills, Maintenance, 10/11/20 16:23:00 EDT, [facility] #[id number], Partial fill upon patient request if the prescription is for a schedule II opioid drug., Apply to wound BID, 153, cm, 10/11/20 1... Start Date: 10/11/20 Status: Ordered ARIPiprazole 2 mg oral tablet 2 mg, 1, tablet, By Mouth, Daily, # 30 tablet, Refills 1, Tot. Refills 1, Maintenance, 03/30/19 9:56:00 EST, Route to Pharmacy Electronically, [facility] #[id number], 156, cm, 01/12/19 11:15:00 EST, Height, 103.1, kg, 01/17/18 9:53:00 EST, Dry We... Start Date: 03/30/19 Stop Date: 06/28/19 Status: Ordered gabapentin 100 mg oral capsule 100 mg, 1, capsule, By Mouth, 3 times a day, # 84 capsule, Refills 0, Tot. Refills 0, Maintenance, 03/19/21 12:11:00 EST, Route to Pharmacy Electronically, [facility] #[id number], Partial fill upon patient request if the prescription is for a sebastian... Start Date: 03/19/21 Stop Date: 04/16/21 Status: Ordered gabapentin 300 mg oral capsule 300 mg, 1, capsule, By Mouth, Daily at bedtime, Take 100mg AM and mid day and 300mg at night, # 14 capsule, Refills 0, Tot. Refills 0, Maintenance, 04/09/21 13:25:00 EST, Route to Pharmacy Electronically, [facility] #[id number], Partial fill upon... Start Date: 04/09/21 Stop Date: 04/23/21 Status: Ordered levothyroxine 0.1 mg oral tablet 1 tablet = 100 mcg, By Mouth, Daily, # 90 tablet, 1 Refills, Maintenance, 12/14/20 12:57:00 EDT, Tablet, [facility] #[id number], Partial fill upon patient request, 153, cm, 10/11/20 15:18:00 EDT, Height, 107, kg, 08/06/19 16:24:00 EDT, Dry Weight Start Date: 12/14/20 Stop Date: 06/12/21 Status: Ordered lisinopril 20 mg oral tablet 20 mg, 1, tablet, By Mouth, Daily, # 90 tablet, Refills 2, Tot. Refills 2, Maintenance, 05/02/21 10:25:00 EDT, Route to Pharmacy Electronically, [facility] #[id number], Partial fill upon patientrequest if the prescription is for a schedule II op... Start Date: 05/02/21 Stop Date: 01/27/22 Status: Ordered naltrexone 50 mg oral tablet 0.5 tablet, By Mouth, Daily, # 45 tablet, 4 Refills, [facility] #[id number], 153, cm, 12/26/2112:09:00 EST, Height, 107, kg, 08/06/19 16:24:00 EDT, Dry Weight Start Date: 01/19/21 Status: Ordered omeprazole 40 mg oral enteric coated capsule 1 capsule, By Mouth, Daily, # 90 capsule, 0 Refills, [facility] #[id number], 153, cm, :59:00 EST, Height, 107, kg, [...]
--- OUTSIDE RECORDS SUMMARY | 2024-01-09 15:47 | XMS_ITS | Continuity of Care Document ---
Author Organization [facility] Adult Address [address] [place] [address]- Care Team Providers Care Senior Painter Name Role Phone Austen ALBERT, Latisha Primary Care Physician Encounter [facility] [place] Date(s): 08/06/23 - 10/03/[address] [facility] Adult [address] [place] [address]- Attending Physician: Latisha Boyce NP Allergies, Adverse Reactions, Alerts Substance Reaction Severity Status Imitrex Active Ultram 1 Active 1bradycardia ' Immunizations Given and Recorded Vaccine Date Status Refusal Reason [id number] 12y+ bivalent booster vax 01/04/22 Recorded SARS-CoV-2 mRNA (pawvlzs-upll-fkhxb) vax 09/03/21 Recorded SARS-CoV-2 (COVID-19) mRNA BNT-162b2 [...] Refills, Maintenance, 09/25/23 12:47:00 EDT, Tablet, [id number], Partial fill upon [...] Refills, Maintenance, 09/09/23 13:03:00 EDT, [id number], 155, cm, 08/12/23 7:32:00 EDT, Height, 108, [...] a schedule II opioid drug. Start Date: 6/27/23 Status: Ordered Home Blood Pressure Monitor See [...] Professional Member Role: PCP Address: Address: [address] [place] [address]- Care Team Related Persons Name: TOY SANTOYO Name: CY LING Address: home [address] [place] [address] Name: MARGI WAYNE Address: [address] [place] [address] Name: TASNEEM ALANIS Address: [address] [place] [address]
--- OUTSIDE RECORDS SUMMARY | 2024-01-09 15:47 | XMS_ITS | Continuity of Care Document ---
Author Organization [facility] Adult Address [address] [place] [address]- Care Team Providers Care Set Builder Name Role Phone Latisha Boyce NP Primary Care Physician Encounter [facility] R [id number] Date(s): 07/15/23 - 07/22/23 [facility] Adult [address] [place] [address]- Encounter Diagnosis Shortness of breath(Discharge Diagnosis) - 07/15/23 Attending Physician: Latisha Boyce NP Allergies, Adverse Reactions, Alerts Substance Reaction Severity Status Imitrex Active Ultram 1 Active 1bradycardia ' Immunizations Given and Recorded Vaccine Date Status Refusal Reason [id number] 12y+ bivalent booster vax 01/04/22 Recorded SARS-CoV-2 mRNA (jqtfjne-ndtr-dxtcj) vax 09/03/21 Recorded SARS-CoV-2 (COVID-19) mRNA BNT-162b2 [...] 0 Refills, Maintenance, 07/11/23 14:52:00 EDT, Tablet, [facility]/pharmacy #[id number], Partial fill upon patient request... [...] 03/12/23 11:01:00 EST, Route to Pharmacy Electronically, [facility] #[id number], Partial fill upon patient request if the [...] capsule, 0 Refills, Maintenance, 09/13/22 17:08:00 EDT, [facility] #[id number], 155, cm, 09/05/22 9:14:00 EDT, Height, 108, [...] 90 tablet, 1 Refills, Maintenance, 01/28/23 9:27:[address] [facility], [facility] #[id number], 90, 1 tablet By Mouth Daily, 155, cm, 11/06/22 9:35:00 EDT, Height, 108, kg, 08/30/22 19:57:00 EDT, Dry Weight Start Date: 01/28/23 Status: Ordered levothyroxine 0.1 mg oral tablet 1 tablet, By Mouth, Daily, # 90 tablet, 1 Refills, Maintenance, 03/21/23 7:16:00 EST, [facility] #[id number], 155, cm, 11/06/22 9:35:00 EDT, Height, 108, kg, 08/30/22 19:57:00 EDT, Dry Weight Start Date: 03/21/23 Status: Ordered lidocaine 5% topical ointment 2 TO 3 GRAMS, Topically, 3 times a day, PRN NEEDED FOR MODERATE PAIN, PT REQUESTING NON SCENTED OINTMENT, # 50 Gm, 0 Refills, Maintenance, 04/23/23 12:23:00 EST, [facility] #[id number], 20, PT REQUESTING NON SCENTED OINMENT, 2 TO 3 GRAMS Topic... Start Date: 04/23/23 Status: Ordered lisinopril 20 mg oral tablet 1, tablet, By Mouth, Daily at bedtime, # 90 tablet, Refills 0, Tot. Refills 0, Maintenance, 05/16/23 13:39:00 EDT, Route to Pharmacy Electronically, [facility] #[id number], 155, cm, 11/06/22 9:35:00 EDT, Height, 108, [...] capsule, 1 Refills, Maintenance, 04/29/23 9:27:00 EDT, [facility] #[id number], 155, cm, 11/06/22 9:35:00 EDT, Height, 108, [...] Diagnosis Diagnosis Type Effective Dates Health Status inical Service Informant Shortness of breath Discharge Diagnosis 07/15/23 Vital Signs Most recent to oldest [Reference Range]: 1 Height 155 cm (07/16/23 9:38 AM) Weight 112.5 kg (07/16/23 9:38 AM) Social History Social History Type Response Smoking Status Never smoker; Tobacc o user in household: No; Type: Cigarettes entered on: 09/04/17 Sex Note * Kimberly Hernandez: PERFORM Event Display: Patient Education/Instruction Authored Date: Ambulatory Adult Visit Summary [facility] [address], [place] [id number] Name: BRIAN ALANIS : 1960?? Visit: 07/15/2023 07:55?? Ambulatory Visit Instructions ?? Your Care Team Primary Care Provider Latisha Boyce NP? This Visit Provider Latisha Boyce NP Your Diagnosis Fatigue Shortness of breath What to do next Scheduled Follow-Up Appointments Friday 9:00 AM EDT ?? With: Nery ALBERT, Raheem Dattatra Where: [facility] [address] [place] [address]- Status: Pending Future Orders XR Chest 2 Views Frontal and Lat, Routine, Reason for Exam: Shortness of Breath, Once, *Est. 07/15/23, Order for Today Comprehensive Metabolic Panel - Routine, Once, 07/15/23 8:22:00 EDT, Order for Today, [facility], Blood?? CBC w/ Differential - Routine, Once, 07/15/23 8:22:00 EDT, Order for Today, [facility], Blood?? TSH Rfx on Abnormal to Free T4 - Routine, Once, 07/15/23 8:23:00 EDT, Order for Today, [facility], Blood?? Hemoglobin A1C (Monitoring) - Routine, Once, 07/15/23 8:23:00 EDT, Order for Today, [facility], Blood?? Lipid Panel - Routine, Once, 07/15/23 8:23:00 EDT, Order for Today, [facility], Blood?? Medications [...] Unchanged Amlodipine (amLODIPine 5 mg oral tablet) 1 tab(s) Oral Daily Hypertension Unchanged Aripiprazole (ARIPiprazole 2 mg oral tablet) Unchanged Brimonidine Ophthalmic (brimonidine 0.2% ophthalmic solution) Unchanged Duloxetine (duloxetine 20 mg oral enteric coated capsule) 1 capsule Oral Twice a day CAN. START WITH EVERY DAY AND CHANGE TO 2 TIMES DAILY AFTER 3 DAYS ?? Unchanged Durable Medical Equipment (Home Blood Pressure [...] 1 tab(s) Oral Daily Unchanged Levothyroxine (levothyroxine 0.1 mg oral tablet) 1 tab(s) Oral Daily Unchanged Lidocaine Topical (lidocaine 5% topical ointment) 2 TO 3 GRAMS Topically 3 times a day as needed for NEEDED FOR MODERATE PAIN PT REQUESTING NON SCENTED OINTMENT ?? Unchanged Lisinopril (lisinopril 20 mg oral tablet) 1 tab(s) Oral Daily at Bedtime Unchanged Naltrexone (naltrexone 50 mg oral tablet) 1 tab(s) Oral Daily Duration: 90 Days Unchanged netarsudil ophthalmic (Rhopressa 0.02% ophthalmic solution) Unchanged Omeprazole (omeprazole 40 mg oral enteric coated capsule) 1 capsule Oral Daily Unchanged Timolol Ophthalmic (Timolol Maleate (Eqv-Timoptic) 0.5% ophthalmic solution) Test Performed Below is a partial list of the tests performed during your Visit. You may have had other tests and procedures not included in this list. Please discuss all test results with your provider. CBC w/ Differential?-- Results Pending -- Comprehensive Metabolic Panel?-- Results Pending -- Hemoglobin A1C (Monitoring)?-- Results Pending -- Lipid Panel?-- Results Pending -- TSH Rfx on Abnormal to Free T4?-- Results Pending -- You will be contacted within 72 hours with your results. Medications and Immunizations Administered Medications Given During [...] are strongly encouraged to quit. Please call [facility] at [phone] or [phone] ([phone]) or log in to [email or web address] for referrals to smoking cessation programs. ?? The National Suicide Prevention Hotline is available 09/09 if you or someone you know needs to find a reason to keep living. By calling 6-348-237-[employer] [employer] (7550) you'll be connected to a skilled, trained counselor at a crisis center in your area. [facility] Health Portal You can view and manage your care through the patient portal or by using a health care kalpana of your choosing. [employer] is a website that allows you to securely view your medical information including your hospital discharge summary, office visit summaries, medications and follow-up visits. You can also request appointments, renew medications, and request access to your medical information using a health care kalpana of your choosing, or just ask a question. You can enroll at [email or web address] or register during your next office visit. [facility], in keeping with [facility] guidance, no longer requires face masks [...] a [facility] provider by calling [facility] [employer] Link at [phone]. Patient Care team information Care Team Personnel Name: Latisha Boyce NP Position: [facility] PCO Associate Professional Member Role: PCP Address: Address: [address] [place] [address]- Care Team Related Persons Name: TOY SANTOYO Name: CY LING Address: home [address] [place] [address] Name: MARGI WAYNE Address: home [address] [place] [address] Name: TASNEEM ALANIS Address: home [address] [place] [address]
--- OUTSIDE RECORDS SUMMARY | 2024-01-09 15:47 | XMS_ITS | Continuity of Care Document ---
Author Organization [facility] Adult Address [address] [place] [address]- Care Team Providers Care Ship Pilot Dispatcher Name Role Phone Latisha Boyce NP Primary Care Physician Encounter [facility] Date(s): 12/05/20 - 01/04/21 [facility] Adult [address] [place] [address]- Allergies, Adverse Reactions, Alerts Substance Reaction Severity [...] 11/26/18 17:02:00 EDT, Route to Pharmacy Electronically, [id number], [facility] #[id number] Start Date: 11/26/18 Status: Ordered Aquaphor Healing topical ointment See Instructions, Apply to wound BID, # 30 mL, 0 Refills, Maintenance, 10/11/20 16:23:00 EDT, [facility] #[id number], Partial fill upon patient request if the prescription is for a schedule II opioid drug., Apply to wound BID, 153, cm, 10/11/20 1... Start Date: 10/11/20 Status: Ordered ARIPiprazole 2 mg oral tablet 2 mg, 1, tablet, By Mouth, Daily, # 30 tablet, Refills 1, Tot. Refills 1, Maintenance, 03/30/19 9:56:00 EST, Route to Pharmacy Electronically, [facility] #[id number], 156, cm, 01/12/19 11:15:00 EST, Height, 103.1, kg, 01/17/18 9:53:00 EST, Dry We... Start Date: 03/30/19 Stop Date: 06/28/19 Status: Ordered gabapentin 100 mg oral capsule 100 mg, 1, capsule, By Mouth, 3 times a day, # 90 capsule, Refills 5, Tot. Refills 5, Maintenance, 12/26/20 13:54:00 EST, Route to Pharmacy Electronically, [facility] #[id number], Partial fill upon patient request if the prescription is for a sebastian... Start Date: 12/26/20 Stop Date: 06/24/21 Status: Ordered levothyroxine 0.1 mg oral tablet 1 tablet = 100 mcg, By Mouth, Daily, # 90 tablet, 1 Refills, Maintenance, 12/14/20 12:57:00 EDT, Tablet, [facility] #[id number], Partial fill upon patient request, 153, cm, 10/11/20 15:18:00 EDT, Height, 107, kg, 08/06/19 16:24:00 EDT, Dry Weight Start Date: 12/14/20 Stop Date: 06/12/21 Status: Ordered lidocaine 5% topical ointment See Instructions, PRN Pain , Moderate, 2 to 3 g Topically 3 times a day SCENT FREE, # 50 Gm, 1 Refills, Acute 12/05/21 12:39:00 EDT, 12/05/20 12:39:00 EDT, Ointment, [facility] #[id number], 2 to3 g Topically 3 times a day; SCENT FREE,PRN:Pain ,... Start Date: 12/05/20 Stop Date: 12/05/21 Status: Ordered naltrexone 50 mg oral tablet 0.5 tablet, By Mouth, Daily, # 45 tablet, 0 Refills, [facility] #[id number], 153, cm, 10/11/2114:18:00 EDT, Height, 107, kg, 08/06/19 16:24:00 EDT, Dry Weight Start Date: 10/13/20 Status: Ordered omeprazole 40 mg oral enteric coated capsule 1 capsule, By Mouth, Daily, # 90 capsule, 2 Refills, Maintenance, 08/22/20 14:40:00 EDT, [facility] #[id number], 153, cm, 06/23/20 8:44:00 EDT, Height, 107, [...]
--- OUTSIDE RECORDS SUMMARY | 2024-01-09 15:47 | XMS_ITS | Continuity of Care Document ---
Author Organization [facility] Adult Address [address] [place] [address]- Care Team Providers Care Head Waiter Name Role Phone Latisha Boyce NP Primary Care Physician [place] [facility] Date(s): 02/27/21 - 03/29/21 [facility] Adult [address] [place] [address]- Attending Physician: Willis Motta Admitting Physician: Admtr, [...] 11/26/18 17:02:00 EDT, Route to Pharmacy Electronically, [id number], [facility] #[id number] Start Date: 11/26/18 Status: Ordered Aquaphor Healing topical ointment See Instructions, Apply to wound BID, # 30 mL, 0 Refills, Maintenance, 10/11/20 16:23:00 EDT, [facility] #[id number], Partial fill upon patient request if the prescription is for a schedule II opioid drug., Apply to wound BID, 153, cm, 10/11/20 1... Start Date: 10/11/20 Status: Ordered ARIPiprazole 2 mg oral tablet 2 mg, 1, tablet, By Mouth, Daily, # 30 tablet, Refills 1, Tot. Refills 1, Maintenance, 03/30/19 9:56:00 EST, Route to Pharmacy Electronically, [facility] #[id number], 156, cm, 01/12/19 11:15:00 EST, Height, 103.1, kg, 01/17/18 9:53:00 EST, Dry We... Start Date: 03/30/19 Stop Date: 06/28/19 Status: Ordered gabapentin 100 mg oral capsule 100 mg, 1, capsule, By Mouth, 3 times a day, # 84 capsule, Refills 0, Tot. Refills 0, Maintenance, 03/19/21 12:11:00 EST, Route to Pharmacy Electronically, [facility] #[id number], Partial fill upon patient request if the prescription is for a sebastian... Start Date: 03/19/21 Stop Date: 04/16/21 Status: Ordered levothyroxine 0.1 mg oral tablet 1 tablet = 100 mcg, By Mouth, Daily, # 90 tablet, 1 Refills, Maintenance, 12/14/20 12:57:00 EDT, Tablet, [facility] #[id number], Partial fill upon patient request, 153, cm, 10/11/20 15:18:00 EDT, Height, 107, kg, 08/06/19 16:24:00 EDT, Dry Weight Start Date: 12/14/20 Stop Date: 06/12/21 Status: Ordered naltrexone 50 mg oral tablet 0.5 tablet, By Mouth, Daily, # 45 tablet, 4 Refills, [facility] #[id number], 153, cm, 12/26/2112:09:00 EST, Height, 107, kg, 08/06/19 16:24:00 EDT, Dry Weight Start Date: 01/19/21 Status: Ordered omeprazole 40 mg oral enteric coated capsule 1 capsule, By Mouth, Daily, # 90 capsule, 2 Refills, Maintenance, 08/22/20 14:40:00 EDT, [facility] #[id number], 153, cm, 06/23/20 8:44:00 EDT, Height, 107, [...]
--- OUTSIDE RECORDS SUMMARY | 2024-01-09 15:47 | XMS_ITS | Continuity of Care Document ---
Author Organization [facility] Adult Address [address] [place] [address]- Care Team Providers Care Patient Service Technician Pst Name Role Phone Latisha Boyce NP Primary Care Physician [phone] Encounter [facility] Date(s): 10/08/22 - 11/07/22 [facility] Adult [address] [place] [address]- Allergies, Adverse Reactions, Alerts Substance Reaction Severity Status Imitrex Active Ultram 1 Active 1bradycardia ' Immunizations Given and Recorded Vaccine Date Status Refusal Reason [id number] 12y+ bivalent booster vax 01/04/22 Recorded SARS-CoV-2 mRNA (wgbzjqq-xrde-arscf) vax 09/03/21 Recorded SARS-CoV-2 (COVID-19) mRNA BNT-162b2 [...] daily., # 20 tablet, 1 Refills, Maintenance, 10/11/22 12:22:00 EDT, Tablet, [facility] #[id number], Partial fill upon patient... Start Date: 10/11/22 Status: Ordered Ajovy Autoinjector 225 mg/1.5 mL [...] 09/05/22 9:28:00 EDT, Route to Pharmacy Electronically, [facility] #[id number], Partial fill upon patient request if the [...] capsule, 0 Refills, Maintenance, 09/13/22 17:08:00 EDT, [facility] #[id number], 155, cm, 09/05/22 9:14:00 EDT, Height, 108, [...] tablet, 0 Refills, Maintenance, 11/01/22 15:49:00 EDT, [facility] #[id number], 90, 1 tablet By Mouth Daily, 155, cm, 09/05/22 9:14:00 EDT, Height, 108, kg, 08/30/22 19:57:00 EDT, Dry Weight Start Date: 11/01/22 Status: Ordered levothyroxine 0.1 mg oral tablet 1 tablet, By Mouth, Daily, # 90 tablet, 1 Refills, Maintenance, 09/18/22 8:58:00 EDT, [facility] #[id number], 155, cm, 09/05/22 9:14:00 EDT, Height, 108, kg, 08/30/22 19:57:00 EDT, Dry Weight Start Date: 09/18/22 Status: Ordered lidocaine 5% topical ointment 2 TO 3 GRAMS, Topically, 3 times a day, PRN NEEDED FOR MODERATE PAIN, PT REQUESTING NON SCENTED OINTMENT, # 50 Gm, 0 Refills, Maintenance, 10/09/22 12:18:00 EDT, [facility] #[id number], 20, PT REQUESTING NON SCENTED OINMENT, 2 TO 3 GRAMS Topic... Start Date: 10/09/22 Status: Ordered lisinopril 20 mg oral tablet 1, tablet, By Mouth, Daily at bedtime, # 90 tablet, Refills 0, Tot. Refills 0, Maintenance, 11/06/22 10:13:00 EDT, Route to Pharmacy Electronically, [facility] #[id number], 155, cm, 11/06/22 9:35:00 EDT, Height, 108, kg, 08/30/22 19:57:00 EDT, Start Date: 11/06/22 Stop Date: 02/04/23 Status: Ordered naltrexone 50 mg oral tablet 1 tablet = 50 mg, By Mouth, Daily, # 90 tablet, 0 Refills, Maintenance, 09/18/22 11:29:00 EDT, [facility] #[id number], 155, cm, 09/05/22 9:14:00 EDT, Height, 108, kg, 08/30/22 19:57:00 EDT, Dry Weight Start Date: 09/18/22 Status: Ordered omeprazole 40 mg oral enteric coated capsule 1 capsule, By Mouth, Daily, # 90 capsule, 0 Refills, Maintenance, 08/23/22 9:31:00 EDT, [facility] #[id number], 153, cm, 08/14/22 9:13:00 EDT, Height Start [...] Professional Member Role: PCP Address: Address: [address] [place] [address]- Care Team Related Persons Name: TYO SANTOYO Name: CY LING Address: home [address] [place] [address] Name: MARGI WAYNE Address: home [address] [place] [address] Name: TASNEEM ALANIS Address: home [address] [place] [address]
--- OUTSIDE RECORDS SUMMARY | 2024-01-09 15:47 | XMS_ITS | Continuity of Care Document ---
Author Organization [facility] Adult Address [address] [place] [address]- Care Team Providers Care Commercial Service Technician Name Role Phone Latisha Boyce NP Primary Care Physician Encounter [facility] Date(s): 10/31/23 - 11/30/23 [facility] Adult [address] [place] [address]- Allergies, Adverse Reactions, Alerts Substance Reaction Severity Status Imitrex Active Ultram 1 Active 1bradycardia ' Immunizations Given and Recorded Vaccine Date Status Refusal Reason [id number] 12y+ bivalent booster vax 01/04/22 Recorded SARS-CoV-2 mRNA (prsxhrf-ktuh-dksgy) vax 09/03/21 Recorded SARS-CoV-2 (COVID-19) mRNA BNT-162b2 [...] Refills, Maintenance, 11/18/23 7:29:00 EDT, Tablet, [id number], Partial fill upon patient request i... Start [...] 1 kit, 5 Refills, Maintenance, 05/21/23 12:30:00EDT, [facility]/pharmacy #[id number], Partial fill upon patient request [...] Refills, Maintenance, 09/09/23 13:03:00 EDT, [id number], 155, cm, 08/12/23 7:32:00 EDT, Height, 108, [...] 11/28/23 15:37:00 EDT, Route to Pharmacy Electronically, [facility]/pharmacy #[id number], 155, cm, 09/16/23 10:30:00 EDT, Height, 108, kg, 08/30/22 19:57:00 EDT, Dry Weight Start Date: 11/28/23 Status: Ordered naltrexone 50 mg oral tablet 1 tablet, By Mouth, Daily, # 90 tablet, 1 Refills, Maintenance, 05/21/23 12:30:00 EDT, [facility]/pharmacy#[id number], 155, cm, 11/06/22 9:35:00 EDT, Height, 108, kg, 08/30/22 19:57:00 EDT, Dry Weight Start Date: 05/21/23 Stop Date: 11/17/23 Status: Ordered omeprazole 40 mg oral enteric coated capsule 1 capsule, By Mouth, Daily, # 90 capsule, 0 Refills, Maintenance, 08/01/23 8:06:00 EDT, [facility]/pharmacy #[id number], 155, cm, 07/16/23 9:38:00 EDT, [...] Team Personnel Name: Latisha Boyce NP Position: [facility] PCO Associate Professional Member Role: PCP Address: Address: [address] [place] [address]- Care Team Related Persons Name: TOY SANTOYO Name: CY LING Address: home [address] [place] [address] Name: MARGI WAYNE Address: home [address] [place] [address] Name: TASNEEM ALANIS Address: home [address] [place] [address]
--- OUTSIDE RECORDS SUMMARY | 2024-01-09 15:47 | XMS_ITS | Continuity of Care Document ---
Author Organization [facility] Adult Address [address] [place] [address]- Care Team Providers Care Cell Builder Name Role Phone Latisha Boyce NP Primary Care Physician Encounter [facility] Date(s): 10/09/23 - 11/08/23 [facility] Adult [address] [place] [address]- Allergies, Adverse Reactions, Alerts Substance Reaction Severity Status Imitrex Active Ultram 1 Active 1bradycardia ' Immunizations Given and Recorded Vaccine Date Status Refusal Reason [id number] 12y+ bivalent booster vax 01/04/22 Recorded SARS-CoV-2 mRNA (ssspagx-pzto-lxcsj) vax 09/03/21 Recorded SARS-CoV-2 (COVID-19) mRNA BNT-162b2 [...] Refills, Maintenance, 09/25/23 12:47:00 EDT, Tablet, [id number], Partial fill upon patient request... Start Date: [...] 1 kit, 5 Refills, Maintenance, 05/21/23 12:30:00EDT, [facility]/pharmacy #[id number], Partial fill upon patient [...] Refills, Maintenance, 09/09/23 13:03:00 EDT, [id number], 155, cm, 08/12/23 7:32:00 EDT, Height, 108, [...] 09/02/23 10:06:00 EDT, Route to Pharmacy Electronically, [facility]acy #[id number], 155, cm, 08/12/23 7:32:00 EDT,Height, 108, kg, 08/30/22 19:57:00 EDT, Dry Weight Start Date: 09/02/23 Status: Ordered naltrexone 50 mg oral tablet 1 tablet, By Mouth, Daily, # 90 tablet, 1 Refills, Maintenance, 05/21/23 12:30:00 EDT, [facility]/pharmacy#[id number], 155, cm, 11/06/22 9:35:00 EDT, Height, 108, kg, 08/30/22 19:57:00 EDT, Dry Weight Start Date: 05/21/23 Stop Date: 11/17/23 Status: Ordered omeprazole 40 mg oral enteric coated capsule 1 capsule, By Mouth, Daily, # 90 capsule, 0 Refills, Maintenance, 08/01/23 8:06:00 EDT, [facility]/pharmacy #[id number], 155, cm, 07/16/23 9:38:00 [...] Associate Professional Member Role: PCP Address: Address: [address] [place] [address]- Care Team Related Persons Name: TOY SANTOYO Name: CY LING Address: home [address] [place] [address] Name: MARGI WAYNE Address: [address] [place] [address] Name: TASNEEM ALANIS Address: home [address] [place] [address]
--- OUTSIDE RECORDS SUMMARY | 2024-01-09 15:47 | XMS_ITS | Continuity of Care Document ---
Author Organization [facility] Adult Address [address] [place] [address]- Care Team Providers Care Fiberglass Roving Winder Name Role Phone Latisha Boyce NP Primary Care Physician [phone] Encounter [facility] Date(s): 04/23/23 - 05/23/23 [facility] Adult [address] [place] [address]- Allergies, Adverse Reactions, Alerts Substance Reaction Severity Status Imitrex Active Ultram 1 Active 1bradycardia ' Immunizations Given and Recorded Vaccine Date Status Refusal Reason [id number] 12y+ bivalent booster vax 01/04/22 Recorded SARS-CoV-2 mRNA (eiobvpq-uxlb-mlvaw) vax 09/03/21 Recorded SARS-CoV-2 (COVID-19) mRNA BNT-162b2 [...] 1 Refills, Maintenance, 04/23/23 12:40:00 EST, Tablet, [facility] #[id number], Partial fill upon patient... Start Date: 04/23/23 [...] 1 kit, 5 Refills, Maintenance, 05/21/23 12:30:00EDT, [facility]/pharmacy #[id number], Partial fill upon [...] 03/12/23 11:01:00 EST, Route to Pharmacy Electronically, [facility] #[id number], Partial fill upon patient request if the [...] capsule, 0 Refills, Maintenance, 09/13/22 17:08:00 EDT, [facility] #[id number], 155, cm, 09/05/22 9:14:00 EDT, Height, 108, [...] 90 tablet, 1 Refills, Maintenance, 01/28/23 9:27:00 [facility] #[id number], 90, 1 tablet By Mouth Daily, 155, cm, 11/06/22 9:35:00 EDT, Height, 108, kg, 08/30/22 19:57:00 EDT, Dry Weight Start Date: 01/28/23 Status: Ordered levothyroxine 0.1 mg oral tablet 1 tablet, By Mouth, Daily, # 90 tablet, 1 Refills, Maintenance, 03/21/23 7:16:00 [facility] #[id number], 155, cm, 11/06/22 9:35:00 EDT, Height, 108, kg, 08/30/22 19:57:00 EDT, Dry Weight Start Date: 03/21/23 Status: Ordered lidocaine 5% topical ointment 2 TO 3 GRAMS, Topically, 3 times a day, PRN NEEDED FOR MODERATE PAIN, PT REQUESTING NON SCENTED OINTMENT, # 50 Gm, 0 Refills, Maintenance, 04/23/23 12:23:00 [facility] #[id number], 20, PT REQUESTING NON SCENTED OINMENT, 2 TO 3 GRAMS Topic... Start Date: 04/23/23 Status: Ordered lisinopril 20 mg oral tablet 1, tablet, By Mouth, Daily at bedtime, # 90 tablet, Refills 0, Tot. Refills 0, Maintenance, 05/16/23 13:39:00 EDT, Route to Pharmacy Electronically, [facility] #[id number], 155, cm, 11/06/22 9:35:00 EDT, Height, 108, kg, 08/30/22 19:57:00 EDT, . Start Date: 05/16/23 Status: Ordered naltrexone 50 mg oral tablet 1 tablet, By Mouth, Daily, # 90 tablet, 1 Refills, Maintenance, 05/21/23 12:30:00 EDT, [facility]/pharmacy#[id number], 155, cm, 11/06/22 9:35:00 EDT, Height, 108, kg, 08/30/22 19:57:00 EDT, Dry Weight Start Date: 05/21/23 Stop Date: 11/17/23 Status: Ordered omeprazole 40 mg oral enteric coated capsule 1 capsule, By Mouth, Daily, # 90 capsule, 1 Refills, Maintenance, 04/29/23 9:27:00 EDT, [facility] #[id number], 155, cm, 11/06/22 9:35:00 EDT, Height, 108, [...] Team Personnel Name: Latisha Boyce NP Position: [facility] PCO Associate Professional Member Role: PCP Address: Address: [address] [place] [address]- [place] Care Team Related Persons Name: TOY SANTOYO Name: CY LING Address: [address] [place] [address] Name: MARGI WAYNE Address: [address] [place] [address] Name: TASNEEM ALANIS Address: [address] [place] [address]
--- OUTSIDE RECORDS SUMMARY | 2024-01-09 15:47 | XMS_ITS | Continuity of Care Document ---
Author Organization [facility] Adult Address [address] [place] [address]- Care Team Providers Care Compliance Officer Name Role Phone Leilani Mcmahon NP Primary Care Physician [id number] Date[facility]s): 07/20/19 - 07/27/19 [facility] [address] [place] [address] [facility] Encounter Diagnosis Migraine(Discharge Diagnosis) - 07/20/19 Knee pain, bilateral(Discharge Diagnosis) - 07/20/19 Attending Physician: Not on Staff, Attending MD Allergies, Adverse Reactions, Alerts Substance Reaction [...] 11/26/18 17:02:00 EDT, Route to Pharmacy Electronically, [id number], [facility] #[id number] Start Date: 11/26/18 Status: Ordered ARIPiprazole 2 mg oral tablet 2 mg, 1, tablet, By Mouth, Daily, # 30 tablet, Refills 1, Tot. Refills 1, Maintenance, 03/30/19 9:56:00 EST, Route to Pharmacy Electronically, [facility] #[id number], 156, cm, 01/12/19 11:15:00 EST, Height, 103.1, kg, 01/17/18 9:53:00 EST, Dry We... Start Date: 03/30/19 Stop Date: 06/28/19 Status: Ordered levothyroxine 0.1 mg oral tablet 1 tablet = 100 mcg, By Mouth, Daily, # 30 tablet, 5 Refills, Maintenance, 07/19/19 10:03:00 EDT, Tablet, [facility] #[id number], 156, cm, 01/12/19 11:15:00 EST, Height, 103.1, kg, 01/17/18 9:53:00 EST, Dry Weight Start Date: 07/19/19 Status: Ordered naltrexone 50 mg oral tablet 0.5 tablet, By Mouth, Daily, # 15 tablet, 1 Refills, Acute, 07/21/19 13:56:00 EDT, [facility] #[id number], 156, cm, 07/20/19 14:00:00 EDT, Height, 103.1, kg, 01/17/18 9:53:00 EST, Dry Weight Start Date: 07/21/19 Status: Ordered omeprazole 40 mg oral enteric coated capsule 1 capsule = 40 mg, By Mouth, Daily, New script, # 30 capsule, 2 Refills, Maintenance, 06/15/19 10:32:00 EDT, EC Capsule, [facility] #[id number], 156, cm, 01/12/19 11:15:00 EST, Height, 103.1, [...] Dates Health Status Cl inical Service Informant Migraine Discharge Diagnosis 07/20/19 Knee pain, bilateral Discharge Diagnosis 07/20/19 Vital Signs Most recent to oldest [Reference Range]: 1 Height 156 cm (07/20/19 2:00 PM) Weight 109.3 kg (07/20/19 2:00 PM) Oxygen Saturation [94-100 %] 97 % (07/20/19 2:00 PM) Pulse Rate [55-90 bpm] 72 bpm (07/20/19 2:00 PM) Body Mass Index [18.5-24.99] 44.91 *>HHI* (07/20/19 2:00 PM) Blood Pressure [90-138/55-84 mm Hg] 142/ 90mm Hg *H* (07/20/19 2:00 PM) Respiratory Rate [16-30 br/min] 18 br/mi n (07/20/19 2:00 PM) Mode of Delivery (Oxygen) Room air (07/20/19 2:00 PM) Blood pressure sites Arm, left (07/20/19 2:00 PM) Weight Obtained Via Standing scale (07/20/19 2:00 PM) Social History Social History Type Response Smoking Status Never smoker; Tobacc o user in household: No; Type: Cigarettes entered on: 09/04/17 Sex
--- OUTSIDE RECORDS SUMMARY | 2024-01-09 15:47 | XMS_ITS | Continuity of Care Document ---
Author Organization [facility] Address [address] [place] [address]- Care Team Providers Care Sample Worker Name Role Phone Latisha Boyce NP Primary Care Physician Encounter [facility] Date(s): 11/06/22 - 11/13/22 [facility] [address] [place] [address]- Encounter Diagnosis HTN (hypertension)(Discharge Diagnosis) - 11/06/22 Attending Physician: Latisha Boyce NP Allergies, Adverse Reactions, Alerts Substance Reaction Severity Status Imitrex Active Ultram 1 Active 1bradycardia ' Immunizations Given and Recorded Vaccine Date Status Refusal Reason [id number] 12y+ bivalent booster vax 01/04/22 Recorded SARS-CoV-2 mRNA (xchvnqk-nqkd-imvdj) vax 09/03/21 Recorded SARS-CoV-2 (COVID-19) mRNA BNT-162b2 [...] 1 Refills, Maintenance, 11/08/22 16:56:00 EDT, Tablet, [facility] #[id number], Partial fill upon patient... Start Date: 11/08/22 [...] 1 kit, 5 Refills, Maintenance, 11/11/22 15:52:00EDT, [facility] #[id number], Partial fill upon patient request if the [...] 09/05/22 9:28:00 EDT, Route to Pharmacy Electronically, [facility] #[id number], Partial fill upon patient request if the [...] capsule, 0 Refills, Maintenance, 09/13/22 17:08:00 EDT, [facility] #[id number], 155, cm, 09/05/22 9:14:00 EDT, Height, 108, [...] tablet, 0 Refills, Maintenance, 11/01/22 15:49:00 EDT, [facility] #[id number], 90, 1 tablet By Mouth Daily, 155, cm, 09/05/22 9:14:00 EDT, Height, 108, kg, 08/30/22 19:57:00 EDT, Dry Weight Start Date: 11/01/22 Status: Ordered levothyroxine 0.1 mg oral tablet 1 tablet, By Mouth, Daily, # 90 tablet, 1 Refills, Maintenance, 09/18/22 8:58:00 EDT, [facility] #[id number], 155, cm, 09/05/22 9:14:00 EDT, Height, 108, kg, 08/30/22 19:57:00 EDT, Dry Weight Start Date: 09/18/22 Status: Ordered lidocaine 5% topical ointment 2 TO 3 GRAMS, Topically, 3 times a day, PRN NEEDED FOR MODERATE PAIN, PT REQUESTING NON SCENTED OINTMENT, # 50 Gm, 0 Refills, Maintenance, 10/09/22 12:18:00 EDT, [facility] #[id number], 20, PT REQUESTING NON SCENTED OINMENT, 2 TO 3 GRAMS Topic... Start Date: 10/09/22 Status: Ordered lisinopril 20 mg oral tablet 1, tablet, By Mouth, Daily at bedtime, # 90 tablet, Refills 0, Tot. Refills 0, Maintenance, 11/06/22 10:13:00 EDT, Route to Pharmacy Electronically, [facility] #[id number], 155, cm, 11/06/22 9:35:00 EDT, Height, 108, kg, 08/30/22 19:57:00 EDT, . Start Date: 11/06/22 Stop Date: 02/04/23 Status: Ordered naltrexone 50 mg oral tablet 1 tablet = 50 mg, By Mouth, Daily, # 90 tablet, 0 Refills, Maintenance, 09/18/22 11:29:00 EDT, [facility] #[id number], 155, cm, 09/05/22 9:14:00 EDT, Height, 108, kg, 08/30/22 19:57:00 EDT, Dry Weight Start Date: 09/18/22 Status: Ordered omeprazole 40 mg oral enteric coated capsule 1 capsule, By Mouth, Daily, # 90 capsule, 1 Refills, Maintenance, 11/12/22 14:21:00 EDT, [facility] #[id number], 155, cm, 11/06/22 9:35:00 EDT, Height, 108, [...] Effective Dates Health Status inical Service Informant HTN (hypertension) Discharge Diagnosis 9/20/23 Vital Signs Most recent to oldest [Reference Range]: 1 Height 155 cm (11/06/22 9:35 AM) Weight 112.5 kg (11/06/22 9:35 AM) Oxygen Saturation [94-100 %] 98 % (11/06/22 9:35 AM) Pulse Rate [55-90 bpm] 79 bpm (11/06/22 9:35 AM) Body Mass Index [18.5-24.99 kg/m2] 46.83 kg/m2 *>HHI* (11/06/22 9:35 AM) Blood Pressure [90-138/55-84 mm Hg] 113/ 89mm Hg (11/06/22 9:35 AM) Temperature [96.8-100.4 DegF] 97.9 DegF (11/06/22 9:35 AM) Mode of Delivery (Oxygen) Room air (11/06/22 9:35 AM) Blood pressure sites Arm, left (11/06/22 9:35 AM) Temperature Route Oral (11/06/22 9:35 AM) Weight Obtained Via Standing scale (11/06/22 9:35 AM) Social History Social History Type Response Smoking Status Never smoker; Tobacc o user in household: No; Type: Cigarettes entered on: 09/04/17 Sex Note * Ally Parikh: PERFORM, SIGN, VERIFY Event Display: Patient Education/Instruction Authored Date: [id number] [facility] *[facility] Clinical Summary Name BRIAN ALANIS Age 62 Years 1960 PCP Austen ALBERT, Latisha PCP Visit Date 11/06/2022 09:34:00 Additional Instructions: HUPD within 3 M Scheduled Appointments?? Future Appointments ?No Future Appointments Scheduled Follow-Up Instructions ?? Diagnosis Essential (primary) hypertension; Encounter for screening for malignant neoplasm of colon; Essential (primary) hypertension Medications: Please continue your medications until treatment is completed or stopped by your provider. Discuss any questions related to medications with your provider. Medications to Continue Taking That Have Changed [facility] #[id number], [address], [place] [id number], [phone] - Lisinopril (lisinopril 20 mg oral tablet) 1 tab(s) Oral Daily at Bedtime for 90 Days. Refills: 0. Next Dose: - - Durable Medical Equipment (Home Blood Pressure Monitor) Use to check your BP once in the AM and once in the PM 47 cm arm measurement. Refills: 0. Next Dose: Medications to Continue with No Changes These medications were not printed or sent to your pharmacy Acetaminophen/Butalbital/Caffeine (acetaminophen/butalbital/caffeine 325 mg-50 mg-40 mg oral tablet) 1 to 2 tablets or capsules every 4 hours as needed; not to exceed 6 tablets or capsules daily.; asneeded. Refills: 1. Next Dose: Alprazolam (ALPRAZolam 0.5 mg oral tablet) Next Dose: Amlodipine (amLODIPine 5 mg oral tablet) 1 tab(s) Oral Daily. Refills: 1. Next Dose: Aripiprazole (ARIPiprazole 2 mg oral tablet) Next Dose: Brimonidine Ophthalmic (brimonidine 0.2% ophthalmic solution) Next Dose: Duloxetine (duloxetine 20 mg oral enteric coated capsule) 1 capsule Oral twice a day. CAN. START WITH EVERY DAY AND CHANGE TO 2 TIMES DAILY AFTER 3 DAYS. Refills: 0. Next Dose: Fluorometholone Ophthalmic (fluorometholone 0.1% ophthalmic suspension) Next Dose: fremanezumab (Ajovy Autoinjector 225 mg/1.5 mL subcutaneous solution) Next Dose: Hydrochlorothiazide-Lisinopril (hydrochlorothiazide-lisinopril 12.5 mg-20 mg oral tablet) 1 tab(s) Oral Daily. Refills: 0. Next Dose: Levothyroxine (levothyroxine 0.1 mg oral tablet) 1 tab(s) Oral Daily. Refills: 1. Next Dose: Lidocaine Topical (lidocaine 5% topical ointment) 2 TO 3 GRAMS Topically 3 times a day as needed ASNEEDED FOR MODERATE PAIN. PT REQUESTING NON SCENTED OINTMENT. Refills: 0. Next Dose: Naltrexone (naltrexone 50 mg oral tablet) 1 tab(s) Oral Daily. Refills: 0. Next Dose: netarsudil ophthalmic (Rhopressa 0.02% ophthalmic solution) Next Dose: Omeprazole (omeprazole 40 mg oral enteric coated capsule) 1 capsule Oral Daily. Refills: 0. Next Dose: Timolol Ophthalmic (Timolol Maleate (Eqv-Timoptic) 0.5% ophthalmic solution) Next Dose: Allergy Info:?? Ultram; Imitrex Medications Given This Visit Future Orders ?No future orders Vital Signs Height 155 cm Weight 112.5 kg BMI 46.83 kg/m2 Blood Pressure 113 mm Hg/89 mm Hg Temperature 97.9 DegF Pulse Rate 79 bpm Respiratory Rate 02 Sat Mode of Delivery 98 %/Room air You can now view a summary of your hospital visit from the comfort of your home through a free online portal called H5. H5 is a website that allows you to securely view your medical information including discharge summary, medications and follow-up visits. ??You can alsosend a secure electronic message to your doctor???s office to request appointments, renew medications or just ask a question. You can enroll at [email or web address] or register during your next office visit. Disclaimer:?? The information provided is of a general nature and is intended to be used in conjunction with the recommendations and advice of your health care practitioner. ??Every effort has been made to ensure that the information provided is accurate and complete at the time it is provided to you however, as your needs change, or, as new ??information becomes available, different or additional instructions may be required. If you have questions, please consult with your primary care provider or pharmacist, as appropriate. ??This information is not intended to serve as substitution for assessment and evaluation by a qualified health care provider. If you do not have a primary care provider, you may find a [facility] provider by calling [facility] Department of Health and Human Services Link at [phone]. [facility], in keeping with [facility] guidance, no longer requires face masks for staff, patientsor visitors in most situations. Similar to time spent indoors at other locations, there is the chance that you were exposed to respiratory viruses during your time with us (such as flu or COVID-19).? If you develop symptoms concerning for a viral respiratory infection, please seek testing (and treatment if indicated) from your medical provider or home test kit. For information about the plan of care including goals and instructions for your diagnosis, please see the patient education orders section of this document. Patient Education Materials?? The content of this educational material or handout may have been modified, supplemented, or adapted from its original content and format to support your individualized medical care. * Latisha Boyce NP: PERFORM, SIGN, VERIFY Event Display: Patient Education/Instruction Authored Date: [facility] *[facility] Clinical Summary Name BRIAN ALANIS Age 62 Years 1960 PCP Latisha Boyce NP PCP Visit Date 11/06/2022 09:34:00 Additional Instructions: HUPD within 3 M Scheduled Appointments?? Future Appointments ?No Future Appointments Scheduled Follow-Up Instructions ?? Diagnosis Essential (primary) hypertension Medications: Please continue your medications until treatment is completed or stopped by your provider. Discuss any questions related to medications with your provider. Medications to Continue with No Changes These medications were not printed or sent to your pharmacy Acetaminophen/Butalbital/Caffeine (acetaminophen/butalbital/caffeine 325 mg-50 mg-40 mg oral tablet) 1 to 2 tablets or capsules every 4 hours as needed; not to exceed 6 tablets or capsules daily.; asneeded. Refills: 1. Next Dose: Alprazolam (ALPRAZolam 0.5 mg oral tablet) Next Dose: Amlodipine (amLODIPine 5 mg oral tablet) 1 tab(s) Oral Daily. Refills: 1. Next Dose: Aripiprazole (ARIPiprazole 2 mg oral tablet) Next Dose: Brimonidine Ophthalmic (brimonidine 0.2% ophthalmic solution) Next Dose: Duloxetine (duloxetine 20 mg oral enteric coated capsule) 1 capsule Oral twice a day. CAN. START WITH EVERY DAY AND CHANGE TO 2 TIMES DAILY AFTER 3 DAYS. Refills: 0. Next Dose: Durable Medical Equipment (Home Blood Pressure Monitor) Use to check your BP once in the AM and once in the PM. Refills: 0. Next Dose: Fluorometholone Ophthalmic (fluorometholone 0.1% ophthalmic suspension) Next Dose: fremanezumab (Ajovy Autoinjector 225 mg/1.5 mL subcutaneous solution) Next Dose: Hydrochlorothiazide-Lisinopril (hydrochlorothiazide-lisinopril 12.5 mg-20 mg oral tablet) 1 tab(s) Oral Daily. Refills: 0. Next Dose: Levothyroxine (levothyroxine 0.1 mg oral tablet) 1 tab(s) Oral Daily. Refills: 1. Next Dose: Lidocaine Topical (lidocaine 5% topical ointment) 2 TO 3 GRAMS Topically 3 times a day as needed ASNEEDED FOR MODERATE PAIN. PT REQUESTING NON SCENTED OINTMENT. Refills: 0. Next Dose: Lisinopril (lisinopril 20 mg oral tablet) 1 tab(s) Oral Daily. Refills: 2. Next Dose: Naltrexone (naltrexone 50 mg oral tablet) 1 tab(s) Oral Daily. Refills: 0. Next Dose: netarsudil ophthalmic (Rhopressa 0.02% ophthalmic solution) Next Dose: Omeprazole (omeprazole 40 mg oral enteric coated capsule) 1 capsule Oral Daily. Refills: 0. Next Dose: Timolol Ophthalmic (Timolol Maleate (Eqv-Timoptic) 0.5% ophthalmic solution) Next Dose: Allergy Info:?? Ultram; Imitrex Medications Given This Visit Future Orders ?No future orders Vital Signs Height 155 cm Weight 112.5 kg BMI 46.83 kg/m2 Blood Pressure 113 mm Hg/89 mm Hg Temperature 97.9 DegF Pulse Rate 79 bpm Respiratory Rate 02 Sat Mode of Delivery 98 %/Room air You can now view a summary of your hospital visit from the comfort of your home through a free online portal called H5. H5 is a website that allows you to securely view your medical information including discharge summary, medications and follow-up visits. ??You can alsosend a secure electronic message to your doctor???s office to request appointments, renew medications or just ask a question. You can enroll at [email or web address] or register during your next office visit. Disclaimer:?? The information provided is of a general nature and is intended to be used in conjunction with the recommendations and advice of your health care practitioner. ??Every effort has been made to ensure that the information provided is accurate and complete at the time it is provided to you however, as your needs change, or, as new ??information becomes available, different or additional instructions may be required. If you have questions, please consult with your primary care provider or pharmacist, as appropriate. ??This information is not intended to serve as substitution for assessment and evaluation by a qualified health care provider. If you do not have a primary care provider, you may find a [facility] provider by calling [facility] Department of Health and Human Services Link at [phone]. [facility], in keeping with [facility] guidance, no longer requires face masks for staff, patientsor visitors in most situations. Similar to time spent indoors at other locations, there is the chance that you were exposed to respiratory viruses during your time with us (such as flu or COVID-19).? If you develop symptoms concerning for a viral respiratory infection, please seek testing (and treatment if indicated) from your medical provider or home test kit. For information about the plan of care including goals and instructions for your diagnosis, please see the patient education orders section of this document. Patient Education Materials?? The content of this educational material or handout may have been modified, supplemented, or adapted from its original content and format to support your individualized medical care. Patient Care team information Care Team Personnel Name: Latisha Boyce NP Position: [facility] Associate Professional Member Role: PCP Address: Address: [address] [place] [address]- Care Team Related Persons Name: TOY SANTOYO Name: CY LING Address: home [address] [place] [address] Name: MARGI WAYNE Address: home [address] [place] [address] Name: TASNEEM ALANIS Address: home [address] [place] [address]
--- OUTSIDE RECORDS SUMMARY | 2024-01-09 15:47 | XMS_ITS | Continuity of Care Document ---
Author Organization [facility] Adult Address [address] [place] [address]- Care Team Providers Care Prefitter Doors Name Role Phone Latisha Boyce NP Primary Care Physician Encounter [facility] Date(s): 11/11/22 - 12/11/22 [facility] [address] [place] [address]- Allergies, Adverse Reactions, Alerts Substance Reaction Severity Status Imitrex Active Ultram 1 Active 1bradycardia ' Immunizations Given and Recorded Vaccine Date Status Refusal Reason [id number] 12y+ bivalent booster vax 01/04/22 Recorded SARS-CoV-2 mRNA (ymbakwy-jfge-qhxiw) vax 09/03/21 Recorded SARS-CoV-2 (COVID-19) mRNA BNT-162b2 [...] 1 Refills, Maintenance, 12/06/22 14:33:00 EDT, Tablet, [facility] #[id number], Partial fill upon patient... Start Date: 12/06/22 [...] 1 kit, 5 Refills, Maintenance, 11/11/22 15:52:00EDT, [facility] #[id number], Partial fill upon patient request if the [...] 09/05/22 9:28:00 EDT, Route to Pharmacy Electronically, [facility] #[id number], Partial fill upon patient request if the [...] capsule, 0 Refills, Maintenance, 09/13/22 17:08:00 EDT, [facility] #[id number], 155, cm, 09/05/22 9:14:00 EDT, Height, 108, [...] tablet, 0 Refills, Maintenance, 11/01/22 15:49:00 EDT, [facility] #[id number], 90, 1 tablet By Mouth Daily, 155, cm, 09/05/22 9:14:00 EDT, Height, 108, kg, 08/30/22 19:57:00 EDT, Dry Weight Start Date: 11/01/22 Status: Ordered levothyroxine 0.1 mg oral tablet 1 tablet, By Mouth, Daily, # 90 tablet, 1 Refills, Maintenance, 09/18/22 8:58:00 EDT, [facility] #[id number], 155, cm, 09/05/22 9:14:00 EDT, Height, 108, kg, 08/30/22 19:57:00 EDT, Dry Weight Start Date: 09/18/22 Status: Ordered lidocaine 5% topical ointment 2 TO 3 GRAMS, Topically, 3 times a day, PRN NEEDED FOR MODERATE PAIN, PT REQUESTING NON SCENTED OINTMENT, # 50 Gm, 0 Refills, Maintenance, 10/09/22 12:18:00 EDT, [facility] #[id number], 20, PT REQUESTING NON SCENTED OINMENT, 2 TO 3 GRAMS Topic... Start Date: 10/09/22 Status: Ordered lisinopril 20 mg oral tablet 1, tablet, By Mouth, Daily at bedtime, # 90 tablet, Refills 0, Tot. Refills 0, Maintenance, 11/06/22 10:13:00 EDT, Route to Pharmacy Electronically, [facility] #[id number], 155, cm, 11/06/22 9:35:00 EDT, Height, 108, kg, 08/30/22 19:57:00 EDT, . Start Date: 11/06/22 Stop Date: 02/04/23 Status: Ordered naltrexone 50 mg oral tablet 1 tablet = 50 mg, By Mouth, Daily, # 90 tablet, 0 Refills, Maintenance, 09/18/22 11:29:00 EDT, [facility] #[id number], 155, cm, 09/05/22 9:14:00 EDT, Height, 108, kg, 08/30/22 19:57:00 EDT, Dry Weight Start Date: 09/18/22 Status: Ordered omeprazole 40 mg oral enteric coated capsule 1 capsule, By Mouth, Daily, # 90 capsule, 1 Refills, Maintenance, 11/12/22 14:21:00 EDT, [facility] #[id number], 155, cm, 11/06/22 9:35:00 EDT, Height, 108, [...] Associate Professional Member Role: PCP Address: Address: [address] [place] [address] [place] Care Team Related Persons Name: TOY SANTOYO Name: CY LING Address: home [address] [place] [address] Name: MARGI WAYNE Address: home [address] [place] [address] Name: TASNEEM ALANIS Address: home [address] [place] [address]
--- OUTSIDE RECORDS SUMMARY | 2024-01-09 15:47 | XMS_ITS | Continuity of Care Document ---
Author Organization [facility] Adult Address [address] [place] [address]- Care Team Providers Care Food Products Sales Representative Name Role Phone Latisha Boyce NP Primary Care Physician [phone] Encounter [facility] Date(s): 11/14/23 - 12/14/23 [facility] [address] [place] [address]- Allergies, Adverse Reactions, Alerts Substance Reaction Severity Status Imitrex Active Ultram 1 Active 1bradycardia ' Immunizations Given and Recorded Vaccine Date Status Refusal Reason [id number] 12y+ bivalent booster vax 01/04/22 Recorded SARS-CoV-2 mRNA (jxtwequ-bcon-vrleq) vax 09/03/21 Recorded SARS-CoV-2 (COVID-19) mRNA BNT-162b2 [...] Refills, Maintenance, 11/18/23 7:29:00 EDT, Tablet, [id number], Partial fill upon patient request i... Start [...] 1 kit, 5 Refills, Maintenance, 05/21/23 12:30:00EDT, [facility] #[id number], Partial fill upon patient request [...] Refills, Maintenance, 09/09/23 13:03:00 EDT, [id number], 155, cm, 08/12/23 7:32:00 EDT, Height, 108, [...] 11/28/23 15:37:00 EDT, Route to Pharmacy Electronically, [facility] #[id number], 155, cm, 09/16/23 10:30:00 EDT, Height, 108, kg, 08/30/22 19:57:00 EDT, Dry Weight Start Date: 11/28/23 Status: Ordered naltrexone 50 mg oral tablet 1 tablet, By Mouth, Daily, # 90 tablet, 1 Refills, Maintenance, 05/21/23 12:30:00 EDT, [facility]#[id number], 155, cm, 11/06/22 9:35:00 EDT, Height, 108, kg, 08/30/22 19:57:00 EDT, Dry Weight Start Date: 05/21/23 Stop Date: 11/17/23 Status: Ordered omeprazole 40 mg oral enteric coated capsule 1 capsule, By Mouth, Daily, # 90 capsule, 0 Refills, Maintenance, 08/01/23 8:06:00 EDT, [facility]/pharmacy #[id number], 155, cm, 07/16/23 9:38:00 EDT, [...] Team Personnel Name: Latisha Boyce NP Position: [facility] Associate Professional Member Role: PCP Address: Address: [address] [place] [address]- Care Team Related Persons Name: TOY SANTOYO Name: CY LING Address: [address] [place] [address] Name: MARGI WAYNE Address: [address] [place] [address] Name: TASNEEM ALANIS Address: home [address] [place] [address]
--- OUTSIDE RECORDS SUMMARY | 2024-01-09 15:47 | XMS_ITS | Continuity of Care Document ---
Author Organization [facility] Adult Address [address] [place] [address]- Care Team Providers Care Creative Producer Name Role Phone Latisha Boyce NP Primary Care Physician [place] [facility] [place]22 [facility] [address] [place] [address]- Allergies, Adverse Reactions, Alerts Substance Reaction Severity Status Imitrex Active Ultram 1 Active 1bradycardia ' Immunizations Given and Recorded Vaccine Date Status Refusal Reason SARS-CoV-2 mRNA (yzbbxtu-byal-isjry) vax 09/03/21 Recorded SARS-CoV-2 (COVID-19) mRNA BNT-162b2 [...] 0 Refills, Maintenance, 09/18/22 11:27:00 EDT, Tablet, [facility] #[id number], Partial fill upon patient... Start Date: 09/18/22 [...] 09/05/22 9:28:00 EDT, Route to Pharmacy Electronically, [facility] #[id number], Partial fill upon patient request if the [...] capsule, 0 Refills, Maintenance, 09/13/22 17:08:00 EDT, [facility] #[id number], 155, cm, 09/05/22 9:14:00 EDT, Height, 108, [...] tablet, 0 Refills, Maintenance, 07/31/22 11:28:00 EDT, [facility] #[id number], 90, 1 tablet By Mouth Daily, 153, cm, 06/26/22 8:40:00 EDT, Height Start Date: 07/31/22 Status: Ordered levothyroxine 0.1 mg oral tablet 1 tablet, By Mouth, Daily, # 90 tablet, 1 Refills, Maintenance, 09/18/22 8:58:00 EDT, [facility] #[id number], 155, cm, 09/05/22 9:14:00 EDT, Height, 108, kg, 08/30/22 19:57:00 EDT, Dry Weight Start Date: 09/18/22 Status: Ordered lidocaine 5% topical ointment 2 TO 3 GRAMS, Topically, 3 times a day, PRN NEEDED FOR MODERATE PAIN, PT REQUESTING NON SCENTED OINTMENT, # 50 Gm, 0 Refills, Maintenance, 04/23/22 10:43:00 EST, [facility] #[id number], 20, PT REQUESTING NON SCENTED OINMENT, 2 TO 3 GRAMS Topic... Start Date: 04/23/22 Status: Ordered lisinopril 20 mg oral tablet 1, tablet, By Mouth, Daily, # 90 tablet, Refills 2, Tot. Refills 2, Maintenance, 08/23/22 9:46:00 EDT, Route to Pharmacy Electronically, [facility] #[id number], 153, cm, 08/14/22 9:13:00 EDT, Height Start Date: 08/23/22 Status: Ordered naltrexone 50 mg oral tablet 1 tablet = 50 mg, By Mouth, Daily, # 90 tablet, 0 Refills, Maintenance, 09/18/22 11:29:00 EDT, [facility] #[id number], 155, cm, 09/05/22 9:14:00 EDT, Height, 108, kg, 08/30/22 19:57:00 EDT, Dry Weight Start Date: 09/18/22 Status: Ordered omeprazole 40 mg oral enteric coated capsule 1 capsule, By Mouth, Daily, # 90 capsule, 0 Refills, Maintenance, 08/23/22 9:31:00 EDT, [facility] #[id number], 153, cm, 08/14/22 9:13:00 EDT, Height Start [...] Team Personnel Name: Latisha Boyce NP Position: [facility] Associate Professional Member Role: PCP Address: Address: [address] [place] [address]- Care Team Related Persons Name: TOY SANTOYO Name: CY LING Address: home [address] [place] [address] Name: MARGI WAYNE Address: home [address] [place] [address] Name: TASNEEM ALANIS Address: home [address] [place] [address]
--- OUTSIDE RECORDS SUMMARY | 2024-01-09 15:47 | XMS_ITS | Continuity of Care Document ---
Author Organization [facility] Adult Address [address] [place] [address]- Care Team Providers Care Certified Veterinary Technician Name Role Phone Latisah Boyce NP Primary Care Physician Encounter [facility] Date(s): 03/12/23 - 04/11/23 [facility] [address] [place] [address]- Allergies, Adverse Reactions, Alerts Substance Reaction Severity Status Imitrex Active Ultram 1 Active 1bradycardia ' Immunizations Given and Recorded Vaccine Date Status Refusal Reason [id number] 12y+ bivalent booster vax 01/04/22 Recorded SARS-CoV-2 mRNA (nzkywwz-gxbl-hvwjw) vax 09/03/21 Recorded SARS-CoV-2 (COVID-19) mRNA BNT-162b2 [...] 1 Refills, Maintenance, 01/15/23 13:34:00 EST, Tablet, [facility] #[id number], Partial fill upon patient... Start Date: 01/15/23 [...] 1 kit, 5 Refills, Maintenance, 11/11/22 15:52:00EDT, [facility] #[id number], Partial fill upon patient request if the [...] 03/12/23 11:01:00 EST, Route to Pharmacy Electronically, [facility] #[id number], Partial fill upon patient request if the [...] capsule, 0 Refills, Maintenance, 09/13/22 17:08:00 EDT, [facility] #[id number], 155, cm, 09/05/22 9:14:00 EDT, Height, 108, [...] tablet, 1 Refills, Maintenance, 01/28/23 9:27:00 EST, [facility] #[id number], 90, 1 tablet By Mouth Daily, 155, cm, 11/06/22 9:35:00 EDT, Height, 108, kg, 08/30/22 19:57:00 EDT, Dry Weight Start Date: 01/28/23 Status: Ordered levothyroxine 0.1 mg oral tablet 1 tablet, By Mouth, Daily, # 90 tablet, 1 Refills, Maintenance, 03/21/23 7:16:00 EST, [facility] #[id number], 155, cm, 11/06/22 9:35:00 EDT, Height, 108, kg, 08/30/22 19:57:00 EDT, Dry Weight Start Date: 03/21/23 Status: Ordered lidocaine 5% topical ointment 2 TO 3 GRAMS, Topically, 3 times a day, PRN NEEDED FOR MODERATE PAIN, PT REQUESTING NON SCENTED OINTMENT, # 50 Gm, 0 Refills, Maintenance, 10/09/22 12:18:00 EDT, [facility] #[id number], 20, PT REQUESTING NON SCENTED OINMENT, 2 TO 3 GRAMS Topic... Start Date: 10/09/22 Status: Ordered lisinopril 20 mg oral tablet 1, tablet, By Mouth, Daily at bedtime, # 90 tablet, Refills 0, Tot. Refills 0, Maintenance, 03/05/23 11:25:00 EST, Route to Pharmacy Electronically, [facility] #[id number], 155, cm, 11/06/22 9:35:00 EDT, Height, 108, kg, 08/30/22 19:57:00 EDT, . Start Date: 03/05/23 Status: Ordered naltrexone 50 mg oral tablet 1 tablet, By Mouth, Daily, # 30 tablet, 0 Refills, Maintenance, 03/24/23 13:23:00 EST, [facility] #[id number], 155, cm, 11/06/22 9:35:00 EDT, Height, 108, kg, 08/30/22 19:57:00 EDT, Dry Weight Start Date: 03/24/23 Status: Ordered omeprazole 40 mg oral enteric coated capsule 1 capsule, By Mouth, Daily, # 90 capsule, 1 Refills, Maintenance, 11/12/22 14:21:00 EDT, [facility] #[id number], 155, cm, 11/06/22 9:35:00 EDT, Height, 108, [...] Personnel Name: Latisha Boyce NP Position: [facility]O Associate Professional Member Role: PCP Address: Address: [address] [place], [place] [id number]- [place] Care Team Related Persons Name: TOY SANTOYO Name: CY LING Address: home [address] [place] [address] Name: MARGI WAYNE Address: home [address] [place] [address] Name: TASNEEM ALANIS Address: home [address] [place] [address]
--- OUTSIDE RECORDS SUMMARY | 2024-01-09 15:47 | XMS_ITS | Continuity of Care Document ---
Author Organization [facility] Address [address] [place] [address]- Care Team Providers Care Digital Production Manager Name Role Phone Latisha Boyce NP Primary Care Physician Encounter [facility] [place] Date(s): 03/11/22 - 04/10/22 [facility] [address] [place] [address]- Allergies, Adverse Reactions, Alerts Substance Reaction Severity Status Imitrex Active Ultram 1 Active 1bradycardia ' Immunizations Given and Recorded Vaccine Date Status Refusal Reason SARS-CoV-2 mRNA (atiucgi-elqm-hxmhb) vax 09/03/21 Recorded SARS-CoV-2 (COVID-19) mRNA BNT-162b2 [...] 0 Refills, Maintenance, 03/18/22 10:48:00 EST, Tablet, [facility] #[id number], Partial fill upon patient... Start Date: 03/18/22 [...] 11/26/18 17:02:00 EDT, Route to Pharmacy Electronically, [id number], [facility] #[id number] Start Date: 11/26/18 Status: Ordered Aquaphor Healing topical ointment See Instructions, Apply to wound BID, # 30 mL, 0 Refills, Maintenance, 10/11/20 16:23:00 EDT, [facility] #[id number], Partial fill upon patient request if the prescription is for a schedule II opioid drug., Apply to wound BID, 153, cm, 10/11/20 1... Start Date: 10/11/20 Status: Ordered ARIPiprazole 2 mg oral tablet 2 mg, 1, tablet, By Mouth, Daily, # 30 tablet, Refills 1, Tot. Refills 1, Maintenance, 03/30/19 9:56:00 EST, Route to Pharmacy Electronically, [facility] #[id number], 156, cm, 01/12/19 11:15:00 EST, Height, 103.1, kg, 01/17/18 9:53:00 EST, Dry We... Start Date: 03/30/19 Stop Date: 06/28/19 Status: Ordered gabapentin 100 mg oral capsule 1, capsule, By Mouth, 3 times a day, # 84 capsule, Refills 0, Maintenance, 03/07/22 12:37:00 EST, Route to Pharmacy Electronically, [facility] #[id number], 153, cm, 02/14/22 8:17:00 EST, Height Start Date: 03/07/22 Status: Ordered gabapentin 100 mg oral capsule See Instructions, TAKE 1 CAPSULE BY MOUTH THREE TIMES DAILY, # 84 capsule, Refills 0, Maintenance, 03/09/22 8:29:00 EST, Instructions Replace Required Details, Route to Pharmacy Electronically, [facility] #[id number], 153, cm, 02/14/22 8:17:00 ES... Start Date: 03/09/22 Status: Ordered hydrochlorothiazide-lisinopril 12.5 mg-20 mg oral tablet 1 tablet, By Mouth, Daily, # 90 tablet, 0 Refills, Maintenance, 01/23/22 14:25:00 EST, [facility] #[id number], 90, TAKE 1 TABLET BY MOUTH DAILY, 153, cm, 12/12/21 8:30:00 EDT, Height Start Date: 01/23/22 Status: Ordered levothyroxine 0.1 mg oral tablet 1 tablet = 100 mcg, By Mouth, Daily, # 90 tablet, 1 Refills, Maintenance, 12/17/21 10:02:00 EDT, Tablet, [facility] #[id number], Partial fill upon patient request, 153, cm, 12/12/21 8:30:00 EDT,Height Start Date: 12/17/21 Stop Date: 06/15/22 Status: Ordered lidocaine 5% topical ointment 2 TO 3 GRAMS, Topically, 3 times a day, PRN NEEDED FOR MODERATE PAIN, # 50 Gm, 0 Refills, Maintenance, 11/19/21 7:35:00 EDT, [facility] #[id number], 20, APPLY 2 TO 3 GRAMS TOPICALLY THREE TIMES DAILY NEEDED FOR MODERATE PAIN, 153, cm, 16... Start Date: 11/19/21 Status: Ordered lisinopril 20 mg oral tablet 1, tablet, By Mouth, Daily, # 90 tablet, Refills 2, Maintenance, 02/14/22 12:16:00 EST, Route to Pharmacy Electronically, [facility] #[id number], 153, cm, 02/14/22 8:17:00 EST, Height Start Date: 02/14/22 Status: Ordered naltrexone 50 mg oral tablet 0.5 tablet, By Mouth, Daily, # 45 tablet, 4 Refills, [facility] #[id number], 153, cm, 12/26/2112:09:00 EST, Height, 107, kg, 08/06/19 16:24:00 EDT, Dry Weight Start Date: 01/19/21 Status: Ordered omeprazole 40 mg oral enteric coated capsule 1 capsule, By Mouth, Daily, # 90 capsule, 0 Refills, Maintenance, 03/08/22 17:03:00 EST, [facility] #[id number], 153, cm, 02/14/22 8:17:00 EST, Height Start [...] Associate Professional Member Role: PCP Address: Address: [address] [place] [address]- Care Team Related Persons Name: CY LING Address: home [address] [place] [address] Name: MARGI WAYNE Address: home [address] [place] [address] Name: TASNEEM ALANIS Address: [address] [place] [address]
--- OUTSIDE RECORDS SUMMARY | 2024-01-09 15:47 | XMS_ITS | Continuity of Care Document ---
Author Organization [facility] Adult Address [address] [place] [address]- Care Team Providers Care Exceptional Children Teacher Assistant Name Role Phone Latisha Boyce NP Primary Care Physician [phone] Encounter [facility] Date(s): 06/23/20 - 07/23/20 [facility] Adult [address] [place] [address]- Attending Physician: Willis Motta Admitting Physician: AdmtrWillis [...] 11/26/18 17:02:00 EDT, Route to Pharmacy Electronically, [id number], [facility] #[id number] Start Date: 11/26/18 Status: Ordered ARIPiprazole 2 mg oral tablet 2 mg, 1, tablet, By Mouth, Daily, # 30 tablet, Refills 1, Tot. Refills 1, Maintenance, 03/30/19 9:56:00 EST, Route to Pharmacy Electronically, [facility] #[id number], 156, cm, 01/12/19 11:15:00 EST, Height, 103.1, kg, 01/17/18 9:53:00 EST, Dry We... Start Date: 03/30/19 Stop Date: 06/28/19 Status: Ordered levothyroxine 0.1 mg oral tablet 1 tablet = 100 mcg, By Mouth, Daily, # 90 tablet, 2 Refills, Maintenance, 03/14/20 8:40:00 EST, Tablet, [facility] #[id number], Partial fill upon patient request, 153, cm, 01/05/20 15:53:00 EST,Height, 107, kg, 08/06/19 16:24:00 EDT, Dry Weight Start Date: 03/14/20 Stop Date: 12/09/20 Status: Ordered lidocaine 5% topical ointment See Instructions, PRN Pain , Moderate, 2 to 3 g Topically 3 times a day, # 50 Gm, 1 Refills, Acute 05/29/21 15:30:00 EDT, 05/29/20 15:30:00 EDT, Ointment, [facility] #[id number], 2 to 3 g Topically 3 times a day,PRN:Pain , Moderate, 153, cm, 03/0... Start Date: 05/29/20 Stop Date: 05/29/21 Status: Ordered naltrexone 50 mg oral tablet See Instructions, 0.5 tabs daily, # 45 tablet, 0 Refills, Maintenance, 07/18/20 8:26:00 EDT, [facility] #[id number], Partial fill upon patient request if the prescription is for a schedule II opioid drug., 153, cm, 06/23/20 8:44:00 EDT, Height, 1... Start Date: 07/18/20 Status: Ordered omeprazole 40 mg oral enteric coated capsule 1 capsule, By Mouth, Daily, # 30 capsule, 2 Refills, Maintenance, 05/31/20 14:28:00 EDT, [facility] #[id number], 153, cm, 05/31/20 12:53:00 EDT, Height, 107, kg, 06/19/20 16:24:00 EDT, Dry Weight Start Date: 05/31/20 [...]
--- OUTSIDE RECORDS SUMMARY | 2024-01-09 15:48 | XMS_ITS | Continuity of Care Document ---
Author Organization [facility] Adult Address [address] [place] [address]- Care Team Providers Care Offshore Wind Operations Manager Name Role Phone Latisha Boyce NP Primary Care Physician [place] [facility] [place]): 09/05/22 - 10/05/22 [facility] [address] [place] [address]- Attending Physician: Willis Motta Admitting Physician: Admtr, ArDella Referring Physician: Admtr, Ar8 Allergies, Adverse Reactions, Alerts Substance Reaction Severity Status Imitrex Active Ultram 1 Active 1bradycardia ' Immunizations Given and Recorded Vaccine Date Status Refusal Reason SARS-CoV-2 mRNA (sfsgpdy-lmud-ayjkz) vax 09/03/21 Recorded SARS-CoV-2 (COVID-19) mRNA BNT-162b2 [...] 0 Refills, Maintenance, 09/18/22 11:27:00 EDT, Tablet, [facility] #[id number], Partial fill upon patient... Start Date: 09/18/22 [...] 09/05/22 9:28:00 EDT, Route to Pharmacy Electronically, [facility] #[id number], Partial fill upon patient request if the [...] capsule, 0 Refills, Maintenance, 09/13/22 17:08:00 EDT, [facility] #[id number], 155, cm, 09/05/22 9:14:00 EDT, Height, 108, [...] tablet, 0 Refills, Maintenance, 07/31/22 11:28:00 EDT, [facility] #[id number], 90, 1 tablet By Mouth Daily, 153, cm, 06/26/22 8:40:00 EDT, Height Start Date: 07/31/22 Status: Ordered levothyroxine 0.1 mg oral tablet 1 tablet, By Mouth, Daily, # 90 tablet, 1 Refills, Maintenance, 09/18/22 8:58:00 EDT, [facility] #[id number], 155, cm, 09/05/22 9:14:00 EDT, Height, 108, kg, 08/30/22 19:57:00 EDT, Dry Weight Start Date: 09/18/22 Status: Ordered lidocaine 5% topical ointment 2 TO 3 GRAMS, Topically, 3 times a day, PRN NEEDED FOR MODERATE PAIN, PT REQUESTING NON SCENTED OINTMENT, # 50 Gm, 0 Refills, Maintenance, 04/23/22 10:43:00 EST, [facility] #[id number], 20, PT REQUESTING NON SCENTED OINMENT, 2 TO 3 GRAMS Topic... Start Date: 04/23/22 Status: Ordered lisinopril 20 mg oral tablet 1, tablet, By Mouth, Daily, # 90 tablet, Refills 2, Tot. Refills 2, Maintenance, 08/23/22 9:46:00 EDT, Route to Pharmacy Electronically, [facility] #[id number], 153, cm, 08/14/22 9:13:00 EDT, Height Start Date: 08/23/22 Status: Ordered naltrexone 50 mg oral tablet 1 tablet = 50 mg, By Mouth, Daily, # 90 tablet, 0 Refills, Maintenance, 09/18/22 11:29:00 EDT, [facility] #[id number], 155, cm, 09/05/22 9:14:00 EDT, Height, 108, kg, 08/30/22 19:57:00 EDT, Dry Weight Start Date: 09/18/22 Status: Ordered omeprazole 40 mg oral enteric coated capsule 1 capsule, By Mouth, Daily, # 90 capsule, 0 Refills, Maintenance, 08/23/22 9:31:00 EDT, [facility] #[id number], 153, cm, 08/14/22 9:13:00 EDT, Height Start [...] Professional Member Role: PCP Address: Address: [address] [place] [id number]- Care Team Related Persons Name: TOY SANTOYO Name: CY LING Address: home [address] [place] [address] Name: MARGI WAYNE Address: home [address] [place] [address] Name: TASNEEM ALANIS Address: home [address] [place] [address]
--- OUTSIDE RECORDS SUMMARY | 2024-01-09 15:48 | XMS_ITS | Continuity of Care Document ---
Author Organization [facility] Adult Address [address] [place] [address]- Care Team Providers Care Cage Fighter Name Role Phone Latisha Boyce NP Primary Care Physician Encounter [facility] [place] Date(s): 08/13/23 - 09/12/23 [facility] [address] [place] [id number]- Allergies, Adverse Reactions, Alerts Substance Reaction Severity Status Imitrex Active Ultram 1 Active 1bradycardia ' Immunizations Given and Recorded Vaccine Date Status Refusal Reason [id number] 12y+ bivalent booster vax 01/04/22 Recorded SARS-CoV-2 mRNA (sxedfme-lkup-arlqg) vax 09/03/21 Recorded SARS-CoV-2 (COVID-19) mRNA BNT-162b2 [...] Refills, Maintenance, 08/13/23 12:28:00 EDT, Tablet, [id number], Partial fill upon patient request... Start Date: [...] 1 kit, 5 Refills, Maintenance, 05/21/23 12:30:00EDT, [facility]/pharmacy #[id number], Partial fill upon patient [...] Refills, Maintenance, 09/09/23 13:03:00 EDT, [id number], 155, cm, 08/12/23 7:32:00 EDT, Height, 108, [...] tablet, 0 Refills, Maintenance, 08/06/23 10:06:00 EDT, [facility]/pharmacy#[id number], 1 tablet By Mouth Daily,x90 days, 155, cm, 07/16/23 9:38:00 EDT, Height, 108, kg, 08/30/22 19:57:00 EDT, Dry Weight Start Date: 08/06/23 Stop Date: 11/04/23 Status: Ordered levothyroxine 0.1 mg oral tablet 1 tablet, By Mouth, Daily, # 90 tablet, 1 Refills, Maintenance, 03/21/23 7:16:00 [facility], [facility] #[id number], 155, cm, 11/06/22 9:35:00 EDT, Height, 108, kg, 08/30/22 19:57:00 EDT, Dry Weight Start Date: 03/21/23 Status: Ordered lidocaine 5% topical ointment 2 TO 3 GRAMS, Topically, 3 times a day, PRN NEEDED FOR MODERATE PAIN, PT REQUESTING NON SCENTED OINTMENT, # 50 Gm, 0 Refills, Maintenance, 04/23/23 12:23:00 [facility] #[id number], 20, PT REQUESTING NON SCENTED OINMENT, 2 TO 3 GRAMS Topic... Start Date: 04/23/23 Status: Ordered lisinopril 20 mg oral tablet 1, tablet, By Mouth, Daily at bedtime, # 90 tablet, Refills 0, Tot. Refills 0, Maintenance, 09/02/23 10:06:00 EDT, Route to Pharmacy Electronically, [facility]/pharmacy #[id number], 155, cm, 08/12/23 7:32:00 EDT,Height, 108, kg, 08/30/22 19:57:00 EDT, Dry Weight Start Date: 09/02/23 Status: Ordered naltrexone 50 mg oral tablet 1 tablet, By Mouth, Daily, # 90 tablet, 1 Refills, Maintenance, 05/21/23 12:30:00 EDT, [facility]/pharmacy#[id number], 155, cm, 11/06/22 9:35:00 EDT, Height, 108, kg, 08/30/22 19:57:00 EDT, Dry Weight Start Date: 05/21/23 Stop Date: 11/17/23 Status: Ordered omeprazole 40 mg oral enteric coated capsule 1 capsule, By Mouth, Daily, # 90 capsule, 0 Refills, Maintenance, 08/01/23 8:06:00 EDT, [facility]/pharmacy #[id number], 155, cm, 07/16/23 9:38:00 [...] Professional Member Role: PCP Address: Address: [address] [place] [id number]- Care Team Related Persons Name: TOY SANTOYO Name: CY LING Address: home [address] [place] [address] Name: MARGI WAYNE Address: home [address] [place] [address] Name: TASNEEM ALANIS Address: home [address] [place] [address]
--- OUTSIDE RECORDS SUMMARY | 2024-01-09 15:48 | XMS_ITS | Continuity of Care Document ---
Author Organization [facility] Adult Address [address] [place] [address]- Care Team Providers Care Telegraph Editor Name Role Phone Leilani Mcmahon NP Primary Care Physician [place] [facility] [place] [facility] [place]19[place] - 03/29/19 [facility] [address] [place] [address]- [facility] Attending Physician: Willis Motta Admitting Physician: AdmtrWillis Referring Physician: AdmtrWillis Allergies, Adverse Reactions, Alerts [...] 11/26/18 17:02:00 EDT, Route to Pharmacy Electronically, [id number], [facility] #[id number] Start Date: 11/26/18 Status: Ordered ARIPiprazole 2 mg oral tablet 2 mg, 1, tablet, By Mouth, Daily, # 90 tablet, Refills 0, Tot. Refills 0, Maintenance, 01/18/19 17:09:16 EST, Route to Pharmacy Electronically, [id number], [facility] #[id number] Start Date: 01/18/19 Stop Date: 04/18/19 Status: Ordered levothyroxine 0.1 mg oral tablet 1 tablet = 100 mcg, By Mouth, Daily, # 30 tablet, 5 Refills, Maintenance, 01/11/19 9:52:01 EST, Tablet Start Date: 01/11/19 Status: Ordered naltrexone 50 mg oral tablet 0.5 tablet = 25 mg, By Mouth, Daily, # 15 tablet, 2 Refills, Maintenance, 01/21/19 11:44:25 EST, Tablet, 156, cm, 01/12/19 11:15:14 EST, Height, 103.1, kg, 01/17/18 9:53:48 EST, Dry Weight Start Date: 01/21/19 Status: Ordered omeprazole 40 mg oral enteric coated capsule 1 capsule = 40 mg, By Mouth, Daily, New script, # 30 capsule, 2 Refills, Maintenance, 03/28/19 5:28:00 EST, EC Capsule, [facility] #[id number], 156, cm, 01/12/19 11:15:00 EST, Height, 103.1, kg,01/17/18 9:53:00 EST, Dry Weight Start Date: 03/28/19 Status: Ordered traZODone 150 mg oral tablet 1 tablet = 150 mg, By Mouth, Daily at bedtime, Dose increase, # 30 tablet, 2 Refills, Maintenance, 09/28/18 10:56:57 EDT, Tablet Start Date: 09/28/18 Status: Ordered Zofran 8 mg oral tablet 1 tablet = 8 mg, By Mouth, 3 times a day, # 15 tablet, 0 Refills, Maintenance, 03/19/19 10:05:00 EST, Tablet, [facility] #[id number], 156, cm, 01/12/19 11:15:00 EST, Height, 103.1, kg, 01/17/18 9:53:00 EST, Dry Weight Start Date: 03/19/19 Stop Date: 03/24/19 Status: Ordered Problem List Condition Effective Dates Status Health Status Inform ant Depression(Confirmed) Active Fibromyalgia(Confirmed) Active Glaucoma(Confirmed) Active Hypothyroidism(Confirmed) Active Migraine(Confirmed) Active Social History Social History Type Response Smoking Status Never smoker; Tobacc o user in household: No; Type: Cigarettes entered on: 09/04/17 Sex
--- OUTSIDE RECORDS SUMMARY | 2024-01-09 15:48 | XMS_ITS | Continuity of Care Document ---
Author Organization [facility] Adult Address [address] [place] [address]- Care Team Providers Care Bin Worker Name Role Phone Latisha Boyce NP Primary Care Physician Encounter [facility] [place] Date(s): 04/19/20 - 04/26/20 [facility] Adult [address] [place] [address]- Encounter Diagnosis Educated about COVID-19 virus infection(Discharge Diagnosis) - 04/19/20 Attending Physician: Tiff Osborne MD Referring Physician: Latisha Boyce NP Allergies, Adverse Reactions, [...] 11/26/18 17:02:00 EDT, Route to Pharmacy Electronically, [id number], [facility] #[id number] Start Date: 11/26/18 Status: Ordered ARIPiprazole 2 mg oral tablet 2 mg, 1, tablet, By Mouth, Daily, # 30 tablet, Refills 1, Tot. Refills 1, Maintenance, 03/30/19 9:56:00 EST, Route to Pharmacy Electronically, [facility] #[id number], 156, cm, 01/12/19 11:15:00 EST, Height, 103.1, kg, 01/17/18 9:53:00 EST, Dry We... Start Date: 03/30/19 Stop Date: 06/28/19 Status: Ordered levothyroxine 0.088 mg oral tablet 1 tablet = 88 mcg, By Mouth, Daily, Repeat TSH in 6 weeks Dose decrease, # 30 tablet, 5 Refills, Maintenance, 09/30/19 15:30:00 EDT, Tablet, [facility] #[id number], 153, cm, 08/06/19 16:24:00 EDT, Height, 107, kg, 08/06/19 16:24:00 EDT, Dry Weight Start Date: 09/30/19 Status: Ordered levothyroxine 0.1 mg oral tablet 1 tablet = 100 mcg, By Mouth, Daily, # 90 tablet, 2 Refills, Maintenance, 03/14/20 8:40:00 EST, Tablet, [facility] #[id number], Partial fill upon patient request, 153, cm, 01/05/20 15:53:00 EST,Height, 107, kg, 08/06/19 16:24:00 EDT, Dry Weight Start Date: 03/14/20 Stop Date: 12/09/20 Status: Ordered lidocaine 5% topical ointment See Instructions, PRN Pain , Moderate, 2 to 3 g Topically 3 times a day, # 50 Gm, 1 Refills, Acute 11/01/20 13:10:00 EDT, 11/02/19 13:10:00 EDT, Ointment, [facility] #[id number], 2 to 3 g Topically 3 times a day,PRN:Pain , Moderate, 153, cm, 07/18... Start Date: 11/02/19 Stop Date: 11/01/20 Status: Ordered naltrexone 50 mg oral tablet 0.5 tablet, By Mouth, Daily, for 30 days, # 15 tablet, 2 Refills, Acute 06/05/20 9:11:00 EDT, 03/07/20 9:11:00 EST, [facility] #[id number], 153, cm, 01/05/20 15:53:00 EST, Height, 107, kg, 08/06/19 16:24:00 EDT, Dry Weight Start Date: 03/07/20 Stop Date: 06/05/20 Status: Ordered omeprazole 40 mg oral enteric coated capsule 1 capsule = 40 mg, By Mouth, Daily, New script, # 30 capsule, 2 Refills, Maintenance, 03/06/20 13:47:00 EST, EC Capsule, [facility][id number], 153, cm, 01/05/20 15:53:00 EST, Height, 107, [...] Dates Health Status Cl inical Service Informant Educated about COVID-19 virus infection Discharge Diagnosis 04/19/20 Vital Signs Most recent to oldest [Reference Range]: 1 Height 153 cm (04/19/20 2:45 PM) Weight 110.4 kg (04/19/20 2:45 PM) Body Mass Index [18.5-24.99] 47.16 *>HHI* (04/19/20 2:45 PM) Weight Obtained Via Patient/family state d (04/19/20 2:45 PM) Social History Social History Type Response Smoking Status Never smoker; Tobacc o user in household: No; Type: Cigarettes entered on: 09/04/17 Sex
--- OUTSIDE RECORDS SUMMARY | 2024-01-09 15:48 | XMS_ITS | Continuity of Care Document ---
Author Organization [facility] Address [address] [place] [address]- Care Team Providers Care Incident Response Manager Name Role Phone Latisha Boyce NP Primary Care Physician Encounter [facility] [place] Date(s): 09/18/22 - 10/18/22 [facility] [address] [place] [address]- Allergies, Adverse Reactions, Alerts Substance Reaction Severity Status Imitrex Active Ultram 1 Active 1bradycardia ' Immunizations Given and Recorded Vaccine Date Status Refusal Reason SARS-CoV-2 mRNA (kqtgqeo-weaw-iszjv) vax 09/03/21 Recorded SARS-CoV-2 (COVID-19) mRNA BNT-162b2 [...] 1 Refills, Maintenance, 10/11/22 12:22:00 EDT, Tablet, [facility] #[id number], Partial fill upon patient... Start Date: 10/11/22 [...] 09/05/22 9:28:00 EDT, Route to Pharmacy Electronically, [facility] #[id number], Partial fill upon patient request if the [...] capsule, 0 Refills, Maintenance, 09/13/22 17:08:00 EDT, [facility] #[id number], 155, cm, 09/05/22 9:14:00 EDT, Height, 108, [...] tablet, 0 Refills, Maintenance, 07/31/22 11:28:00 EDT, [facility] #[id number], 90, 1 tablet By Mouth Daily, 153, cm, 06/26/22 8:40:00 EDT, Height Start Date: 07/31/22 Status: Ordered levothyroxine 0.1 mg oral tablet 1 tablet, By Mouth, Daily, # 90 tablet, 1 Refills, Maintenance, 09/18/22 8:58:00 EDT, [facility] #[id number], 155, cm, 09/05/22 9:14:00 EDT, Height, 108, kg, 08/30/22 19:57:00 EDT, Dry Weight Start Date: 09/18/22 Status: Ordered lidocaine 5% topical ointment 2 TO 3 GRAMS, Topically, 3 times a day, PRN NEEDED FOR MODERATE PAIN, PT REQUESTING NON SCENTED OINTMENT, # 50 Gm, 0 Refills, Maintenance, 10/09/22 12:18:00 EDT, [facility] #[id number], 20, PT REQUESTING NON SCENTED OINMENT, 2 TO 3 GRAMS Topic... Start Date: 10/09/22 Status: Ordered lisinopril 20 mg oral tablet 1, tablet, By Mouth, Daily, # 90 tablet, Refills 2, Tot. Refills 2, Maintenance, 08/23/22 9:46:00 EDT, Route to Pharmacy Electronically, [facility] #[id number], 153, cm, 08/14/22 9:13:00 EDT, Height Start Date: 08/23/22 Status: Ordered naltrexone 50 mg oral tablet 1 tablet = 50 mg, By Mouth, Daily, # 90 tablet, 0 Refills, Maintenance, 09/18/22 11:29:00 EDT, [facility] #[id number], 155, cm, 09/05/22 9:14:00 EDT, Height, 108, kg, 08/30/22 19:57:00 EDT, Dry Weight Start Date: 09/18/22 Status: Ordered omeprazole 40 mg oral enteric coated capsule 1 capsule, By Mouth, Daily, # 90 capsule, 0 Refills, Maintenance, 08/23/22 9:31:00 EDT, [facility] #[id number], 153, cm, 08/14/22 9:13:00 EDT, Height Start [...] Professional Member Role: PCP Address: Address: [address] [place] [address]- Care Team Related Persons Name: TOY SANTOYO Name: CY LING Address: home [address] [place] [address] Name: MARGI WAYNE Address: home [address] [place] [address] Name: TASNEEM ALANIS Address: home [address] [place] [address]
--- OUTSIDE RECORDS SUMMARY | 2024-01-09 15:48 | XMS_ITS | Continuity of Care Document ---
Author Organization [facility] Adult Address [address] [place] [address]- Care Team Providers Care Intermodal Owner Operator Truck Driver Name Role Phone Latisha Boyce NP Primary Care Physician [phone] Encounter [facility] [place] Date(s): 02/14/23 - 03/16/23 [facility] Adult [address] [place] [address]- Allergies, Adverse Reactions, Alerts Substance Reaction Severity Status Imitrex Active Ultram 1 Active 1bradycardia ' Immunizations Given and Recorded Vaccine Date Status Refusal Reason [id number] 12y+ bivalent booster vax 01/04/22 Recorded SARS-CoV-2 mRNA (dxyezue-gsom-xutzd) vax 09/03/21 Recorded SARS-CoV-2 (COVID-19) mRNA BNT-162b2 [...] 1 Refills, Maintenance, 01/15/23 13:34:00 EST, Tablet, [facility] #[id number], Partial fill upon patient... Start Date: 01/15/23 [...] 1 kit, 5 Refills, Maintenance, 11/11/22 15:52:00EDT, [facility] #[id number], Partial fill upon patient request if the [...] 03/12/23 11:01:00 EST, Route to Pharmacy Electronically, [facility] #[id number], Partial fill upon patient request if the [...] capsule, 0 Refills, Maintenance, 09/13/22 17:08:00 EDT, [facility] #[id number], 155, cm, 09/05/22 9:14:00 EDT, Height, 108, [...] tablet, 1 Refills, Maintenance, 01/28/23 9:27:00 EST, [facility] #[id number], 90, 1 tablet By Mouth Daily, 155, cm, 11/06/22 9:35:00 EDT, Height, 108, kg, 08/30/22 19:57:00 EDT, Dry Weight Start Date: 01/28/23 Status: Ordered levothyroxine 0.1 mg oral tablet 1 tablet, By Mouth, Daily, # 90 tablet, 1 Refills, Maintenance, 09/18/22 8:58:00 EDT, [facility] #[id number], 155, cm, 09/05/22 9:14:00 EDT, Height, 108, kg, 08/30/22 19:57:00 EDT, Dry Weight Start Date: 09/18/22 Status: Ordered lidocaine 5% topical ointment 2 TO 3 GRAMS, Topically, 3 times a day, PRN NEEDED FOR MODERATE PAIN, PT REQUESTING NON SCENTED OINTMENT, # 50 Gm, 0 Refills, Maintenance, 10/09/22 12:18:00 EDT, [facility] #[id number], 20, PT REQUESTING NON SCENTED OINMENT, 2 TO 3 GRAMS Topic... Start Date: 10/09/22 Status: Ordered lisinopril 20 mg oral tablet 1, tablet, By Mouth, Daily at bedtime, # 90 tablet, Refills 0, Tot. Refills 0, Maintenance, 03/05/23 11:25:00 EST, Route to Pharmacy Electronically, [facility] #[id number], 155, cm, 11/06/22 9:35:00 EDT, Height, 108, kg, 08/30/22 19:57:00 EDT, . Start Date: 03/05/23 Status: Ordered naltrexone 50 mg oral tablet 1 tablet = 50 mg, By Mouth, Daily, # 30 tablet, 0 Refills, Maintenance, 02/18/23 15:51:00 EST, [facility] #[id number], 155, cm, 11/06/22 9:35:00 EDT, Height, 108, kg, 08/30/22 19:57:00 EDT, Dry Weight Start Date: 02/18/23 Status: Ordered omeprazole 40 mg oral enteric coated capsule 1 capsule, By Mouth, Daily, # 90 capsule, 1 Refills, Maintenance, 11/12/22 14:21:00 EDT, [facility] #[id number], 155, cm, 11/06/22 9:35:00 EDT, Height, 108, [...] Professional Member Role: PCP Address: Address: [address] [place] [address]- [place] Care Team Related Persons Name: TOY SANTOYO Name: CY LING Address: home [address] [place] [address] Name: MARGI WAYNE Address: home [address] [place] [address] Name: TASNEEM ALANIS Address: home [address] [place] [address]
--- OUTSIDE RECORDS SUMMARY | 2024-01-09 15:48 | XMS_ITS | Continuity of Care Document ---
Author Organization [facility] Adult Address [address] [place] [address]- Care Team Providers Care Space Officer Name Role Phone Latisha Boyce NP Primary Care Physician Encounter [facility] Date(s): 04/23/22 - 05/23/22 [facility] Adult [address] [place] [address]- Allergies, Adverse Reactions, Alerts Substance Reaction Severity Status Imitrex Active Ultram 1 Active 1bradycardia ' Immunizations Given and Recorded Vaccine Date Status Refusal Reason SARS-CoV-2 mRNA (ctgaook-knxw-yusxi) vax 09/03/21 Recorded SARS-CoV-2 (COVID-19) mRNA BNT-162b2 [...] 0 Refills, Maintenance, 03/18/22 10:48:00 EST, Tablet, [facility] #[id number], Partial fill upon patient... Start Date: 03/18/22 [...] 11/26/18 17:02:00 EDT, Route to Pharmacy Electronically, [id number], [facility] #[id number] Start Date: 11/26/18 Status: Ordered Aquaphor Healing topical ointment See Instructions, Apply to wound BID, # 30 mL, 0 Refills, Maintenance, 10/11/20 16:23:00 EDT, [facility] #[id number], Partial fill upon patient request if the prescription is for a schedule II opioid drug., Apply to wound BID, 153, cm, 10/11/20 1... Start Date: 10/11/20 Status: Ordered ARIPiprazole 2 mg oral tablet 2 mg, 1, tablet, By Mouth, Daily, # 30 tablet, Refills 1, Tot. Refills 1, Maintenance, 03/30/19 9:56:00 EST, Route to Pharmacy Electronically, [facility] #[id number], 156, cm, 01/12/19 11:15:00 EST, Height, 103.1, kg, 01/17/18 9:53:00 EST, Dry We... Start Date: 03/30/19 Stop Date: 06/28/19 Status: Ordered gabapentin 100 mg oral capsule 1, capsule, By Mouth, 3 times a day, # 84 capsule, Refills 0, Maintenance, 03/07/22 12:37:00 EST, Route to Pharmacy Electronically, [facility] #[id number], 153, cm, 02/14/22 8:17:00 EST, Height Start Date: 03/07/22 Status: Ordered gabapentin 100 mg oral capsule See Instructions, TAKE 1 CAPSULE BY MOUTH THREE TIMES DAILY, # 84 capsule, Refills 0, Maintenance, 03/09/22 8:29:00 EST, Instructions Replace Required Details, Route to Pharmacy Electronically, [facility] #[id number], 153, cm, 02/14/22 8:17:00 ES... Start Date: 03/09/22 Status: Ordered hydrochlorothiazide-lisinopril 12.5 mg-20 mg oral tablet 1 tablet, By Mouth, Daily, # 90 tablet, 0 Refills, Maintenance, 04/23/22 18:02:00 EST, [facility] #[id number], 90, TAKE 1 TABLET BY MOUTH DAILY, 153, cm, 02/14/22 8:17:00 EST, Height Start Date: 04/23/22 Status: Ordered levothyroxine 0.1 mg oral tablet 1 tablet = 100 mcg, By Mouth, Daily, # 90 tablet, 1 Refills, Maintenance, 12/17/21 10:02:00 EDT, Tablet, [facility] #[id number], Partial fill upon patient request, 153, cm, 12/12/21 8:30:00 EDT,Height Start Date: 12/17/21 Stop Date: 06/15/22 Status: Ordered lidocaine 5% topical ointment 2 TO 3 GRAMS, Topically, 3 times a day, PRN NEEDED FOR MODERATE PAIN, PT REQUESTING NON SCENTED OINTMENT, # 50 Gm, 0 Refills, Maintenance, 04/23/22 10:43:00 EST, [facility] #[id number], 20, PT REQUESTING NON SCENTED OINMENT, 2 TO 3 GRAMS Topic... Start Date: 04/23/22 Status: Ordered lisinopril 20 mg oral tablet 1, tablet, By Mouth, Daily, # 90 tablet, Refills 2, Maintenance, 02/14/22 12:16:00 EST, Route to Pharmacy Electronically, [facility] #[id number], 153, cm, 02/14/22 8:17:00 EST, Height Start Date: 02/14/22 Status: Ordered naltrexone 50 mg oral tablet 0.5 tablet, By Mouth, Daily, # 45 tablet, 4 Refills, [facility] #[id number], 153, cm, 12/26/2112:09:00 EST, Height, 107, kg, 08/06/19 16:24:00 EDT, Dry Weight Start Date: 01/19/21 Status: Ordered omeprazole 40 mg oral enteric coated capsule 1 capsule, By Mouth, Daily, # 90 capsule, 0 Refills, Maintenance, 03/08/22 17:03:00 EST, [facility] #[id number], 153, cm, 02/14/22 8:17:00 EST, Height Start [...] Team Personnel Name: Latisha Boyce NP Position: [facility] Associate Professional Member Role: PCP Address: Address: [address] [place] [address]- Care Team Related Persons Name: TOY SANTOYO Name: CY LING Address: home [address] [place] [address] Name: MARGI WAYNE Address: home [address] [place] [address] Name: TASNEEM ALANIS Address: home [address] [place] [address]
--- OUTSIDE RECORDS SUMMARY | 2024-01-09 15:48 | XMS_ITS | Continuity of Care Document ---
Author Organization [facility] Adult Address [address] [place] [address]- Care Team Providers Care Court Clerk Name Role Phone Latisha Boyce NP Primary Care Physician [phone] Encounter [facility] Date(s): 04/19/20 - 05/19/20 [facility] [address] [place] [address]- Attending Physician: Willis Motta Admitting Physician: AdmWillis [...] 11/26/18 17:02:00 EDT, Route to Pharmacy Electronically, [id number], [facility] #[id number] Start Date: 11/26/18 Status: Ordered ARIPiprazole 2 mg oral tablet 2 mg, 1, tablet, By Mouth, Daily, # 30 tablet, Refills 1, Tot. Refills 1, Maintenance, 03/30/19 9:56:00 EST, Route to Pharmacy Electronically, [facility] #[id number], 156, cm, 01/12/19 11:15:00 EST, Height, 103.1, kg, 01/17/18 9:53:00 EST, Dry We... Start Date: 03/30/19 Stop Date: 06/28/19 Status: Ordered levothyroxine 0.088 mg oral tablet 1 tablet = 88 mcg, By Mouth, Daily, Repeat TSH in 6 weeks Dose decrease, # 30 tablet, 5 Refills, Maintenance, 09/30/19 15:30:00 EDT, Tablet, [facility] #[id number], 153, cm, 08/06/19 16:24:00 EDT, Height, 107, kg, 08/06/19 16:24:00 EDT, Dry Weight Start Date: 09/30/19 Status: Ordered levothyroxine 0.1 mg oral tablet 1 tablet = 100 mcg, By Mouth, Daily, # 90 tablet, 2 Refills, Maintenance, 03/14/20 8:40:00 EST, Tablet, [facility] #[id number], Partial fill upon patient request, 153, cm, 01/05/20 15:53:00 EST,Height, 107, kg, 08/06/19 16:24:00 EDT, Dry Weight Start Date: 03/14/20 Stop Date: 12/09/20 Status: Ordered lidocaine 5% topical ointment See Instructions, PRN Pain , Moderate, 2 to 3 g Topically 3 times a day, # 50 Gm, 1 Refills, Acute 11/01/20 13:10:00 EDT, 11/02/19 13:10:00 EDT, Ointment, [facility] #[id number], 2 to 3 g Topically 3 times a day,PRN:Pain , Moderate, 153, cm, 07/18... Start Date: 11/02/19 Stop Date: 11/01/20 Status: Ordered naltrexone 50 mg oral tablet 0.5 tablet, By Mouth, Daily, for 30 days, # 15 tablet, 2 Refills, Acute 06/05/20 9:11:00 EDT, 03/07/20 9:11:00 EST, [facility] #[id number], 153, cm, 01/05/20 15:53:00 EST, Height, 107, kg, 08/06/19 16:24:00 EDT, Dry Weight Start Date: 03/07/20 Stop Date: 06/05/20 Status: Ordered omeprazole 40 mg oral enteric coated capsule 1 capsule = 40 mg, By Mouth, Daily, New script, # 30 capsule, 2 Refills, Maintenance, 03/06/20 13:47:00 EST, EC Capsule, [facility] #[id number], 153, cm, 01/05/20 15:53:00 EST, Height, 107, [...]
--- OUTSIDE RECORDS SUMMARY | 2024-01-09 15:48 | XMS_ITS | Continuity of Care Document ---
Author Organization [facility] Address [address] [place] [address]- Care Team Providers Care Accounts Clerk Name Role Phone Latisha Peacock NP Primary Care Physician Encounter [facility] [place] Date(s): 08/31/19 - 09/30/19 [facility] [address] [place] [address] [facility] Allergies, Adverse Reactions, Alerts Substance Reaction Severity [...] 11/26/18 17:02:00 EDT, Route to Pharmacy Electronically, [id number], [facility] #[id number] Start Date: 11/26/18 Status: Ordered ARIPiprazole 2 mg oral tablet 2 mg, 1, tablet, By Mouth, Daily, # 30 tablet, Refills 1, Tot. Refills 1, Maintenance, 03/30/19 9:56:00 EST, Route to Pharmacy Electronically, [facility] #[id number], 156, cm, 01/12/19 11:15:00 EST, Height, 103.1, kg, 01/17/18 9:53:00 EST, Dry We... Start Date: 03/30/19 Stop Date: 06/28/19 Status: Ordered levothyroxine 0.088 mg oral tablet 1 tablet = 88 mcg, By Mouth, Daily, Repeat TSH in 6 weeks Dose decrease, # 30 tablet, 5 Refills, Maintenance, 09/30/19 15:30:00 EDT, Tablet, [facility] #[id number], 153, cm, 08/06/19 16:24:00 EDT, Height, 107, kg, 08/06/19 16:24:00 EDT, Dry Weight Start Date: 09/30/19 Status: Ordered naltrexone 50 mg oral tablet 0.5 tablet, By Mouth, Daily, # 15 tablet, 5 Refills, Acute 09/21/20 12:21:00 EDT, 09/22/19 12:21:00EDT, [facility] #[id number], 153, cm, 08/06/19 16:24:00 EDT, Height, 107, kg, 08/06/19 16:24:00 EDT, Dry Weight Start Date: 09/22/19 Stop Date: 09/21/20 Status: Ordered omeprazole 40 mg oral enteric coated capsule 1 capsule = 40 mg, By Mouth, Daily, New script, # 30 capsule, 2 Refills, Maintenance, 08/31/19 13:25:00 EDT, EC Capsule, [facility] #[id number], 153, cm, 08/06/19 16:24:00 EDT, Height, 107, [...]
--- OUTSIDE RECORDS SUMMARY | 2024-01-09 15:48 | XMS_ITS | Continuity of Care Document ---
Author Organization [facility] Adult Address [address] [place] [address]- Care Team Providers Care As400 Operator Name Role Phone Latisha Boyce NP Primary Care Physician [phone] Encounter [facility] [place] Date(s): 02/14/21 - 03/16/21 [facility] [address] [place] [address]- Allergies, Adverse Reactions, Alerts Substance Reaction Severity [...] 11/26/18 17:02:00 EDT, Route to Pharmacy Electronically, [id number], [facility] #[id number] Start Date: 11/26/18 Status: Ordered Aquaphor Healing topical ointment See Instructions, Apply to wound BID, # 30 mL, 0 Refills, Maintenance, 10/11/20 16:23:00 EDT, [facility] #[id number], Partial fill upon patient request if the prescription is for a schedule II opioid drug., Apply to wound BID, 153, cm, 10/11/20 1... Start Date: 10/11/20 Status: Ordered ARIPiprazole 2 mg oral tablet 2 mg, 1, tablet, By Mouth, Daily, # 30 tablet, Refills 1, Tot. Refills 1, Maintenance, 03/30/19 9:56:00 EST, Route to Pharmacy Electronically, [facility] #[id number], 156, cm, 01/12/19 11:15:00 EST, Height, 103.1, kg, 01/17/18 9:53:00 EST, Dry We... Start Date: 03/30/19 Stop Date: 06/28/19 Status: Ordered gabapentin 100 mg oral capsule 100 mg, 1, capsule, By Mouth, 3 times a day, # 90 capsule, Refills 5, Tot. Refills 5, Maintenance, 12/26/20 13:54:00 EST, Route to Pharmacy Electronically, [facility] #[id number], Partial fill upon patient request if the prescription is for a sebastian... Start Date: 12/26/20 Stop Date: 06/24/21 Status: Ordered levothyroxine 0.1 mg oral tablet 1 tablet = 100 mcg, By Mouth, Daily, # 90 tablet, 1 Refills, Maintenance, 12/14/20 12:57:00 EDT, Tablet, [facility] #[id number], Partial fill upon patient request, 153, cm, 10/11/20 15:18:00 EDT, Height, 107, kg, 08/06/19 16:24:00 EDT, Dry Weight Start Date: 12/14/20 Stop Date: 06/12/21 Status: Ordered naltrexone 50 mg oral tablet 0.5 tablet, By Mouth, Daily, # 45 tablet, 4 Refills, [facility] #[id number], 153, cm, 12/26/2112:09:00 EST, Height, 107, kg, 08/06/19 16:24:00 EDT, Dry Weight Start Date: 01/19/21 Status: Ordered omeprazole 40 mg oral enteric coated capsule 1 capsule, By Mouth, Daily, # 90 capsule, 2 Refills, Maintenance, 08/22/20 14:40:00 EDT, [facility] #[id number], 153, cm, 06/23/20 8:44:00 EDT, Height, 107, [...]
--- OUTSIDE RECORDS SUMMARY | 2024-01-09 15:48 | XMS_ITS | Continuity of Care Document ---
Author Organization [facility] Adult Address [address] [place] [address]- Care Team Providers Care Loan Underwriter Name Role Phone Latisha Boyce NP Primary Care Physician [place] [facility] [place]23 [place] 10/03/23 [facility] [address] [place] [address]- Allergies, Adverse Reactions, Alerts Substance Reaction Severity Status Imitrex Active Ultram 1 Active 1bradycardia ' Immunizations Given and Recorded Vaccine Date Status Refusal Reason [id number] 12y+ bivalent booster vax 01/04/22 Recorded SARS-CoV-2 mRNA (pkrbkop-mgkh-baqlv) vax 09/03/21 Recorded SARS-CoV-2 (COVID-19) mRNA BNT-162b2 [...] Refills, Maintenance, 09/25/23 12:47:00 EDT, Tablet, [id number], Partial fill upon patient request... Start Date: [...] 1 kit, 5 Refills, Maintenance, 05/21/23 12:30:00EDT, [facility] #[id number], Partial fill upon patient [...] Refills, Maintenance, 09/09/23 13:03:00 EDT, [id number], 155, cm, 08/12/23 7:32:00 EDT, Height, 108, [...] 09/02/23 10:06:00 EDT, Route to Pharmacy Electronically, [facility] #[id number], 155, cm, 08/12/23 7:32:00 EDT,Height, 108, kg, 08/30/22 19:57:00 EDT, Dry Weight Start Date: 09/02/23 Status: Ordered naltrexone 50 mg oral tablet 1 tablet, By Mouth, Daily, # 90 tablet, 1 Refills, Maintenance, 05/21/23 12:30:00 EDT, [facility]/pharmacy#[id number], 155, cm, 11/06/22 9:35:00 EDT, Height, 108, kg, 08/30/22 19:57:00 EDT, Dry Weight Start Date: 05/21/23 Stop Date: 11/17/23 Status: Ordered omeprazole 40 mg oral enteric coated capsule 1 capsule, By Mouth, Daily, # 90 capsule, 0 Refills, Maintenance, 08/01/23 8:06:00 EDT, [facility]/pharmacy #[id number], 155, cm, 07/16/23 9:38:00 [...] Team Personnel Name: Latisha Boyce NP Position: [facility] Associate Professional Member Role: PCP Address: Address: [address] [place] [address]- Care Team Related Persons Name: TOY SANTOYO Name: CY LING Address: home [address] [place] [address] Name: MARGI WAYNE Address: home [address] [place] [address] Name: TASNEEM ALANIS Address: home [address] [place] [address]
--- OUTSIDE RECORDS SUMMARY | 2024-01-09 15:48 | XMS_ITS | Continuity of Care Document ---
Author Organization [facility] Adult Address [address] [place] [address]- Care Team Providers Care Retirement Specialist Name Role Phone Latisha Boyce NP Primary Care Physician [phone] [place] [facility] [place] - 07/26/[address] [facility] [address] [place] [address]- Attending Physician: Willis Motta Admitting Physician: Admtr, Willis Referring Physician: Admtr, Ar8 Allergies, Adverse Reactions, Alerts Substance Reaction Severity Status Imitrex Active Ultram 1 Active 1bradycardia ' Immunizations Given and Recorded Vaccine Date Status Refusal Reason SARS-CoV-2 mRNA (kfhoetm-dknk-jmvqu) vax 09/03/21 Recorded SARS-CoV-2 (COVID-19) mRNA BNT-162b2 [...] 0 Refills, Maintenance, 07/22/22 13:16:00 EDT, Tablet, [facility] #[id number], Partial fill upon patient... Start Date: 07/22/22 [...] 11/26/18 17:02:00 EDT, Route to Pharmacy Electronically, [id number], [facility] #[id number] Start Date: 11/26/18 Status: Ordered Aquaphor Healing topical ointment See Instructions, Apply to wound BID, # 30 mL, 0 Refills, Maintenance, 10/11/20 16:23:00 EDT, [facility] #[id number], Partial fill upon patient request if the prescription is for a schedule II opioid drug., Apply to wound BID, 153, cm, 10/11/20 1... Start Date: 10/11/20 Status: Ordered ARIPiprazole 2 mg oral tablet 2 mg, 1, tablet, By Mouth, Daily, # 30 tablet, Refills 1, Tot. Refills 1, Maintenance, 03/30/19 9:56:00 EST, Route to Pharmacy Electronically, [facility] #[id number], 156, cm, 01/12/19 11:15:00 EST, Height, 103.1, kg, 01/17/18 9:53:00 EST, Dry We... Start Date: 03/30/19 Stop Date: 06/28/19 Status: Ordered Cymbalta 20 mg oral enteric coated capsule 1 capsule = 20 mg, By Mouth, 2 times a day, can start with once a day and change to BID after 3 days, # 60 capsule, 1 Refills, Maintenance, 06/26/22 9:15:00 EDT, EC Capsule, [facility] #[id number], Partial fill upon patient request if the prescri... Start Date: 06/26/22 Stop Date: 08/25/22 Status: Ordered hydrochlorothiazide-lisinopril 12.5 mg-20 mg oral tablet 1 tablet, By Mouth, Daily, # 90 tablet, 0 Refills, Maintenance, 04/23/22 18:02:00 EST, [facility] #[id number], 90, TAKE 1 TABLET BY MOUTH DAILY, 153, cm, 02/14/22 8:17:00 EST, Height Start Date: 04/23/22 Status: Ordered levothyroxine 0.1 mg oral tablet 1 tablet, By Mouth, Daily, # 90 tablet, 0 Refills, Maintenance, 06/26/22 11:00:00 EDT, [facility] #[id number], 153, cm, 06/26/22 8:40:00 EDT, Height Start Date: 06/26/22 Status: Ordered lidocaine 5% topical ointment 2 TO 3 GRAMS, Topically, 3 times a day, PRN NEEDED FOR MODERATE PAIN, PT REQUESTING NON SCENTED OINTMENT, # 50 Gm, 0 Refills, Maintenance, 04/23/22 10:43:00 EST, [facility] #[id number], 20, PT REQUESTING NON SCENTED OINMENT, 2 TO 3 GRAMS Topic... Start Date: 04/23/22 Status: Ordered lisinopril 20 mg oral tablet 1, tablet, By Mouth, Daily, # 90 tablet, Refills 2, Maintenance, 02/14/22 12:16:00 EST, Route to Pharmacy Electronically, [facility] #[id number], 153, cm, 02/14/22 8:17:00 EST, Height Start Date: 02/14/22 Status: Ordered naltrexone 50 mg oral tablet 1 tablet = 50 mg, By Mouth, Daily, # 90 tablet, 0 Refills, Maintenance, 07/05/22 16:59:00 EDT, [facility] #[id number], 153, cm, 06/26/22 8:40:00 EDT, Height Start Date: 07/05/22 Status: Ordered omeprazole 40 mg oral enteric coated capsule 1 capsule, By Mouth, Daily, # 90 capsule, 0 Refills, Maintenance, 05/30/22 7:10:00 EDT, [facility] #[id number], 153, cm, 04/24/22 13:47:00 EST, Height Start [...] Team Personnel Name: Latisha Boyce NP Position: [facility] PCO Associate Professional Member Role: PCP Address: Address: [address] [place] [address]- Care Team Related Persons Name: TOY SANTOYO Name: CY LING Address: home [address] [place] [address] Name: MARGI WAYNE Address: home [address] [place] [address] Name: TASNEEM ALANIS Address: home [address] [place] [address]
--- OUTSIDE RECORDS SUMMARY | 2024-01-09 15:48 | XMS_ITS | Continuity of Care Document ---
Author Organization [facility] Adult Address [address] [place] [address]- Care Team Providers Care Cosmetics Presser Name Role Phone Latisha Boyce NP Primary Care Physician Encounter [facility] [place] Date(s): 04/16/23 - 05/16/23 [facility] [address] [place] [address]- Allergies, Adverse Reactions, Alerts Substance Reaction Severity Status Imitrex Active Ultram 1 Active 1bradycardia ' Immunizations Given and Recorded Vaccine Date Status Refusal Reason [id number] 12y+ bivalent booster vax 01/04/22 Recorded SARS-CoV-2 mRNA (hzzelwm-acum-huciv) vax 09/03/21 Recorded SARS-CoV-2 (COVID-19) mRNA BNT-162b2 [...] 1 Refills, Maintenance, 04/23/23 12:40:00 EST, Tablet, [facility] #[id number], Partial fill upon patient... Start Date: 04/23/23 [...] 1 kit, 5 Refills, Maintenance, 11/11/22 15:52:00EDT, [facility] #[id number], Partial fill upon patient request if the [...] 03/12/23 11:01:00 EST, Route to Pharmacy Electronically, [facility] #[id number], Partial fill upon patient request if the [...] capsule, 0 Refills, Maintenance, 09/13/22 17:08:00 EDT, [facility] #[id number], 155, cm, 09/05/22 9:14:00 EDT, Height, 108, [...] 90 tablet, 1 Refills, Maintenance, 01/28/23 9:27:00 [facility] #[id number], 90, 1 tablet By Mouth Daily, 155, cm, 11/06/22 9:35:00 EDT, Height, 108, kg, 08/30/22 19:57:00 EDT, Dry Weight Start Date: 01/28/23 Status: Ordered levothyroxine 0.1 mg oral tablet 1 tablet, By Mouth, Daily, # 90 tablet, 1 Refills, Maintenance, 03/21/23 7:16:00 [facility] #[id number], 155, cm, 11/06/22 9:35:00 EDT, Height, 108, kg, 08/30/22 19:57:00 EDT, Dry Weight Start Date: 03/21/23 Status: Ordered lidocaine 5% topical ointment 2 TO 3 GRAMS, Topically, 3 times a day, PRN NEEDED FOR MODERATE PAIN, PT REQUESTING NON SCENTED OINTMENT, # 50 Gm, 0 Refills, Maintenance, 04/23/23 12:23:00 [facility] #[id number], 20, PT REQUESTING NON SCENTED OINMENT, 2 TO 3 GRAMS Topic... Start Date: 04/23/23 Status: Ordered lisinopril 20 mg oral tablet 1, tablet, By Mouth, Daily at bedtime, # 90 tablet, Refills 0, Tot. Refills 0, Maintenance, 05/16/23 13:39:00 EDT, Route to Pharmacy Electronically, [facility] #[id number], 155, cm, 11/06/22 9:35:00 EDT, Height, 108, kg, 08/30/22 19:57:00 EDT, . Start Date: 05/16/23 Status: Ordered naltrexone 50 mg oral tablet 1 tablet, By Mouth, Daily, # 90 tablet, 0 Refills, Maintenance, 04/16/23 13:01:00 EST, [facility] #[id number], 155, cm, 11/06/22 9:35:00 EDT, Height, 108, kg, 08/30/22 19:57:00 EDT, Dry Weight Start Date: 04/16/23 Status: Ordered omeprazole 40 mg oral enteric coated capsule 1 capsule, By Mouth, Daily, # 90 capsule, 1 Refills, Maintenance, 04/29/23 9:27:00 EDT, [facility] #[id number], 155, cm, 11/06/22 9:35:00 EDT, Height, 108, [...] Team Personnel Name: Latisha Boyce NP Position: [facility] PCO Associate Professional Member Role: PCP Address: Address: [address] [place], [place] [id number]- [place] Care Team Related Persons Name: TOY SANTOYO Name: CY LING Address: home [address] [place] [address] Name: MARGI WAYNE Address: home [address] [place] [address] Name: TASNEEM ALANIS Address: home [address] [place] [address]
--- OUTSIDE RECORDS SUMMARY | 2024-01-09 15:48 | XMS_ITS | Continuity of Care Document ---
Author Organization [facility] Adult Address [address] [place] [address]- Care Team Providers Care Marine Firefighter Name Role Phone Latisha Boyce NP Primary Care Physician Encounter [facility] [place] Date(s): 09/02/23 - 10/02/23 [facility] [address] [place] [address]- Allergies, Adverse Reactions, Alerts Substance Reaction Severity Status Imitrex Active Ultram 1 Active 1bradycardia ' Immunizations Given and Recorded Vaccine Date Status Refusal Reason [id number] 12y+ bivalent booster vax 01/04/22 Recorded SARS-CoV-2 mRNA (yclvknb-rora-gnkqk) vax 09/03/21 Recorded SARS-CoV-2 (COVID-19) mRNA BNT-162b2 [...] Refills, Maintenance, 09/25/23 12:47:00 EDT, Tablet, [id number], Partial fill upon patient request... Start Date: [...] 1 kit, 5 Refills, Maintenance, 05/21/23 12:30:00EDT, [facility]/pharmacy #[id number], Partial fill upon patient [...] Refills, Maintenance, 09/09/23 13:03:00 EDT, [id number], 155, cm, 08/12/23 7:32:00 EDT, Height, 108, [...] 09/02/23 10:06:00 EDT, Route to Pharmacy Electronically, [facility]/pharmacy #[id number], 155, cm, 08/12/23 7:32:00 EDT,Height, 108, kg, 08/30/22 19:57:00 EDT, Dry Weight Start Date: 09/02/23 Status: Ordered naltrexone 50 mg oral tablet 1 tablet, By Mouth, Daily, # 90 tablet, 1 Refills, Maintenance, 05/21/23 12:30:00 EDT, [facility]/pharmacy#[id number], 155, cm, 11/06/22 9:35:00 EDT, Height, 108, kg, 08/30/22 19:57:00 EDT, Dry Weight Start Date: 05/21/23 Stop Date: 11/17/23 Status: Ordered omeprazole 40 mg oral enteric coated capsule 1 capsule, By Mouth, Daily, # 90 capsule, 0 Refills, Maintenance, 08/01/23 8:06:00 EDT, [facility]/pharmacy #[id number], 155, cm, 07/16/23 9:38:00 [...] Team Personnel Name: Latisha Boyce NP Position: [facility] PCO Associate Professional Member Role: PCP Address: Address: [address] [place] [id number]- Care Team Related Persons Name: TOY SANTOYO Name: CY LING Address: home [address] [place] [address] Name: MARGI WAYNE Address: [address] [place] [address] Name: TASNEEM ALANIS Address: home [address] [place] [address]
--- OUTSIDE RECORDS SUMMARY | 2024-01-09 15:48 | XMS_ITS | Continuity of Care Document ---
Author Organization [facility] Adult Address [address] [place] [address]- Care Team Providers Care Van Driver Name Role Phone Latisha Boyce NP Primary Care Physician [phone] Encounter [facility] [place] Date(s): 11/08/22 - 12/08/22 [facility] Adult [address] [place] [address]- Allergies, Adverse Reactions, Alerts Substance Reaction Severity Status Imitrex Active Ultram 1 Active 1bradycardia ' Immunizations Given and Recorded Vaccine Date Status Refusal Reason [id number] 12y+ bivalent booster vax 01/04/22 Recorded SARS-CoV-2 mRNA (sqeisth-tkxu-cffar) vax 09/03/21 Recorded SARS-CoV-2 (COVID-19) mRNA BNT-162b2 [...] 1 Refills, Maintenance, 12/06/22 14:33:00 EDT, Tablet, [facility] #[id number], Partial fill upon patient... Start Date: 12/06/22 [...] 1 kit, 5 Refills, Maintenance, 11/11/22 15:52:00EDT, [facility] #[id number], Partial fill upon patient request if the [...] 09/05/22 9:28:00 EDT, Route to Pharmacy Electronically, [facility] #[id number], Partial fill upon patient request if the [...] capsule, 0 Refills, Maintenance, 09/13/22 17:08:00 EDT, [facility] #[id number], 155, cm, 09/05/22 9:14:00 EDT, Height, 108, [...] tablet, 0 Refills, Maintenance, 11/01/22 15:49:00 EDT, [facility] #[id number], 90, 1 tablet By Mouth Daily, 155, cm, 09/05/22 9:14:00 EDT, Height, 108, kg, 08/30/22 19:57:00 EDT, Dry Weight Start Date: 11/01/22 Status: Ordered levothyroxine 0.1 mg oral tablet 1 tablet, By Mouth, Daily, # 90 tablet, 1 Refills, Maintenance, 09/18/22 8:58:00 EDT, [facility] #[id number], 155, cm, 09/05/22 9:14:00 EDT, Height, 108, kg, 08/30/22 19:57:00 EDT, Dry Weight Start Date: 09/18/22 Status: Ordered lidocaine 5% topical ointment 2 TO 3 GRAMS, Topically, 3 times a day, PRN NEEDED FOR MODERATE PAIN, PT REQUESTING NON SCENTED OINTMENT, # 50 Gm, 0 Refills, Maintenance, 10/09/22 12:18:00 EDT, [facility] #[id number], 20, PT REQUESTING NON SCENTED OINMENT, 2 TO 3 GRAMS Topic... Start Date: 10/09/22 Status: Ordered lisinopril 20 mg oral tablet 1, tablet, By Mouth, Daily at bedtime, # 90 tablet, Refills 0, Tot. Refills 0, Maintenance, 11/06/22 10:13:00 EDT, Route to Pharmacy Electronically, [facility] #[id number], 155, cm, 11/06/22 9:35:00 EDT, Height, 108, kg, 08/30/22 19:57:00 EDT, . Start Date: 11/06/22 Stop Date: 02/04/23 Status: Ordered naltrexone 50 mg oral tablet 1 tablet = 50 mg, By Mouth, Daily, # 90 tablet, 0 Refills, Maintenance, 09/18/22 11:29:00 EDT, [facility] #[id number], 155, cm, 09/05/22 9:14:00 EDT, Height, 108, kg, 08/30/22 19:57:00 EDT, Dry Weight Start Date: 09/18/22 Status: Ordered omeprazole 40 mg oral enteric coated capsule 1 capsule, By Mouth, Daily, # 90 capsule, 1 Refills, Maintenance, 11/12/22 14:21:00 EDT, [facility] #[id number], 155, cm, 11/06/22 9:35:00 EDT, Height, 108, [...] Care team information Care Team Personnel Name: Latsiha Boyce NP Position: [facility] PCO Associate Professional Member Role: PCP Address: Address: [address] [place] [id number]- [place] Care Team Related Persons Name: TOY SANTOYO Name: CY LING Address: home [address] [place] [address] Name: MARGI WAYNE Address: home [address] [place] [address] Name: TASNEEM ALANIS Address: home [address] [place] [address]
--- OUTSIDE RECORDS SUMMARY | 2024-01-09 15:48 | XMS_ITS | Continuity of Care Document ---
Author Organization [facility] Adult Address [address] [place] [address]- Care Team Providers Care Locks Tender Name Role Phone Latisha Boyce NP Primary Care Physician [phone] [facility] [place] Date(s): 09/18/22 - 10/18/22 [facility] Adult [address] [place] [address]- Allergies, Adverse Reactions, Alerts Substance Reaction Severity Status Imitrex Active Ultram 1 Active 1bradycardia ' Immunizations Given and Recorded Vaccine Date Status Refusal Reason SARS-CoV-2 mRNA (ducxpll-cciy-ixacm) vax 09/03/21 Recorded SARS-CoV-2 (COVID-19) mRNA BNT-162b2 [...] 1 Refills, Maintenance, 10/11/22 12:22:00 EDT, Tablet, [facility] #[id number], Partial fill upon patient... Start Date: 10/11/22 [...] 09/05/22 9:28:00 EDT, Route to Pharmacy Electronically, [facility] #[id number], Partial fill upon patient request if the [...] capsule, 0 Refills, Maintenance, 09/13/22 17:08:00 EDT, [facility] #[id number], 155, cm, 09/05/22 9:14:00 EDT, Height, 108, [...] tablet, 0 Refills, Maintenance, 07/31/22 11:28:00 EDT, [facility] #45076, 90, 1 tablet By Mouth Daily, 153, cm, 06/26/22 8:40:00 EDT, Height Start Date: 07/31/22 Status: Ordered levothyroxine 0.1 mg oral tablet 1 tablet, By Mouth, Daily, # 90 tablet, 1 Refills, Maintenance, 09/18/22 8:58:00 EDT, [facility] #32653, 155, cm, 09/05/22 9:14:00 EDT, Height, 108, kg, 08/30/22 19:57:00 EDT, Dry Weight Start Date: 09/18/22 Status: Ordered lidocaine 5% topical ointment 2 TO 3 GRAMS, Topically, 3 times a day, PRN NEEDED FOR MODERATE PAIN, PT REQUESTING NON SCENTED OINTMENT, # 50 Gm, 0 Refills, Maintenance, 10/09/22 12:18:00 EDT, [facility] #[id number], 20, PT REQUESTING NON SCENTED OINMENT, 2 TO 3 GRAMS Topic... Start Date: 10/09/22 Status: Ordered lisinopril 20 mg oral tablet 1, tablet, By Mouth, Daily, # 90 tablet, Refills 2, Tot. Refills 2, Maintenance, 08/23/22 9:46:00 EDT, Route to Pharmacy Electronically, [facility] #[id number], 153, cm, 08/14/22 9:13:00 EDT, Height Start Date: 08/23/22 Status: Ordered naltrexone 50 mg oral tablet 1 tablet = 50 mg, By Mouth, Daily, # 90 tablet, 0 Refills, Maintenance, 09/18/22 11:29:00 EDT, [facility] #[id number], 155, cm, 09/05/22 9:14:00 EDT, Height, 108, kg, 08/30/22 19:57:00 EDT, Dry Weight Start Date: 09/18/22 Status: Ordered omeprazole 40 mg oral enteric coated capsule 1 capsule, By Mouth, Daily, # 90 capsule, 0 Refills, Maintenance, 08/23/22 9:31:00 EDT, [facility] #[id number], 153, cm, 08/14/22 9:13:00 EDT, Height Start [...] Associate Professional Member Role: PCP Address: Address: [address] [place] [address]- Care Team Related Persons Name: TOY SANTOYO Name: CY LING Address: home [address] [place] [address] Name: MARGI WAYNE Address: home [address] [place] [address] Name: TASNEEM ALANIS Address: home [address] [place] [address]
--- OUTSIDE RECORDS SUMMARY | 2024-01-09 15:48 | XMS_ITS | Continuity of Care Document ---
Author Organization [facility] Adult Address [address] [place] [address]- Care Team Providers Care Sales Contract Administrator Name Role Phone Latisha Boyce NP Primary Care Physician [place] [facility] [place] [facility] [place]23 [place] 08/10/23 [facility] [address] [place] [address]- Allergies, Adverse Reactions, Alerts Substance Reaction Severity Status Imitrex Active Ultram 1 Active 1bradycardia ' Immunizations Given and Recorded Vaccine Date Status Refusal Reason [id number] 12y+ bivalent booster vax 01/04/22 Recorded SARS-CoV-2 mRNA (ohitelp-hxdw-qbtcc) vax 09/03/21 Recorded SARS-CoV-2 (COVID-19) mRNA BNT-162b2 [...] Refills, Maintenance, 07/11/23 14:52:00 EDT, Tablet, [id number], Partial fill upon patient request... Start Date: [...] 1 kit, 5 Refills, Maintenance, 05/21/23 12:30:00EDT, [facility]/pharmacy #[id number], Partial fill upon patient request [...] 03/12/23 11:01:00 EST, Route to Pharmacy Electronically, [facility] #[id number], Partial fill upon patient request if the [...] capsule, 0 Refills, Maintenance, 09/13/22 17:08:00 EDT, [facility] #89362, 155, cm, 09/05/22 9:14:00 EDT, Height, 108, [...] tablet, 0 Refills, Maintenance, 08/06/23 10:06:00 EDT, [facility]/pharmacy#0488, 1 tablet By Mouth Daily,x90 days, 155, cm, 07/16/23 9:38:00 EDT, Height, 108, kg, 08/30/22 19:57:00 EDT, Dry Weight Start Date: 08/06/23 Stop Date: 11/04/23 Status: Ordered levothyroxine 0.1 mg oral tablet 1 tablet, By Mouth, Daily, # 90 tablet, 1 Refills, Maintenance, 03/21/23 7:16:00 [facility] #[id number], 155, cm, 11/06/22 9:35:00 EDT, Height, 108, kg, 08/30/22 19:57:00 EDT, Dry Weight Start Date: 03/21/23 Status: Ordered lidocaine 5% topical ointment 2 TO 3 GRAMS, Topically, 3 times a day, PRN NEEDED FOR MODERATE PAIN, PT REQUESTING NON SCENTED OINTMENT, # 50 Gm, 0 Refills, Maintenance, 04/23/23 12:23:00 [facility] #[id number], 20, PT REQUESTING NON SCENTED OINMENT, 2 TO 3 GRAMS Topic... Start Date: 04/23/23 Status: Ordered lisinopril 20 mg oral tablet 1, tablet, By Mouth, Daily at bedtime, # 90 tablet, Refills 0, Tot. Refills 0, Maintenance, 05/16/23 13:39:00 EDT, Route to Pharmacy Electronically, [facility] #[id number], 155, cm, 11/06/22 9:35:00 EDT, Height, 108, kg, 08/30/22 19:57:00 EDT, . Start Date: 05/16/23 Status: Ordered naltrexone 50 mg oral tablet 1 tablet, By Mouth, Daily, # 90 tablet, 1 Refills, Maintenance, 05/21/23 12:30:00 EDT, [facility]/pharmacy#0488, 155, cm, 11/06/22 9:35:00 EDT, Height, 108, kg, 08/30/22 19:57:00 EDT, Dry Weight Start Date: 05/21/23 Stop Date: 11/17/23 Status: Ordered omeprazole 40 mg oral enteric coated capsule 1 capsule, By Mouth, Daily, # 90 capsule, 0 Refills, Maintenance, 08/01/23 8:06:00 EDT, [facility]/pharmacy #[id number], 155, cm, 07/16/23 9:38:00 EDT, [...] Team Personnel Name: Latisha Boyce NP Position: [facility] PCO Associate Professional Member Role: PCP Address: Address: [address] [place] [address]- Care Team Related Persons Name: TOY SANTOYO Name: CY LING Address: home [address] [place] [address] Name: MARGI WAYNE Address: home [address] [place] [address] Name: TASNEEM ALANIS Address: home [address] [place] [address]
--- OUTSIDE RECORDS SUMMARY | 2024-01-09 15:48 | XMS_ITS | Continuity of Care Document ---
Author Organization [facility] Address [address] [place] [address]- Care Team Providers Care Director Stars Name Role Phone Austen ALBERT, Latisha Primary Care Physician [phone] [place] [facility] [place]16[place] 06/03/21 [facility] [address] [place], [place] [address] Attending Physician: Latisha Boyce NP Allergies, Adverse [...] 11/26/18 17:02:00 EDT, Route to Pharmacy Electronically, [id number], [facility] #[id number] Start Date: 11/26/18 Status: Ordered Aquaphor Healing topical ointment See Instructions, Apply to wound BID, # 30 mL, 0 Refills, Maintenance, 10/11/20 16:23:00 EDT, [facility] #[id number], Partial fill upon patient request if the prescription is for a schedule II opioid drug., Apply to wound BID, 153, cm, 10/11/20 1... Start Date: 10/11/20 Status: Ordered ARIPiprazole 2 mg oral tablet 2 mg, 1, tablet, By Mouth, Daily, # 30 tablet, Refills 1, Tot. Refills 1, Maintenance, 03/30/19 9:56:00 EST, Route to Pharmacy Electronically, [facility] #[id number], 156, cm, 01/12/19 11:15:00 EST, Height, 103.1, kg, 01/17/18 9:53:00 EST, Dry We... Start Date: 03/30/19 Stop Date: 06/28/19 Status: Ordered gabapentin 300 mg oral capsule See Instructions, TAKE 1 CAPSULE BY MOUTH DAILY AT BEDTIME FOR 14 DAYS TAKE 100 MG AM AND NOON AND 300 MG AT NIGHT, # 14 capsule, Refills 0, Instructions Replace Required Details, Route to Pharmacy Electronically, [facility] #[id number], 153, cm,... Start Date: 05/30/21 Status: Ordered levothyroxine 0.1 mg oral tablet 1 tablet = 100 mcg, By Mouth, Daily, # 90 tablet, 1 Refills, Maintenance, 12/14/20 12:57:00 EDT, Tablet, [facility] #[id number], Partial fill upon patient request, 153, cm, 10/11/20 15:18:00 EDT, Height, 107, kg, 08/06/19 16:24:00 EDT, Dry Weight Start Date: 12/14/20 Stop Date: 06/12/21 Status: Ordered lisinopril 20 mg oral tablet 20 mg, 1, tablet, By Mouth, Daily, # 90 tablet, Refills 2, Tot. Refills 2, Maintenance, 05/02/21 10:25:00 EDT, Route to Pharmacy Electronically, [facility] #[id number], Partial fill upon patientrequest if the prescription is for a schedule II op... Start Date: 05/02/21 Stop Date: 01/27/22 Status: Ordered naltrexone 50 mg oral tablet 0.5 tablet, By Mouth, Daily, # 45 tablet, 4 Refills, [facility] #[id number], 153, cm, 12/26/2112:09:00 EST, Height, 107, kg, 08/06/19 16:24:00 EDT, Dry Weight Start Date: 01/19/21 Status: Ordered omeprazole 40 mg oral enteric coated capsule 1 capsule, By Mouth, Daily, # 90 capsule, 0 Refills, [facility] #[id number], 153, cm, :59:00 EST, Height, 107, kg, [...]
--- OUTSIDE RECORDS SUMMARY | 2024-01-09 15:48 | XMS_ITS | Continuity of Care Document ---
Author Organization [facility] Adult Address [address] [place] [address]- Care Team Providers Care Supply Chain Program Manager Name Role Phone Latisha Boyce NP Primary Care Physician [place] [facility] [place] 11/18/23 - 12/18/23 [facility] Adult [address] [place] [address]- Allergies, Adverse Reactions, Alerts Substance Reaction Severity Status Imitrex Active Ultram 1 Active 1bradycardia ' Immunizations Given and Recorded Vaccine Date Status Refusal Reason [id number] 12y+ bivalent booster vax 01/04/22 Recorded SARS-CoV-2 mRNA (vaflhvj-pnzs-qjhol) vax 09/03/21 Recorded SARS-CoV-2 (COVID-19) mRNA BNT-162b2 [...] Refills, Maintenance, 11/18/23 7:29:00 EDT, Tablet, [id number], Partial fill upon patient request i... Start [...] 1 kit, 5 Refills, Maintenance, 05/21/23 12:30:00EDT, [facility]pharmacy #[id number], Partial fill upon patient request [...] Refills, Maintenance, 09/09/23 13:03:00 EDT, [id number], 155, cm, 08/12/23 7:32:00 EDT, Height, 108, [...] 11/28/23 15:37:00 EDT, Route to Pharmacy Electronically, [facility]/pharm[facility] #[id number], 155, cm, 09/16/23 10:30:00 EDT, Height, 108, kg, 08/30/22 19:57:00 EDT, Dry Weight Start Date: 11/28/23 Status: Ordered naltrexone 50 mg oral tablet 1 tablet, By Mouth, Daily, # 90 tablet, 1 Refills, Maintenance, 05/21/23 12:30:00 EDT, [facility]/pharmacy#[id number], 155, cm, 11/06/22 9:35:00 EDT, Height, 108, kg, 08/30/22 19:57:00 EDT, Dry Weight Start Date: 05/21/23 Stop Date: 11/17/23 Status: Ordered omeprazole 40 mg oral enteric coated capsule 1 capsule, By Mouth, Daily, # 90 capsule, 0 Refills, Maintenance, 08/01/23 8:06:00 EDT, [facility] #[id number], 155, cm, 07/16/23 9:38:00 EDT, [...] Team Personnel Name: Latisha Boyce NP Position: [facility] PCO Associate Professional Member Role: PCP Address: Address: [address] [place] [address]- Care Team Related Persons Name: TOY SANTOYO Name: CY LING Address: home [address] [place] [address] Name: MARGI WAYNE Address: home [address] [place] [address] Name: TASNEEM ALANIS Address: home [address] [place] [address]
--- OUTSIDE RECORDS SUMMARY | 2024-01-09 15:48 | XMS_ITS | Continuity of Care Document ---
Author Organization [facility] Adult Address [address] [place] [address]- Care Team Providers Care Parachute Supervisor Name Role Phone Latisha Boyce NP Primary Care Physician [place] [facility] [place]/20 [facility] Adult [address] [place] [address]- Encounter Diagnosis Fibromyalgia(Discharge Diagnosis) - 06/23/20 Attending Physician: Latisha Boyce NP Allergies, Adverse [...] 11/26/18 17:02:00 EDT, Route to Pharmacy Electronically, [id number], [facility] #[id number] Start Date: 11/26/18 Status: Ordered ARIPiprazole 2 mg oral tablet 2 mg, 1, tablet, By Mouth, Daily, # 30 tablet, Refills 1, Tot. Refills 1, Maintenance, 03/30/19 9:56:00 EST, Route to Pharmacy Electronically, [facility] #[id number], 156, cm, 01/12/19 11:15:00 EST, Height, 103.1, kg, 01/17/18 9:53:00 EST, Dry We... Start Date: 03/30/19 Stop Date: 06/28/19 Status: Ordered levothyroxine 0.1 mg oral tablet 1 tablet = 100 mcg, By Mouth, Daily, # 90 tablet, 2 Refills, Maintenance, 03/14/20 8:40:00 EST, Tablet, [facility] #[id number], Partial fill upon patient request, 153, cm, 01/05/20 15:53:00 EST,Height, 107, kg, 08/06/19 16:24:00 EDT, Dry Weight Start Date: 03/14/20 Stop Date: 12/09/20 Status: Ordered lidocaine 5% topical ointment See Instructions, PRN Pain , Moderate, 2 to 3 g Topically 3 times a day, # 50 Gm, 1 Refills, Acute 05/29/21 15:30:00 EDT, 05/29/20 15:30:00 EDT, Ointment, [facility] #[id number], 2 to 3 g Topically 3 times a day,PRN:Pain , Moderate, 153, cm, 03/0... Start Date: 05/29/20 Stop Date: 05/29/21 Status: Ordered omeprazole 40 mg oral enteric coated capsule 1 capsule, By Mouth, Daily, # 30 capsule, 2 Refills, Maintenance, 05/31/20 14:28:00 EDT, [facility] #[id number], 153, cm, 05/31/20 12:53:00 EDT, Height, 107, [...] Cl inical Service Informant Fibromyalgia Discharge Diagnosis 06/23/20 Vital Signs Most recent to oldest [Reference Range]: 1 Height 153 cm (06/23/20 8:44 AM) Weight 114 kg (06/23/20 8:44 AM) Oxygen Saturation [94-100 %] 98 % (06/23/20 8:44 AM) Pulse Rate [55-90 bpm] 71 bpm (06/23/20 8:44 AM) Body Mass Index [18.5-24.99] 48.7 *>HHI* (06/23/20 8:44 AM) Temperature [96.8-100.4 DegF] 98.2 DegF (06/23/20 8:44 AM) Mode of Delivery (Oxygen) Room air (06/23/20 8:44 AM) Blood pressure sites Arm, left (06/23/20 8:44 AM) Temperature Route Oral (06/23/20 8:44 AM) Weight Obtained Via Standing scale (06/23/20 8:44 AM) Social History Social History Type Response Smoking Status Never smoker; Tobacc o user in household: No; Type: Cigarettes entered on: 09/04/17 Sex
--- OUTSIDE RECORDS SUMMARY | 2024-01-09 15:48 | XMS_ITS | Continuity of Care Document ---
Author Organization [facility] Adult Address [address] [place] [address]- Care Team Providers Care Management Expert Name Role Phone Latisha Boyce NP Primary Care Physician [place] [facility] [place]09/20 [facility] Adult [address] [place] [address]- Allergies, Adverse Reactions, Alerts Substance Reaction Severity [...] 11/26/18 17:02:00 EDT, Route to Pharmacy Electronically, [id number], [facility] #[id number] Start Date: 11/26/18 Status: Ordered ARIPiprazole 2 mg oral tablet 2 mg, 1, tablet, By Mouth, Daily, # 30 tablet, Refills 1, Tot. Refills 1, Maintenance, 03/30/19 9:56:00 EST, Route to Pharmacy Electronically, [facility] #[id number], 156, cm, 01/12/19 11:15:00 EST, Height, 103.1, kg, 01/17/18 9:53:00 EST, Dry We... Start Date: 03/30/19 Stop Date: 06/28/19 Status: Ordered levothyroxine 0.1 mg oral tablet 1 tablet = 100 mcg, By Mouth, Daily, # 90 tablet, 2 Refills, Maintenance, 03/14/20 8:40:00 EST, Tablet, [facility] #[id number], Partial fill upon patient request, 153, cm, 01/05/20 15:53:00 EST,Height, 107, kg, 08/06/19 16:24:00 EDT, Dry Weight Start Date: 03/14/20 Stop Date: 12/09/20 Status: Ordered lidocaine 5% topical ointment See Instructions, PRN Pain , Moderate, 2 to 3 g Topically 3 times a day, # 50 Gm, 1 Refills, Acute 05/29/21 15:30:00 EDT, 05/29/20 15:30:00 EDT, Ointment, [facility] #[id number], 2 to 3 g Topically 3 times a day,PRN:Pain , Moderate, 153, cm, 03/0... Start Date: 05/29/20 Stop Date: 05/29/21 Status: Ordered naltrexone 50 mg oral tablet See Instructions, 0.5 tabs daily, # 45 tablet, 0 Refills, Maintenance, 07/18/20 8:26:00 EDT, [facility] #[id number], Partial fill upon patient request if the prescription is for a schedule II opioid drug., 153, cm, 06/23/20 8:44:00 EDT, Height, 1... Start Date: 07/18/20 Status: Ordered omeprazole 40 mg oral enteric coated capsule 1 capsule, By Mouth, Daily, # 30 capsule, 2 Refills, Maintenance, 05/31/20 14:28:00 EDT, [facility] #66179, 153, cm, 05/31/20 12:53:00 EDT, Height, 107, [...]
--- OUTSIDE RECORDS SUMMARY | 2024-01-09 15:48 | XMS_ITS | Continuity of Care Document ---
Author Organization [facility] Adult Address [address] [place] [address]- Care Team Providers Care Funeral Car Chauffeur Name Role Phone Latisha Boyce NP Primary Care Physician Encounter [facility] [place] Date(s): 08/06/23 - 09/05/23 [facility] Adult [address] [place] [address]- Allergies, Adverse Reactions, Alerts Substance Reaction Severity Status Imitrex Active Ultram 1 Active 1bradycardia ' Immunizations Given and Recorded Vaccine Date Status Refusal Reason [id number] 12y+ bivalent booster vax 01/04/22 Recorded SARS-CoV-2 mRNA (miixjbp-ivbz-sdxaq) vax 09/03/21 Recorded SARS-CoV-2 (COVID-19) mRNA BNT-162b2 [...] Refills, Maintenance, 08/13/23 12:28:00 EDT, Tablet, [id number], Partial fill upon patient request... Start Date: [...] 1 kit, 5 Refills, Maintenance, 05/21/23 12:30:00EDT, [facility]/pharmacy #[id number], Partial fill upon [...] 03/12/23 11:01:00 EST, Route to Pharmacy Electronically, [facility] #[id number], Partial fill upon patient request if the [...] tablet, 0 Refills, Maintenance, 08/06/23 10:06:00 EDT, [facility]/pharmacy#0488, 1 tablet By Mouth Daily,x90 days, 155, cm, 07/16/23 9:38:00 EDT, Height, 108, kg, 08/30/22 19:57:00 EDT, Dry Weight Start Date: 08/06/23 Stop Date: 11/04/23 Status: Ordered levothyroxine 0.1 mg oral tablet 1 tablet, By Mouth, Daily, # 90 tablet, 1 Refills, Maintenance, 03/21/23 7:16:00 [facility] #[id number], 155, cm, 11/06/22 9:35:00 EDT, Height, 108, kg, 08/30/22 19:57:00 EDT, Dry Weight Start Date: 03/21/23 Status: Ordered lidocaine 5% topical ointment 2 TO 3 GRAMS, Topically, 3 times a day, PRN NEEDED FOR MODERATE PAIN, PT REQUESTING NON SCENTED OINTMENT, # 50 Gm, 0 Refills, Maintenance, 04/23/23 12:23:00 [facility] #[id number], 20, PT REQUESTING NON SCENTED OINMENT, 2 TO 3 GRAMS Topic... Start Date: 04/23/23 Status: Ordered lisinopril 20 mg oral tablet 1, tablet, By Mouth, Daily at bedtime, # 90 tablet, Refills 0, Tot. Refills 0, Maintenance, 09/02/23 10:06:00 EDT, Route to Pharmacy Electronically, [facility]/pharmacy #[id number], 155, cm, 08/12/23 7:32:00 EDT,Height, 108, kg, 08/30/22 19:57:00 EDT, Dry Weight Start Date: 09/02/23 Status: Ordered naltrexone 50 mg oral tablet 1 tablet, By Mouth, Daily, # 90 tablet, 1 Refills, Maintenance, 05/21/23 12:30:00 EDT, [facility]/pharmacy#[id number], 155, cm, 11/06/22 9:35:00 EDT, Height, 108, kg, 08/30/22 19:57:00 EDT, Dry Weight Start Date: 05/21/23 Stop Date: 11/17/23 Status: Ordered omeprazole 40 mg oral enteric coated capsule 1 capsule, By Mouth, Daily, # 90 capsule, 0 Refills, Maintenance, 08/01/23 8:06:00 EDT, [facility]/pharmacy #[id number], 155, cm, 07/16/23 [...] Team Personnel Name: Latisha Boyce NP Position: [facility] PCO Associate Professional Member Role: PCP Address: Address: [address] [place] [id number]- Care Team Related Persons Name: TOY SANTOYO Name: CY LING Address: home [address] [place] [address] Name: MARGI WAYNE Address: home [address] [place] [address] Name: TASNEEM ALANIS Address: home [address] [place] [address]
--- OUTSIDE RECORDS SUMMARY | 2024-01-09 15:48 | XMS_ITS | Continuity of Care Document ---
Author Organization [facility] Adult Address [address] [place] [address]- Care Team Providers Care Automatic Washer Mechanic Name Role Phone Latisha Boyce NP Primary Care Physician [phone] [place] [facility] [place] Date(s): 02/14/22 - 03/16/22 [facility] Adult [address] [place] [address]- Attending Physician: Willis Motta Admitting Physician: Admtr, ArDella Referring Physician: Admtr, Ar8 Allergies, Adverse Reactions, Alerts Substance Reaction Severity Status Imitrex Active Ultram 1 Active 1bradycardia ' Immunizations Given and Recorded Vaccine Date Status Refusal Reason SARS-CoV-2 mRNA (dvkxgzr-krsi-utbua) vax 09/03/21 Recorded SARS-CoV-2 (COVID-19) mRNA BNT-162b2 [...] daily., # 30 tablet, 0 Refills, Maintenance, 02/14/22 8:42:00 EST, Tablet, [facility] #[id number], Partial fill upon patient... Start Date: 02/14/22 Status: Ordered Ajovy Autoinjector 225 mg/1.5 mL [...] 11/26/18 17:02:00 EDT, Route to Pharmacy Electronically, [id number], [facility] #[id number] Start Date: 11/26/18 Status: Ordered Aquaphor Healing topical ointment See Instructions, Apply to wound BID, # 30 mL, 0 Refills, Maintenance, 10/11/20 16:23:00 EDT, [facility] #[id number], Partial fill upon patient request if the prescription is for a schedule II opioid drug., Apply to wound BID, 153, cm, 10/11/20 1... Start Date: 10/11/20 Status: Ordered ARIPiprazole 2 mg oral tablet 2 mg, 1, tablet, By Mouth, Daily, # 30 tablet, Refills 1, Tot. Refills 1, Maintenance, 03/30/19 9:56:00 EST, Route to Pharmacy Electronically, [facility] #[id number], 156, cm, 01/12/19 11:15:00 EST, Height, 103.1, kg, 01/17/18 9:53:00 EST, Dry We... Start Date: 03/30/19 Stop Date: 06/28/19 Status: Ordered gabapentin 100 mg oral capsule 1, capsule, By Mouth, 3 times a day, # 84 capsule, Refills 0, Maintenance, 03/07/22 12:37:00 EST, Route to Pharmacy Electronically, [facility] #[id number], 153, cm, 02/14/22 8:17:00 EST, Height Start Date: 03/07/22 Status: Ordered gabapentin 100 mg oral capsule See Instructions, TAKE 1 CAPSULE BY MOUTH THREE TIMES DAILY, # 84 capsule, Refills 0, Maintenance, 03/09/22 8:29:00 EST, Instructions Replace Required Details, Route to Pharmacy Electronically, [facility] #[id number], 153, cm, 02/14/22 8:17:00 ES... Start Date: 03/09/22 Status: Ordered hydrochlorothiazide-lisinopril 12.5 mg-20 mg oral tablet 1 tablet, By Mouth, Daily, # 90 tablet, 0 Refills, Maintenance, 01/23/22 14:25:00 EST, [facility] #[id number], 90, TAKE 1 TABLET BY MOUTH DAILY, 153, cm, 12/12/21 8:30:00 EDT, Height Start Date: 01/23/22 Status: Ordered levothyroxine 0.1 mg oral tablet 1 tablet = 100 mcg, By Mouth, Daily, # 90 tablet, 1 Refills, Maintenance, 12/17/21 10:02:00 EDT, Tablet, [facility] #[id number], Partial fill upon patient request, 153, cm, 12/12/21 8:30:00 EDT,Height Start Date: 12/17/21 Stop Date: 06/15/22 Status: Ordered lidocaine 5% topical ointment 2 TO 3 GRAMS, Topically, 3 times a day, PRN NEEDED FOR MODERATE PAIN, # 50 Gm, 0 Refills, Maintenance, 11/19/21 7:35:00 EDT, [facility] #[id number], 20, APPLY 2 TO 3 GRAMS TOPICALLY THREE TIMES DAILY NEEDED FOR MODERATE PAIN, 153, cm, 11/02... Start Date: 11/19/21 Status: Ordered lisinopril 20 mg oral tablet 1, tablet, By Mouth, Daily, # 90 tablet, Refills 2, Maintenance, 02/14/22 12:16:00 EST, Route to Pharmacy Electronically, [facility] #[id number], 153, cm, 02/14/22 8:17:00 EST, Height Start Date: 02/14/22 Status: Ordered naltrexone 50 mg oral tablet 0.5 tablet, By Mouth, Daily, # 45 tablet, 4 Refills, [facility] #69791, 153, cm, 12/26/2112:09:00 EST, Height, 107, kg, 08/06/19 16:24:00 EDT, Dry Weight Start Date: 01/19/21 Status: Ordered omeprazole 40 mg oral enteric coated capsule 1 capsule, By Mouth, Daily, # 90 capsule, 0 Refills, Maintenance, 03/08/22 17:03:00 EST, [facility] #[id number], 153, cm, 02/14/22 8:17:00 EST, Height Start [...] Associate Professional Member Role: PCP Address: Address: [address] [place] [address]- Care Team Related Persons Name: CY LING Address: home [address] [place] [address] Name: MARGI WAYNE Address: home [address] [place] [address] Name: TASNEEM ALANIS Address: home [address] [place] [address]
--- OUTSIDE RECORDS SUMMARY | 2024-01-09 15:48 | XMS_ITS | Continuity of Care Document ---
Author Organization [facility] Adult Address [address] [place] [address]- Care Team Providers Care Steam Fitter Name Role Phone Latisha Boyce NP Primary Care Physician [phone] [place] [facility] [place](s): 06/23/23 - 07/23/[address] [address]- Allergies, Adverse Reactions, Alerts Substance Reaction Severity Status Imitrex Active Ultram 1 Active 1bradycardia ' Immunizations Given and Recorded Vaccine Date Status Refusal Reason [id number] 12y+ bivalent booster vax 01/04/22 Recorded SARS-CoV-2 mRNA (ayzwjoj-funt-dhkxt) vax 09/03/21 Recorded SARS-CoV-2 (COVID-19) mRNA BNT-162b2 [...] Refills, Maintenance, 07/11/23 14:52:00 EDT, Tablet, [id number], Partial fill upon patient request... Start Date: [...] 1 kit, 5 Refills, Maintenance, 05/21/23 12:30:00EDT, [facility] #[id number], Partial fill upon patient request if [...] 03/12/23 11:01:00 EST, Route to Pharmacy Electronically, [facility] #[id number], Partial fill upon patient request if the [...] capsule, 0 Refills, Maintenance, 09/13/22 17:08:00 EDT, [facility] #[id number], 155, cm, 09/05/22 9:14:00 EDT, Height, 108, [...] 90 tablet, 1 Refills, Maintenance, 01/28/23 9:27:00 [email or web address] #[email or web address], 90, 1 tablet By Mouth Daily, 155, cm, 11/06/22 9:35:00 EDT, Height, 108, kg, 08/30/22 19:57:00 EDT, Dry Weight Start Date: 01/28/23 Status: Ordered levothyroxine 0.1 mg oral tablet 1 tablet, By Mouth, Daily, # 90 tablet, 1 Refills, Maintenance, 03/21/23 7:16:00 [email or web address] #00935, 155, cm, 11/06/22 9:35:00 EDT, Height, 108, kg, 08/30/22 19:57:00 EDT, Dry Weight Start Date: 03/21/23 Status: Ordered lidocaine 5% topical ointment 2 TO 3 GRAMS, Topically, 3 times a day, PRN NEEDED FOR MODERATE PAIN, PT REQUESTING NON SCENTED OINTMENT, # 50 Gm, 0 Refills, Maintenance, 04/23/23 12:23:00 [facility] #17633, 20, PT REQUESTING NON SCENTED OINMENT, 2 TO 3 GRAMS Topic... Start Date: 04/23/23 Status: Ordered lisinopril 20 mg oral tablet 1, tablet, By Mouth, Daily at bedtime, # 90 tablet, Refills 0, Tot. Refills 0, Maintenance, 05/16/23 13:39:00 EDT, Route to Pharmacy Electronically, [facility] #[id number], 155, cm, 11/06/22 9:35:00 EDT, Height, 108, kg, 08/30/22 19:57:00 EDT, . Start Date: 05/16/23 Status: Ordered naltrexone 50 mg oral tablet 1 tablet, By Mouth, Daily, # 90 tablet, 1 Refills, Maintenance, 05/21/23 12:30:00 EDT, [facility]#0488, 155, cm, 11/06/22 9:35:00 EDT, Height, 108, kg, 08/30/22 19:57:00 EDT, Dry Weight Start Date: 05/21/23 Stop Date: 11/17/23 Status: Ordered omeprazole 40 mg oral enteric coated capsule 1 capsule, By Mouth, Daily, # 90 capsule, 1 Refills, Maintenance, 04/29/23 9:27:00 EDT, [facility] #[id number], 155, cm, 11/06/22 9:35:00 EDT, Height, 108, [...] Professional Member Role: PCP Address: Address: [address] [place] [address]- [place] Care Team Related Persons Name: TOY SANTOYO Name: CY LING Address: home [address] [place] [address] Name: MARGI WAYNE Address: home [address] [place] [address] Name: TASNEEM ALANIS Address: home [address] [place] [address]
--- OUTSIDE RECORDS SUMMARY | 2024-01-09 15:48 | XMS_ITS | Continuity of Care Document ---
Author Organization [facility] Adult Address [address] [place] [address]- Care Team Providers Care Lamination Spinner Name Role Phone Latisha Boyce NP Primary Care Physician [place] [facility] [place] Date(s): 01/15/23 - 02/14/23 [facility] Adult [address] [place] [address]- Allergies, Adverse Reactions, Alerts Substance Reaction Severity Status Imitrex Active Ultram 1 Active 1bradycardia ' Immunizations Given and Recorded Vaccine Date Status Refusal Reason [id number] 12y+ bivalent booster vax 01/04/22 Recorded SARS-CoV-2 mRNA (gbpiqwm-zbsj-jabvx) vax 09/03/21 Recorded SARS-CoV-2 (COVID-19) mRNA BNT-162b2 [...] 1 Refills, Maintenance, 01/15/23 13:34:00 EST, Tablet, [email or web address] #[id number], Partial fill upon patient... Start Date: 01/15/23 [...] 1 kit, 5 Refills, Maintenance, 11/11/22 15:52:00EDT, [facility] #[id number], Partial fill upon patient request if the [...] 09/05/22 9:28:00 EDT, Route to Pharmacy Electronically, [facility] #[id number], Partial fill upon patient request if the [...] capsule, 0 Refills, Maintenance, 09/13/22 17:08:00 EDT, [facility] #[id number], 155, cm, 09/05/22 9:14:00 EDT, Height, 108, [...] tablet, 1 Refills, Maintenance, 01/28/23 9:27:00 EST, [facility] #90029, 90, 1 tablet By Mouth Daily, 155, cm, 11/06/22 9:35:00 EDT, Height, 108, kg, 08/30/22 19:57:00 EDT, Dry Weight Start Date: 01/28/23 Status: Ordered levothyroxine 0.1 mg oral tablet 1 tablet, By Mouth, Daily, # 90 tablet, 1 Refills, Maintenance, 09/18/22 8:58:00 EDT, [facility] #25072, 155, cm, 09/05/22 9:14:00 EDT, Height, 108, kg, 08/30/22 19:57:00 EDT, Dry Weight Start Date: 09/18/22 Status: Ordered lidocaine 5% topical ointment 2 TO 3 GRAMS, Topically, 3 times a day, PRN NEEDED FOR MODERATE PAIN, PT REQUESTING NON SCENTED OINTMENT, # 50 Gm, 0 Refills, Maintenance, 10/09/22 12:18:00 EDT, [facility] #84661, 20, PT REQUESTING NON SCENTED OINMENT, 2 TO 3 GRAMS Topic... Start Date: 10/09/22 Status: Ordered lisinopril 20 mg oral tablet 1, tablet, By Mouth, Daily at bedtime, # 90 tablet, Refills 0, Maintenance, 02/14/23 6:30:00 EST, Route to Pharmacy Electronically, [facility] #[id number], 155, cm, 11/06/22 9:35:00 EDT, Height,108, kg, 08/30/22 19:57:00 EDT, Dry Weight Start Date: 02/14/23 Status: Ordered naltrexone 50 mg oral tablet 1 tablet = 50 mg, By Mouth, Daily, # 90 tablet, 0 Refills, Maintenance, 09/18/22 11:29:00 EDT, [facility] #[id number], 155, cm, 09/05/22 9:14:00 EDT, Height, 108, kg, 08/30/22 19:57:00 EDT, Dry Weight Start Date: 09/18/22 Status: Ordered omeprazole 40 mg oral enteric coated capsule 1 capsule, By Mouth, Daily, # 90 capsule, 1 Refills, Maintenance, 11/12/22 14:21:00 EDT, [facility] #14637, 155, cm, 11/06/22 9:35:00 EDT, Height, 108, [...] Professional Member Role: PCP Address: Address: [address] [place] [address]- [place] Care Team Related Persons Name: TOY SANTOYO Name: CY LING Address: home [address] [place] [address] Name: MARGI WAYNE Address: home [address] [place] [address] Name: TASNEEM ALANIS Address: home [address] [place] [address]
--- OUTSIDE RECORDS SUMMARY | 2024-01-09 15:48 | XMS_ITS | Continuity of Care Document ---
Author Organization [facility] Adult Address [address] [place] [address]- Care Team Providers Care Rfid Manager Name Role Phone Leilani Mcmahon NP Primary Care Physician Encounter [facility] [place] Date(s): 03/19/19 - 03/26/19 [facility] Adult [address] [place] [address]- [facility] Attending Physician: Not on Staff, Attending MD [...] 11/26/18 17:02:00 EDT, Route to Pharmacy Electronically, [id number], [facility] #[id number] Start Date: 11/26/18 Status: Ordered ARIPiprazole 2 mg oral tablet 2 mg, 1, tablet, By Mouth, Daily, # 90 tablet, Refills 0, Tot. Refills 0, Maintenance, 01/18/19 17:09:16 EST, Route to Pharmacy Electronically, [id number], [facility] #[id number] Start Date: 01/18/19 Stop Date: 04/18/19 Status: [...] script, # 30 capsule, 2 Refills, Maintenance, 12/25/18 16:22:46 EST, EC Capsule Start Date: 12/25/18 Status: Ordered traZODone 150 mg oral tablet 1 tablet = 150 mg, By Mouth, Daily at bedtime, Dose increase, # 30 tablet, 2 Refills, Maintenance, 09/28/18 10:56:57 EDT, Tablet Start Date: 09/28/18 Status: Ordered Zofran 8 mg oral tablet 1 tablet = 8 mg, By Mouth, 3 times a day, # 15 tablet, 0 Refills, Maintenance, 03/19/19 10:05:00 EST, Tablet, [facility][id number], 156, cm, 01/12/19 11:15:00 EST, Height, 103.1, [...]
--- OUTSIDE RECORDS SUMMARY | 2024-01-09 15:48 | XMS_ITS | Continuity of Care Document ---
Author Organization [facility] ter Address [address] [place] [address]- Care Team Providers Care Regional Project Manager Name Role Phone Salome ALBERT, Leilani Primary Care Physician [place] [facility] [place]/23/19 - 03/23/[address] [address]- [facility] Attending Physician: Saul Cooper MD Allergies, Adverse Reactions, Alerts Substance Reaction [...] 11/26/18 17:02:00 EDT, Route to Pharmacy Electronically, [id number], [facility] #[id number] Start Date: 11/26/18 Status: Ordered ARIPiprazole 2 mg oral tablet 2 mg, 1, tablet, By Mouth, Daily, # 90 tablet, Refills 0, Tot. Refills 0, Maintenance, 01/18/19 17:09:16 EST, Route to Pharmacy Electronically, [id number], [facility] #[id number] Start Date: 01/18/19 Stop Date: 04/18/19 Status: [...] 0 Refills, Maintenance, 03/19/19 10:05:00 EST, Tablet, [facility] #[id number], 156, cm, 01/12/19 11:15:00 EST, Height, 103.1, [...]
--- OUTSIDE RECORDS SUMMARY | 2024-01-09 15:48 | XMS_ITS | Continuity of Care Document ---
Author Organization [facility] Adult Address [address] [place] [address]- Care Team Providers Care Tube Inspector Name Role Phone Latisha Boyce NP Primary Care Physician [phone] Encounter [facility] Date(s): 07/30/21 - 08/29/21 [facility] Adult [address] [place] [address]- Allergies, Adverse Reactions, Alerts Substance Reaction Severity [...] 11/26/18 17:02:00 EDT, Route to Pharmacy Electronically, [id number], [facility] #[id number] Start Date: 11/26/18 Status: Ordered Aquaphor Healing topical ointment See Instructions, Apply to wound BID, # 30 mL, 0 Refills, Maintenance, 10/11/20 16:23:00 EDT, [facility] #[id number], Partial fill upon patient request if the prescription is for a schedule II opioid drug., Apply to wound BID, 153, cm, 10/11/20 1... Start Date: 10/11/20 Status: Ordered ARIPiprazole 2 mg oral tablet 2 mg, 1, tablet, By Mouth, Daily, # 30 tablet, Refills 1, Tot. Refills 1, Maintenance, 03/30/19 9:56:00 EST, Route to Pharmacy Electronically, [facility] #[id number], 156, cm, 01/12/19 11:15:00 EST, Height, 103.1, kg, 01/17/18 9:53:00 EST, Dry We... Start Date: 03/30/19 Stop Date: 06/28/19 Status: Ordered gabapentin 100 mg oral capsule 1, capsule, By Mouth, 3 times a day, # 84 capsule, Refills 0, Tot. Refills 0, Maintenance, 08/15/2213:29:00 EDT, Route to Pharmacy Electronically, [facility] #[id number], 153, cm, 05/02/21 10:07:00 EDT, Height Start Date: 08/15/21 Status: Ordered levothyroxine 0.1 mg oral tablet 1 tablet = 100 mcg, By Mouth, Daily, # 90 tablet, 1 Refills, Maintenance, 06/11/21 21:02:00 EDT, Tablet, [facility] #[id number], Partial fill upon patient request, 153, cm, 05/02/21 10:07:00 EDT, Height, 107, kg, 08/06/19 16:24:00 EDT, Dry Weight Start Date: 06/11/21 Stop Date: 12/08/21 Status: Ordered lisinopril 20 mg oral tablet 20 mg, 1, tablet, By Mouth, Daily, # 90 tablet, Refills 2, Tot. Refills 2, Maintenance, 05/02/21 10:25:00 EDT, Route to Pharmacy Electronically, [facility] #[id number], Partial fill upon patientrequest if the prescription is for a schedule II op... Start Date: 05/02/21 Stop Date: 01/27/22 Status: Ordered naltrexone 50 mg oral tablet 0.5 tablet, By Mouth, Daily, # 45 tablet, 4 Refills, [facility] #[id number], 153, cm, 12/26/2112:09:00 EST, Height, 107, kg, 08/06/19 16:24:00 EDT, Dry Weight Start Date: 01/19/21 Status: Ordered omeprazole 40 mg oral enteric coated capsule 1 capsule, By Mouth, Daily, # 90 capsule, 0 Refills, [facility] #[id number], 153, cm, 05/02/2209:07:00 EDT, Height, 107, kg, 08/06/19 16:24:00 EDT, Dry Weight Start Date: 07/10/21 Status: Ordered Problem List Condition Effective Dates Status Health Status Inform ant Depression(Confirmed) Active Fibromyalgia(Confirmed) Active Glaucoma(Confirmed) Active HTN (hypertension)(Confirmed) Active Hypothyroidism(Confirmed) Active Migraine(Confirmed) Active Severe obesity(Confirmed) Active Social History Social History Type Response Smoking Status Never smoker; Tobacc o user in household: No; Type: Cigarettes entered on: 09/04/17 Sex
--- OUTSIDE RECORDS SUMMARY | 2024-01-09 15:48 | XMS_ITS | Continuity of Care Document ---
Author Organization [facility] Adult Address [address] [place] [address]- Care Team Providers Care Wiring Technician Name Role Phone Latisha Boyce NP Primary Care Physician Encounter [facility] [place] Date(s): 09/25/23 - 10/25/23 [facility] Adult [address] [place] [address]- Allergies, Adverse Reactions, Alerts Substance Reaction Severity Status Imitrex Active Ultram 1 Active 1bradycardia ' Immunizations Given and Recorded Vaccine Date Status Refusal Reason [id number] 12y+ bivalent booster vax 01/04/22 Recorded SARS-CoV-2 mRNA (povoimj-fyka-gfysn) vax 09/03/21 Recorded SARS-CoV-2 (COVID-19) mRNA BNT-162b2 [...] Refills, Maintenance, 09/25/23 12:47:00 EDT, Tablet, [id number], Partial fill upon patient request... Start Date: [...] Refills, Maintenance, 09/09/23 13:03:00 EDT, [id number], 155, cm, 08/12/23 7:32:00 EDT, Height, 108, [...] 09/02/23 10:06:00 EDT, Route to Pharmacy Electronically, [facility] #[id number], 155, cm, 08/12/23 7:32:00 [...] Team Personnel Name: Latisha Boyce NP Position: [facility] Associate Professional Member Role: PCP Address: Address: [address] [place] [address]- Care Team Related Persons Name: TOY SANTOYO Name: CY LING Address: home [address] [place] [address] Name: MARGI WAYNE Address: home [address] [place] [address] Name: TASNEEM ALANIS Address: home [address] [place] [address]
--- OUTSIDE RECORDS SUMMARY | 2024-01-09 15:48 | XMS_ITS | Continuity of Care Document ---
Author Organization [facility] Adult Address [address] [place] [address]- Care Team Providers Care Optical Effects Line Up Person Name Role Phone Latisha Boyce NP Primary Care Physician Encounter [facility] Date(s): 12/25/20 - 01/24/21 [facility] Adult [address] [place] [address]- Allergies, Adverse Reactions, Alerts Substance Reaction Severity [...] 11/26/18 17:02:00 EDT, Route to Pharmacy Electronically, [id number], [facility] #[id number] Start Date: 11/26/18 Status: Ordered Aquaphor Healing topical ointment See Instructions, Apply to wound BID, # 30 mL, 0 Refills, Maintenance, 10/11/20 16:23:00 EDT, [facility] #[id number], Partial fill upon patient request if the prescription is for a schedule II opioid drug., Apply to wound BID, 153, cm, 10/11/20 1... Start Date: 10/11/20 Status: Ordered ARIPiprazole 2 mg oral tablet 2 mg, 1, tablet, By Mouth, Daily, # 30 tablet, Refills 1, Tot. Refills 1, Maintenance, 03/30/19 9:56:00 EST, Route to Pharmacy Electronically, [facility] #[id number], 156, cm, 01/12/19 11:15:00 EST, Height, 103.1, kg, 01/17/18 9:53:00 EST, Dry We... Start Date: 03/30/19 Stop Date: 06/28/19 Status: Ordered gabapentin 100 mg oral capsule 100 mg, 1, capsule, By Mouth, 3 times a day, # 90 capsule, Refills 5, Tot. Refills 5, Maintenance, 12/26/20 13:54:00 EST, Route to Pharmacy Electronically, [facility] #[id number], Partial fill upon patient request if the prescription is for a sebastian... Start Date: 12/26/20 Stop Date: 06/24/21 Status: Ordered levothyroxine 0.1 mg oral tablet 1 tablet = 100 mcg, By Mouth, Daily, # 90 tablet, 1 Refills, Maintenance, 12/14/20 12:57:00 EDT, Tablet, [facility] #[id number], Partial fill upon patient request, 153, cm, 10/11/20 15:18:00 EDT, Height, 107, kg, 08/06/19 16:24:00 EDT, Dry Weight Start Date: 12/14/20 Stop Date: 06/12/21 Status: Ordered lidocaine 5% topical ointment See Instructions, PRN Pain , Moderate, 2 to 3 g Topically 3 times a day SCENT FREE, # 50 Gm, 1 Refills, Acute 12/05/21 12:39:00 EDT, 12/05/20 12:39:00 EDT, Ointment, [facility] #[id number], 2 to3 g Topically 3 times a day; SCENT FREE,PRN:Pain ,... Start Date: 12/05/20 Stop Date: 12/05/21 Status: Ordered naltrexone 50 mg oral tablet 0.5 tablet, By Mouth, Daily, # 45 tablet, 4 Refills, [facility] #[id number], 153, cm, 12/26/2112:09:00 EST, Height, 107, kg, 08/06/19 16:24:00 EDT, Dry Weight Start Date: 01/19/21 Status: Ordered omeprazole 40 mg oral enteric coated capsule 1 capsule, By Mouth, Daily, # 90 capsule, 2 Refills, Maintenance, 08/22/20 14:40:00 EDT, [facility] #[id number], 153, cm, 06/23/20 8:44:00 EDT, Height, 107, [...]
--- OUTSIDE RECORDS SUMMARY | 2024-01-09 15:48 | XMS_ITS | Continuity of Care Document ---
Author Organization [facility] Adult Address [address] [place] [address]- Care Team Providers Care Forest Products Gatherer Name Role Phone Leilani Mcmahon NP Primary Care Physician [place] [facility] [place]15[place]19 - 08/13/19 [facility] Adult [address] [place] [address]- [facility] Attending Physician: Not on Staff, Attending MD [...] 11/26/18 17:02:00 EDT, Route to Pharmacy Electronically, [id number], [facility] #[id number] Start Date: 11/26/18 Status: Ordered ARIPiprazole 2 mg oral tablet 2 mg, 1, tablet, By Mouth, Daily, # 30 tablet, Refills 1, Tot. Refills 1, Maintenance, 03/30/19 9:56:00 EST, Route to Pharmacy Electronically, [facility] #[id number], 156, cm, 01/12/19 11:15:00 EST, Height, 103.1, kg, 01/17/18 9:53:00 EST, Dry We... Start Date: 03/30/19 Stop Date: 06/28/19 Status: Ordered levothyroxine 0.088 mg oral tablet 1 tablet = 88 mcg, By Mouth, Daily, Repeat TSH in 6 weeks Dose decrease, # 30 tablet, 1 Refills, Maintenance, 08/04/19 16:59:00 EDT, Tablet, [facility] #[id number], 156, cm, 07/20/19 14:00:00 EDT, Height, 103.1, kg, 01/17/18 9:53:00 EST, Dry Weight Start Date: 08/04/19 Status: Ordered naltrexone 50 mg oral tablet 0.5 tablet, By Mouth, Daily, # 15 tablet, 1 Refills, Acute, 07/21/19 13:56:00 EDT, [facility] #[id number], 156, cm, 07/20/19 14:00:00 EDT, Height, 103.1, kg, 01/17/18 9:53:00 EST, Dry Weight Start Date: 07/21/19 Status: Ordered omeprazole 40 mg oral enteric coated capsule 1 capsule = 40 mg, By Mouth, Daily, New script, # 30 capsule, 2 Refills, Maintenance, 06/15/19 10:32:00 EDT, EC Capsule, [facility] #[id number], 156, cm, 01/12/19 11:15:00 EST, Height, 103.1, [...]
--- OUTSIDE RECORDS SUMMARY | 2024-01-09 15:48 | XMS_ITS | Continuity of Care Document ---
Author Organization [facility] Adult Address [address] [place] [address]- Care Team Providers Care Pneumatic Press Hand Name Role Phone Latisha Boyce NP Primary Care Physician [phone] Encounter [facility] [place] Date(s): 08/14/22 - 09/13/22 [facility] Adult [address] [place] [address]- Allergies, Adverse Reactions, Alerts Substance Reaction Severity Status Imitrex Active Ultram 1 Active 1bradycardia ' Immunizations Given and Recorded Vaccine Date Status Refusal Reason SARS-CoV-2 mRNA (jykbalu-odgy-airnt) vax 09/03/21 Recorded SARS-CoV-2 (COVID-19) mRNA BNT-162b2 [...] 0 Refills, Maintenance, 08/26/22 12:15:00 EDT, Tablet, [facility] #[id number], Partial fill upon patient... Start Date: 08/26/22 [...] 09/05/22 9:28:00 EDT, Route to Pharmacy Electronically, [facility] #[id number], Partial fill upon patient request if the [...] capsule, 0 Refills, Maintenance, 09/13/22 17:08:00 EDT, [facility] #[id number], 155, cm, 09/05/22 9:14:00 EDT, Height, 108, [...] tablet, 0 Refills, Maintenance, 07/31/22 11:28:00 EDT, [facility] #[id number], 90, 1 tablet By Mouth Daily, 153, cm, 06/26/22 8:40:00 EDT, Height Start Date: 07/31/22 Status: Ordered levothyroxine 0.1 mg oral tablet 1 tablet, By Mouth, Daily, # 90 tablet, 0 Refills, Maintenance, 06/26/22 11:00:00 EDT, [facility] #[id number], 153, cm, 06/26/22 8:40:00 EDT, Height Start Date: 06/26/22 Status: Ordered lidocaine 5% topical ointment 2 TO 3 GRAMS, Topically, 3 times a day, PRN NEEDED FOR MODERATE PAIN, PT REQUESTING NON SCENTED OINTMENT, # 50 Gm, 0 Refills, Maintenance, 04/23/22 10:43:00 EST, [facility] #[id number], 20, PT REQUESTING NON SCENTED OINMENT, 2 TO 3 GRAMS Topic... Start Date: 04/23/22 Status: Ordered lisinopril 20 mg oral tablet 1, tablet, By Mouth, Daily, # 90 tablet, Refills 2, Tot. Refills 2, Maintenance, 08/23/22 9:46:00 EDT, Route to Pharmacy Electronically, [facility] #[id number], 153, cm, 08/14/22 9:13:00 EDT, Height Start Date: 08/23/22 Status: Ordered naltrexone 50 mg oral tablet 1 tablet = 50 mg, By Mouth, Daily, # 90 tablet, 0 Refills, Maintenance, 07/05/22 16:59:00 EDT, [facility] #[id number], 153, cm, 06/26/22 8:40:00 EDT, Height Start Date: 07/05/22 Status: Ordered omeprazole 40 mg oral enteric coated capsule 1 capsule, By Mouth, Daily, # 90 capsule, 0 Refills, Maintenance, 08/23/22 9:31:00 EDT, [id number], 153, cm, 08/14/22 9:13:00 EDT, Height Start [...] Name: Latisha Boyce NP Position: [facility] Associate Professional Member Role: PCP Address: Address: [address] [place] [address]- Care Team Related Persons Name: TOY SANTOYO Name: CY LING Address: home [address] [place] [address] Name: MARGI WAYNE Address: home [address] [place] [address] Name: TASNEEM ALANIS Address: home [address] [place] [address]
--- OUTSIDE RECORDS SUMMARY | 2024-01-09 15:48 | XMS_ITS | Continuity of Care Document ---
Author Organization [facility] Adult Address [address] [place] [address]- Care Team Providers Care Electrical Automation Engineer Name Role Phone Latisha Boyce NP Primary Care Physician [phone] Encounter [facility] [place] Date(s): 09/19/23 - 10/19/23 [facility] Adult [address] [place] [address]- Allergies, Adverse Reactions, Alerts Substance Reaction Severity Status Imitrex Active Ultram 1 Active 1bradycardia ' Immunizations Given and Recorded Vaccine Date Status Refusal Reason [id number] 12y+ bivalent booster vax 01/04/22 Recorded SARS-CoV-2 mRNA (ejqjbpa-vxie-stxeh) vax 09/03/21 Recorded SARS-CoV-2 (COVID-19) mRNA BNT-162b2 [...] Refills, Maintenance, 09/25/23 12:47:00 EDT, Tablet, [id number], Partial fill upon patient request... Start Date: [...] Refills, Maintenance, 09/09/23 13:03:00 EDT, [facility], 155, cm, 08/12/23 7:32:00 EDT, Height, 108, [...] 09/02/23 10:06:00 EDT, Route to Pharmacy Electronically, [facility] #[id number], 155, cm, 08/12/23 7:32:00 EDT,Height, [...] Name: Latisha Boyce NP Position: [facility] Associate Professional Member Role: PCP Address: Address: [address] [place] [address]- Care Team Related Persons Name: TOY SANTOYO Name: CY LING Address: home [address] [place] [address] Name: MARGI WAYNE Address: home [address] [place] [address] Name: TASNEEM ALANIS Address: home [address] [place] [address]
--- OUTSIDE RECORDS SUMMARY | 2024-01-09 15:49 | XMS_ITS | Continuity of Care Document ---
Author Organization [facility] Address Adult Weight Managem ent [address] [place] [address]- Care Team Providers Care Button And Buckle Maker Name Role Phone Latisha Boyce NP Primary Care Physician [phone] [facility] Date(s): 08/27/23 - 09/26/23 [facility] Adult Weight Management [address] [place], [place] [address] Allergies, Adverse Reactions, Alerts Substance Reaction Severity Status Imitrex Active Ultram 1 Active 1bradycardia ' Immunizations Given and Recorded Vaccine Date Status Refusal Reason [id number] 12y+ bivalent booster vax 01/04/22 Recorded SARS-CoV-2 mRNA (utwmoxz-dtog-iyeos) vax 09/03/21 Recorded SARS-CoV-2 (COVID-19) mRNA BNT-162b2 [...] Refills, Maintenance, 09/25/23 12:47:00 EDT, Tablet, [id number], Partial fill upon patient request... Start Date: [...] 1 kit, 5 Refills, Maintenance, 05/21/23 12:30:00EDT, [facility]acy #[id number], Partial fill upon patient [...] Refills, Maintenance, 09/09/23 13:03:00 EDT, [id number], 155, cm, 08/12/23 7:32:00 EDT, Height, 108, [...] 09/02/23 10:06:00 EDT, Route to Pharmacy Electronically, [facility] #[id number], 155, cm, 08/12/23 7:32:00 EDT,Height, 108, kg, 08/30/22 19:57:00 EDT, Dry Weight Start Date: 09/02/23 Status: Ordered naltrexone 50 mg oral tablet 1 tablet, By Mouth, Daily, # 90 tablet, 1 Refills, Maintenance, 05/21/23 12:30:00 EDT, [facility]#[id number], 155, cm, 11/06/22 9:35:00 EDT, Height, 108, kg, 08/30/22 19:57:00 EDT, Dry Weight Start Date: 05/21/23 Stop Date: 11/17/23 Status: Ordered omeprazole 40 mg oral enteric coated capsule 1 capsule, By Mouth, Daily, # 90 capsule, 0 Refills, Maintenance, 08/01/23 8:06:00 EDT, [facility] #[id number], 155, cm, 07/16/23 9:38:00 [...] Personnel Name: Latisha Boyce NP Position: [facility] Associate Professional Member Role: PCP Address: Address: [address] [place] [address]- Care Team Related Persons Name: TOY SANTOYO Name: CY LING Address: home [address] [place] [address] Name: MARGI WAYNE Address: home [address] [place] [address] Name: TASNEEM ALANIS Address: home [address] [place] [address]
--- OUTSIDE RECORDS SUMMARY | 2024-01-09 15:49 | XMS_ITS | Continuity of Care Document ---
Author Organization [facility] Adult Address [address] [place] [address]- Care Team Providers Care Associate Professor Of Engineering Name Role Phone Latisha Boyce NP Primary Care Physician [place] [facility] [place](s): 11/27/22 - 12/27/22 [facility] Adult [address] [place] [address]- Attending Physician: Willis Motta Admitting Physician: AdmtrWillis Referring Physician: Admtr, Ar8 Allergies, Adverse Reactions, Alerts Substance Reaction Severity Status Imitrex Active Ultram 1 Active 1bradycardia ' Immunizations Given and Recorded Vaccine Date Status Refusal Reason [id number] 12y+ bivalent booster vax 01/04/22 Recorded SARS-CoV-2 mRNA (gcexjpy-iowy-srtrb) vax 09/03/21 Recorded SARS-CoV-2 (COVID-19) mRNA BNT-162b2 [...] 1 Refills, Maintenance, 12/06/22 14:33:00 EDT, Tablet, [facility] #[id number], Partial fill upon patient... Start Date: 12/06/22 [...] 1 kit, 5 Refills, Maintenance, 11/11/22 15:52:00EDT, [facility] #[id number], Partial fill upon patient request if the [...] 09/05/22 9:28:00 EDT, Route to Pharmacy Electronically, [facility] #[id number], Partial fill upon patient request if the [...] capsule, 0 Refills, Maintenance, 09/13/22 17:08:00 EDT, [facility] #[id number], 155, cm, 09/05/22 9:14:00 EDT, Height, 108, [...] tablet, 0 Refills, Maintenance, 11/01/22 15:49:00 EDT, [facility] #06279, 90, 1 tablet By Mouth Daily, 155, cm, 09/05/22 9:14:00 EDT, Height, 108, kg, 08/30/22 19:57:00 EDT, Dry Weight Start Date: 11/01/22 Status: Ordered levothyroxine 0.1 mg oral tablet 1 tablet, By Mouth, Daily, # 90 tablet, 1 Refills, Maintenance, 09/18/22 8:58:00 EDT, [facility] #[id number], 155, cm, 09/05/22 9:14:00 EDT, Height, 108, kg, 08/30/22 19:57:00 EDT, Dry Weight Start Date: 09/18/22 Status: Ordered lidocaine 5% topical ointment 2 TO 3 GRAMS, Topically, 3 times a day, PRN NEEDED FOR MODERATE PAIN, PT REQUESTING NON SCENTED OINTMENT, # 50 Gm, 0 Refills, Maintenance, 10/09/22 12:18:00 EDT, [facility] #[id number], 20, PT REQUESTING NON SCENTED OINMENT, 2 TO 3 GRAMS Topic... Start Date: 10/09/22 Status: Ordered lisinopril 20 mg oral tablet 1, tablet, By Mouth, Daily at bedtime, # 90 tablet, Refills 0, Tot. Refills 0, Maintenance, 11/06/22 10:13:00 EDT, Route to Pharmacy Electronically, [facility] #[id number], 155, cm, 11/06/22 9:35:00 EDT, Height, 108, kg, 08/30/22 19:57:00 EDT, . Start Date: 11/06/22 Stop Date: 02/04/23 Status: Ordered naltrexone 50 mg oral tablet 1 tablet = 50 mg, By Mouth, Daily, # 90 tablet, 0 Refills, Maintenance, 09/18/22 11:29:00 EDT, [facility] #[id number], 155, cm, 09/05/22 9:14:00 EDT, Height, 108, kg, 08/30/22 19:57:00 EDT, Dry Weight Start Date: 09/18/22 Status: Ordered omeprazole 40 mg oral enteric coated capsule 1 capsule, By Mouth, Daily, # 90 capsule, 1 Refills, Maintenance, 11/12/22 14:21:00 EDT, [facility] #[id number], 155, cm, 11/06/22 9:35:00 EDT, Height, 108, [...] Associate Professional Member Role: PCP Address: Address: [address] [place] [address]- Care Team Related Persons Name: TOY SANTOYO Name: CY LING Address: home [address] [place] [address] Name: MARGI WAYNE Address: home [address] [place] [address] Name: TASNEEM ALANIS Address: home [address] [place] [address]
--- OUTSIDE RECORDS SUMMARY | 2024-01-09 15:49 | XMS_ITS | Continuity of Care Document ---
Author Organization [facility] Adult Address [address] [place] [address]- Care Team Providers Care Candle Molder Machine Name Role Phone Latisha Boyce NP Primary Care Physician Encounter [facility] [place] Date(s): 03/08/20 - 04/07/20 [facility] Adult [address] [place] [address]- Allergies, Adverse Reactions, Alerts Substance Reaction Severity [...] 11/26/18 17:02:00 EDT, Route to Pharmacy Electronically, [id number], [facility] #[id number] Start Date: 11/26/18 Status: Ordered ARIPiprazole 2 mg oral tablet 2 mg, 1, tablet, By Mouth, Daily, # 30 tablet, Refills 1, Tot. Refills 1, Maintenance, 03/30/19 9:56:00 EST, Route to Pharmacy Electronically, [facility] #[id number], 156, cm, 01/12/19 11:15:00 EST, Height, 103.1, kg, 01/17/18 9:53:00 EST, Dry We... Start Date: 03/30/19 Stop Date: 06/28/19 Status: Ordered levothyroxine 0.088 mg oral tablet 1 tablet = 88 mcg, By Mouth, Daily, Repeat TSH in 6 weeks Dose decrease, # 30 tablet, 5 Refills, Maintenance, 09/30/19 15:30:00 EDT, Tablet, [facility] #[id number], 153, cm, 08/06/19 16:24:00 EDT, Height, 107, kg, 08/06/19 16:24:00 EDT, Dry Weight Start Date: 09/30/19 Status: Ordered levothyroxine 0.1 mg oral tablet 1 tablet = 100 mcg, By Mouth, Daily, # 90 tablet, 2 Refills, Maintenance, 03/14/20 8:40:00 EST, Tablet, [facility] #[id number], Partial fill upon patient request, 153, cm, 01/05/20 15:53:00 EST,Height, 107, kg, 08/06/19 16:24:00 EDT, Dry Weight Start Date: 03/14/20 Stop Date: 12/09/20 Status: Ordered lidocaine 5% topical ointment See Instructions, PRN Pain , Moderate, 2 to 3 g Topically 3 times a day, # 50 Gm, 1 Refills, Acute 11/01/20 13:10:00 EDT, 11/02/19 13:10:00 EDT, Ointment, [facility] #72781, 2 to 3 g Topically 3 times a day,PRN:Pain , Moderate, 153, cm, 07/18... Start Date: 11/02/19 Stop Date: 11/01/20 Status: Ordered naltrexone 50 mg oral tablet 0.5 tablet, By Mouth, Daily, for 30 days, # 15 tablet, 2 Refills, Acute 06/05/20 9:11:00 EDT, 03/07/20 9:11:00 EST, [facility] #[id number], 153, cm, 01/05/20 15:53:00 EST, Height, 107, kg, 08/06/19 16:24:00 EDT, Dry Weight Start Date: 03/07/20 Stop Date: 06/05/20 Status: Ordered omeprazole 40 mg oral enteric coated capsule 1 capsule = 40 mg, By Mouth, Daily, New script, # 30 capsule, 2 Refills, Maintenance, 03/06/20 13:47:00 EST, EC Capsule, [facility] #[id number], 153, cm, 01/05/20 15:53:00 EST, Height, 107, [...]
--- OUTSIDE RECORDS SUMMARY | 2024-01-09 15:49 | XMS_ITS | Continuity of Care Document ---
Author Organization [facility] Adult Address [address] [place] [address]- Care Team Providers Care Salvage Winder Name Role Phone Latisha Boyce NP Primary Care Physician Encounter [facility] [place] [facility] [place] R [id number] Date(s): 02/27/21 - 03/06/21 [facility] [address] [place] [address]- Encounter Diagnosis White coat syndrome without hypertension(Discharge Diagnosis) - 02/27/21 Fibromyalgia(Discharge Diagnosis) - 02/27/21 Severe obesity(Discharge Diagnosis) - 02/27/21 Attending Physician: Latisha Boyce NP Allergies, Adverse [...] 11/26/18 17:02:00 EDT, Route to Pharmacy Electronically, [id number], [facility] #[id number] Start Date: 11/26/18 Status: Ordered Aquaphor Healing topical ointment See Instructions, Apply to wound BID, # 30 mL, 0 Refills, Maintenance, 10/11/20 16:23:00 EDT, [facility] #[id number], Partial fill upon patient request if the prescription is for a schedule II opioid drug., Apply to wound BID, 153, cm, 10/11/20 1... Start Date: 10/11/20 Status: Ordered ARIPiprazole 2 mg oral tablet 2 mg, 1, tablet, By Mouth, Daily, # 30 tablet, Refills 1, Tot. Refills 1, Maintenance, 03/30/19 9:56:00 EST, Route to Pharmacy Electronically, [facility] #[id number], 156, cm, 01/12/19 11:15:00 EST, Height, 103.1, kg, 01/17/18 9:53:00 EST, Dry We... Start Date: 03/30/19 Stop Date: 06/28/19 Status: Ordered gabapentin 100 mg oral capsule 100 mg, 1, capsule, By Mouth, 3 times a day, # 90 capsule, Refills 5, Tot. Refills 5, Maintenance, 12/26/20 13:54:00 EST, Route to Pharmacy Electronically, [facility] #[id number], Partial fill upon patient request if the prescription is for a sebastian... Start Date: 12/26/20 Stop Date: 06/24/21 Status: Ordered levothyroxine 0.1 mg oral tablet 1 tablet = 100 mcg, By Mouth, Daily, # 90 tablet, 1 Refills, Maintenance, 12/14/20 12:57:00 EDT, Tablet, [facility] #[id number], Partial fill upon patient request, 153, cm, 10/11/20 15:18:00 EDT, Height, 107, kg, 08/06/19 16:24:00 EDT, Dry Weight Start Date: 12/14/20 Stop Date: 06/12/21 Status: Ordered naltrexone 50 mg oral tablet 0.5 tablet, By Mouth, Daily, # 45 tablet, 4 Refills, [facility] #[id number], 153, cm, 12/26/2112:09:00 EST, Height, 107, kg, 08/06/19 16:24:00 EDT, Dry Weight Start Date: 01/19/21 Status: Ordered omeprazole 40 mg oral enteric coated capsule 1 capsule, By Mouth, Daily, # 90 capsule, 2 Refills, Maintenance, 08/22/20 14:40:00 EDT, [facility] #[id number], 153, cm, 06/23/20 8:44:00 EDT, Height, 107, kg, 08/06/19 16:24:00 EDT, Dry Weight Start Date: 08/22/20 Stop Date: 05/19/21 Status: Ordered prochlorperazine 5 mg oral tablet 0.5 tablet = 2.5 mg, By Mouth, 3 times a day, PRN Nausea, for 10 days, # 30 tablet, 0 Refills, Acute 03/09/21 8:16:00 EST, 02/27/21 8:16:00 EST, Tablet, [facility] #[id number], Partial fill uponpatient request if the prescription is for a schedu... Start Date: 02/27/21 Stop Date: 03/09/21 Status: Ordered Problem List Condition Effective Dates Status Health Status Inform ant Depression(Confirmed) Active Fibromyalgia(Confirmed) Active Glaucoma(Confirmed) Active Hypothyroidism(Confirmed) Active White coat syndrome without hypertension(Confirmed) Active Migraine(Confirmed) Active Severe obesity(Confirmed) Active Diagnosis Diagnosis Type Effective Dates Health Status Clinical Service Informant White coat syndrome without hypertension Discharge Diagnosis 02/27/21 Fibromyalgia Discharge Diagnosis 02/27/21 Severe obesity Discharge Diagnosis 02/27/21 Vital Signs Most recent to oldest [Reference Range]: 1 2 Height 153 cm (02/27/21 7:59 AM) 153 cm (02/27/21 7:47 AM) Weight 115 kg (02/27/21 7:47 AM) Oxygen Saturation [94-100 %] 100 % (02/27/21 7:47 AM) Pulse Rate [55-90 bpm] 62 bpm (02/27/21 7:47 AM) Body Mass Index [18.5-24.99] 49.13 *>HHI* (02/27/21 7:47 AM) Blood Pressure [90-138/55-84 mm Hg] 163/ 94mm Hg *H* (02/27/21 7:59 AM) 188/188mm Hg *H* (02/27/21 7:47 AM) Mode of Delivery (Oxygen) Room air (02/27/21 7:47 AM) Blood pressure sites Arm, left (02/27/21 7:59 AM) Arm, left (02/27/21 7:47 AM) Weight Obtained Via Standing scale (02/27/21 7:47 AM) Social History Social History Type Response Smoking Status Never smoker; Tobacc o user in household: No; Type: Cigarettes entered on: 09/04/17 Sex
--- OUTSIDE RECORDS SUMMARY | 2024-01-09 15:49 | XMS_ITS | Continuity of Care Document ---
Author Organization [facility] Address [address] [place] [address]- Care Team Providers Care Pathologist Name Role Phone Latisha Boyce NP Primary Care Physician Encounter [facility] [place] Date(s[place] 11/02/21 - 11/09/21 [facility] [address] [place] [address]- Encounter Diagnosis Severe obesity(Discharge Diagnosis) - 11/02/21 HTN (hypertension)(Discharge Diagnosis) - 11/02/21 Attending Physician: Latisha Boyce NP Allergies, Adverse Reactions, Alerts Substance Reaction Severity Status Imitrex Active Ultram 1 Active 1bradycardia ' Immunizations Given and Recorded Vaccine Date Status Refusal Reason SARS-CoV-2 mRNA ([id number]) vax 09/03/21 Recorded SARS-CoV-2 (COVID-19) mRNA BNT-162b2 [...] 11/26/18 17:02:00 EDT, Route to Pharmacy Electronically, [id number], [facility] #[id number] Start Date: 11/26/18 Status: Ordered Aquaphor Healing topical ointment See Instructions, Apply to wound BID, # 30 mL, 0 Refills, Maintenance, 10/11/20 16:23:00 EDT, [facility] #[id number], Partial fill upon patient request if the prescription is for a schedule II opioid drug., Apply to wound BID, 153, cm, 10/11/20 1... Start Date: 10/11/20 Status: Ordered ARIPiprazole 2 mg oral tablet 2 mg, 1, tablet, By Mouth, Daily, # 30 tablet, Refills 1, Tot. Refills 1, Maintenance, 03/30/19 9:56:00 EST, Route to Pharmacy Electronically, [facility] #[id number], 156, cm, 01/12/19 11:15:00 EST, Height, 103.1, kg, 01/17/18 9:53:00 EST, Dry We... Start Date: 03/30/19 Stop Date: 06/28/19 Status: Ordered gabapentin 100 mg oral capsule 1, capsule, By Mouth, 3 times a day, # 84 capsule, Refills 0, Tot. Refills 0, Maintenance, 08/15/2213:29:00 EDT, Route to Pharmacy Electronically, [facility] #[id number], 153, cm, 05/02/21 10:07:00 EDT, Height Start Date: 08/15/21 Status: Ordered hydrochlorothiazide-lisinopril 12.5 mg-20 mg oral tablet 1 tablet, By Mouth, Daily, # 90 tablet, 0 Refills, Maintenance, 11/02/21 13:24:00 EDT, Tablet, [facility] #[id number], Partial fill upon patient request if the prescription is for a schedule II opioid drug., 1 tablet By Mouth Daily,x90 days, 153,... Start Date: 11/02/21 Stop Date: 01/31/22 Status: Ordered levothyroxine 0.1 mg oral tablet 1 tablet = 100 mcg, By Mouth, Daily, # 90 tablet, 1 Refills, Maintenance, 06/11/21 21:02:00 EDT, Tablet, [facility] #[id number], Partial fill upon patient request, 153, cm, 05/02/21 10:07:00 EDT, Height, 107, kg, 08/06/19 16:24:00 EDT, Dry Weight Start Date: 06/11/21 Stop Date: 12/08/21 Status: Ordered lidocaine 5% topical ointment 2 TO 3 GRAMS, Topically, 3 times a day, PRN NEEDED FOR MODERATE PAIN, # 50 Gm, 0 Refills, [facility] #[id number], 20, APPLY 2 TO 3 GRAMS TOPICALLY THREE TIMES DAILY NEEDED FOR MODERATE PAIN, 153, cm, 05/02/21 10:07:00 EDT, Height Start Date: 09/12/21 Status: Ordered lisinopril 20 mg oral tablet 20 mg, 1, tablet, By Mouth, Daily, # 90 tablet, Refills 2, Tot. Refills 2, Maintenance, 05/02/21 10:25:00 EDT, Route to Pharmacy Electronically, [facility] #[id number], Partial fill upon patientrequest if the prescription is for a schedule II op... Start Date: 05/02/21 Stop Date: 01/27/22 Status: Ordered naltrexone 50 mg oral tablet 0.5 tablet, By Mouth, Daily, # 45 tablet, 4 Refills, [facility] #[id number], 153, cm, 12/26/2112:09:00 EST, Height, 107, kg, 08/06/19 16:24:00 EDT, Dry Weight Start Date: 01/19/21 Status: Ordered omeprazole 40 mg oral enteric coated capsule 1 capsule, By Mouth, Daily, # 90 capsule, 0 Refills, 09/27/21 6:14:00 EDT, [facility] #[id number], 153, cm, 05/02/21 10:07:00 EDT, Height Start Date: 09/27/21 Status: Ordered Problem List Condition Effective Dates Status Health Status Inform ant Depression(Confirmed) Active Fibromyalgia(Confirmed) Active Glaucoma(Confirmed) Active HTN (hypertension)(Confirmed) Active Hypothyroidism(Confirmed) Active Migraine(Confirmed) Active Severe obesity(Confirmed) Active Diagnosis Diagnosis Type Effective Dates Health Status Cl inical Service Informant Severe obesity Discharge Diagnosis 11/02/21 HTN (hypertension) Discharge Diagnosis 11/02/21 Vital Signs Most recent to oldest [Reference Range]: 1 2 Height 153 cm (11/02/21 1:27 PM) 153 cm (11/02/21 12:43 PM) Blood Pressure [90-138/55-84 mm Hg] 184/ 85mm Hg *H* (11/02/21 1:27 PM) Blood pressure sites Arm, left (11/02/21 1:27 PM) Weight Obtained Via Patient/family state d (11/02/21 12:43 PM) Social History Social History Type Response Smoking Status Never smoker; Tobacc o user in household: No; Type: Cigarettes entered on: 09/04/17 Sex Care Team Personnel Name: Latisha Boyce NP Address: [address] [place] [address]
--- OUTSIDE RECORDS SUMMARY | 2024-01-09 15:49 | XMS_ITS | Continuity of Care Document ---
Author Organization [facility] Address [address] [facility], [address], [address] [place] [address]- Care Team Providers Care Moulder Operator Name Role Phone Latisha Boyce NP Primary Care Physician Encounter [facility] Date(s): 04/24/22 - 05/24/22 [facility] [address], [address], [address] [place] [id number] Attending Physician: Willis Motta Admitting Physician: Admtr, ArDella Referring Physician: Admtr, Ar8 Allergies, Adverse Reactions, Alerts Substance Reaction Severity Status Imitrex Active Ultram 1 Active 1bradycardia ' Immunizations Given and Recorded Vaccine Date Status Refusal Reason SARS-CoV-2 mRNA ([id number]) vax 09/03/21 Recorded SARS-CoV-2 (COVID-19) mRNA BNT-162b2 [...] 0 Refills, Maintenance, 03/18/22 10:48:00 EST, Tablet, [facility] #[id number], Partial fill upon patient... Start Date: 03/18/22 [...] 11/26/18 17:02:00 EDT, Route to Pharmacy Electronically, [id number], [facility] #[id number] Start Date: 11/26/18 Status: Ordered Aquaphor Healing topical ointment See Instructions, Apply to wound BID, # 30 mL, 0 Refills, Maintenance, 10/11/20 16:23:00 EDT, [facility] #[id number], Partial fill upon patient request if the prescription is for a schedule II opioid drug., Apply to wound BID, 153, cm, 10/11/20 1... Start Date: 10/11/20 Status: Ordered ARIPiprazole 2 mg oral tablet 2 mg, 1, tablet, By Mouth, Daily, # 30 tablet, Refills 1, Tot. Refills 1, Maintenance, 03/30/19 9:56:00 EST, Route to Pharmacy Electronically, [facility] #[id number], 156, cm, 01/12/19 11:15:00 EST, Height, 103.1, kg, 01/17/18 9:53:00 EST, Dry We... Start Date: 03/30/19 Stop Date: 06/28/19 Status: Ordered gabapentin 100 mg oral capsule 1, capsule, By Mouth, 3 times a day, # 84 capsule, Refills 0, Maintenance, 03/07/22 12:37:00 EST, Route to Pharmacy Electronically, [facility] #[id number], 153, cm, 02/14/22 8:17:00 EST, Height Start Date: 03/07/22 Status: Ordered gabapentin 100 mg oral capsule See Instructions, TAKE 1 CAPSULE BY MOUTH THREE TIMES DAILY, # 84 capsule, Refills 0, Maintenance, 03/09/22 8:29:00 EST, Instructions Replace Required Details, Route to Pharmacy Electronically, [facility] #[id number], 153, cm, 02/14/22 8:17:00 ES... Start Date: 03/09/22 Status: Ordered hydrochlorothiazide-lisinopril 12.5 mg-20 mg oral tablet 1 tablet, By Mouth, Daily, # 90 tablet, 0 Refills, Maintenance, 04/23/22 18:02:00 EST, [facility] #[id number], 90, TAKE 1 TABLET BY MOUTH DAILY, 153, cm, 02/14/22 8:17:00 EST, Height Start Date: 04/23/22 Status: Ordered levothyroxine 0.1 mg oral tablet 1 tablet = 100 mcg, By Mouth, Daily, # 90 tablet, 1 Refills, Maintenance, 12/17/21 10:02:00 EDT, Tablet, [facility] #[id number], Partial fill upon patient request, 153, cm, 12/12/21 8:30:00 EDT,Height Start Date: 12/17/21 Stop Date: 06/15/22 Status: Ordered lidocaine 5% topical ointment 2 TO 3 GRAMS, Topically, 3 times a day, PRN NEEDED FOR MODERATE PAIN, PT REQUESTING NON SCENTED OINTMENT, # 50 Gm, 0 Refills, Maintenance, 04/23/22 10:43:00 EST, [facility] #[id number], 20, PT REQUESTING NON SCENTED OINMENT, 2 TO 3 GRAMS Topic... Start Date: 04/23/22 Status: Ordered lisinopril 20 mg oral tablet 1, tablet, By Mouth, Daily, # 90 tablet, Refills 2, Maintenance, 02/14/22 12:16:00 EST, Route to Pharmacy Electronically, [facility] #[id number], 153, cm, 02/14/22 8:17:00 EST, Height Start Date: 02/14/22 Status: Ordered naltrexone 50 mg oral tablet 0.5 tablet, By Mouth, Daily, # 45 tablet, 4 Refills, [facility] #[id number], 153, cm, 12/26/2112:09:00 EST, Height, 107, kg, 08/06/19 16:24:00 EDT, Dry Weight Start Date: 01/19/21 Status: Ordered omeprazole 40 mg oral enteric coated capsule 1 capsule, By Mouth, Daily, # 90 capsule, 0 Refills, Maintenance, 03/08/22 17:03:00 EST, [facility] #[id number], 153, cm, 02/14/22 8:17:00 EST, Height Start [...] Associate Professional Member Role: PCP Address: Address: [address] [place] [id number]- Care Team Related Persons Name: TOY SANTOYO Name: CY LING Address: home [address] [place] [address] Name: MARGI WYANE Address: [address] [place] [address] Name: TASNEEM ALANIS Address: [address] [place] [address]
== END 2024-01-09 15:48 | disposition home or self-care (01) ==
LOC: HO.ED 15:42
PROVIDERS: Emergency Provider Emergency Medicine; PCP Nurse Practitioner Family
DX: G50.1 Atypical facial pain (principal)
CPT/HCPCS: 99283